=== PATIENT | female | born 1945 | race Caucasian/White ===

== ENCOUNTER 2022-03-09 10:01 | Emergency (ER) | payer OTHER, MEDICARE ==
--- OUTSIDE RECORDS SUMMARY | 2022-03-09 10:09 | XMS REPORT | Continuity of Care Document ---
:1945 Author Organization [facility] t Address [address] [place] [address] Care Team Providers Name Role Phone [phone] Primary Care Physician Unavailable SYSTEM, PROVIDER NOT IN Attending Clinician Unavailable RAMBO DE LA CRUZ Attending Clinician Unavailable KATELIN LUX Attending Clinician Unavailable _[facility]_Yadi Attending Clinician Unavailable Attending Clinician [phone] SHARON CABRAL Attending Clinician Unavailable Nadine Arceo Attending Clinician Unavailable Lesvia Son MD Attending Clinician Mark Ordonez DO Attending Clinician DUDLEY NG Attending Clinician Unavailable KENYATTA KURTZ Attending Clinician Unavailable MD KENYATTA KURTZ Attending Clinician Unavailable TERE OH Attending Clinician Unavailable Lab, Pcp Michael Attending Clinician Unavailable Chase Burton MD Attending Clinician CHASE BURTON Attending Clinician Unavailable SHANE STOCKTON Attending Clinician Unavailable ROSHAN OVIEDO Attending Clinician Unavailable JORJE MILES Attending Clinician Unavailable Doctor Unassigned, Bray Attending Clinician Unavailable UNKNOWN, ATTENDING Attending Clinician Unavailable Unknown, Attending Attending Clinician Unavailable Noemi Nova DO Attending Clinician CARL ROY Attending Clinician Unavailable LIZETH LOUIS Attending Clinician Unavailable KALA DAMICO Attending Clinician Unavailable MANOJ HANLEY Attending Clinician Unavailable Anuja Sweet Attending Clinician [phone] Maty Marroquin RN Attending Clinician Rich Sequeira MD Attending Clinician Raymond Mckeon S Attending Clinician Margarito Soto MD Attending Clinician Tarik Murphy S Attending Clinician CECILY SCHULTZ M.D. Attending Clinician Unavailable JOSHUA JOHNSTON Attending Clinician Unavailable AYAN LONDON Attending Clinician Unavailable NURA SULLIVAN M.D. Attending Clinician Unavailable RAMBO DE LA CRUZ Admitting Clinician Unavailable [email or web address] Admitting Clinician Unavailable KENYATTA KURTZ Admitting Clinician Unavailable MD KENYATTA KURTZ Admitting Clinician Unavailable CARL ROY Admitting Clinician Unavailable LIZETH LOUIS Admitting Clinician Unavailable KALA DAMICO Admitting Clinician Unavailable MANOJ HANLEY Admitting Clinician Unavailable Raymond Mckeon Admitting Clinician Payers Payer Name Policy Type Policy Number Effective Date Expiration Date Roland quinonez MEDICARE A B [id number] 2009 2018 00:00:00 00:00:00 [facility] [id number] 2009 HEALTHCARE 00:00:00 MEDICARE PART A [id number] 2009 AND B 00:00:00 [facility] [id number] 2009 ONLY 00:00:00 [place]ICARE B-[place]: [id number] 2009 [employer] 00:00:00 [facility] [id number] 2015 OPTIONS (MEDICARE 00:00:00 SUPPLEMENT) Problems Condition Condition Condition Status Onset Resolution Last Treating Co mments Source Name Details Category Date Date Treatment Clinician Date Decreased Decreased Disease Active Met hodi mobility mobility 01-16 and and 00:00: Hospita endurance endurance 00 l Impaired Impaired Disease Active Metho di functional functional 9-16 st mobility, mobility, 00:00: Hosp aris balance, balance, 00 l gait, and gait, and endurance endurance Vertigo Vertigo Disease Active Methodi 9-14 st 00:00: Hospita 00 l Partial Partial Disease Active Methodi tear tear 10-22 st gluteal gluteal 00:00: Hospita tendons, tendons, 00 l left side left side Vertigo Vertigo Disease Active [facility] 909 ity of 00:00: [place] 00 Medical Branch PAD PAD Disease Active [facility] (periphera (periphera 4-11 [facility] l artery l artery 00:00: Medica l disease) disease) 00 Center Right hip Right hip Disease Active Uni vers pain pain 3 ity of 00:00: [place] 00 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 00:00: Me dical a a 00 Center Right Right Problem Active [facility] shoulder shoulder Physic i pain pain ans Primary Primary Problem Active [facility] osteoarthr osteoarthr Ph ysici itis of itis of ans right right shoulder shoulder Allergies, Adverse Reactions, Alerts Allergy Allergy Status Severity Reaction(s) Onset Inactive Treating Comm ents Source Name Type Date Date Clinician Sulfa Propensi Active Unknown - Unive rs (Sulfona ty to See comments 11-18 it y of mide adverse 00:00: [place] Antibiot reaction 00 Medica l ics) s Branch SULFA Drug Active Unknown-Cmnt Univ ers (SULFONA Class - ity of MIDE 00:00: [place] ANTIBIOT 00 Medical ICS) Branch Sulfa Propensi Active Other (See Meth giancarlo (Sulfona ty to Comments) 11-18 st mide adverse 00:00: Hospita Antibiot reaction 00 l ics) s to drug CODEINE DRUG Active Nausea 2016-0 MD INGREDI 6-22 Anderso 00:00: n 00 PENICILL Drug Active Nausea 2016-0 MD INS Class 6-22 Anderso 00:00: n 00 CODEINE DRUG Active Nausea 2016-0 MD INGREDI 6-22 Anderso 00:00: n 00 PENICILL Drug Active Nausea 2016-0 MD INS Class 6-22 Anderso 00:00: n 00 CODEINE DRUG Active Nausea 2016-0 MD INGREDI 6-22 Anderso 00:00: n 00 PENICILL Drug Active Nausea 2016-0 MD INS Class 6-22 Anderso 00:00: n 00 CODEINE DRUG Active Nausea 2016-0 MD INGREDI 6-22 Anderso 00:00: n 00 PENICILL Drug Active Nausea 2016-0 MD INS Class 6-22 Anderso 00:00: n 00 CODEINE DRUG Active Nausea 2016-0 MD INGREDI 6-22 Anderso 00:00: n 00 PENICILL Drug Active Nausea 2016-0 MD INS Class 6-22 Anderso 00:00: n 00 CODEINE DRUG Active Nausea 2016-0 MD INGREDI 6-22 Anderso 00:00: n 00 PENICILL Drug Active Nausea 2016-0 MD INS Class 6-22 Anderso 00:00: n 00 CODEINE DRUG Active Nausea 2016-0 MD INGREDI 6-22 Anderso 00:00: n 00 PENICILL Drug Active Nausea 2016-0 MD INS Class 6-22 Anderso 00:00: n 00 Penicill Propensi Active Nausea 2013-0 Other Univer s ins ty to and/or 07 reaction( ity of adverse Vomiting 00:00: s): GI [place] reaction 00 Intoleran Medic al s ce Branch PENICILL Drug Active Low N/V 2013-0 Univers INS Class 4-07 ity of 00:00: [place] 00 Medical Branch CODEINE Allergy Active Low N\\T\\V 2013-[address] [facility] 4[facility]07 [facility] 00:[facility]: Medical 00 Center PENICILL Allergy Active Low N\\T\\V 2013-[address] [facility] [facility] INS 4-07 [facility] 00:00: Medical 00 [place] Codeine Drug Active Nausea And 2013-0 [facility] Allergy Vomiting 4-07 [facility] 00:00: Medical 00 [place] Penicill Drug Active Nausea And 2014-[address] [facility] [facility] ins Allergy Vomiting 4-07 [facility] 00:[facility]: Medical 00 Center Penicill Propensi Active Other (See Other Me thodi ins ty to Comments) 08-07 reaction( st adverse 00:00: s): GI Hospita reaction 00 Intoleran l s to ce drug Codeine Propensi Active Nausea Other Univers ty to and/or 12-30 reaction( ity of adverse Vomiting 00:00: s): GI [place] reaction 00 Intoleran Medic al s ce Branch CODEINE DRUG Active Low N/V Univers INGREDI 8 ity of 00:00: [place] 00 Medical Branch Codeine Propensi Active Other (See Other Met hodi ty to Comments) 12-30 reaction( st adverse 00:00: s): GI Hospita reaction 00 Intoleran l s to ce drug Family History Family Member Diagnosis Comments Start Date Stop Date Source Natural brother Heart attack [facility] Natural father No Known Problems Met [facility] Natural mother Heart disease [facility] Social History Social Habit Start Date Stop Date Quantity Comments Source History of tobacco Cigarette Smoker Sikhism use Hospital History SDRI Sikhism Alcohol Std Drinks Hospit al History SD[facility]ism Alcohol Binge Hospital Alcohol intake 2020-10-04 2020-10-04 Lifetime Sikhism 00:00:00 00:00:00 non-drinker Hospital (finding) History SDRI 2020-02-01 2020-02-01 1 Sikhism Alcohol Frequency 00:00:00 00:00:00 Hospita l Tobacco use and 2019-06-14 2019-06-[address] [facility] kes exposure 00:00:00 00:00:00 [facility] Tobacco Comment 2019-06-14 2019-06-14 quit > [address] [facility] 00:00:00 00:00:00 [facility] Cigarettes smoked 2019-06-05 2019-06-05 Univers ity of current (pack per 00:00:00 00:00:00 [facility] ) - Reported Branch Cigarette 2019-06-05 2019-06-05 University of pack-years 00:00:00 00:00:00 [facility] Sex Ass[birth year] At [birth year] Sikhism 00:00:00 00:00:00 Hospital Smoking Status Start Date Stop Date Source Former smoker 2019-06-05 00:00:00 2019-06-05 00:00:00 [facility] Medications Ordered Filled Start Stop Current Ordering Indication Dosage Frequency Signature Comments Components Source Medication Medication Date Date Medication? Clinician (SIG) Name Name metoprolol Yes 25mg QD Take [address] (TOPROL-XL) 6-03 by mouth Luke s 25 MG 24 hr 13:55: daily . Med ical tablet 21 Center BIFIDOBACTE Yes QD Take by [facility] RIUM 6-03 mouth [facility] INFANTIS 13:55: daily . Medica l (ALIGN 21 Center ORAL) multivitami Yes 1{capsu QD Take [address] n capsule 6- le} capsule by Luke s 13:55: mouth Medical 21 daily Center ALIVE MVI ONCE DAILY PO. atorvastati Yes 40mg QD Take [address] n (LIPITOR) 6-03 by mouth Luke s 40 MG 13:55: daily. Medical tablet 21 Center SERTRALINE Yes 50mg QD Take [address] HCL 6-03 by mouth [facility] (SERTRALINE 13:55: daily . Med ical ORAL) 21 Center zolpidem Yes 10mg Take [address] (AMBIEN) 10 603 by mouth Luke s mg tablet 13:55: every Medical 21 night as Center needed. estradiol Yes Place [facility] (ESTRACE) 6- vaginally [facility] 0.01 % (0.1 13:55: as needed M edical mg/gram) 21 . Center vaginal cream SENNOSIDES Yes Take by [facility] (SENOKOT 6-03 mouth as [facility] ORAL) 13:55: needed. Medical 21 Center cholecalcif Yes QD Take by [facility] janet, 6-03 mouth [facility] vitamin D3, 13:55: daily. Medi paramjit 2,000 unit 21 Center Cap ascorbic Yes 500mg QD Take [address] acid, 6-03 mg by [facility] vitamin C, 13:55: mouth Medica l (ASCORBIC 21 daily. Center ACID WITH PRERNA HIPS) 500 MG tablet rosuvastati Yes 10mg QD Take [address] n (CRESTOR) 6-03 by mouth Luke s 10 MG 13:55: daily. Medical tablet 21 Center estrogens, Yes Place [facility] conjugated 6-03 vaginally. Matt es (PREMARIN 13:55: Medical VAGL) 21 Center Missing or Yes Stool [facility] Non-Formula 6-03 softener Luke s ry 13:55: as needed Medical Medication 21 . [place] metoprolol Yes [id number] 25mg Take 1 U nivers succinate 1-14 tablet by ity o f XL 25 mg 24 00:00: mouth [place] hr tablet 00 daily. Medical Branch senna 2019-05 Yes 1{tbl} Take 1 Methodi (SENOKOT) 0-[address] 8.6 mg 14:02: mouth. Hospita tablet 19 l aspirin 2019-05 Yes 81mg Take 81 mg Meth giancarlo (ECOTRIN) 0-[address] 81 MG 14:02: Hospita enteric 19 l coated tablet ascorbic 2019-05 Yes 500mg Take 500 Meth giancarlo acid, 0-[address] vitamin C, 14:02: mouth. Hospi ta (VITAMIN C) 19 l 500 MG tablet traMADoL 2019-05 Yes [id number] 50mg Q6H Take 50 mg Me thodi (ULTRAM) 50 0-[address] mg tablet 14:02: every 6 Hospi ta 19 (six) l hours as needed for moderate pain .acute pain. dexlansopra Yes Method i zole 6-20 st (DEXILANT) 00:00: Hospita 60 mg 00 l capsule LOVAZA, 2020- No [id number] 2g Take 2 Un imtiaz omega-3-aci -28 - capsules ity of d ethyl 00:00: 04:59 by mouth 2 [place] as esters, 1 00 :00 (two) Medical gram times Branch capsule daily for 90 days. LOVAZA, 2019- No [id number] 2g Take 2 Un imtiaz omega-3-aci -28 -28 capsules ity of d ethyl 00:00: 04:59 by mouth 2 [place] as esters, 1 00 :00 (two) Medical gram times Branch capsule daily for 90 days. LOVAZA, 2019- No [id number] 2g Take 2 Un imtiaz omega-3-aci 4-28 07-28 capsules ity of d ethyl 00:00: 04:59 by mouth 2 [place] as esters, 1 00 :00 (two) Medical gram times Branch capsule daily for 90 days. LOVAZA, 2019- No [id number] 2g Take 2 Un imtiaz omega-3-aci 08-28 capsules ity of d ethyl 00:00: 04:59 by mouth 2 [place] as esters, 1 00 :00 (two) Medical gram times Branch capsule daily for 90 days. LOVAZA, 2019- No 2g Take 2 g Unive rs omega-3-aci 2 02-03 by mouth. it y of d ethyl 21:04: 00:00 [place] esters, 1 57 :00 Medical gram Branch capsule LOVAZA, 2019- No 2g Take 2 g Unive rs omega-3-aci 203 by mouth. it y of d ethyl 21:04: 00:00 [place] esters, 1 57 :00 Medical gram Branch capsule LOVAZA, 2019- No 2g Take 2 g Unive rs omega-3-aci 06-05 by mouth. it y of d ethyl 21:04: 00:00 [place] esters, 1 57 :00 Medical gram Branch capsule LOVAZA, 2019- No 2g Take 2 g Unive rs omega-3-aci 203 -03 by mouth. it y of d ethyl 21:04: 00:00 [place] esters, 1 57 :00 Medical gram Branch capsule zolpidem 10 2019- No 10mg Take 10 mg Univers mg tablet 06-05 by mouth. ity of 20:39: 00:00 34 :00 Medical Branch zolpidem 10 2019- No 10mg Take 10 mg Univers mg tablet 06-05 by mouth. ity of 20:39: 00:00 34 :00 Medical Branch zolpidem 10 2019- No 10mg Take 10 mg Univers mg tablet 06-05 by mouth. ity of 20:39: 00:00 34 :00 Medical Branch zolpidem 10 2020- No 10mg Take 10 mg Univers mg tablet 06-05 by mouth. ity of 20:39: 00:00 [place] 34 :00 Medical Branch metoprolol 2020-0 Yes [id number] 25mg Take 1 U nivers succinate 2-03 tablet by ity o f XL 25 mg 24 00:00: mouth [place] hr tablet 00 daily. Medical Branch zolpidem 2020-0 Yes [id number] 5mg Take 1 Uni vers (AMBIEN) 5 2-03 tablet by ity of mg tablet 00:00: [place] bedtime as Medical needed for Branch Insomnia. metoprolol 2020-0 Yes [id number] 25mg Take 1 U nivers succinate 2-03 tablet by ity o f XL 25 mg 24 00:00: mouth [place] hr tablet 00 daily. Medical Branch zolpidem 2020-0 Yes [id number] 5mg Take 1 Uni vers (AMBIEN) 5 2-03 tablet by ity of mg tablet 00:00: [place] 00 bedtime as Medical needed for Branch Insomnia. metoprolol 2020-0 Yes [id number] 25mg Take 1 U nivers succinate 2-03 tablet by ity o f XL 25 mg 24 00:00: mouth [place] hr tablet 00 daily. Medical Branch zolpidem 2020-0 Yes [id number] 5mg Take 1 Uni vers (AMBIEN) 5 2-03 tablet by ity of mg tablet 00:00: mouth [place] 00 bedtime as Medical needed for Branch Insomnia. metoprolol 2020-0 Yes [id number] 25mg Take 1 U nivers succinate 2-03 tablet by ity o f XL 25 mg 24 00:00: mouth [place] hr tablet 00 daily. Medical Branch zolpidem 2020-0 Yes [id number] 5mg Take 1 Uni vers (AMBIEN) 5 2-03 tablet by ity of mg tablet 00:00: mouth [place] 00 bedtime as Medical needed for Branch Insomnia. metoprolol 2020-0 Yes [id number] 25mg Take 1 U nivers succinate 2-03 tablet by ity o f XL 25 mg 24 00:00: mouth [place] hr tablet 00 daily. Medical Branch zolpidem 2020-0 Yes [id number] 5mg Take 1 Uni vers (AMBIEN) 5 2-03 tablet by ity of mg tablet 00:00: mouth [place] 00 bedtime as Medical needed for Branch Insomnia. metoprolol 2020-0 Yes [id number] 25mg Take 1 U nivers succinate 2-03 tablet by ity o f XL 25 mg 24 00:00: mouth [place] hr tablet 00 daily. Medical Branch zolpidem Yes [id number] 5mg Take 1 Uni vers (AMBIEN) 5 2-03 tablet by ity of mg tablet 00:00: mouth [place] 00 bedtime as Medical needed for Branch Insomnia. metoprolol Yes [id number] 25mg Take 1 U nivers succinate 2-03 tablet by ity o f XL 25 mg 24 00:00: mouth [place] hr tablet 00 daily. Medical Branch zolpidem Yes [id number] 5mg Take 1 Uni vers (AMBIEN) 5 2-03 tablet by ity of mg tablet 00:00: mouth [place] 00 bedtime as Medical needed for Branch Insomnia. zolpidem Yes [id number] 5mg Take 1 Uni vers (AMBIEN) 5 2-03 tablet by ity of mg tablet 00:00: [place] 00 bedtime as Medical needed for Branch Insomnia. zolpidem Yes 5mg Take 5 mg Meth giancarlo (AMBIEN) 5 2-[address] MG tablet 00:00: Hospita 00 l metoprolol 2020- No [id number] 25mg Take 1 Univers succinate 2-03 01-14 tablet by ity of XL 25 mg 24 00:00: 00:00 [place] hr tablet 00 :00 daily. Medical Branch LOVAZA, 2020- No [id number] 2g Take 2 Un imtiaz omega-3-aci 2-03 03-05 capsules ity of d ethyl 00:00: 05:59 by mouth 2 [place] as esters, 1 00 :00 (two) Medical gram times Branch capsule daily for 30 days. LOVAZA, 2020- No [id number] 2g Take 2 Un imtiaz omega-3-aci 2-03 03-05 capsules ity of d ethyl 00:00: 05:59 by mouth 2 [place] as esters, 1 00 :00 (two) Medical gram times Branch capsule daily for 30 days. calcium 2018-05 Yes [id number] 1{tbl} Take 1 Un imtiaz carbonate-v 2-27 tablet by ity of itamin D3 00:00: mouth [place] 600 mg 00 daily. Medical (1,500 Branch mg)-800 unit per tablet calcium 2018-05 Yes [id number] 1{tbl} Take 1 Un imtiaz carbonate-v 2-27 tablet by ity of itamin D3 00:00: mouth [place] 600 mg 00 daily. Medical (1,500 Branch mg)-800 unit per tablet calcium 2018-05 Yes [id number] 1{tbl} Take 1 Un imtiaz carbonate-v 2-27 tablet by ity of itamin D3 00:00: mouth [place] 600 mg 00 daily. Medical (1,500 Branch mg)-800 unit per tablet calcium 2018-05 Yes [id number] 1{tbl} Take 1 Un imtiaz carbonate-v 2-27 tablet by ity of itamin D3 00:00: mouth [place] 600 mg 00 daily. Medical (1,500 Branch mg)-800 unit per tablet calcium 2018-05 Yes [id number] 1{tbl} Take 1 Un imtiaz carbonate-v 2-27 tablet by ity of itamin D3 00:00: mouth [place] 600 mg 00 daily. Medical (1,500 Branch mg)-800 unit per tablet calcium 2018-05 Yes [id number] 1{tbl} Take 1 Un imtiaz carbonate-v 2-27 tablet by ity of itamin D3 00:00: mouth [place] 600 mg 00 daily. Medical (1,500 Branch mg)-800 unit per tablet calcium 2018-05 Yes [id number] 1{tbl} Take 1 Un imtiaz carbonate-v 2-27 tablet by ity of itamin D3 00:00: mouth [place] 600 mg 00 daily. Medical (1,500 Branch mg)-800 unit per tablet calcium 2018-05 Yes [id number] 1{tbl} Take 1 Un imtiaz carbonate-v 2-27 tablet by ity of itamin D3 00:00: mouth [place] 600 mg 00 daily. Medical (1,500 Branch mg)-800 unit per tablet calcium 2018-05 Yes [id number] 1{tbl} Take 1 Un imtiaz carbonate-v 2-27 tablet by ity of itamin D3 00:00: mouth [place] 600 mg 00 daily. Medical (1,500 Branch mg)-800 unit per tablet calcium 2018-05 Yes [id number] 1{tbl} Take 1 Un imtiaz carbonate-v 2-27 tablet by ity of itamin D3 00:00: mouth [place] 600 mg 00 daily. Medical (1,500 Branch mg)-800 unit per tablet calcium 2018-05 Yes [id number] 1{tbl} Take 1 Un imtiaz carbonate-v 2-27 tablet by ity of itamin D3 00:00: mouth [place] 600 mg 00 daily. Medical (1,500 Branch mg)-800 unit per tablet calcium 2018-05 Yes [id number] 1{tbl} Take 1 Un imtiaz carbonate-v 2-27 tablet by ity of itamin D3 00:00: mouth [place] 600 mg 00 daily. Medical (1,500 Branch mg)-800 unit per tablet acyclovir 2018-05 Yes [id number] Apply to Univers % ointment 2-19 area(s) 5 ity of 00:00: (five) [place] 00 times Medical daily. [place] estradiol 2018-05 Yes [id number] 2g Insert 2 g Univers 0.01 % (0.1 2-19 into ity of mg/gram) 00:00: vagina [place] vaginal 00 weekly. Medical cream [place] acyclovir 2018-05 Yes [id number] Apply to Univers % ointment 2-19 area(s) 5 ity of 00:00: (five) [place] 00 times Medical daily. [place] estradiol 2018-05 Yes [id number] 2g Insert 2 g Univers 0.01 % (0.1 2-19 into ity of mg/gram) 00:00: vagina [place] vaginal 00 weekly. Medical cream [place] acyclovir 2018-05 Yes [id number] Apply to Univers % ointment 2-19 area(s) 5 ity of 00:00: (five) [place] 00 times Medical daily. [place] estradiol 2018-05 Yes [id number] 2g Insert 2 g Univers 0.01 % (0.1 2-19 into ity of mg/gram) 00:00: vagina [place] vaginal 00 weekly. Medical cream [place] acyclovir 2018-05 Yes [id number] Apply to Univers % ointment 2-19 area(s) 5 ity of 00:00: (five) [place] 00 times Medical daily. [place] estradiol 2018-05 Yes [id number] 2g Insert 2 g Univers 0.01 % (0.1 2-19 into ity of mg/gram) 00:00: vagina [place] vaginal 00 weekly. Medical cream [place] acyclovir 2018-05 Yes [id number] Apply to Univers % ointment 2-19 area(s) 5 ity of 00:00: (five) [place] 00 times Medical daily. Branch estradiol 2018-05 Yes [id number] 2g Insert 2 g Univers 0.01 % (0.1 2-19 into ity of mg/gram) 00:00: vagina [place] vaginal 00 weekly. Medical cream [place] acyclovir 2018-05 Yes [id number] Apply to Univers % ointment 2-19 area(s) 5 ity of 00:00: (five) [place] 00 times Medical daily. Branch estradiol 2018-05 Yes [id number] 2g Insert 2 g Univers 0.01 % (0.1 2-19 into ity of mg/gram) 00:00: vagina [place] vaginal 00 weekly. Medical cream [place] acyclovir 2018-05 Yes [id number] Apply to Univers % ointment 2-19 area(s) 5 ity of 00:00: (five) [place] 00 times Medical daily. Branch estradiol 2018-05 Yes [id number] 2g Insert 2 g Univers 0.01 % (0.1 2-19 into ity of mg/gram) 00:00: vagina [place] vaginal 00 weekly. Medical cream [place] acyclovir 2018-05 Yes [id number] Apply to Univers % ointment 2-19 area(s) 5 ity of 00:00: (five) [place] 00 times Medical daily. Branch estradiol 2018-05 Yes [id number] 2g Insert 2 g Univers 0.01 % (0.1 2-19 into ity of mg/gram) 00:00: vagina [place] vaginal 00 weekly. Medical cream [place] acyclovir 2018-05 Yes [id number] Apply to Univers % ointment 2-19 area(s) 5 ity of 00:00: (five) [place] 00 times Medical daily. Branch estradiol 2018-05 Yes [id number] 2g Insert 2 g Univers 0.01 % (0.1 2-19 into ity of mg/gram) 00:00: vagina [place] vaginal 00 weekly. Medical cream [place] acyclovir 2018-05 Yes [id number] Apply to Univers % ointment 2-19 area(s) 5 ity of 00:00: (five) [place] 00 times Medical daily. Branch estradiol 2018-05 Yes [id number] 2g Insert 2 g Univers 0.01 % (0.1 2-19 into ity of mg/gram) 00:00: vagina [place] vaginal 00 weekly. Medical cream Branch acyclovir 5 2018-05 Yes [id number] Apply to Univers % ointment 2-19 area(s) 5 ity of 00:00: (five) [place] 00 times Medical daily. Branch estradiol 2018-05 Yes [id number] 2g Insert 2 g Univers 0.01 % (0.1 2-19 into ity of mg/gram) 00:00: vagina [place] vaginal 00 weekly. Medical cream Branch acyclovir 5 2018-05 Yes [id number] Apply to Univers % ointment 2-19 area(s) 5 ity of 00:00: (five) [place] 00 times Medical daily. Branch estradiol 2018-05 Yes [id number] 2g Insert 2 g Univers 0.01 % (0.1 2-19 into ity of mg/gram) 00:00: vagina [place] vaginal 00 weekly. Medical cream Branch estradioL 2018-05 Yes 2g Insert 2 g Me thodi (ESTRACE) 2-[address] 0.01 % (0.1 00:00: vagina. Hos marshall mg/gram) 00 l vaginal cream atorvastati 2018-05 Yes [id number] 40mg Take 1 Univers n 40 mg 2-17 tablet by ity of tablet 00:00: mouth at [place] 00 bedtime. Medical Branch metoprolol 2018-05 Yes [id number] 25mg Take 1 U nivers succinate 2-17 tablet by ity o f XL 25 mg 24 00:00: mouth [place] hr tablet 00 daily. Medical Branch SERTraline 2018-05 Yes [id number] 100mg Take 1 Univers 100 mg 2-17 tablet by ity of tablet 00:00: mouth [place] 00 daily. Medical Take 1/2 Branch tablet daily predniSONE 2018-05 Yes [id number] Take 30 mg Univers 10 mg 2-17 (3 tabs) Q ity of tablet pack 00:00: AM x 3 [place] 00 days, Medical followed Branch by 20 mg (2 tabs) Q AM x 3 days followed by 10 mg (1 tab) x 3 days then stop atorvastati 2018-05 Yes [id number] 40mg Take 1 Univers n 40 mg 2-17 tablet by ity of tablet 00:00: mouth at [place] [address] bedtime. Medical Branch SERTraline 2018-05 Yes [id number] 100mg Take 1 Univers 100 mg 2-17 tablet by ity of tablet 00:00: mouth [place] 00 daily. Medical Take 1/2 Branch tablet daily atorvastati 2018-05 Yes [id number] 40mg Take 1 Univers n 40 mg 2-17 tablet by ity of tablet 00:00: mouth at [place] 00 bedtime. Medical Branch SERTraline 2018-05 Yes [id number] 100mg Take 1 Univers 100 mg 2-17 tablet by ity of tablet 00:00: mouth [place] 00 daily. Medical Take 1/2 Branch tablet daily atorvastati 2018-05 Yes [id number] 40mg Take 1 Univers n 40 mg 2-17 tablet by ity of tablet 00:00: mouth at [place] 00 bedtime. Medical Branch SERTraline 2018-05 Yes [id number] 100mg Take 1 Univers 100 mg 2-17 tablet by ity of tablet 00:00: mouth [place] 00 daily. Medical Take 1/2 Branch tablet daily atorvastati 2018-05 Yes [id number] 40mg Take 1 Univers n 40 mg 2-17 tablet by ity of tablet 00:00: mouth at [place] 00 bedtime. Medical Branch SERTraline 2018-05 Yes [id number] 100mg Take 1 Univers 100 mg 2-17 tablet by ity of tablet 00:00: mouth [place] 00 daily. Medical Take 1/2 Branch tablet daily atorvastati 2018-05 Yes [id number] 40mg Take 1 Univers n 40 mg 2-17 tablet by ity of tablet 00:00: mouth at [place] 00 bedtime. Medical Branch SERTraline 2018-05 Yes [id number] 100mg Take 1 Univers 100 mg 2-17 tablet by ity of tablet 00:00: mouth [place] 00 daily. Medical Take 1/2 Branch tablet daily atorvastati 2018-05 Yes [id number] 40mg Take 1 [facility] n 40 mg 2-17 tablet by ity of tablet 00:00: mouth at [place] 00 bedtime. Medical Branch SERTraline 2018-05 Yes [id number] 100mg Take 1 [facility] 100 mg 2-17 tablet by ity of tablet 00:00: mouth [place] 00 daily. Medical Take 1/2 Branch tablet daily atorvastati 2018-05 Yes [id number] 40mg Take 1 [facility] n 40 mg 2-17 tablet by ity of tablet 00:00: mouth at [place] 00 bedtime. Medical Branch SERTraline 2018-05 Yes [id number] 100mg Take 1 [facility] 100 mg 2-17 tablet by ity of tablet 00:00: mouth [place] 00 daily. Medical Take 1/2 Branch tablet daily atorvastati 2018-05 Yes [id number] 40mg Take 1 [facility] n 40 mg 2-17 tablet by ity of tablet 00:00: mouth at [place] 00 bedtime. Medical Branch SERTraline 2018-05 Yes [id number] 100mg Take 1 [facility] 100 mg 2-17 tablet by ity of tablet 00:00: mouth [place] 00 daily. Medical Take 1/2 Branch tablet daily atorvastati 2018-05 Yes [id number] 40mg Take 1 [facility] n 40 mg 2-17 tablet by ity of tablet 00:00: mouth at [place] 00 bedtime. Medical Branch SERTraline 2018-05 Yes [id number] 100mg Take 1 [facility] 100 mg 2-17 tablet by ity of tablet 00:00: mouth [place] 00 daily. Medical Take 1/2 Branch tablet daily atorvastati 2018-05 Yes [id number] 40mg Take 1 [facility] n 40 mg 2-17 tablet by ity of tablet 00:00: mouth at [place] 00 bedtime. Medical Branch SERTraline 2018-05 Yes [id number] 100mg Take 1 [facility] 100 mg 2-17 tablet by ity of tablet 00:00: mouth [place] 00 daily. Medical Take 1/2 Branch tablet daily atorvastati 2018-05 Yes [id number] 40mg Take 1 [facility] n 40 mg 2-17 tablet by ity of tablet 00:00: mouth at [place] 00 bedtime. Medical Branch SERTraline 2018-05 Yes [id number] 100mg Take 1 [facility] 100 mg 2-17 tablet by ity of tablet 00:00: mouth [place] 00 daily. Medical Take 1/2 Branch tablet daily metoprolol 2018-05 2020- No [id number] 25mg Take 1 [facility] succinate 2-17 -03 tablet by ity of XL 25 mg 24 00:00: 00:00 [place] hr tablet 00 :00 daily. [facility] predniSONE 2018-05 2020- No [id number] Take 30 mg [facility] 10 mg 2-17 - (3 tabs) Q ity of tablet pack 00:00: 00:00 AM x 3 [place] 00 :00 days, Medical followed Branch by 20 mg (2 tabs) Q AM x 3 days followed by 10 mg (1 tab) x 3 days then stop metoprolol 2018-05- No [id number] 25mg Take 1 [facility] succinate 06-19- tablet by ity of XL 25 mg 24 00:00: 00:00 mouth [place] hr tablet 00 :00 daily. [facility] predniSONE 2018-05- No [id number] Take 30 mg [facility] 10 mg 06-19- (3 tabs) Q ity of tablet pack 00:00: 00:00 AM x 3 [place] 00 :00 days, Medical followed Branch by 20 mg (2 tabs) Q AM x 3 days followed by 10 mg (1 tab) x 3 days then stop metoprolol 2018-05- No [id number] 25mg Take 1 [facility] succinate 06-19 tablet by ity of XL 25 mg 24 00:00: 00:00 mouth [place] hr tablet 00 :00 daily. [facility] predniSONE 2018-05- No [id number] Take 30 mg [facility] 10 mg 06-19 (3 tabs) Q ity of tablet pack 00:00: 00:00 AM x 3 [place] 00 :00 days, Medical followed Branch by 20 mg (2 tabs) Q AM x 3 days followed by 10 mg (1 tab) x 3 days then stop metoprolol 2018-05- No [id number] 25mg Take 1 [facility] succinate 06-19 tablet by ity of XL 25 mg 24 00:00: 00:00 mouth [place] hr tablet 00 :00 daily. [facility] Branch predniSONE 2018-05- No [id number] Take 30 mg [facility] 10 mg 06-19 (3 tabs) Q ity of tablet pack 00:00: 00:00 AM x 3 [place] 00 :00 days, Medical followed Branch by 20 mg (2 tabs) Q AM x 3 days followed by 10 mg (1 tab) x 3 days then stop montelukast 2018-05 Yes [id number] 10mg Take 1 [facility] (SINGULAIR) 2-15 tablet by ity of 10 mg 00:00: mouth [place] tablet 00 daily. Medical Branch albuterol 2018-05 Yes [id number] 2.5mg Inhale 3 [facility] 2.5 mg /3 2-15 mL every 6 ity of mL (0.083 00:00: (six) [place] %) 00 hours as Medical nebulizer needed for Bran ch solution Wheezing or Shortness of Breath. May also nebulize one extra every 6 hours. loratadine 2018-05 Yes [id number] 10mg Take 1 U nivers 10 mg 2-15 tablet by ity of tablet 00:00: mouth [place] 00 daily. Medical Branch montelukast 2018-05 Yes [id number] 10mg Take 1 [facility] (SINGULAIR) 2-15 tablet by ity of 10 mg 00:00: mouth [place] tablet 00 daily. Medical Branch albuterol 2018-05 Yes [id number] 2.5mg Inhale 3 [facility] 2.5 mg /3 2-15 mL every 6 ity of mL (0.083 00:00: (six) [place] %) 00 hours as Medical nebulizer needed for Bran ch solution Wheezing or Shortness of Breath. May also nebulize one extra every 6 hours. loratadine 2018-05 Yes [id number] 10mg Take 1 U nivers 10 mg 2-15 tablet by ity of tablet 00:00: mouth [place] 00 daily. Medical Branch montelukast 2018-05 Yes [id number] 10mg Take 1 [facility] (SINGULAIR) 2-15 tablet by ity of 10 mg 00:00: mouth [place] tablet 00 daily. Medical Branch albuterol 2018-05 Yes [id number] 2.5mg Inhale 3 [facility] 2.5 mg /3 2-15 mL every 6 ity of mL (0.083 00:00: (six) [place] %) 00 hours as Medical nebulizer needed for Bran ch solution Wheezing or Shortness of Breath. May also nebulize one extra every 6 hours. loratadine 2018-05 Yes [id number] 10mg Take 1 U nivers 10 mg 2-15 tablet by ity of tablet 00:00: mouth [place] 00 daily. Medical Branch montelukast 2018-05 Yes [id number] 10mg Take 1 [facility] (SINGULAIR) 2-15 tablet by ity of 10 mg 00:00: mouth [place] tablet 00 daily. Medical Branch albuterol 2018-05 Yes [id number] 2.5mg Inhale 3 [facility] 2.5 mg /3 2-15 mL every 6 ity of mL (0.083 00:00: (six) [place] %) 00 hours as Medical nebulizer needed for Bran ch solution Wheezing or Shortness of Breath. May also nebulize one extra every 6 hours. loratadine 2018-05 Yes [id number] 10mg Take 1 U nivers 10 mg 2-15 tablet by ity of tablet 00:00: mouth [place] 00 daily. Medical Branch montelukast 2018-05 Yes [id number] 10mg Take 1 [facility] (SINGULAIR) 2-15 tablet by ity of 10 mg 00:00: mouth [place] tablet 00 daily. Medical Branch albuterol 2018-05 Yes [id number] 2.5mg Inhale 3 [facility] 2.5 mg /3 2-15 mL every 6 ity of mL (0.083 00:00: (six) [place] %) 00 hours as Medical nebulizer needed for Bran ch solution Wheezing or Shortness of Breath. May also nebulize one extra every 6 hours. loratadine 2018-05 Yes [id number] 10mg Take 1 U nivers 10 mg 2-15 tablet by ity of tablet 00:00: mouth [place] 00 daily. Medical Branch montelukast 2018-05 Yes [id number] 10mg Take 1 [facility] (SINGULAIR) 2-15 tablet by ity of 10 mg 00:00: mouth [place] tablet 00 daily. Medical Branch albuterol 2018-05 Yes [id number] 2.5mg Inhale 3 [facility] 2.5 mg /3 2-15 mL every 6 ity of mL (0.083 00:00: (six) [place] %) 00 hours as Medical nebulizer needed for Bran ch solution Wheezing or Shortness of Breath. May also nebulize one extra every 6 hours. loratadine 2018-05 Yes [id number] 10mg Take 1 U nivers 10 mg 2-15 tablet by ity of tablet 00:00: mouth [place] 00 daily. Medical Branch montelukast 2018-05 Yes [id number] 10mg Take 1 [facility] (SINGULAIR) 2-15 tablet by ity of 10 mg 00:00: mouth [place] tablet 00 daily. Medical Branch albuterol 2018-05 Yes [id number] 2.5mg Inhale 3 [facility] 2.5 mg /3 2-15 mL every 6 ity of mL (0.083 00:00: (six) [place] %) 00 hours as Medical nebulizer needed for Bran ch solution Wheezing or Shortness of Breath. May also nebulize one extra every 6 hours. loratadine 2018-05 Yes [id number] 10mg Take 1 U nivers 10 mg 2-15 tablet by ity of tablet 00:00: mouth [place] 00 daily. Medical Branch montekast 2018-05 Yes [id number] 10mg Take 1 [facility] (SINGULAIR) 2-15 tablet by ity of 10 mg 00:00: mouth [place] tablet 00 daily. Medical Branch albuterol 2018-05 Yes [id number] 2.5mg Inhale 3 [facility] 2.5 mg /3 2-15 mL every 6 ity of mL (0.083 00:00: (six) [place] %) 00 hours as Medical nebulizer needed for Bran ch solution Wheezing or Shortness of Breath. May also nebulize one extra every 6 hours. loratadine 2018-05 Yes [id number] 10mg Take 1 U nivers 10 mg 2-15 tablet by ity of tablet 00:00: mouth [place] [facility] Yes [id number] 10mg Take 1 [facility] (SINGULAIR) 2-15 tablet by ity of 10 mg 00:00: mouth [place] tablet 00 daily. Medical Branch albuterol 2018-05 Yes [id number] 2.5mg Inhale 3 [facility] 2.5 mg /3 2-15 mL every 6 ity of mL (0.083 00:00: (six) [place] %) 00 hours as Medical nebulizer needed for Bran ch solution Wheezing or Shortness of Breath. May also nebulize one extra every 6 hours. loratadine 2018-05 Yes [id number] 10mg Take 1 U nivers 10 mg 2-15 tablet by ity of tablet 00:00: mouth [place] 00 [facility]. [facility] [id number] 10mg Take 1 [facility] (SINGULAIR) 2-15 tablet by ity of 10 mg 00:00: mouth [place] tablet 00 daily. Medical Branch albuterol 2018-05 Yes [id number] 2.5mg Inhale 3 [facility] 2.5 mg /3 2-15 mL every 6 ity of mL (0.083 00:00: (six) [place] %) 00 hours as Medical nebulizer needed for Bran ch solution Wheezing or Shortness of Breath. May also nebulize one extra every 6 hours. loratadine 2018-05 Yes [id number] 10mg Take 1 U nivers 10 mg 2-15 tablet by ity of tablet 00:00: mouth [place] 00 daily. Medical Branch montelukast 2018-05 Yes [id number] 10mg Take 1 [facility] (SINGULAIR) 2-15 tablet by ity of 10 mg 00:00: mouth [place] tablet 00 daily. Medical Branch albuterol 2018-05 Yes [id number] 2.5mg Inhale 3 [facility] 2.5 mg /3 2-15 mL every 6 ity of mL (0.083 00:00: (six) [place] %) 00 hours as Medical nebulizer needed for Bran ch solution Wheezing or Shortness of Breath. May also nebulize one extra every 6 hours. loratadine 2018-05 Yes [id number] 10mg Take 1 U nivers 10 mg 2-15 tablet by ity of tablet 00:00: mouth [place] 00 daily. Medical Branch montelukast 2018-05 Yes [id number] 10mg Take 1 [facility] (SINGULAIR) 2-15 tablet by ity of 10 mg 00:00: mouth [place] tablet 00 daily. Medical Branch albuterol 2018-05 Yes [id number] 2.5mg Inhale 3 [facility] 2.5 mg /3 2-15 mL every 6 ity of mL (0.083 00:00: (six) [place] %) 00 hours as Medical nebulizer needed for Bran ch solution Wheezing or Shortness of Breath. May also nebulize one extra every 6 hours. loratadine 2018-05 Yes [id number] 10mg Take 1 U nivers 10 mg 2-15 tablet by ity of tablet 00:00: mouth [place] 00 daily. Medical Branch rosuvastati 2018-05- No Un[facility] rs n 10 mg 06-14 ity of tablet 00:00: 00:00 [place] 00 :00 Medical Branch rosuvastati 2018-05- No Unive rs n 10 mg 06-14 ity of tablet 00:00: 00:00 [place] 00 :00 Medical Branch Nebulizer & 2018- Yes [id number] Use as [facility] Compressor 2-06 directed ity o f For Neb 00:00: [place] 00 Medical Branch Nebulizer & 2018- Yes [id number] Use as [facility] Compressor 2-06 directed ity o f For Neb 00:00: [place] 00 Medical Branch Nebulizer & 2018- Yes [id number] Use as [facility] Compressor 2-06 directed ity o f For Neb 00:00: Medical Branch Nebulizer & 2018- Yes [id number] Use as [facility] Compressor 2-06 directed ity o f For Neb 00:00: Medical Branch Nebulizer & 2018- Yes [id number] Use as [facility] Compressor 2-06 directed ity o f For Neb 00:00: Medical Branch Nebulizer & 2018- Yes [id number] Use as [facility] Compressor 2-06 directed ity o f For Neb 00:00: Medical Branch Nebulizer & 2018-05 Yes [id number] Use as [facility] Compressor 2-06 directed ity o f For Neb 00:00: Medical Branch Nebulizer & 2018- Yes [id number] Use as [facility] Compressor 2-06 directed ity o f For Neb 00:00: Medical Branch Nebulizer & 2018-05 Yes [id number] Use as [facility] Compressor 2-06 directed ity o f For Neb 00:00: Medical Branch Nebulizer & 2018-05 Yes [id number] Use as [facility] Compressor 2-06 directed ity o f For Neb 00:00: Medical Branch Nebulizer & 2018-05 Yes [id number] Use as [facility] Compressor 2-06 directed ity o f For Neb 00:00: Medical Branch Nebulizer & 2018-05 Yes [id number] Use as [facility] Compressor 2-06 directed ity o f For Neb 00:00: [place] [facility] zolpidem 10 2018-05 Yes 10mg Take 10 mg Univers mg tablet 2-03 by mouth. ity o f 17:07: [address] Branch LOVAZA, 2019- Yes 2g Take 2 g Univer s omega-3-aci 2-03 by mouth. ity of d ethyl 17:07: [address] Branch capsule aspirin 81 2018- Yes 81mg Take 81 mg U nivers mg EC 2-03 by mouth. ity of tablet 17:07: [address] Branch aspirin 81 2018- Yes 81mg Take 81 mg U nivers mg EC 2-03 by mouth. ity of tablet 17:07: [address] Branch aspirin 81 2019- Yes 81mg Take 81 mg U nivers mg EC 2-03 by mouth. ity of tablet 17:07: [address] Branch aspirin 81 2019- Yes 81mg Take 81 mg U nivers mg EC 2-03 by mouth. ity of tablet 17:07: [address] aspirin 81 2019- Yes 81mg Take 81 mg U nivers mg EC 2-03 by mouth. ity of tablet 17:07: [address] aspirin 81 2019- Yes 81mg Take 81 mg U nivers mg EC 2-03 by mouth. ity of tablet 17:07: [address] Branch aspirin 81 2019- Yes 81mg Take 81 mg U nivers mg EC 2-03 by mouth. ity of tablet 17:07: [address] aspirin 81 2019- Yes 81mg Take 81 mg U nivers mg EC 2-03 by mouth. ity of tablet 17:07: [address] aspirin 81 2019- Yes 81mg Take 81 mg U nivers mg EC 2-03 by mouth. ity of tablet 17:07: [address] aspirin 81 2018- Yes 81mg Take 81 mg U nivers mg EC 2-03 by mouth. ity of tablet 17:07: [address] aspirin 81 2018- Yes 81mg Take 81 mg U nivers mg EC 2-03 by mouth. ity of tablet 17:07: [address] aspirin 81 2018- Yes 81mg Take 81 mg U nivers mg EC 2-03 by mouth. ity of tablet 17:07: [address] Branch prednisoLON 2019- Yes Univer s E acetate 1 1-20 ity of % 00:00: [place] ophthalmic 00 Medical suspension Branch drops prednisoLON 2019- Yes Univer s E acetate 1 1-20 ity of % 00:00: [place] ophthalmic 00 Medical suspension Branch drops prednisoLON 2019- Yes Univer s E acetate 1 1-20 ity of % 00:00: [place] ophthalmic 00 Medical suspension Branch drops prednisoLON 2019- Yes Univer s E acetate 1 1-20 ity of % 00:00: [place] ophthalmic 00 Medical suspension Branch drops prednisoLON 2019- Yes Univer s E acetate 1 1-20 ity of % 00:00: [place] ophthalmic 00 Medical suspension Branch drops prednisoLON 2019- Yes Univer s E acetate 1 1-20 ity of % 00:00: [place] ophthalmic 00 Medical suspension Branch drops prednisoLON 2018- Yes Univer s E acetate 1 -20 ity of % 00:00: [place] ophthalmic 00 Medical suspension Branch drops prednisoLON 2018- Yes Univer s E acetate 1 -20 ity of % 00:00: [place] ophthalmic 00 Medical suspension Branch drops aspirin 81 2018- Yes 81mg Take 81 mg U nivers mg EC 9-13 by mouth. ity of tablet 00:09: [address] Branch zolpidem 10 Yes 10mg Take 10 mg Univers mg tablet 9-13 by mouth. ity o f 00:09: [address] LOVAZA, Yes 2g Take 2 g Univer s omega-3-aci 9-13 by mouth. ity of d ethyl 00:09: [place] esters, 1 37 Medical gram Branch capsule metoprolol Yes 25mg Take 25 mg U nivers succinate 9-13 by mouth. ity o f XL 25 mg 24 00:09: [place] hr tablet Medical Branch aspirin 81 Yes 81mg Take 81 mg U nivers mg EC 9-13 by mouth. ity of tablet 00:09: [address] Branch zolpidem 10 Yes 10mg Take 10 mg Univers mg tablet 9-13 by mouth. ity o f 00:09: [address] LOVAZA, Yes 2g Take 2 g Univer s omega-3-aci 9-13 by mouth. ity of d ethyl 00:09: [place] esters, 1 37 Medical gram Branch capsule metoprolol Yes 25mg Take 25 mg U nivers succinate 9-13 by mouth. ity o f XL 25 mg 24 00:09: [place] hr tablet Medical Branch aspirin 81 2018- Yes 81mg Take 81 mg U nivers mg EC 9-13 by mouth. ity of tablet 00:09: [address] Branch zolpidem 10 Yes 10mg Take 10 mg Univers mg tablet 9-13 by mouth. ity o f 00:09: [address] LOVAZA, Yes 2g Take 2 g Univer s omega-3-aci 9-13 by mouth. ity of d ethyl 00:09: [place] esters, 1 37 Medical gram Branch capsule metoprolol Yes 25mg Take 25 mg U nivers succinate 9-13 by mouth. ity o f XL 25 mg 24 00:09: [facility] tablet 37 Medical Branch aspirin 81 Yes 81mg Take 81 mg U nivers mg EC 9-13 by mouth. ity of tablet 00:09: [place] [address] Medical Branch zolpidem 10 Yes 10mg Take 10 mg Univers mg tablet 9-13 by mouth. ity o f 00:09: [address] Branch LOVAZA, Yes 2g Take 2 g Univer s omega-3-aci 9-13 by mouth. ity of d ethyl 00:09: [place] esters, 1 37 Medical gram Branch capsule metoprolol Yes 25mg Take 25 mg U nivers succinate 9-13 by mouth. ity o f XL 25 mg 24 00:09: [facility] tablet Medical Branch aspirin 81 Yes 81mg Take 81 mg U nivers mg EC 9-13 by mouth. ity of tablet 00:09: [address] Branch zolpidem 10 Yes 10mg Take 10 mg Univers mg tablet 9-13 by mouth. ity o f 00:09: [address] LOVAZA, Yes 2g Take 2 g Univer s omega-3-aci 9-13 by mouth. ity of d ethyl 00:09: [place] esters, 1 37 Medical gram Branch capsule metoprolol Yes 25mg Take 25 mg U nivers succinate 9-13 by mouth. ity o f XL 25 mg 24 00:09: [facility] tablet Medical Branch aspirin 81 Yes 81mg Take 81 mg U nivers mg EC 9-13 by mouth. ity of tablet 00:09: [address] Branch zolpidem 10 Yes 10mg Take 10 mg Univers mg tablet 9-13 by mouth. ity o f 00:09: [address] Branch LOVAZA, Yes 2g Take 2 g Univer s omega-3-aci 9-13 by mouth. ity of d ethyl 00:09: [place] esters, 1 37 Medical gram Branch capsule metoprolol Yes 25mg Take 25 mg U nivers succinate 9-13 by mouth. ity o f XL 25 mg 24 00:09: [place] hr tablet 37 Medical Branch acyclovir 5 Yes [id number] Apply to Univers % ointment 9-12 area(s) 5 ity of 00:00: (five) [place] 00 times Medical daily. Branch atorvastati Yes [id number] 40mg Take 1 [facility] n 40 mg 9-12 tablet by ity of tablet 00:00: mouth at [place] 00 bedtime. Medical Branch meclizine Yes [id number] 12.5mg Take 1 [facility] 12.5 mg 9-12 tablet by ity of tablet 00:00: mouth 2 [place] 00 (two) Medical times Branch daily. proMETHazin 2018- Yes [id number] 12.5mg Take 0.5 Univers e 25 mg 9-12 tablets by ity of tablet 00:00: mouth [place] 00 every 6 Medical (six) Branch hours as needed for Nausea and Vomiting (N/V). acyclovir 5 Yes [id number] Apply to Univers % ointment 9-12 area(s) 5 ity of 00:00: (five) [place] 00 times Medical daily. Branch atorvastati Yes [id number] 40mg Take 1 [facility] n 40 mg 9-12 tablet by ity of tablet 00:00: mouth at [place] 00 bedtime. Medical Branch meclizine Yes [id number] 12.5mg Take 1 [facility] 12.5 mg 9-12 tablet by ity of tablet 00:00: mouth 2 [place] 00 (two) Medical times Branch daily. proMETHazin 2018- Yes [id number] 12.5mg Take 0.5 Univers e 25 mg 9-12 tablets by ity of tablet 00:00: mouth [place] 00 every 6 Medical (six) Branch hours as needed for Nausea and Vomiting (N/V). acyclovir 5 Yes [id number] Apply to Univers % ointment 9-12 area(s) 5 ity of 00:00: (five) [place] 00 times Medical daily. Branch atorvastati Yes [id number] 40mg Take 1 Univers n 40 mg 9-12 tablet by ity of tablet 00:00: mouth at [place] 00 bedtime. Medical Branch meclizine Yes [id number] 12.5mg Take 1 Univers 12.5 mg 9-12 tablet by ity of tablet 00:00: mouth 2 [place] 00 (two) Medical times Branch daily. proMETHazin 2019- Yes [id number] 12.5mg Take 0.5 Univers e 25 mg 9-12 tablets by ity of tablet 00:00: mouth [place] 00 every 6 Medical (six) Branch hours as needed for Nausea and Vomiting (N/V). acyclovir 5 Yes [id number] Apply to Univers % ointment 9-12 area(s) 5 ity of 00:00: (five) [place] 00 times Medical daily. Branch atorvastati Yes [id number] 40mg Take 1 Univers n 40 mg 9-12 tablet by ity of tablet 00:00: mouth at [place] 00 bedtime. Medical Branch meclizine Yes [id number] 12.5mg Take 1 Univers 12.5 mg 9-12 tablet by ity of tablet 00:00: mouth 2 00 (two) Medical times Branch daily. proMETHazin 2018- Yes [id number] 12.5mg Take 0.5 Univers e 25 mg 9-12 tablets by ity of tablet 00:00: mouth [place] 00 every 6 Medical (six) Branch hours as needed for Nausea and Vomiting (N/V). acyclovir Yes [id number] Apply to Univers % ointment 9-12 area(s) 5 ity of 00:00: (five) [place] 00 times Medical daily. Branch atorvastati Yes [id number] 40mg Take 1 Univers n 40 mg 9-12 tablet by ity of tablet 00:00: mouth at [place] 00 bedtime. Medical Branch meclizine Yes [id number] 12.5mg Take 1 Univers 12.5 mg 9-12 tablet by ity of tablet 00:00: mouth 2 00 (two) Medical times Branch daily. proMETHazin 2018- Yes [id number] 12.5mg Take 0.5 Univers e 25 mg 9-12 tablets by ity of tablet 00:00: mouth [place] 00 every 6 Medical (six) Branch hours as needed for Nausea and Vomiting (N/V). acyclovir 5 Yes [id number] Apply to Univers % ointment 9-12 area(s) 5 ity of 00:00: (five) [place] 00 times Medical daily. Branch atorvastati Yes [id number] 40mg Take 1 Univers n 40 mg 9-12 tablet by ity of tablet 00:00: mouth at [place] 00 bedtime. Medical Branch meclizine Yes [id number] 12.5mg Take 1 Univers 12.5 mg 9-12 tablet by ity of tablet 00:00: mouth 2 [place] 00 (two) Medical times Branch daily. proMETHazin Yes [id number] 12.5mg Take 0.5 Univers e 25 mg 9-12 tablets by ity of tablet 00:00: mouth [place] 00 every 6 Medical (six) Branch hours as needed for Nausea and Vomiting (N/V). atorvastati 2019- No [id number] 40mg Take 1 Univers n 40 mg 9-12 09-12 tablet by ity of tablet 00:00: 00:00 mouth at [place] 00 :00 bedtime. Medical Branch meclizine 2019- No [id number] 12.5mg Take 1 Univers 12.5 mg 9-12 09-12 tablet by ity of tablet 00:00: 00:00 mouth 2 [place] 00 :00 (two) Medical times Branch daily. proMETHazin 2019- No [id number] 12.5mg Take 0.5 Univers e 25 mg 9-12 09-12 tablets by ity o f tablet 00:00: 00:00 mouth [place] 00 :00 every 4 Medical (four) Branch hours as needed for Nausea and Vomiting (N/V). atorvastati 2019- No [id number] 40mg Take 1 Univers n 40 mg 9-12 09-12 tablet by ity of tablet 00:00: 00:00 mouth at [place] 00 :00 bedtime. Medical Branch meclizine 2019- No [id number] 12.5mg Take 1 Univers 12.5 mg 9-12 09-12 tablet by ity of tablet 00:00: 00:00 mouth 2 [place] 00 :00 (two) Medical times Branch daily. meclizine Yes 12.5mg 12.5 mg, Un imtiaz (ANTIVERT) 9-11 Oral, BID, ity of tablet 12.5 19:45: First dose [place] mg 00 on Wed01/11/19 at Branch 1445, Until Discontinu ed, Routine lisinopril 2018- Yes 5mg 5 mg, Univer s (PRINIVIL,Z 11 Oral, ity of ESTRIL) 14:00: DAILY, [place] tablet 5 mg 00 First dose Me dical on Wed [place] 01/11/19 at 0900, Until Discontinu ed, Routine atorvastati 2018- Yes 40mg 40 mg, Univ ers n (LIPITOR) -11 Oral, QHS, it y of tablet 40 02:00: First dose [place] mg 00 on Wed [facility] 01/10/19 at Branch 2100, Until Discontinu ed, Routine proMETHazin 2018- Yes 12.5mg 12.5 mg, Univers e 01-10 IV ity of (PHENERGAN) 19:09: [place], [place] 12.5 mg in 17 Q6HPRN, Medica l NaCl 0.9% Starting Branch (NS) 50 mL Wed IV 01/10/19 at piggyback 1409, Until Discontinu ed, Routine, Nausea and Vomiting (N/V) diazePAM 2019- No 2mg 2 mg, Univers (VALIUM) 01-10 Oral, TID, ity of tablet 2 mg 19:00: 19:36 First dose [place] 00 :48 on [facility] 01/10/19 at Branch 1400, Until Discontinu ed, Routine ondansetron 2019- No 4mg 4 mg, Slow Univers (ZOFRAN 01-10 IV Push, ity of (PF)) 15:45: 16:03 ONCE, 1 [place] injection 4 00 :00 dose, Wed Med ical mg 01/10/19 at Branch 1045, Routine aspirin 2019-0 Yes 81mg 81 mg, Univers chewable -10 Oral, ity of tablet 81 14:00: DAILY, [place] mg 00 First dose Medical on Wed [place] 01/10/19 at 0900, Until Discontinu ed, Routine heparin 2018-0 Yes 5000U 5,000 Univers injection -10 Units, ity of 5,000 Units 13:00: Subcutaneo [place] 00 us, Q12H, Medical First dose Branch on Wed01/10/19 at 0800, Until Discontinu ed, Routine ondansetron 2018- No 4mg 4 mg, Slow Univers (ZOFRAN 01-10 IV Push, ity of (PF)) 12:30: 13:09 ONCE, 1 [place] injection 4 00 :00 dose, [facility] Med ical mg 01/10/19 at [place] 0730, Routine acetaminoph Yes 650mg 650 mg, Un imtiaz en 01-10 Oral, ity of (TYLENOL) 11:19: Q6HPRN, [place] tablet 650 52 Starting Medic al mg [facility] 01/10/19 at 0619, Until Discontinu ed, Routine, Pain (scale 1-3), Pain (scale 4-6), Temp > 38.5 C zolpidem 2018- No 5mg 5 mg, Univers (AMBIEN) 01-10 Oral, ity of tablet 5 mg 06:33: 06:50 ONCE, 1 [place] 00 :00 dose, [facility] 01/10/19 at [place] 0145, Routine iohexol 2018- No 100mL 100 mL, Unive rs (OMNIPAQUE 01-09 Intravenou it y of 350 23:55: 23:55 s, ONCE, 1 [place] BULK-100 00 :00 dose, Mon Medica l mL) 01/09/19 at [place] injection 1915, 100 mL Routine ondansetron 2018- No 4mg 4 mg, Slow Univers (ZOFRAN 01-09 IV Push, ity of (PF)) 22:15: 21:14 ONCE, 1 [place] injection 4 00 :00 dose, Mon Med ical mg 01/09/19 at Branch 1715, DAVID aspirin 81 2017- Yes 81mg Take 81 mg U nivers mg EC -07 by mouth. ity of tablet 16:21: [address] zolpidem 10 Yes 10mg Take 10 mg Univers mg tablet - by mouth. ity o f 16:21: [address] LOVAZA, 0 Yes 2g Take 2 g Univer s omega-3-aci -07 by mouth. ity of d ethyl 16:21: [facility] [place] [facility], 25 Medical gram [place] capsule metoprolol Yes 25mg Take 25 mg U nivers succinate 1-07 by mouth. ity o f XL 25 mg 24 16:21: [place] hr tablet 25 [facility] aspirin 81 2017-0 Yes 81mg Take 81 mg U nivers mg EC 1-07 by mouth. ity of tablet 16:21: [address] zolpidem 10 2017-0 Yes 10mg Take 10 mg Univers mg tablet 1-07 by mouth. ity o f 16:21: [address] [facility], 0 Yes 2g Take 2 g Univer s omega-3-aci 1-07 by mouth. ity of d ethyl 16:21: [place] esters, 1 25 Medical gram Branch capsule metoprolol 0 Yes 25mg Take 25 mg U nivers succinate 1-07 by mouth. ity o f XL 25 mg 24 16:21: [place] hr tablet 25 [facility] aspirin 81 2017-0 Yes 81mg Take 81 mg U nivers mg EC 1-07 by mouth. ity of tablet 16:21: [address] zolpidem 10 0 Yes 10mg Take 10 mg Univers mg tablet 1-07 by mouth. ity o f 16:21: [address], 0 Yes 2g Take 2 g Univer s omega-3-aci 1-07 by mouth. ity of d ethyl 16:21: [place] esters, 1 25 Medical gram [place] capsule metoprolol 0 Yes 25mg Take 25 mg U nivers succinate 1-07 by mouth. ity o f XL 25 mg 24 16:21: [place] hr tablet 25 [facility] aspirin 81 2017-0 Yes 81mg Take 81 mg U nivers mg EC 1-07 by mouth. ity of tablet 16:21: [address] zolpidem 10 2017-0 Yes 10mg Take 10 mg Univers mg tablet 1-07 by mouth. ity o f 16:21: [address] [place], 0 Yes 2g Take 2 g Univer s omega-3-aci 1-07 by mouth. ity of d ethyl 16:21: [place] esters, 1 25 Medical gram Branch capsule metoprolol 2017-0 Yes 25mg Take 25 mg U nivers succinate 1-07 by mouth. ity o f XL 25 mg 24 16:21: [place] hr tablet 25 [facility] aspirin 81 2017-0 Yes 81mg Take 81 mg U nivers mg EC 1-07 by mouth. ity of tablet 16:21: [address] zolpidem 10 2017-0 Yes 10mg Take 10 mg Univers mg tablet 1-07 by mouth. ity o f 16:21: [address], 2017-0 Yes 2g Take 2 g Univer s omega-3-aci 1-07 by mouth. ity of d ethyl 16:21: [place] esters, 1 25 Medical gram Branch capsule metoprolol 2017-0 Yes 25mg Take 25 mg U nivers succinate 1-07 by mouth. ity o f XL 25 mg 24 16:21: [place] tablet 25 [facility] aspirin 81 2018-0 Yes 81mg Take 81 mg U nivers mg EC 1-07 by mouth. ity of tablet 16:21: [address] zolpidem 10 0 Yes 10mg Take 10 mg Univers mg tablet 1-07 by mouth. ity o f 16:21: [address], 0 Yes 2g Take 2 g Univer s omega-3-aci 1-07 by mouth. ity of d ethyl 16:21: [place] esters, 1 25 Medical gram Branch capsule metoprolol 0 Yes 25mg Take 25 mg U nivers succinate 1-07 by mouth. ity o f XL 25 mg 24 16:21: [place] hr tablet 25 [facility] aspirin 81 2017-0 Yes 81mg Take 81 mg U nivers mg EC 1-07 by mouth. ity of tablet 16:21: [address] zolpidem 10 2017-0 Yes 10mg Take 10 mg Univers mg tablet 1-07 by mouth. ity o f 16:21: [address], 0 Yes 2g Take 2 g Univer s omega-3-aci 1-07 by mouth. ity of d ethyl 16:21: [place] esters, 1 25 Medical gram Branch capsule metoprolol 2018-0 Yes 25mg Take 25 mg U nivers succinate 1-07 by mouth. ity o f XL 25 mg 24 16:21: [place] hr tablet 25 [facility] aspirin 81 2018-0 Yes 81mg Take 81 mg U nivers mg EC 1-07 by mouth. ity of tablet 16:21: [address] zolpidem 10 2017-0 Yes 10mg Take 10 mg Univers mg tablet 1-07 by mouth. ity o f 16:21: [place] 25 Medical Branch LOVAZA, Yes 2g Take 2 g Univer s omega-3-aci 07 by mouth. ity of d ethyl 16:21: [place] esters, 1 25 Medical gram Branch capsule metoprolol Yes 25mg Take 25 mg U nivers succinate 07 by mouth. ity o f XL 25 mg 24 16:21: [place] hr tablet 25 Medical Branch sertraline Yes 50mg Take 50 mg M ethodi (ZOLOFT) 50 2-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 06-22 st g-boron 00:00: Hospita (Caltrate 00 l 600-D Plus Minerals) 600 mg calcium- 800 unit-40 mg tablet,chew able Immunizations Ordered Filled Immunization Date Status Comments [facility] e Immunization Name Name MUNDO PATEL 2021-12-08 Completed 00:00:00 MUNDO FLOWER 2021-08-09 Completed 00:00:00 [facility] COVID-19 2021-02-03 Completed [facility] MRNA VACCINATION 00:00:00 [facility] COVID-19 2020-06-14 Completed [facility] MRNA VACCINATION 00:00:00 [facility] PFIZER COVID-19 2020-05-27 Completed [facility] MRNA VACCINATION 00:00:00 [facility] Pneumococcal 2019-04-18 Completed University o f Polysaccharide, 00:00:00 [place] Med ical PPSV23 (PNEUMOVAX) Branch Pneumococcal 2019-04-18 Completed University o f Polysaccharide, 00:00:00 [place] Med ical PPSV23 (PNEUMOVAX) Branch Pneumococcal 2019-04-18 Completed University o f Polysaccharide, 00:00:00 [place] Med ical PPSV23 (PNEUMOVAX) Branch Pneumococcal 2019-04-18 Completed University o f Polysaccharide, 00:00:00 [place] Med ical PPSV23 (PNEUMOVAX) Branch Pneumococcal 2019-04-18 Completed University o f Polysaccharide, 00:00:00 [place] Med ical PPSV23 (PNEUMOVAX) Branch Pneumococcal 2019-04-18 Completed University o f Polysaccharide, 00:00:00 [place] Med ical PPSV23 (PNEUMOVAX) Branch Pneumococcal 2019-04-18 Completed University o f Polysaccharide, 00:00:00 [place] Med ical PPSV23 (PNEUMOVAX) Branch Pneumococcal 2019-04-18 Completed University o f Polysaccharide, 00:00:00 [place] Med ical PPSV23 (PNEUMOVAX) Branch Pneumococcal 2019-04-18 Completed University o f Polysaccharide, 00:00:00 [place] Med ical PPSV23 (PNEUMOVAX) Branch Pneumococcal 2019-04-18 Completed University o f Polysaccharide, 00:00:00 [place] Med ical PPSV23 (PNEUMOVAX) Branch Pneumococcal 2019-04-18 Completed University o f Polysaccharide, 00:00:00 [place] Med ical PPSV23 (PNEUMOVAX) Branch Pneumococcal 2019-04-18 Completed University o f Polysaccharide, 00:00:00 [place] Med ical PPSV23 (PNEUMOVAX) Branch Influenza High Dose 2019-02-15 Completed Unive rsity of 00:00:00 [facility] Zoster Vaccine 2019-02-15 Completed University of Recombinant 00:00:00 [facility] Influenza High Dose 2019-02-15 Completed Unive rsity of 00:00:00 [facility] Zoster Vaccine 2019-02-15 Completed University of Recombinant 00:00:00 [facility] Influenza High Dose 2019-02-15 Completed Unive rsity of 00:00:00 [facility] Zoster Vaccine 2019-02-15 Completed University of Recombinant 00:00:00 [facility] Influenza High Dose 2019-02-15 Completed Unive rsity of 00:00:00 [facility] Zoster Vaccine 2019-02-15 Completed University of Recombinant 00:00:00 [facility] Influenza High Dose 2019-02-15 Completed Unive rsity of 00:00:00 [facility] Zoster Vaccine 2019-02-15 Completed University of Recombinant 00:00:00 [facility] Influenza High Dose 2019-02-15 Completed Unive rsity of 00:00:00 [facility] Zoster Vaccine 2019-02-15 Completed University of Recombinant 00:00:00 [facility] Influenza High Dose 2019-02-15 Completed Unive rsity of 00:00:00 [facility] Zoster Vaccine 2019-02-15 Completed University of Recombinant 00:00:00 [facility] Influenza High Dose 2019-02-15 Completed Unive rsity of 00:00:00 [facility] Zoster Vaccine 2019-02-15 Completed University of Recombinant 00:00:00 [facility] Influenza High Dose 2019-02-15 Completed Unive rsity of 00:00:00 [facility] Zoster Vaccine 2019-02-15 Completed University of Recombinant 00:00:00 [facility] Influenza High Dose 2019-02-15 Completed Unive rsity of 00:00:00 [facility] Zoster Vaccine 2019-02-15 Completed University of Recombinant 00:00:00 [facility] Influenza High Dose 2019-02-15 Completed Unive rsity of 00:00:00 [facility] Zoster Vaccine 2019-02-15 Completed University of Recombinant 00:00:00 [facility] Influenza High Dose 2019-02-15 Completed Unive rsity of 00:00:00 [facility] Zoster Vaccine 2019-02-15 Completed University of Recombinant 00:00:00 [facility] Influenza Virus 2008-02-29 Completed Universit y of Vaccine (3+ yrs) 00:00:00 [facility] Influenza Virus 2008-02-29 Completed Universit y of Vaccine (3+ yrs) 00:00:00 [facility] Influenza Virus 2008-02-29 Completed Universit y of Vaccine (3+ yrs) 00:00:00 [facility] Influenza Virus 2008-02-29 Completed Universit y of Vaccine (3+ yrs) 00:00:00 [facility] Influenza Virus 2008-02-29 Completed Universit y of Vaccine (3+ yrs) 00:00:00 [facility] Influenza Virus 2008-02-29 Completed Universit y of Vaccine (3+ yrs) 00:00:00 [facility] Influenza Virus 2008-02-29 Completed Universit y of Vaccine (3+ yrs) 00:00:00 [facility] Influenza Virus 2008-02-29 Completed Universit y of Vaccine (3+ yrs) 00:00:00 [facility] Influenza Virus 2008-02-29 Completed Universit y of Vaccine (3+ yrs) 00:00:00 [facility] Influenza Virus 2008-02-29 Completed Universit y of Vaccine (3+ yrs) 00:00:00 [place] Me dical Branch Influenza Virus 2008-02-29 Completed Universit y of Vaccine (3+ yrs) 00:00:00 [facility] Influenza Virus 2008-02-29 Completed Universit y of Vaccine (3+ yrs) 00:00:00 [facility] Vital Signs Vital Name Observation Time Observation Value Comments Source HEIGHT 2020-10-03 10:20:00 158.8 cm WEIGHT 2020-10-03 10:20:00 62.324 kg HEIGHT 2020-09-26 13:26:00 158.8 cm WEIGHT 2020-09-26 13:26:00 67.132 kg HEIGHT 2020-10-03 10:20:00 158.8 cm WEIGHT 2020-10-03 10:20:00 62.324 kg HEIGHT 2020-09-26 13:26:00 158.8 cm WEIGHT 2020-09-26 13:26:00 67.132 kg Systolic blood 2019-06-05 20:14:00 137 mm[Hg] Univer sity of pressure [facility] Diastolic blood 2019-06-05 20:14:00 73 mm[Hg] Unive rsity of [facility] Heart rate 2019-06-05 20:14:00 65 /min Universi ty [facility] Body temperature 2019-06-05 20:14:00 36.67 Ami [facility] Respiratory rate 2019-06-05 20:14:00 18 /min [facility] Body height 2019-06-05 20:14:00 158.8 cm Universi ty [facility] Body weight 2019-06-05 20:14:00 71.033 kg Universi [facility] BMI 2019-06-05 20:14:00 28.19 kg/m2 [place] [facility] Oxygen saturation in 2019-06-05 20:14:00 95 /min [facility] Arterial blood by [facility] Pulse oximetry Branch Systolic blood 2019-01-12 17:00:00 144 mm[Hg] Univer sity of pressure [facility] Diastolic blood 2019-01-12 17:00:00 66 mm[Hg] Unive rsity of pressure [facility] Heart rate 2019-01-12 17:00:00 66 /min Universi ty [facility] Body temperature 2019-01-12 17:00:00 36.56 Ami Univ ersity of [facility] Respiratory rate 2019-01-12 17:00:00 18 /min [facility] Oxygen saturation in 2019-01-12 17:00:00 100 /min [facility] Arterial blood by [facility] Pulse oximetry Branch Body weight 2019-01-09 20:48:00 68.04 kg Universi ty of [place] [facility] [place] BMI 2019-01-09 20:48:00 27.00 kg/m2 Universi ty of [facility] Systolic blood 2018-12-28 19:01:00 137 mm[Hg] Univer sity of pressure [facility] Diastolic blood 2018-12-28 19:01:00 78 mm[Hg] Unive rsity of pressure [facility] Heart rate 2018-12-28 19:01:00 65 /min Universi ty of [facility] Respiratory rate 2018-12-28 18:57:00 18 /min Univ ersity of [facility] Body height 2018-12-28 18:57:00 158.8 cm Universi ty of [facility] Body weight 2018-12-28 18:57:00 68.947 kg Universi ty of [place] [facility] BMI 2018-12-28 18:57:00 27.36 kg/m2 Universi ty of [facility] Systolic blood 2018-11-02 19:15:00 149 mm[Hg] Univer sity of pressure [facility] Branch Diastolic blood 2018-11-02 19:15:00 78 mm[Hg] Unive rsity of pressure [facility] Heart rate 2018-11-02 19:15:00 59 /min Universi ty of [facility] Systolic blood 2018-11-25 15:19:00 125 mm[Hg] Univer sity of pressure [place] [facility] Diastolic blood 2018-11-25 15:19:00 78 mm[Hg] Unive rsity of pressure [facility] Body height 2018-11-25 15:19:00 158.8 cm Universi ty [facility] [place] [facility] [place] Body weight 2018-11-25 15:19:00 68.947 kg Universi ty of [place] [facility] BMI 2018-11-25 15:19:00 27.36 kg/m2 Universi ty of [facility] Branch Procedures Procedure Date / Time Performing Clinician Source Performed AUTHORIZATION TO RELEASE 2019-01-18 05:01:00 Doctor Unassigned, No [facility] PHI TO [facility] Name Medical Branch ECHO ROUTINE W/DOPPLER 2019-01-10 15:21:39 Andreea Warner [facility] COLOR [facility] MR BRAIN WO CONTRAST 2019-01-10 05:38:58 Andreea Warner [facility] CT ANGIOGRAM HEAD 2019-01-10 00:05:41 Rich Sequeira [facility] CT ANGIOGRAM NECK 2019-01-10 00:05:41 Rich Sequeira [facility] URINALYSIS 2019-01-09 23:15:00 Rich Sequeira [facility] CT HEAD WO CONTRAST 2019-01-09 21:51:44 Rich Sequeira [facility] TROPONIN I 2019-01-09 21:14:00 Fabby [facility] COMP. METABOLIC PANEL 2019-01-09 21:14:00 Rich Sequeira [facility] ([id number]) [facility] LIPID PANEL 2019-01-09 21:14:00 Andreea Warner [facility] ([id number])(TOTAL [facility] CHOLESTEROL, TRIGLYCERIDES, HDL) CBC WITH DIFFERENTIAL 2019-01-09 21:14:00 Rich Sequeira [facility] GLYCOSYLATED HEMOGLOBIN 2019-01-09 21:14:00 Andreea Warner [facility] (A1C) [facility] EKG-12 LEAD 2019-01-09 21:12:01 Rich Sequeira [facility] XR WRIST <3 VW LEFT 2018-12-28 19:00:56 Margarito Soto [facility] XR WRIST <3 VW LEFT 2018-11-25 15:25:54 Margarito Soto [facility] Plan of Care Planned Activity Planned Date Details Comments Source Future Scheduled 2022-03-06 HEPATITIS B VACCINES [facility] Test 06:25:03 (1 of 3 - 3-dose series) [code = HEPATITIS B VACCINES (1 of 3 - 3-dose series)] Future Scheduled 2022-03-06 Hepatitis C screening [facility] Test 06:25:03 (procedure) [code = 206726092] Future Scheduled 2022-03-06 SHINGLES VACCINES (2 [facility] Test 06:25:03 of 2) [code = SHINGLES VACCINES (2 of 2)] Future Scheduled 2022-03-06 65+ [facility] Test 06:25:03 VACCINE (2 - PCV) [code = 65+ PNEUMOCOCCAL VACCINE (2 - PCV)] Future Scheduled 2022-03-06 COVID-19 VACCINE (4 - Me [facility] Test 06:25:03 Booster for Pfizer series) [code = COVID-19 VACCINE (4 - Booster for Pfizer series)] Future Scheduled 2022-03-06 INFLUENZA VACCINE [facility] Test 06:25:03 [code = INFLUENZA VACCINE] Future Scheduled 2022-01-01 INFLUENZA VACCINE (#1) [facility] Test 00:00:00 [code = INFLUENZA Medical Ce nter VACCINE (#1)] Future Scheduled 2021-05-[address] [facility] Test 00:00:00 (12+) [code = Medical Center DEPRESSION SCREENING (12+)] Future Scheduled 2021-05-03 FALLS RISK SCREENING [facility] Test 00:00:00 [code = FALLS RISK Medical C enter SCREENING] Future Scheduled 2020-11-11 COVID-19 VACCINE (3 - [facility] Test 00:00:00 Booster for Pfizer Medical C enter series) [code = COVID-19 VACCINE (3 - Booster for Pfizer series)] Future Scheduled 2020-04-18 PNEUMOCOCCAL 65+ YRS [facility] Test 00:00:00 (2 - PCV) [code = Medical Ce nter PNEUMOCOCCAL 65+ YRS (2 - PCV)] Future Scheduled 2010-11-[address] [facility] Test 00:00:00 WELLNESS (YEAR 2 or Medical Center FIRST YEAR if no IPPE) [code = MEDICARE ANNUAL WELLNESS (YEAR 2 or FIRST YEAR if no IPPE)] Future Scheduled 1994 SHINGLES VACCINES ([address] [facility] Test 00:00:00 of 2) [code = SHINGLES Medic al Center VACCINES (1 of 2)] Future Scheduled 1963-11-24 DTAP/TDAP/TD [facility]ACCINES [facility] Test 00:00:00 (1 - Tdap) [code = Medical C enter DTAP/TDAP/TD VACCINES (1 - Tdap)] Future Scheduled 1962 HEPATITIS C SCREENING [facility] Test 00:00:00 [code = HEPATITIS C Medical Center SCREENING] Future Scheduled 1944 DXA SCAN [code = DXA [facility] Test 00:00:00 SCAN] Medical Center Encounters Start End Encounter Admission Attending Care Care Encounter Source Date/Time Date/Time Type Type Clinicians Facility Department ID 2021-05-16 Outpatient CATHERINE ZENG MDA [id number] 09:59:06 PROVIDER Usman duarte 2021-02-08 Outpatient JONO, [facility] [id number] [facility] 21:47:48 RAMBO 2022-02-25 2022-02-25 Outpatient SARAH LUX MDA MDA [id number] 12:50:04 12:50:04 KATELIN duarte 2022-02-25 2022-02-25 Outpatient SARAH LUX MDA MDA [id number] 11:59:14 11:59:14 KATELIN xiong n 2021-12-08 2021-12-08 Outpatient GCCOVIDV GCCOVIDV [id number] GCCOVID 00:00:00 00:00:00 V 2021-11-26 2021-11-26 Outpatient GC_SWHAWPRC PRIV PRIV [id number] [facility] 00:00:00 00:00:00 _Miller-M [id number] [facility] paramjit 2021-11-04 2021-11-04 Outpatient GC_SWHAWPRC PRIV PRIV [id number] [facility] 00:00:00 00:00:00 _Miller-M [id number] [facility] paramjit 2021-10-27 2021-10-27 Outpatient GC_SWHAWPRC PRIV PRIV [id number] [facility] 04:11:00 04:11:00 _Miller-M [id number] [facility] paramjit 2021-10-27 2021-10-27 Outpatient Hung, PRIV PRIV [id number] 00:00:00 00:00:00 [id number] 2021-10-14 2021-10-14 Outpatient GC_SWHAWPRC PRIV PRIV [id number] [facility] 12:59:00 12:59:00 _Miller-M [id number] [facility] paramjit 2021-10-14 2021-10-14 Outpatient Hung, PRIV PRIV [id number] 00:00:00 00:00:00 [id number] 2021-10-13 2021-10-13 Outpatient GC_SWHAWPRC PRIV PRIV [id number] [facility] 02:54:00 02:54:00 _Yadi [id number] [facility] 2021-08-09 2021-08-09 Outpatient GCCOVIDV GCCOVIDV [id number] GCCOVID 00:00:00 00:00:00 V 2021-04-22 2021-04-22 Outpatient GC_SWHAWPRC PRIV PRIV [id number] [facility] 11:11:00 11:11:00 _Yadi [id number] [facility] 2021-04-21 2021-04-21 Outpatient GC_SWHAWPRC PRIV PRIV [id number] [facility] 10:56:00 10:56:00 _Yadi [id number] [facility] 2021-02-03 2021-02-03 Outpatient [facility] [id number] [place] 00:00:00 00:00:[address] 2020-10-04 2020-10-04 Emergency [facility], [facility] [id number] [place] 00:00:00 00:00:00 SHARON [address] 2020-09-26 2020-09-26 Outpatient [facility] [id number] [facility] 00:00:00 00:00:00 2020-06-14 2020-06-14 Outpatient [facility] [id number] [place] 00:00:00 00:00:[address] 2020-05-27 2020-05-27 Outpatient [facility] [id number] [place] 00:00:00 00:00:[address] 2020-05-16 2020-05-16 OUMAR Reed [id number] Univers 00:00:00 00:00:00 Lesvia BARRIGA [id number] it of [facility] [id number] Nancy MOREL [id number] Al dical 390 Branch 2020-05-10 2020-05-10 Patient José Luis, [facility] [id number] Univers 00:00:00 00:00:00 Outreach Mark PR[id number] [facility] [id number] [id number] Al dical 388 Branch 2020-02-01 2020-02-01 Outpatient BERENICE, [facility] [id number] [place] 00:00:00 00:00:00 DUDLEY 920 Method i 2020-01-22 2020-01-22 Outpatient BERENICE, [facility] [id number] [place] 00:00:00 00:00:00 DUDLEY 204 Method i 2020-01-15 2020-01-18 [id number] [place] 00:00:00 00:00:00 KENYATTA 951 Method i 2019-12-19 2019-12-19 Outpatient EL LUX, MDA MDA [id number] MD 13:56:23 13:56:23 LONZETTA Crow so n 2019-12-19 2019-12-19 Outpatient EL LUX, MDA MDA [id number] MD 00:00:00 00:00:00 LONZETTA Crow so n 2019-12-19 2019-12-19 Outpatient EL LUX, MDA MDA [id number] MD 00:00:00 00:00:00 LONZETTA Crow so n 2019-12-06 2019-12-06 Outpatient TERE OH [facility] [id number] [place] 00:00:00 00:00:00 210 Method i 2019-10-27 2019-10-27 Research Mechanic Lab, Pcp Michael [facility] 1.2.840. [id number] [place] [facility] 17:46:45 17:56:45 Visit Chase Burton [id number] molly [place] [id number] [place] [id number] Al dical 366 Branch 2019-10-27 2019-10-27 Outpatient Annita BURTON [facility] [id number] Univers 17:50:00 17:50:00 CHASE barnes [facility] 2019-10-25 2019-10-25 Outpatient TERE OH [facility] [id number] [place] 00:00:00 00:00:00 871 Method i 2019-10-25 2019-10-25 Outpatient TERE OH [facility] [id number] [place] 00:00:00 00:00:00 019 Method i 2019-10-25 2019-10-25 Outpatient TERE OH [facility] [id number] [place] 00:00:00 00:00:00 028 Method i 2019-10-25 2019-10-25 Outpatient MAHIN, [facility] [id number] [place] 00:00:00 00:00:00 SHANE 494 Method i 2019-10-23 2019-10-23 Outpatient Annita OVIEDO [facility] [id number] [facility] 14:30:00 14:30:00 ROSHAN barnes [facility] 2019-10-23 2019-10-23 Outpatient JD, [facility] [id number] [place] 00:00:00 00:00:00 JORJE 343 Method i 2019-10-23 2019-10-23 Outpatient JD [facility] [id number] [place] 00:00:00 00:00:00 JORJE 057 Method i 2019-10-16 2019-10-16 Patient Huy [facility] [id number] 00:00:00 00:00:00 Secure Msg Lesvia PRIMARY [id number] ity [place] [id number] [id number] Al dical [address] [place] 2019-10-16 2019-10-16 Patient Doctor [facility] [id number] 00:00:00 00:00:00 Secure Msg Unassigned, PRIMARY [id number] ity of [place] [id number] [place] [id number] Al dical [address] [place] 2019-08-29 2019-08-29 Telephone Huy [facility] [id number] [facility] 00:00:00 00:00:00 Lesvia PRIMARY [id number] ity [place] [id number] [id number] [address] 2019-07-31 2019-07-31 Outpatient R PREET, [facility] [id number] Univers 14:20:00 14:20:00 ATTENDING ity of [facility] 2019-07-21 2019-07-21 Outpatient R [facility] [id number] Univers 09:30:00 09:30:00 ity of [facility] 2019-06-05 2019-06-05 Office Lesvia Son [facility] [id number] Univers 14:03:21 15:16:00 Visit Unknown, Attending PRIMARY [id number] ity of [facility] [id number] [place] [facility] [id number] [address] 2019-05-17 2019-05-17 Patient Huy [facility] [id number] Univers 00:00:00 00:00:00 Secure Msg Lesvia PRIMARY [id number] ity [place] [id number] [id number] [address] 2019-05-17 2019-05-17 Patient Doctor [facility] [facility]ICE UNIT 1.2.840.114 [id number] Univers 00:00:00 00:00:00 Secure Msg Unassigned, PRIMARY 350.1.13.10 it[place] [phone] [address] 2019-05-09 2019-05-09 Patient Doctor [facility] 1.2.840.114 [id number] Univers 00:00:00 00:00:00 Secure Msg Unassigned, PRIMARY 350.1.13.10 [place] [id number] [address] 2019-05-08 2019-05-08 Outpatient R MANUELA, [facility] [id number] Univers 09:34:55 23:59:00 CARL ity o f [facility] 2019-05-08 2019-05-08 Patient Doctor [facility] 1.2.840.114 [id number] Univers 00:00:00 00:00:00 Secure Msg Unassigned, PRIMARY 350.1.13.10 [place]2.[place] [phone] Al dical [address] 2019-04-28 2019-04-28 [facility] [id number] Univers 09:59:10 23:59:00 LIZETH ity [facility] 2019-04-16 2019-04-16 Emergency X MOOKIE, [facility] ERT [id number] Univers 19:14:06 23:36:00 [facility] 2019-04-04 [facility] [id number] Univers 11:14:53 23:59:00 MANOJ [facility] 2019-01-20 2019-01-20 [facility] 1.2.840.114 [id number] Univers 00:00:00 00:00:00 Anuja DAY 350.1.13.10 ity of [facility] [place] [phone] [facility] [address] 2019-01-18 2019-01-18 Office HOMER Mauro 1.2.840.114 [id number] [facility] 15:44:38 16:14:38 Visit Anuja Olmstead 350.1.13.10 i ty of [facility] 4.2.7.2.686 [place] as BANK [phone] [facility] BLDG. [address] 2019-01-18 2019-01-18 Orders Doctor DAYANARA 1.2.840.114 [id number] Univers 00:00:00 00:00:00 Only Unassigned, EMERSON 350.1.13.10 ity of [place] [facility] 4.2.7.2.686 [place] as [phone] [facility] [address] 2019-01-13 2019-01-13 Transition Esteban Reardon 1.2.840.114 [id number] Univers 00:00:00 00:00:00 of Care Maty Evans 350.1.13.10 [place] of [place] [id number] [facility] [address] 2019-01-09 2019-01-12 [facility] Rich Sequeira 1.2.840.1 [id number] [facility] 15:49:22 19:09:00 Encounter Raymond Mckeon 350.1.13.10 ity of Hospital 4.2.7.2.686 [place] [phone] [facility] [address] 2018-12-28 2018-12-28 [facility] 1.2.840.114 [id number] [facility] 14:00:55 23:59:00 Encounter Margarito [facility] [employer] 350.1.13.10 ity of Surgical 4.2.7.2.686 [place] Specialti [phone] Al dical es 809 [facility] 2018-12-28 2018-12-28 Office [facility] [id number] [facility] 13:48:28 14:25:18 Visit Margarito [facility] [employer] 350.1.13.10 it y of Surgical 4.2.7.2.686 [place] Specialti [phone] Al dical es 198 [facility] 2018-11-02 2018-11-29 Office [facility] [id number] [facility] 14:05:54 11:43:23 Visit Margarito Bradley [employer] 350.1.13.10 it y of Surgical 4.2.7.2.686 [place] Specialti [phone] Al dical es 198 [facility] 2018-11-25 2018-11-25 [facility] 1.2.840.114 [id number] [facility] 10:25:53 23:59:00 Encounter Margarito Bradley [employer] 350.1.13.10 ity of Surgical 4.2.7.2.686 [place] Specialti [phone] Al dical es 809 [facility] 2018-11-25 2018-11-25 Office [facility] 1.2.840.114 [id number] [facility] 10:16:03 10:31:03 Visit Tarik Benitez [employer] 350.1.13.10 it y of Surgical 4.2.7.2.686 [place] Specialti [phone] Al dical es [address] [place] 2018-09-29 2018-09-29 Appointmen [facility] Orthopedics [id number] [place] 13:15:00 13:15:00 t; CECILY SCHULTZ M.D. - [place] Art[place] TONY M.D. ans 2018-09-08 2018-09-08 Appointmen [facility] Orthopedics [id number] [place] 14:45:00 14:45:00 t; CECILY SCHULTZ M.D. at [place] [facility] TONY M.D. ans 2018-07-26 2018-07-26 [facility] [id number] [place] 14:30:00 14:30:00 t; CECILY SCHULTZ M.D. - [place] [facility] TONY M.D. [facility] 2017-07-12 2017-07-12 Outpatient EL SLE SLE [id number] SLE 00:00:00 00:00:00 2016-08-03 2016-08-03 [facility] [id number] [place] 13:30:00 13:30:00 t; Josefina LYMAN i, M.D. [facility] Gabo LYMAN Results Test Description Test Time Test Comments Results Result [facility] e Comments TISSUE EXAM 2020-10-04 Surgical Pathology Report 12:52:00 Case: [id number] Authorizing Provider: Rambo De La Cruz MD Collected: 10/03/2020 11:45 AM Ordering Location: [facility] Endoscopy Received: 10/03/2020 02:23 PM Services Pathologist: Sofiya Hatch MD Specimen: Biopsy, Gastric A. STOMACH, BIOPSY: - GASTRIC OXYNTIC AND ANTRAL MUCOSA WITH NO SIGNIFICANT DIAGNOSTIC ALTERATION. - NEGATIVE FOR HELICOBACTER PYLORI ORGANISMS BY WARTHIN STARRY STAIN. - NEGATIVE FOR INTESTINAL METAPLASIA, DYSPLASIA OR MALIGNANCY. Signing Pathologist Direct Phone Line: [phone] y signed by Sofiya Hatch MD on 10/04/2020 at 12:52 [id number], [id number] in bowel habits, Epigastric abdominal painStomach.A. Received in formalin labeled with the patient's name, accession number and "gastric biopsy closed is a london-white soft tissue fragments measuring 0.8 x 0.2 x 0.2 cm. The specimen is entirely submitted as Leilani Childs.The interpretation of this case included the use of immunohistochemistry or special stains.Control Slides Examined: In-house known positive controls were evaluated along with the test tissue. These control slides run alongside of the patients sample show appropriate staining. Internal positive and negative controls when available are evaluated Immunohistochemistry technical testing was performed at [facility], Pathology Laboratory where it was developed and its performance characteristics were determined. It has not been cleared or approved by the U.S. Food and Drug Administration. The FDA has determined that such clearance or approval is not necessary. The test is used for clinical purposes. It should not be regarded as investigational or for research. This laboratory is certified under the Clinical Laboratory Improvement Amendments of 1988 (CLIA-88) as qualified to perform high complexity clinical laboratory testing.[facility], Department of Pathology, [address] [place] [address], [facility], [address] [place] [address], [facility] of [facility], [address] [place] [address], MRI PELVIS WO 2020-09-03 15:26:03 [facility] : 1945 Sex: F CLINICAL INDICATION: R19.4 Change in bowel habit. R10.32 Left lower quadrant pain.MODALITY: ReactX 3T MRITECHNIQUE: Multiplanar multisequence imaging of the female pelvis is performed.IMPRESSION:1. No acute abnormality in the pelvis.2. Hysterectomy.3. Trace free pelvic fluid.FINDINGS:COMPARISON : CT abdomen and pelvis, 07/18/2020.UTERUS: Surgically absent.OVARIES: Not visualized bilaterally. There is no evidence of suspicious adnexal mass.RECTUM AND MESORECTUM: No evidence of discrete mass or wall thickening.URINARY BLADDER: No intrinsic abnormality or significant wall thickening.FLUID: Trace free pelvic fluid is noted.OSSEOUS STRUCTURES: No destructive osseous lesion is present.MISCELLANEOUS: No pathological pelvic lymphadenopathy is seen. MRI ABDOMEN WO 2020-09-03 15:26:03 [facility] : 1945 Sex: F CLINICAL INDICATION: R19.4 Change in bowel habit. R10.32 Left lower quadrant pain.MODALITY: ReactX 3T MRITECHNIQUE: Parallel imaging is accomplished using T2, in-phase, dnt-rj-kgccq, and breath-holding sequences. 3-D reconstruction is performed.IMPRESSION:1. No acute abnormality in the abdomen.2. Hepatic cysts, largest measuring 4.2 cm in the right hepatic lobe.FINDINGS:Comparison: CT abdomen and pelvis, 07/18/2020.Lung bases are clear. No pleural fluid is seen. Probable small cyst in the left breast measures 0.8 cm.The liver demonstrates a 4.2 X 3.3 cm right hepatic lobe cyst. Additional sub-centimeter hyperintense T2 focus in the posterior right hepatic lobe more superiorly also suggests a small cyst. No evidence of suspicious hepatic mass or biliary dilatation. Gallbladder appears unremarkable. Spleen is normal in size and contour. The stomach appears unremarkable.Pancreas is morphologically normal. No mass, pancreatic duct dilatation or peripancreatic edema is visible.Adrenal glands and kidneys are morphologically normal. Tiny, probable bilateral renal cysts are noted. Largest of these measures 5 mm in the right renal mid pole. No hydronephrosis. No pathological retrocrural nor retroperitoneal lymph nodes are seen. No retroperitoneal mass is present.Abdominal wall is intact. No evidence of ascites.No evidence of bowel mass, mural thickening or pericolic edema.There is no evidence of destructive osseous lesion. CT ABDOMEN AND 2020-07-18 PELVIS W/WO 09:32:46 [facility] : 1945 Sex: F CLINICAL INDICATION: R19.4 Change in bowel feizmX97.84 Generalized abdominal painMODALITY: [facility] [address] TECHNIQUE: Helical imaging of the abdomen and pelvis is performed. Oral contrast is administered. 85 mls optiray 350 are administered IV. Imaging performed prior to and after administration of contrast.Computed Tomography Dose Index: 42.94 mGy. IMPRESSION:1. No acute or suspicious abnormality.2. Fatty infiltration of the liver and single, 4.2 cm right hepatic lobe simple cyst.3. Status post hysterectomy.FINDINGS:COM PARISON: No prior study.The lung bases are clear. No pleural disease is present.The liver is normal in size and contour. It is diffusely decreased in density consistent with fatty infiltration. There is a single simple cyst in the right hepatic lobe measuring 3.2 x 4.2 x 3.4 cm. Hepatic veins, portal venous system and biliary tree are normal. The gallbladder is normal in appearance.Stomach and duodenum are unremarkable. The spleen is normal in size and contour. No pancreatic mass, pancreatic duct dilatation or peripancreatic edema is visible.Adrenal glands and right kidney are normal. Two sub-centimeter left renal cysts are noted. There are no renal calculi, hydronephrosis or masses noted.Neither retrocrural nor retroperitoneal adenopathy is present. Vascular structures are within normal limits.No significant bowel pathology is noted. Omentum and mesentery are unremarkable.The uterus has been removed. Negative bladder.Abdominal wall is intact. No ascites visualized.No lytic or blastic osseous lesions are observed.PQRS 436: G9637 (For official use only.) SARS-CoV-2 (COVID-19) RNA [Presence] in Respiratory sp ecimen by 2020-01-16 01:55:44 ERAN with probe detection Test Item Value Reference Range Interpretation Comme nts SARS-CoV-2 (COVID-19) RNA [Presence] in Respiratory Not detected No t-Detected specimen by ERAN with probe detection (test code = 71500-8) [facility] [id number] 13:08:00Surgical Pathology Report Case: [id number] Authorizing Provider: Rambo De La Cruz MD Collected: 06/16/2019 1034 Ordering Location: [facility] Endoscopy Received: 06/16/2019 1119 Services Pathologist: Radha Maldonado MD Specimen: Antrum, Antrum bx STOMACH, ANTRUM, ENDOSCOPIC MUCOSAL BIOPSIES- ANTRAL MUCOSA WITH MILD CHRONIC INACTIVE GASTRITIS - NEGATIVE FOR HELICOBACTER PYLORI- NEGATIVE FOR INTESTINAL METAPLASIA, DYSPLASIA OR CARCINOMA Signing Pathologist Direct Phone Line: [phone] signed by Radha Maldonado MD on 06/19/2019 at 1:08 [id number], [id number] and postop diagnosis: Reflux esophagitis A. Antrum A. Received in formalin labeled with the patient's name, accession number and "antrum" are three pieces of london mucosal-covered soft tissue measuring 0.7 x 0.3 x 0.2 cm in aggregate. The specimen is submitted in toto following filtration in cassette A1. PEYTON/plMicroscopic examination is performed and the findings are incorporated in the diagnostic line. Warthin starry stain is negative for Helicobacter pylori. The interpretation of this case included the use of immunohistochemistry or special stains.Control Slides Examined: In-house known positive controls were evaluated along with the test tissue. These control slides run alongside of the patients sample show appropriate staining. Internal positive and negative controls when available are evaluated Immunohistochemistry technical testing was performed at [facility], Pathology Laboratory where it was developed and its performance characteristics were determined. It has not been cleared or approved by theU.S. Food and Drug Administration. The FDA has determined that such clearance or approval is not necessary. The test is used for clinical purposes. It should not be regarded as investigational or for research. This laboratory is certified under the Clinical Laboratory Improvement Amendments of 1988 (CLIA-88) as qualified to perform high complexity clinical laboratory testing.MR BRAIN WO [id number] 13:05:15 No acute intracranial abnormality. Nonspecific left mastoid effusion. Danielle Membreno have reviewed this study and agree with the abovereport. Jamila Membreno MD., have reviewed this study and agree with theabove report.MR BRAIN WO CONTRAST COMPARISON: 01/09/2019 CT head HISTORY: Stroke s uspected, focal neuro deficit, > 6 hrs TECHNIQUE: Multiplanar multisequence MR imaging of the brain was obtainedon a 3 Chastity magnet without intravenous contrast. FINDINGS: The ventricles and cerebral sulci are normal in caliber and configuration.No midline shift, hydrocephalus or pathological extra-axial fluidcollection is present. The basal cisterns are unremarkable. No restricted diffusion is present to suggest acute infarct. No parenchymalsignal abnormality is present. No abnormal gradient blooming. The T2 flow voids for the major intracranial vessels are unremarkable. Aleft mastoid effusion is again demonstrated. Otherwise, no abnormal fluidsignal is present in the mastoid air cells or paranasal air sinuses. [facility], Radiant Results Inft User - 01/10/2019 8:05 AM CDTMR BRAIN WO CONTRASTCOMPARISON: 01/09/2019 CT headHISTORY: Stroke suspected, focal neuro deficit, > 6 hrs TECHNIQUE: Multiplanar multisequence MR imaging of the brain was obtainedon a 3 Chastity magnet without intravenous contrast.FINDINGS:The ventricles and cerebral sulci are normal in caliber and configuration.No midline shift,hydrocephalus or pathological extra-axial fluidcollection is present. The basal cisterns are unremarkable.No restricted diffusion is present to suggest acute infarct. No parenchymalsignal abnormality is present. No abnormal gradient blooming.The T2 flow voids for the major intracranial vessels are unremarkable. Aleft mastoid effusion is again demonstrated. Otherwise, no abnormal fluidsignal is present in the mastoid air cells or paranasal air sinuses.IMPRESSIONNo acute intracranial abnormality.Nonspecific left mastoid effusion.Danielle Membreno have reviewed this study and agree with the abovereport.Danielle Membreno MD., have reviewed this study and agree with theabove report.[facility] (A1C)2019-01-10 07:24:00 Test Item Value Reference Range Interpretation Comments HGB A1C (test code = 4548-4) 5.3 % 4-6 Lab Interpretation (test code = Normal 34024-4) [facility] HospitalFASTING LIPID PANEL (40168)(TOTAL CHOLESTEROL, TRIGLYCERIDES, HDL)2019-01-10 05:01:00 Test Item Value Reference Range Interpretation Comments CHOL (test code = 242 mg/dL 120-200 H 5867931555) HDL (test code = 38 mg/dL >50 L 2835325164) HDLC RATIO (test code = See_Comment H [Au tomated message] [id number]) The system [facility] generated this result transmit oswald reference range : <=4.5. The refe rence range was not u sed to interpret th is result as normal/abnormal . TRIG (test code = 193 mg/dL 30-170 H 7905837741) LDL CHOL (test code = 165 mg/dL See_Comment H [Auto mated message] 32006-3) The system [facility] generated this result transmit oswald reference range : <=160. The refe rence range was not u sed to interpret th is result as normal/abnormal . VLDL (test code = 39 mg/dL 5-60 0998835375) Lab Interpretation (test Abnormal code = 68098-7) [facility] [id number] 01:12:46 No high- grade stenosis or aneurysm is present in the intracranial orcervical vessels IDayanara MD., have reviewed this study and agree with theabove report.CT ANGIOGRAM NECK,CT ANGIOGRAM HEAD HISTORY: Arterial stricture / occlusion, head neck TECHNIQUE: CTA imaging of the head and neck were obtained afteradministration 100 cc IV Omnipaque contrast. Coronal and sagittal MIPSreformats areprovided. COMPARISON:?CT head dated 01/09/2019 [place] FINDINGS: The PICA origin is visualized bilaterally. The distal right V4 segment isdiminutive in the right vertebral artery functionally terminates as thePICA. The superior cerebellar arteries are unremarkable. The posteriorcerebral arteries are unremarkable. The distal cervical, petrous, cavernous and supraclinoid internal carotidarteriesare unremarkable. The anterior and middle cerebral arteries areunremarkable. An anterior communicating artery is visualized. NECK FINDINGS: Aortic arch and arch vessel origins: The left common carotid artery andright brachiocephalic artery share a common origin. Mild aortic archatherosclerosis is present. Innominate and subclavian arteries: Unremarkable. Carotid arteries: Unremarkable throughout their course with no significantstenosis identified. Vertebral arteries: The vertebral arteries arise from the subclavianarteries. The left vertebral artery is dominant. Cervical soft tissues: 4 mm hypoattenuating nodule in the inferior aspectof the left thyroid lobe (4:121) Lung apices: Mild biapical pleural thickening. Cervical spine: No more than mild degenerative changes are seen throughoutthe visualized spine.Chronic bony remodeling is seen about the distal rightclavicle. [facility], Radiant Results Inft User - 01/09/2019 8:12 PM CDTCT ANGIOGRAM NECK,CT ANGIOGRAM HEADHISTORY: Arterial stricture / occlusion, head neck TECHNIQUE: CTA imaging of the head and neck were obtained afteradministration 100 cc IVOmnipaque contrast. Coronal and sagittal MIPSreformats are provided.COMPARISON: CT head dated 01/09/2019[place] FINDINGS:The PICA origin is visualized bilaterally. The distal right V4 segment isdiminutive in the right vertebral artery functionally terminates as thePICA. The superior cerebellar arteries are unremarkable. The posteriorcerebral arteries are unremarkable. The distal cervical, petrous, cavernous and supraclinoid internal carotidarteries are unremarkable. The anterior and middle cerebral arteries areunremarkable. An anterior communicating artery is visualized.NECK FINDINGS:Aortic arch and arch vessel origins: The left common carotid artery andright brachiocephalic artery share a common origin. Mild aortic archatherosclerosis is present.Innominate and subclavian arteries: Unremarkable.Carotid arteries: Unremarkable throughout their course with no significantstenosis identified.Vertebral arteries: The vertebral arteries arise from the subclavianarteries. The left vertebral artery is dominant.Cervical soft tissues: 4 mm hypoattenuating nodule in the inferior aspectof the left thyroid lobe (4:121)Lung apices: Mild biapical pleural thickening.Cervical spine: No more than mild degenerative changes are seen throughoutthe visualized spine.Chronic bony remodeling is seen about the distal rightclavicle.IMPRESSIONNo high-grade stenosis or aneurysm is present in the intracranial orcervical vesselsI, Dayanara Andrew MD., have reviewed this study and agree with theabove report.[facility]IOGRAM [id number] 01:12:46 No high-grade stenosis or aneurysm is present in the intracranial orcervical vessels I, Dayanara Andrew MD., have reviewed this study and agree with theabove report.CT ANGIOGRAM NECK,CT ANGIOGRAM HEAD HISTORY: Arterial stricture / occlusion, head neck TECHNIQUE: CTA imaging of the head and neck were obtained afteradministration 100 cc IV Omnipaque contrast. Coronal and sagittal MIPSreformats areprovided. COMPARISON:?CT head dated 01/09/2019 [place] [facility] [place] FINDINGS: The PICA origin is visualized bilaterally. The distal right V4 segment isdiminutive in the right vertebral artery functionally terminates as thePICA. The superior cerebellar arteries are unremarkable. The posteriorcerebral arteries are unremarkable. The distal cervical, petrous, cavernous and supraclinoid internal carotidarteriesare unremarkable. The anterior and middle cerebral arteries areunremarkable. An anterior communicating artery is visualized. NECK FINDINGS: Aortic arch and arch vessel origins: The left common carotid artery andright brachiocephalic artery share a common origin. Mild aortic archatherosclerosis is present. Innominate and subclavian arteries: Unremarkable. Carotid arteries: Unremarkable throughout their course with no significantstenosis identified. Vertebral arteries: The vertebral arteries arise from the subclavianarteries. The left vertebral artery is dominant. Cervical soft tissues: 4 mm hypoattenuating nodule in the inferior aspectof the left thyroid lobe (4:121) Lung apices: Mild biapical pleural thickening. Cervical spine: No more than mild degenerative changes are seen throughoutthe visualized spine.Chronic bony remodeling is seen about the distal rightclavicle. [facility], Radiant Results Inft User - 01/09/2019 8:12 PM CDTCT ANGIOGRAM NECK,CT ANGIOGRAM HEADHISTORY: Arterial stricture / occlusion, head neck TECHNIQUE: CTA imaging of the head and neck were obtained afteradministration 100 cc IVOmnipaque contrast. Coronal and sagittal MIPSreformats are provided.COMPARISON: CT head dated 01/09/2019[place] FINDINGS:The PICA origin is visualized bilaterally. The distal right V4 segment isdiminutive in the right vertebral artery functionally terminates as thePICA. The superior cerebellar arteries are unremarkable. The posteriorcerebral arteries are unremarkable. The distal cervical, petrous, cavernous and supraclinoid internal carotidarteries are unremarkable. The anterior and middle cerebral arteries areunremarkable. An anterior communicating artery is visualized.NECK FINDINGS:Aortic arch and arch vessel origins: The left common carotid artery andright brachiocephalic artery share a common origin. Mild aortic archatherosclerosis is present.Innominate and subclavian arteries: Unremarkable.Carotid arteries: Unremarkable throughout their course with no significantstenosis identified.Vertebral arteries: The vertebral arteries arise from the subclavianarteries. The left vertebral artery is dominant.Cervical soft tissues: 4 mm hypoattenuating nodule in the inferior aspectof the left thyroid lobe (4:121)Lung apices: Mild biapical pleural thickening.Cervical spine: No more than mild degenerative changes are seen throughoutthe visualized spine.Chronic bony remodeling is seen about the distal rightclavicle.IMPRESSIONNo high-grade stenosis or aneurysm is present in the intracranial orcervical vesselsIDayanara MD., have reviewed this study and agree with theabove report.[facility] [id number] 23:50:00 Test Item Value Reference Range Interpretation Comments APPEARANCE (test code = Clear Clear [id number]) COLOR (test code = Yellow Yellow [id number]) PH (test code = 4.8-8.0 4167392790) SP GRAVITY (test code = 1.003-1.030 6431414479) GLU U QUAL (test code = Normal Normal 2071885991) BLOOD (test code = Negative Negative 6348582722) KETONES (test code = Negative Negative [id number]) PROTEIN (test code = Negative Negative 2887-8) UROBILIN (test code = Normal Normal 2585341121) BILIRUBIN (test code = Negative Negative 2763631314) NITRITE (test code = Negative Negative 2584313443) LEUK CARLTON (test code = Negative Negative 7032885147) RBC/HPF (test code = See_Comment [Autom ated message] 2824237906) The system [employer] generated this result transmitted ref erence range: 0 - 3 HP F. The reference range was not used to int erpret this result as normal/abnormal . WBC/HPF (test code = See_Comment [Autom ated message] 4652277308) The system [employer] generated this result transmitted ref erence range: 0 - 5 HP F. The reference range was not used to int erpret this result as normal/abnormal . BACTERIA (test code = Negative Negative 6268066402) AMORPHOUS (test code = Rare Rare HPF 5909995558) SQ EPITH (test code = See_Comment [Auto mated message] 8400359860) The system [employer] generated this result transmitted ref erence range: <=2 HPF. The reference range was not used to int erpret this result as normal/abnormal . Lab Interpretation (test Normal code = 61686-2) [id number] 22:24:54 No acute intracranial abnormality. Nonspecific small left mastoid effusion I, Dayanara Andrew MD., have reviewed this study and agree with theabove report.CT HEAD WO CONTRAST HISTORY: Dizziness, persistent/recurrent, cardiac or vascular causesuspected COMPARISON: None TECHNIQUE: Noncontrast CT ofthe brain was obtained with coronal andsagittal reconstructions. FINDINGS: The ventricles and cerebral sulci are normal in caliber and configuration.No hydrocephalus, midline shift or pathological extra-axial fluidcollection is present. The basal cisterns are unremarkable. There is no acute intracranial hemorrhage or significant mass effect. Noparenchymal attenuation abnormality. The fajardo-white matter differentiationis preserved. A left mastoid effusion is noted. The paranasal sinuses and mastoid aircells are otherwise unremarkable. The calvarium and central skull base areunremarkable. [facility], Radiant Results Inft User - 01/09/2019 5:25 PM CDTCT HEAD WO CONTRASTHISTORY: Dizziness, persistent/recurrent, cardiac or vascular causesuspected COMPARISON: NoneTECHNIQUE: Noncontrast CT of the brain was obtained with coronal andsagittal reconstructions.FINDINGS:The ventricles and cerebral sulci are normal in caliber and configuration.No hydrocephalus, midline shift or pathological extra-axial fluidcollection is present. The basal cisterns are unremarkable.There is no acute intracranial hemorrhage or significant mass effect. Noparenchymal attenuation abnormality. The fajardo-white matter differentiationis preserved.A left mastoid effusion is noted. The paranasal sinuses and mastoid aircells are otherwise unremarkable. The calvarium and central skull base areunremarkable.IMPRESSIONNo acute intracranial abnormality.Nonspecific small left mastoid effusionI, Dayanara Andrew MD., have reviewed this study and agree with theabove report.[facility] [id number] 21:51:00 Test Item Value Reference Range Interpretation Comments TROPONIN I (test 0.000 ng/mL See_Comment [Automated code = 2790979600) message] The system which generated this result transmitted reference range : <=0.034. The reference range was not used to interpret this result as normal/abnormal . RICARDO (test code = Equal or Less than RICARDO) 0.034 ng/ml---Normal?Not e: Cardiac troponin begins to rise 3-4 hours after the onset of ischemia. Repeat in 4-6 hours if the sample was drawn within 3-4 hours of the onset of the symptom and found normal. Between 0.035 and 0.120 ng/mL--- Borderline. Questionable myocardial injury or necrosis?Note: Serial measurement may be necessary to confirm or exclude the diagnosis of myocardial injury or necrosis; Clinical correlation (symptoms, EKGs, imaging studies, and others) required; Repeat in 4-6 hours if clinically indicated.? Equal or Higher than 0.121 ng/mL---Abnormal. Myocardial Injury or Necrosis Likely? Biotin has been reported to cause a negative bias, interpret results relative to patient's use of biotin.? ? Lab Interpretation Normal (test code = 87744-5) [facility]. METABOLIC PANEL (29784)2019-01-09 21:45:00 Test Item Value Reference Range Interpretation Comments NA (test code = 139 mmol/L 135-145 9185859016) K (test code = 4.1 mmol/L 3.5-5 2728977345) CL (test code = 104 mmol/L 98-108 4237770625) CO2 TOTAL (test code = 29 mmol/L 23-31 8105618518) AGAP (test code = 2-16 5205201000) BUN (test code = 18 mg/dL 7-23 3573761580) GLUCOSE (test code = 131 mg/dL 70-110 H 3187609090) CREATININE (test code = 0.64 mg/dL 0.5-1.04 6519075254) TOTAL BILI (test code = 0.7 mg/dL 0.1-1.9 5709021989) CALCIUM (test code = 9.9 mg/dL 8.6-10.6 0241878450) T PROTEIN (test code = 7.2 g/dL 6.3-8.2 6895879714) ALBUMIN (test code = 4.3 g/dL 3.5-5 1635715346) ALK PHOS (test code = 65 U/L 34-122 6551993305) ALT(SGPT) (test code = 28 U/L 9-51 9814559170) AST(SGOT) (test code = 37 U/L 13-40 4893767948) eGFR Calculation mL/min/1.73m2 (Non-) (test code = 7503875750) eGFR Calculation mL/min/1.73m2 () (test code = 2493969572) RICARDO (test code = RICARDO) Association of Glomerular Filtration Rate (GFR) and Staging of Kidney Disease*+ + + +| GFR (mL/min/1.73 m2)?| With Kidney Damage?|?Without Kidney Damage+ --------+ --------+ +|?>90?|?S tage one?|? Normal?+ ---------+ ---------+ +|?60-89? |?Stage two?|? Decreased GFR? + --+ --+ ------+|?30-59?|?Stage three?|? Stage three? + --+ --+ ------+|?15-29?|?Stage four? |? Stage four?+ -------+ -------+ +|?<15 (or dialysis)?|?Stage five? |? Stage five?+ -------+ -------+ +*Each stage assumes the associated GFR level has been in effect for at least three months.?Stages 1 to 5, with or without kidney disease, indicate chronic kidney disease.Notes: Determination of stages one and two (with eGFR >59mL/min/1.73 m2) requires estimation of kidney damage for at least three months as defined by structural or functional abnormalities of the kidney, manifested by either:Pathological abnormalities or Markers of kidney damage (including abnormalities in the composition of the blood or urine or abnormalities in imaging tests). Lab Interpretation Abnormal (test code = 11509-7) [facility] WITH [id number] 21:35:00 Test Item Value Reference Range Interpretation Comments WBC (test code = See_Comment [Automated 5790-2) message] The sy stem which generated this result transmitted reference range : 4.30 - 11.10 10*3/?L. The reference range was not used to interpret this result as normal/abnormal . RBC (test code = See_Comment [Automated 789-8) message] The sy stem which generated this result transmitted reference range : 3.93 - 5.25 10*6/?L. The reference range was not used to interpret this result as normal/abnormal . HGB (test code = 13.9 g/dL 11.6-15 718-7) HCT (test code = 41.0 % 35.7-45.2 4544-3) MCV (test code = 93.2 fL 80.6-95.5 787-2) MCH (test code = 31.6 pg 25.9-32.8 785-6) MCHC (test code = 33.9 g/dL 31.6-35.1 786-4) RDW-SD (test code = 42.5 fL 39-49.9 41592-6) RDW-CV (test code = 12.3 % 12-15.5 788-0) PLT (test code = See_Comment L [Automated 777-3) message] The sy stem which generated this result transmitted reference range : 166 - 358 10*3/ ?L. The reference r manjinder was not used to interpret this result as normal/abnormal . MPV (test code = 11.0 fL 9.5-12.9 68006-1) NRBC/100 WBC (test See_Comment [Automat ed code = 8718424011) message] The system which generated this result transmitted reference range : 0.0 - 10.0 /100 WBCs. The refer ence range was not u sed to interpret th is result as normal/abnormal . NRBC x10^3 (test code <0.01 See_Comment [Auto mated = 3408448305) message] The s ystem which generated this result transmitted reference range : 10*3/?L. The reference range was not used to interpret this result as normal/abnormal . GRAN MAT (NEUT) % 65.6 % (test code = 770-8) IMM GRAN % (test code 0.30 % = 0821308053) LYMPH % (test code = 24.3 % 736-9) MONO % (test code = 7.7 % 5905-5) EOS % (test code = 1.8 % 713-8) BASO % (test code = 0.3 % 706-2) GRAN MAT x10^3(ANC) 3.91 10*3/uL 1.88-7.09 (test code = 3483596380) IMM GRAN x10^3 (test <0.03 0-0.06 code = 7459732986) LYMPH x10^3 (test code 1.45 10*3/uL 1.32-3.29 = 731-0) MONO x10^3 (test code 0.46 10*3/uL 0.33-0.92 = 742-7) EOS x10^3 (test code = 0.11 10*3/uL 0.03-0.39 711-2) BASO x10^3 (test code <0.03 0.01-0.07 = 704-7) Lab Interpretation Abnormal (test code = 44383-2) [facility] [id number] 19:27:04Left wrist avulsion fracture healing well.[facility] VW [id number] 15:39:20Good alignment, cmc arthritisUnMemorial Herm[facility] HospitalDX Inj Arthrogram Shoulder Unilat [id number] 14:06:00EXAM: FLUOROSCOPY-GUIDED THERAPEUTIC RIGHT SHOULDER INJECTIONDATE: 09/15/2018 14:06 CDTINDICATION: - M19.011 Primary osteoarthritis, right shoulderCOMPARISON: CT shoulder arthrogram dated 05/27/2018TECHNIQUE:Consent: An informed consent was obtained from the patient prior to theprocedure.Appropriate time out procedures were performed.The skin was prepped and draped in the usual fashion under aseptic precautions.1% lidocaine was utilized for local anesthesia.Under fluoroscopic guidance a 22 gauge longspinal needle was used to accessthe shoulder joint.2 mL of Omnipaque 240 was injected under fluoroscopic guidance to confirmintra-articular needle placement.5 mL of Trivisc along with 40 mg of Kenalog and 3 mL of 0.2% ropivacaine weresubsequently injected.No immediate complications.Preprocedure pain score: 10/10Postprocedure pain score: 5/10FLUORO TIME: 4 secondsDAP: 0.67 mGy-cm2Dr. Nela, attending, was present for the procedure rowley components.FINDINGS: A normal shoulder joint was outlined.IMPRES REYNALDO: Technically successful fluoroscopy-guided right shoulder injectionfor therapeutic purposes.--This report was dictated by a [employer] C[employer]/Fellow/Physician Remote Encoding Center Manager. Ihave personallyreviewed the images as well as the interpretation and agree with the findings.Read by: David Redman MD Resident/Fellow/PhysicianAssistant: David Redman MDDictated Date/time: 09/15/18 16:09Electronically Signed by: Pedrito Rondon MD 09/16/1915:37FINAL REPORTUT PhysiciansTISE [id number] 13:19:00Surgical Pathology Report Case: [id number] Authorizing Provider: Rambo De La Cruz MD Collected: 09/01/2018 1025 Ordering Location: [facility] Endoscopy Received: 09/01/2018 1540 Services Pathologist: Jose Borrego MD Specimen: Polyp, Colon - Right/Ascending, Ascending and Transverse polyps COLON, ASCENDING AND TRANSVERSE, POLYPS, BIOPSY: - MULTIPLE FRAGMENTS OF TUBULAR ADENOMA Signing Pathologist Direct Phone Line: [phone] signed by Jose Borrego MD on 09/02/2018 at1:19 [id number] of colon polypsAscending and transverse polyps This case is received in one part, which is labeled correctly with the patient's name and date of .Received labeled "ascending colon polyp" consists of multiple irregular fragments of london-brown tissue aggregating to 2.0 x 0.3 x 0.3 cm. The specimen is filtered and is submitted in toto in cassette A. AH/ew Performed.[U] XRAY SHOULDER MIN 2 VWS RIGHT [id number] 15:16:00Images acquired, not reported on this accession number.[facility] LIPID [id number] 13:19:00 Test Item Value Reference Range Interpretation Comments TRIGLYCERIDES (BEAKER) (test code = 141 mg/dL 540) CHOLESTEROL (BEAKER) (test code = 181 mg/dL 631) HDL CHOLESTEROL (BEAKER) (test code 49 mg/dL = 976) LDL CHOLESTEROL CALCULATED (BEAKER) 104 mg/dL (test code = 633) Triglyceride Reference Range: Low Risk <150 Borderline 150-199 High Risk 200- 499 Very High Risk >=500Cholesterol Reference Range: Low Risk <200 Borderline 200-239 High Risk >240HDL Cholesterol Reference Range: Low Risk >=60 High Risk <40LDL Cholesterol Reference Range: Optimal <100 Near Optimal 100-129 Borderline 130-159 High 160-189 Very High >=190BASIC METABOLIC [id number] 13:19:00 Test Item Value Reference Range Interpretation Comments SODIUM (BEAKER) 139 meq/L 136-145 (test code = 381) POTASSIUM (BEAKER) 4.0 meq/L 3.5-5.1 (test code = 379) CHLORIDE (BEAKER) 107 meq/L 98-107 (test code = 382) CO2 (BEAKER) (test 25 meq/L 22-29 code = 355) BLOOD UREA NITROGEN 16 mg/dL 7-21 (BEAKER) (test code = 354) CREATININE (BEAKER) 0.71 mg/dL 0.57-1.25 (test code = 358) GLUCOSE RANDOM 87 mg/dL 70-105 (BEAKER) (test code = 652) CALCIUM (BEAKER) 9.5 mg/dL 8.4-10.2 (test code = 697) EGFR (BEAKER) (test 81 mL/min/1.73 ESTIMA OSWALD GFR IS code = 1092) sq m NOT ACCURATE CREATININE CLEARANCE IN PREDICTING GLOMERULAR FILTRATION RATE . ESTIMATED GFR I S NOT APPLICABLE FOR DIALYSIS PATIEN TS. HEPATIC FUNCTION [id number] 13:19:00 Test Item Value Reference Range Interpretation Comments TOTAL PROTEIN (BEAKER) (test code = 6.7 gm/dL 6.0-8.3 770) ALBUMIN (BEAKER) (test code = 1145) 4.1 g/dL 3.5-5.0 BILIRUBIN TOTAL (BEAKER) (test code 0.9 mg/dL 0.2-1.2 = 377) BILIRUBIN DIRECT (BEAKER) (test 0.3 mg/dL 0.1-0.5 code = 706) ALKALINE PHOSPHATASE (BEAKER) (test 71 U/L 40-150 code = 346) AST (SGOT) (BEAKER) (test code = 24 U/L 5-34 353) ALT (SGPT) (BEAKER) (test code = 21 U/L 6-55 347) CBC W/PLT COUNT & AUTO [id number] 11:49:00 Test Item Value Reference Range Interpretation Comments WHITE BLOOD CELL COUNT (BEAKER) 4.8 K/ L 3.5-10.5 (test code = 775) RED BLOOD CELL COUNT (BEAKER) 4.00 M/ L 3.93-5.22 (test code = 761) HEMOGLOBIN (BEAKER) (test code = 12.8 GM/DL 11.2-15.7 410) HEMATOCRIT (BEAKER) (test code = 39.7 % 34.1-44.9 411) MEAN CORPUSCULAR VOLUME (BEAKER) 99.3 fL 79.4-94.8 H (test code = 753) MEAN CORPUSCULAR HEMOGLOBIN 32.0 pg 25.6-32.2 (BEAKER) (test code = 751) MEAN CORPUSCULAR HEMOGLOBIN CONC 32.2 GM/DL 32.2-35.5 (BEAKER) (test code = 752) RED CELL DISTRIBUTION WIDTH 13.0 % 11.7-14.4 (BEAKER) (test code = 412) PLATELET COUNT (BEAKER) (test 175 K/CU MM 150-450 code = 756) MEAN PLATELET VOLUME (BEAKER) 11.0 fL 9.4-12.3 (test code = 754) NUCLEATED RED BLOOD CELLS 0 /100 WBC 0-0 (BEAKER) (test code = 413) NEUTROPHILS RELATIVE PERCENT 50 % (BEAKER) (test code = 429) LYMPHOCYTES RELATIVE PERCENT 34 % (BEAKER) (test code = 430) MONOCYTES RELATIVE PERCENT 10 % (BEAKER) (test code = 431) EOSINOPHILS RELATIVE PERCENT 5 % (BEAKER) (test code = 432) BASOPHILS RELATIVE PERCENT 1 % (BEAKER) (test code = 437) NEUTROPHILS ABSOLUTE COUNT 2.42 K/ L 1.56-6.13 (BEAKER) (test code = 670) LYMPHOCYTES ABSOLUTE COUNT 1.65 K/ L 1.18-3.74 (BEAKER) (test code = 414) MONOCYTES ABSOLUTE COUNT (BEAKER) 0.50 K/ L 0.24-0.36 H (test code = 415) EOSINOPHILS ABSOLUTE COUNT 0.22 K/ L 0.04-0.36 (BEAKER) (test code = 416) BASOPHILS ABSOLUTE COUNT (BEAKER) 0.03 K/ L 0.01-0.08 (test code = 417) IMMATURE GRANULOCYTES-RELATIVE 0 % 0-1 PERCENT (BEAKER) (test code = 2801) RAD, CHEST, 2 [id number] 11:47:00Reason for Exam:->chest painFINAL REPORT Chest, PA and lateral. History: Chest pain. Comparison: 07/19/2017.Discussion: The cardiomediastinal silhouette and pulmonary vasculature are within normal limits. Thelungs are clear without evidence of consolidation or effusion. There are no acute osseous abnormalities. The soft tissues are unremarkable. IMPRESSION: No acute cardiopulmonary abnormality. Signed: Kenyatta Peck MDReport Verified Date/Time: 02/28/2018 11:47:51 Reading Location: [address] Radiology Reading Room (MANUAL DIFFERENTIAL) 2017-07-19 15:08:00 Test Item Value Reference Range Interpretation Comments TOTAL COUNTED (BEAKER) (test code = 1351) WBC MORPHOLOGY (BEAKER) (test code = Normal 487) PLT MORPHOLOGY (BEAKER) (test code = Normal 486) RBC MORPHOLOGY (BEAKER) (test code = Normal 762) CBC W/PLT COUNT & AUTO [id number] 13:07:00 Test Item Value Reference Range Interpretation Comments WHITE BLOOD CELL COUNT (BEAKER) 5.3 K/ L 3.5-10.5 (test code = 775) RED BLOOD CELL COUNT (BEAKER) 4.17 M/ L 3.93-5.22 (test code = 761) HEMOGLOBIN (BEAKER) (test code = 13.5 GM/DL 11.2-15.7 410) HEMATOCRIT (BEAKER) (test code = 41.1 % 34.1-44.9 411) MEAN CORPUSCULAR VOLUME (BEAKER) 98.6 fL 79.4-94.8 H (test code = 753) MEAN CORPUSCULAR HEMOGLOBIN 32.4 pg 25.6-32.2 H (BEAKER) (test code = 751) MEAN CORPUSCULAR HEMOGLOBIN CONC 32.8 GM/DL 32.2-35.5 (BEAKER) (test code = 752) RED CELL DISTRIBUTION WIDTH 13.0 % 11.7-14.4 (BEAKER) (test code = 412) PLATELET COUNT (BEAKER) (test 173 K/CU MM 150-450 code = 756) MEAN PLATELET VOLUME (BEAKER) 10.7 fL 9.4-12.3 (test code = 754) NUCLEATED RED BLOOD CELLS 0 /100 WBC 0-0 (BEAKER) (test code = 413) NEUTROPHILS RELATIVE PERCENT 43 % (BEAKER) (test code = 429) LYMPHOCYTES RELATIVE PERCENT 43 % (BEAKER) (test code = 430) MONOCYTES RELATIVE PERCENT 9 % (BEAKER) (test code = 431) EOSINOPHILS RELATIVE PERCENT 4 % (BEAKER) (test code = 432) BASOPHILS RELATIVE PERCENT 1 % (BEAKER) (test code = 437) NEUTROPHILS ABSOLUTE COUNT 2.26 K/ L 1.56-6.13 (BEAKER) (test code = 670) LYMPHOCYTES ABSOLUTE COUNT 2.25 K/ L 1.18-3.74 (BEAKER) (test code = 414) MONOCYTES ABSOLUTE COUNT (BEAKER) 0.49 K/ L 0.24-0.36 H (test code = 415) EOSINOPHILS ABSOLUTE COUNT 0.21 K/ L 0.04-0.36 (BEAKER) (test code = 416) BASOPHILS ABSOLUTE COUNT (BEAKER) 0.03 K/ L 0.01-0.08 (test code = 417) IMMATURE GRANULOCYTES-RELATIVE 0 % 0-1 PERCENT (BEAKER) (test code = 2801) LIPID [id number] 12:22:00 Test Item Value Reference Range Interpretation Comments TRIGLYCERIDES (BEAKER) (test code = 145 mg/dL 540) CHOLESTEROL (BEAKER) (test code = 215 mg/dL 631) HDL CHOLESTEROL (BEAKER) (test code 51 mg/dL = 976) LDL CHOLESTEROL CALCULATED (BEAKER) 135 mg/dL (test code = 633) Triglyceride Reference Range: Low Risk <150 Borderline 150-199 High Risk 200- 499 Very High Risk >=500Cholesterol Reference Range: Low Risk <200 Borderline 200-239 High Risk >240HDL Cholesterol Reference Range: Low Risk >=60 High Risk <40LDL Cholesterol Reference Range: Optimal <100 Near Optimal 100-129 Borderline 130-159 High 160-189 Very High >=190COMPREHENSIVE METABOLIC [id number] 12:22:00 Test Item Value Reference Range Interpretation Comments TOTAL PROTEIN 6.9 gm/dL 6.0-8.3 (BEAKER) (test code = 770) ALBUMIN (BEAKER) 4.4 g/dL 3.5-5.0 (test code = 1145) ALKALINE PHOSPHATASE 57 U/L 40-150 (BEAKER) (test code = 346) BILIRUBIN TOTAL 0.7 mg/dL 0.2-1.2 (BEAKER) (test code = 377) SODIUM (BEAKER) (test 140 meq/L 136-145 code = 381) POTASSIUM (BEAKER) 4.3 meq/L 3.5-5.1 (test code = 379) CHLORIDE (BEAKER) 106 meq/L 98-107 (test code = 382) CO2 (BEAKER) (test 27 meq/L 22-29 code = 355) BLOOD UREA NITROGEN 17 mg/dL 7-21 (BEAKER) (test code = 354) CREATININE (BEAKER) 0.74 mg/dL 0.57-1.25 (test code = 358) GLUCOSE RANDOM 92 mg/dL 70-105 (BEAKER) (test code = 652) CALCIUM (BEAKER) 9.8 mg/dL 8.4-10.2 (test code = 697) AST (SGOT) (BEAKER) 25 U/L 5-34 (test code = 353) ALT (SGPT) (BEAKER) 28 U/L 6-55 (test code = 347) EGFR (BEAKER) (test 77 mL/min/1.73 ESTIMA OSWALD GFR IS code = 1092) sq m NOT ACCURATE CREATININE CLEARANCE IN PREDICTING GLOMERULAR FILTRATION RATE . ESTIMATED GFR I S NOT APPLICABLE FOR DIALYSIS PATIEN RAD, CHEST, 2 [id number] 11:18:00Reason for Exam:->CADReason for Exam:- >HLDReason for Exam:->TRReason for Exam:->ABN EKGFINAL REPORT Chest, 2 views. Clinical History: CADHLDTRABN EKG Comparison Study: October 19, 2016 Findings: The heart and lungs are within normal limits. The pleural spaces are clear.Some mild elevation of the right hemidiaphragm is noted. Degenerative changes are seen. Impression: No active cardiopulmonary disease. Signed: John Sauer MDReport Verified Date/Time: 07/19/2017 11: 18:36 Reading Location: [address] Radiology Reading Room PROTHROMBIN TIME/INR 2017-04-03 15:01:00 Test Item Value Reference Range Interpretation Comments PROTIME (BEAKER) (test code = 10.1 seconds 9.8-12.0 759) INR (BEAKER) (test code = 370) 0.9 <=5.9 RECOMMENDED COUMADIN/WARFARIN INR THERAPY RANGESSTANDARD DOSE: 2.0 - 3.0 Includes: PROPHYLAXIS for venous thrombosis, systemic embolization; TREATMENT for venous thrombosis and/or pulmonary embolus.HIGH RISK: Target INR is 2.5-3.5 for patients with mechanical heart valves.[id number] 15:01:00 Test Item Value Reference Range Interpretation Comments PARTIAL THROMBOPLASTIN TIME 22.5 seconds 25.8-34.5 L (BEAKER) (test code = 760) BASIC METABOLIC [id number] 14:58:00 Test Item Value Reference Range Interpretation Comments SODIUM (BEAKER) 136 meq/L 135-148 (test code = 381) POTASSIUM (BEAKER) 4.2 meq/L 3.6-5.5 (test code = 379) CHLORIDE (BEAKER) 104 meq/L 98-106 (test code = 382) CO2 (BEAKER) (test 26 meq/L 24-32 code = 355) BLOOD UREA NITROGEN 21 mg/dL 10-26 (BEAKER) (test code = 354) CREATININE (BEAKER) 0.62 mg/dL 0.50-1.20 (test code = 358) GLUCOSE RANDOM 99 mg/dL 70-110 (BEAKER) (test code = 652) CALCIUM (BEAKER) 9.4 mg/dL 8.5-10.5 (test code = 697) EGFR (BEAKER) (test 95 mL/min/1.73 ESTIMA OSWALD GFR IS code = 1092) sq m NOT ACCURATE CREATININE CLEARANCE IN PREDICTING GLOMERULAR FILTRATION RATE . ESTIMATED GFR I S NOT APPLICABLE FOR DIALYSIS PATIEN TS. CBC W/PLT COUNT & AUTO [id number] 14:51:00 Test Item Value Reference Range Interpretation Comments WHITE BLOOD CELL COUNT (BEAKER) 10.3 10e3/ L 4.0-10.0 H (test code = 775) RED BLOOD CELL COUNT (BEAKER) 4.23 10e6/ L 4.00-5.00 (test code = 761) HEMOGLOBIN (BEAKER) (test code = 13.6 g/dL 12.0-15.0 410) HEMATOCRIT (BEAKER) (test code = 40.2 % 36.0-45.0 411) MEAN CORPUSCULAR VOLUME (BEAKER) 94.9 fL 82.0-99.0 (test code = 753) MEAN CORPUSCULAR HEMOGLOBIN 32.0 pg 27.0-33.0 (BEAKER) (test code = 751) MEAN CORPUSCULAR HEMOGLOBIN CONC 33.7 g/dL 32.0-36.0 (BEAKER) (test code = 752) RED CELL DISTRIBUTION WIDTH 12.3 % 10.3-14.2 (BEAKER) (test code = 412) PLATELET COUNT (BEAKER) (test 178 10e3/ L 150-430 code = 756) MEAN PLATELET VOLUME (BEAKER) 7.9 fL 6.5-10.5 (test code = 754) NEUTROPHILS RELATIVE PERCENT 65 % (BEAKER) (test code = 429) LYMPHOCYTES RELATIVE PERCENT 25 % (BEAKER) (test code = 430) MONOCYTES RELATIVE PERCENT 7 % (BEAKER) (test code = 431) EOSINOPHILS RELATIVE PERCENT 3 % (BEAKER) (test code = 432) BASOPHILS RELATIVE PERCENT 1 % (BEAKER) (test code = 437) NEUTROPHILS ABSOLUTE COUNT 6.66 10e3/ L 1.80-8.00 (BEAKER) (test code = 670) LYMPHOCYTES ABSOLUTE COUNT 2.59 10e3/ L 1.48-4.50 (BEAKER) (test code = 414) MONOCYTES ABSOLUTE COUNT 0.73 10e3/ L 0.00-1.30 (BEAKER) (test code = 415) EOSINOPHILS ABSOLUTE COUNT 0.26 10e3/ L 0.00-0.50 (BEAKER) (test code = 416) BASOPHILS ABSOLUTE COUNT 0.07 10e3/ L 0.00-0.20 (BEAKER) (test code = 417) CBC W/PLT COUNT & AUTO [id number] 11:24:00 Test Item Value Reference Range Interpretation Comments WHITE BLOOD CELL COUNT (BEAKER) 7.3 K/ L 4.0-10.0 (test code = 775) RED BLOOD CELL COUNT (BEAKER) 4.52 M/ L 4.00-5.00 (test code = 761) HEMOGLOBIN (BEAKER) (test code = 14.5 GM/DL 12.0-15.0 410) HEMATOCRIT (BEAKER) (test code = 44.8 % 36.0-45.0 411) MEAN CORPUSCULAR VOLUME (BEAKER) 99.1 fL 82.0-99.0 H (test code = 753) MEAN CORPUSCULAR HEMOGLOBIN 32.2 pg 27.0-33.0 (BEAKER) (test code = 751) MEAN CORPUSCULAR HEMOGLOBIN CONC 32.5 GM/DL 32.0-36.0 (BEAKER) (test code = 752) RED CELL DISTRIBUTION WIDTH 12.9 % 10.3-14.2 (BEAKER) (test code = 412) PLATELET COUNT (BEAKER) (test 170 K/CU MM 150-430 code = 756) MEAN PLATELET VOLUME (BEAKER) 7.8 fL 6.5-10.5 (test code = 754) NUCLEATED RED BLOOD CELLS 0 /100 WBC 0-0 (BEAKER) (test code = 413) NEUTROPHILS RELATIVE PERCENT 53 % (BEAKER) (test code = 429) LYMPHOCYTES RELATIVE PERCENT 34 % (BEAKER) (test code = 430) MONOCYTES RELATIVE PERCENT 9 % (BEAKER) (test code = 431) EOSINOPHILS RELATIVE PERCENT 4 % (BEAKER) (test code = 432) BASOPHILS RELATIVE PERCENT 1 % (BEAKER) (test code = 437) NEUTROPHILS ABSOLUTE COUNT 3.89 K/ L 1.80-8.00 (BEAKER) (test code = 670) LYMPHOCYTES ABSOLUTE COUNT 2.48 K/ L 1.48-4.50 (BEAKER) (test code = 414) MONOCYTES ABSOLUTE COUNT (BEAKER) 0.63 K/ L 0.00-1.30 (test code = 415) EOSINOPHILS ABSOLUTE COUNT 0.26 K/ L 0.00-0.50 (BEAKER) (test code = 416) BASOPHILS ABSOLUTE COUNT (BEAKER) 0.06 K/ L 0.00-0.20 (test code = 417) 0.00LIPID [id number] 11:19:00 Test Item Value Reference Range Interpretation Comments TRIGLYCERIDES (BEAKER) (test code = 176 mg/dL 540) CHOLESTEROL (BEAKER) (test code = 186 mg/dL 631) HDL CHOLESTEROL (BEAKER) (test code 48 mg/dL = 976) LDL CHOLESTEROL CALCULATED (BEAKER) 103 mg/dL (test code = 633) Triglyceride Reference Range: Low Risk <150 Borderline 150-199 High Risk 200- 499 Very High Risk >=500Cholesterol Reference Range: Low Risk <200 Borderline 200-239 High Risk >240HDL Cholesterol Reference Range: Low Risk >=60 High Risk <40LDL Cholesterol Reference Range: Optimal <100 Near Optimal 100-129 Borderline 130-159 High 160-189 Very High >=190COMPREHENSIVE METABOLIC [id number] 11:19:00 Test Item Value Reference Range Interpretation Comments TOTAL PROTEIN 6.9 gm/dL 6.0-8.3 (BEAKER) (test code = 770) ALBUMIN (BEAKER) 4.2 g/dL 3.5-5.0 (test code = 1145) ALKALINE PHOSPHATASE 68 U/L 40-150 (BEAKER) (test code = 346) BILIRUBIN TOTAL 0.9 mg/dL 0.2-1.2 (BEAKER) (test code = 377) SODIUM (BEAKER) (test 140 meq/L 136-145 code = 381) POTASSIUM (BEAKER) 4.1 meq/L 3.5-5.1 (test code = 379) CHLORIDE (BEAKER) 105 meq/L 98-107 (test code = 382) CO2 (BEAKER) (test 30 meq/L 22-29 H code = 355) BLOOD UREA NITROGEN 14 mg/dL 7-21 (BEAKER) (test code = 354) CREATININE (BEAKER) 0.84 mg/dL 0.57-1.25 (test code = 358) GLUCOSE RANDOM 92 mg/dL 70-105 (BEAKER) (test code = 652) CALCIUM (BEAKER) 9.5 mg/dL 8.4-10.2 (test code = 697) AST (SGOT) (BEAKER) 31 U/L 5-34 (test code = 353) ALT (SGPT) (BEAKER) 29 U/L 6-55 (test code = 347) EGFR (BEAKER) (test 67 mL/min/1.73 ESTIMA OSWALD GFR IS code = 1092) sq m NOT ACCURATE CREATININE CLEARANCE IN PREDICTING GLOMERULAR FILTRATION RATE . ESTIMATED GFR I S NOT APPLICABLE FOR DIALYSIS PATIEN TS.
--- NOTE | 2022-03-09 11:10 | RAD REPORT ---
EXAM DESCRIPTION: CT - Facial Bones W/ Mpr - 03/09/2022 10:52 am CLINICAL HISTORY: Facial injury with status post trauma COMPARISON: None TECHNIQUE: Computed axial tomography of the face was obtained. Coronal and sagittal reconstruction w as performed. All CT scans are performed using dose optimization technique as appropriate and may include automated exposure control or mA/KV adjustment according to patient size. FINDINGS: 17 millimeter hematoma below the right orbit. A fracture is not seen. A TMJ dislocation is not noted. The globes are intact. Fluid within the sinuses is not seen. IMPRESSION: Negative for a facial fracture.
--- NOTE | 2022-03-09 11:43 | ER ---
Nurse's Notes [facility] Name: Eli Soliz Age: 76 yrs Sex: Female : 1945 Arrival Date: 03/09/2022 Time: 10:04 Bed 9 Private MD: Diagnosis: Periorbital Hematoma Presentation: 03/09 10:23 Chief complaint: Patient states: 10 days ago - I rolled out of bed and hit my head. ld1 Went to urgent care - CT scan was clear. Pt C/O bump under right eye - painful and the swelling has not gone down. Coronavirus screen: At this time, the client does not indicate any symptoms associated with coronavirus-19. Ebola Screen: No symptoms or risks identified at this time. Initial Sepsis Screen: Does the patient meet any 2 criteria? No. Patient's initial sepsis screen is negative. Does the patient have a suspected source of infection? No. Patient's initial sepsis screen is negative. Risk Assessment: Do you want to hurt yourself or someone else? Patient reports no desire to harm self or others. Onset of symptoms was March 09, 2022 at 10:25. 10:23 Method Of Arrival: Ambulatory ld1 10:23 Acuity: MYAH 3 ld1 Triage Assessment: 10:25 General: Appears in no apparent distress. comfortable, Behavior is calm, cooperative, ld1 appropriate for age. Pain: Complains of pain in right cheek Pain does not radiate. Pain currently is 7 out of 10 on a pain scale. EENT: No signs and/or symptoms were reported regarding the EENT system. Neuro: Level of Consciousness is awake, alert, obeys commands, Oriented to person, place, time, situation. Cardiovascular: Capillary refill < 3 seconds Patient's skin is warm and dry. Respiratory: Airway is patent Respiratory effort is even, unlabored. GI: Abdomen is flat, non-distended. : No signs and/or symptoms were reported regarding the genitourinary system. Historical: - Allergies: 10:25 Codeine; ld1 10:25 PENICILLINS; ld1 - Home Meds: 10:25 metoprolol tartrate 25 mg Oral tab 1 tab once daily [Active]; ld1 - PMHx: 10:25 Hypercholesterolemia; Heart disease; Hypertensive disorder; ld1 - PSHx: 10:25 Total abdominal hysterectomy; ld1 - Immunization history:: Adult Immunizations up to date, Client reports receiving the 2nd dose of the Covid vaccine. - Social history:: Smoking status: Patient denies any tobacco usage or history of. Patient/guardian denies using alcohol. Screenin:00 Abuse screen: Denies threats or abuse. Denies injuries from another. Nutritional mb8 screening: No deficits noted. Tuberculosis screening: No symptoms or risk factors identified. Fall Risk Fall in past 12 months (25 points). Secondary diagnosis (15 points) No IV (0 pts). Ambulatory Aid- None/Bed Rest/Nurse Assist (0 pts). Gait- Normal/Bed Rest/Wheelchair (0 pts) Mental Status- Oriented to own ability (0 pts). Total Oneill Fall Scale indicates Low Risk Score (25-44 pts). Fall prevention measures have been instituted. Side Rails Up X 2 As available Patient and Family Educated on Fall Prevention Program and strategies. Assessment: 11:00 Pain: Complains of pain in face and right cheek. Musculoskeletal: Reports pain in face mb8 and right cheek bruising noted down right side of face, no active external bleeding. Vital Signs: 10:23 BP 137 / 72; Pulse 59; Resp 18; Temp 97.3(TE); Pulse Ox 99% ; Weight 64.41 kg; Height 5 ld1 ft. 2 in. (157.48 cm); Pain 6/10; 10:23 Body Mass Index 25.97 (64.41 kg, 157.48 cm) ld1 ED Course: 10:04 Patient arrived in ED. mr 10:25 Triage completed. ld1 10:25 Arm band placed on right wrist. ld1 10:29 Aracelis Wallis FNP is PHCP. jh7 10:29 Logan Raza MD is Attending Physician. jh7 10:46 Lewis Paulino, BENJAMIN is Primary Nurse. mb8 10:53 Facial Bones W/ Mpr In Process Unspecified. EDMS 11:00 Patient has correct armband on for positive identification. Bed in low position. Call mb8 light in reach. Side rails up X2. 11:00 No provider procedures requiring assistance completed. Patient did not have IV access mb8 during this emergency room visit. Administered Medications: No medications were administered Medication: 11:00 VIS not applicable for this client. mb8 Outcome: 11:42 Discharge ordered by MD. vickers 12:05 Discharged to home ambulatory. mb8 12:05 Condition: stable 12:05 Discharge instructions given to patient, Instructed on discharge instructions, follow up and referral plans. Demonstrated understanding of instructions, follow-up care. 12:05 Patient left the ED. mb8 Signatures: Dispatcher [employer] Ekta Mendes Lauren, RN RN ld1 Aracelis Wallis FNP FREIGHT TRUCKER [id number] Lewis Paulino RN RN mb8
--- NOTE | 2022-03-09 11:43 | EDPHYS ---
Physician Documentation [facility] Name: Eli Soliz Age: 76 yrs Sex: Female : 1945 Arrival Date: 03/09/2022 Time: 10:04 Bed 9 Private MD: ED Physician Logan Raza HPI: 03/09 10:30 This 76 yrs old Female presents to ER via Ambulatory with complaints of Facial Injury. jh7 10:30 The patient or guardian reports swelling, tenderness. The complaints affect the right jh7 eye and right cheek. Context of injury: The problem was sustained at home, resulted from a direct blow, furniture, a fall, slipped, from a standing position. Onset: The symptoms/episode began/occurred 10 day(s) ago. Associated signs and symptoms: The patient has no apparent associated signs or symptoms, Loss of consciousness: This patient did not experience any loss of consciousness. Patient slipped and fell when getting out of bed and struck the right side of her face on furniture. States that she was seen [facility] 10 days ago and that they did a CT of the brain and face. They told her if she was still experiencing pain that she may need another CT. Denies vision changes, weakness, or dizziness. Reports that the right side of her face still hurts and that she has a large "knot" under her eye.. Historical: - Allergies: 10:25 Codeine; ld1 10:25 PENICILLINS; ld1 - Home Meds: 10:25 metoprolol tartrate 25 mg Oral tab 1 tab once daily [Active]; ld1 - PMHx: 10:25 Hypercholesterolemia; Heart disease; Hypertensive disorder; ld1 - PSHx: 10:25 Total abdominal hysterectomy; ld1 - Immunization history:: Adult Immunizations up to date, Client reports receiving the 2nd dose of the Covid vaccine. - Social history:: Smoking status: Patient denies any tobacco usage or history of. Patient/guardian denies using alcohol. ROS: 10:30 Constitutional: Negative for fever, chills, and weight loss, Eyes: Negative for injury, jh7 pain, redness, and discharge, ENT: Negative for injury, pain, and discharge, Neck: Negative for injury, pain, and swelling, Cardiovascular: Negative for chest pain, palpitations, and edema, Respiratory: Negative for shortness of breath, cough, wheezing, and pleuritic chest pain, Abdomen/GI: Negative for abdominal pain, nausea, vomiting, diarrhea, and constipation, Back: Negative for injury and pain, MS/Extremity: Negative for injury and deformity, Neuro: Negative for headache, weakness, numbness, tingling, and seizure. 10:30 Skin: Positive for ecchymosis, Negative for cellulitis. 10:30 All other systems are negative. Exam: 10:30 Constitutional: This is a well developed, well nourished patient who is awake, alert, jh7 and in no acute distress. Eyes: Pupils equal round and reactive to light, extra-ocular motions intact. Lids and lashes normal. Conjunctiva and sclera are non-icteric and not injected. Cornea within normal limits. Periorbital areas with no swelling, redness, or edema. ENT: Nares patent. No nasal discharge, no septal abnormalities noted. Oropharynx with no redness, swelling, or masses, exudates, or evidence of obstruction, uvula midline. Mucous membranes moist. Neck: Trachea midline, no thyromegaly or masses palpated, and no cervical lymphadenopathy. Supple, full range of motion without nuchal rigidity, or vertebral point tenderness. No Meningismus. Cardiovascular: Regular rate and rhythm with a normal S1 and S2. No gallops, murmurs, or rubs. Normal PMI, no JVD. No pulse deficits. Respiratory: Lungs have equal breath sounds bilaterally, clear to auscultation and percussion. No rales, rhonchi or wheezes noted. No increased work of breathing, no retractions or nasal flaring. Back: No spinal tenderness. No costovertebral tenderness. Full range of motion. Skin: Warm, dry with normal turgor. Normal color with no rashes, no lesions, and no evidence of cellulitis. MS/ Extremity: Pulses equal, no cyanosis. Neurovascular intact. Full, normal range of motion. Neuro: Awake and alert, GCS 15, oriented to person, place, time, and situation. Cranial nerves II-XII grossly intact. Motor strength 5/5 in all extremities. Sensory grossly intact. Cerebellar exam normal. Normal gait. 10:30 Head/face: Noted is contusion, of the right cheek, hematoma, that is moderate, of the right eye. 10:30 Head/face: Noted is Raised and hardened mass under right eye that is tender to 7 palpation and has well-defined borders. No difficulty with extraocular movement or vision changes.. Vital Signs: 10:23 BP 137 / 72; Pulse 59; Resp 18; Temp 97.3(TE); Pulse Ox 99% ; Weight 64.41 kg; Height 5 ld1 ft. 2 in. (157.48 cm); Pain 6/10; 10:23 Body Mass Index 25.97 (64.41 kg, 157.48 cm) ld1 MDM: 10:29 Patient medically screened. [facility] 11:45 Differential diagnosis: Contusion of face, Hematoma on face. [facility] 11:45 Data reviewed: vital signs, nurses notes, radiologic studies, CT scan. Data [facility] interpreted: Pulse oximetry: is 99 %. Interpretation: normal. Counseling: I had a detailed discussion with the patient and/or guardian regarding: the historical points, exam findings, and any diagnostic results supporting the discharge/admit diagnosis, to return to the emergency department if symptoms worsen or persist or if there are any questions or concerns that arise at home. Special discussion: Advised to take Tylenol as needed for pain and to apply warm compresses over the affected area.. 03/09 10:36 Order name: CT Facial Bones W/O Con 7 03/09 10:40 Order name: Facial Bones W/ Mpr; Complete Time: 11:37 EDMS Administered Medications: No medications were administered Disposition: 17:40 Co-signature as Attending Physician, Logan Raza MD. rn Disposition Summary: 03/09/22 11:42 Discharge Ordered Location: Home [facility] Problem: new [facility] Symptoms: are unchanged [facility] Condition: Stable [facility] Diagnosis - Periorbital Hematoma [facility] Followup: [facility] - With: Private Physician - When: 2 - 3 days - Reason: Recheck today's complaints Discharge Instructions: - Discharge Summary Sheet 7 - Facial or Scalp Contusion [facility] - Hematoma [facility] Forms: - Medication Reconciliation Form [facility] - Thank You Letter [facility] Signatures: Dispatcher [employer] EDMS Logan Raza MD MD rn Dibbern, Lauren, RN RN ld1 Aracelis Wallis FNP FNP [facility]
[2022-03-09 12:10] VITALS: BP 137/72; TEMP 97.3; O2SAT 99
== END 2022-03-09 12:05 | disposition home or self-care (01) ==
LOC: ER 10:01
DX: S00.83XA Contusion of other part of head, initial encounter (principal); I10 Essential (primary) hypertension; Z88.0 Allergy status to penicillin; Z88.5 Allergy status to narcotic agent
CPT/HCPCS: 70486; 76377; 99283

== ENCOUNTER 2022-09-26 10:23 | Emergency (ER) | payer OTHER, MEDICARE ==
--- OUTSIDE RECORDS SUMMARY | 2022-09-26 10:42 | XMS REPORT | Continuity of Care Document ---
:1945 Author Organization [facility] t Address [address] [place] [address] [address] [place] [address] Care Team Providers Name Role Phone [phone] Primary Care Physician Unavailable SYSTEM, PROVIDER NOT IN Attending Clinician Unavailable RAMBO DE LA CRUZ Attending Clinician Unavailable Merlin Mccann Attending Clinician Unavailable KATELIN LUX Attending Clinician Unavailable _SAUL_Yadi Attending Clinician Unavailable Attending Clinician [phone] SHARON CABRAL Attending Clinician Unavailable Lesvia Son MD Attending Clinician Mark Ordonez DO Attending Clinician DUDLEY NG Attending Clinician Unavailable KENYATTA KURTZ Attending Clinician Unavailable MD KENYATTA KURTZ Attending Clinician Unavailable TERE OH Attending Clinician Unavailable Lab, Pcp Covid Attending Clinician Unavailable Chase Burton MD Attending Clinician CHASE BURTON Attending Clinician Unavailable SHANE STOCKTON Attending Clinician Unavailable ROSHAN OVIEDO Attending Clinician Unavailable JD JORJE Attending Clinician Unavailable Doctor Unassigned, [place]a Attending Clinician Unavailable UNKNOWN, ATTENDING Attending Clinician Unavailable Unknown, Attending Attending Clinician Unavailable Noemi Nova DO Attending Clinician CARL ROY Attending Clinician Unavailable LIZETH LOUIS Attending Clinician Unavailable KALA DAMICO Attending Clinician Unavailable MANOJ HANLEY Attending Clinician Unavailable Anuja Sweet Attending Clinician [phone] Caron ALEXANDER, Maty Woods Attending Clinician Rich Sequeira MD Attending Clinician Raymond Mckeon Attending Clinician Brittany RODRÍGUEZ, Margarito Bradley Attending Clinician Tarik Murphy Attending Clinician CECILY SCHULTZ M.D. Attending Clinician Unavailable JOSHUA JOHNSTON Attending Clinician Unavailable AYAN LONDON Attending Clinician Unavailable NURA SULLIVAN M.D. Attending Clinician Unavailable RAMBO DE LA CRUZ Admitting Clinician Unavailable Lena Graham Admitting Clinician Unavailable [facility] Admitting Clinician Unavailable KENYATTA KURTZ Admitting Clinician Unavailable MD KENYATTA KURTZ Admitting Clinician Unavailable CARL ROY Admitting Clinician Unavailable LIZETH LOUIS Admitting Clinician Unavailable KALA DAMICO Admitting Clinician Unavailable MANOJ HANLEY Admitting Clinician Unavailable Raymond Mckeon Admitting Clinician Payers Payer Name Policy Type Policy Number Effective Date Expiration Date S devi MEDICARE A B [id number] 2009 2018 00:00:00 00:00:00 [facility] [id number] 2009 HEALTHCARE 00:00:00 MEDICARE PART A [id number] 2009 AND B 00:00:00 [facility] [id number] 2009 ONLY 00:00:00 [place]ICARE B-[place]: [id number] 2009 [employer] SOLUTIONS 00:00:00 [facility] [id number] 2015 OPTIONS (MEDICARE 00:00:00 SUPPLEMENT) Problems Condition Condition Condition Status Onset Resolution Last Treating Co mments Source Name Details Category Date Date Treatment Clinician Date Decreased Decreased Disease Active Met hodi mobility mobility 01-16 st and and 00:00: Hospita endurance endurance 00 l Impaired Impaired Disease Active Metho di functional functional 01-16 st mobility, mobility, 00:00: Hosp aris balance, balance, 00 l gait, and gait, and endurance endurance Vertigo Vertigo Disease Active Method[facility] 9-14 st 00:00: Hospita 00 l Partial Partial Disease Active Methodi tear tear 10-22 st gluteal gluteal 00:00: Hospita tendons, tendons, 00 l left side left side Vertigo Vertigo Disease Active Univers 01-09 ity of 00:00: [address] Branch PAD PAD Disease Active [facility] (periphera (periphera 4- [facility] kes l artery l artery 00:00: Medica l disease) disease) 00 Center Right hip Right hip Disease Active Uni vers pain pain 307 ity of 00:00: [address] Branch Chronic Chronic Disease Active Univers right-side right-side 3-07 it y of d [place] pain with 00 Medi paramjit right-side right-side Br anch d sciatica d sciatica 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 00:00: Me dical a a 00 Center Balance Balance Disease Active [facility] problem problem 2-11 [facility] 00:00: [facility] 00 [place] Headache Headache Disease Active [facility] in back of in back of 2-11 [facility] kes head head 00:00: Medical 00 Center Atrophic Atrophic Problem Active [facility] vaginitis Vaginitis Medi paramjit Increased Increased Problem Active [facility] via frequency Frequency Medi paramjit of of urination Urination Slowing of Slowing of Problem Active P rivia urinary Urinary Medical stream Stream Urgent Urgent Problem Active [facility] desire to Desire to Medi paramjit urinate Urinate Must Must Problem Active [facility] strain to Strain to Medi paramjit pass urine Pass Urine Right Right Problem Active [facility] shoulder shoulder Physic i pain pain ans Primary Primary Problem Active [facility] osteoarthr osteoarthr Ph ysici itis of itis of ans right right shoulder shoulder Allergies, Adverse Reactions, Alerts Allergy Allergy Status Severity Reaction(s) Onset Inactive Treating Comm ents Source Name Type Date Date Clinician Sulfa Propensi Active Other (See Meth giancarlo (Sulfona ty to Comments) 11-18 st mide adverse 00:00: Hospita Antibiot reaction 00 l ics) s to drug Sulfa Propensi Active Unknown - Unive rs (Sulfona ty to See comments 11-18 it y of mide adverse 00:00: [place] Antibiot reaction 00 Medica l ics) s Branch SULFA Drug Active Unknown-Cmnt Univ ers (SULFONA Class - ity of MIDE 00:00: [place] ANTIBIOT 00 Medical ICS) Branch CODEINE DRUG Active Nausea 2015-0 MD INGREDI 6-22 Anderso 00:00: n 00 PENICILL Drug Active Nausea 2015-0 MD INS Class 6-22 Anderso 00:00: n 00 CODEINE DRUG Active Nausea 2015-0 MD INGREDI 6-22 Anderso 00:00: n 00 PENICILL Drug Active Nausea 2015-0 MD INS Class 6-22 Anderso 00:00: n [...] MD INGREDI 6-22 Anderso 00:00: n 00 CODEINE DRUG Active Nausea 2016-0 MD INGREDI 6-22 Anderso 00:00: n 00 PENICILL Drug Active Nausea 2016-0 MD INS Class 6-22 Anderso 00:00: n 00 CODEINE DRUG Active Nausea 2016-0 MD INGREDI 6-22 Anderso 00:00: n 00 PENICILL Drug Active Nausea 2016-0 MD INS Class 6-22 Anderso 00:00: n 00 PENICILL Drug Active Nausea 2016-0 MD INS Class 6-22 Anderso 00:00: n 00 CODEINE DRUG Active Nausea 2015-0 MD INGREDI 6-22 Anderso 00:00: n 00 PENICILL Drug Active Nausea 2015-0 MD INS Class 6-22 Anderso 00:00: n 00 CODEINE DRUG Active Nausea MD INGREDI - Anderso 00:00: n 00 PENICILL Drug Active Nausea MD INS Class 6-22 Anderso 00:00: n 00 Penicill Propensi Active Other (See Other Me thodi ins ty to Comments) 407 reaction( st adverse 00:00: s): GI Hospita reaction 00 Intoleran l s to ce drug Codeine Drug Active Nausea And [facility]07 [facility]: Medical 00 Center Penicill Drug Active Nausea And [facility] ins Allergy Vomiting 08-07 [facility] 00:[facility]: Medical 00 Center CODEINE Allergy Active Low N\\T\\V [facility] 08-07 [facility] 00:[facility]: Medical 00 Center PENICILL Allergy Active Low N\\T\\V [facility] INS 08-07 [facility] 00:[facility]: Medical 00 Center Penicill Drug Active Nausea And [facility] ins Allergy Vomiting 08-07 [facility] 00:[facility]: Medical 00 Center Penicill Propensi Active Nausea Other Univer s ins ty to and/or 08-07 reaction( ity of adverse Vomiting 00:00: s): GI [place] reaction 00 Intoleran Medic al s ce Branch PENICILL Drug Active Low N/V Univers INS Class 4 ity of 00:00: [place] 00 Medical Branch Codeine Propensi Active Other (See Other Met hodi ty to Comments) 8 reaction( st adverse 00:00: s): GI Hospita reaction 00 Intoleran l s to ce drug Codeine Propensi Active Nausea Other Univers ty to and/or 8 reaction( ity of adverse Vomiting 00:00: s): GI [place] reaction 00 Intoleran Medic al s ce Branch CODEINE DRUG Active Low N/V Univers INGREDI 8-30 ity of 00:00: [place] 00 Medical Branch No Known DA Active U [facility]- [facility] Other 07-09 Clear Allergie 00:00: Ahuja s 00 [facility] PENICILL DA Active U 2007- [facility] IN 07-09 Clear 00:00: Ahuja 00 [facility] CODEINE DA Active U 2007- [facility] 07-09 Clear 00:00: Ahuja 00 [facility] No Known DA Active U [facility] Contrast 3- Clear Allergie 00:00: Ahuja s 00 [facility] No Known DA Active U [facility] Food - Clear Allergie 00:00: Ahuja s 00 [facility] PENICILL Allergy Active [facility] INS to Medical substanc e SULFA Allergy Active [facility] (SULFONA to Medical MIDE substanc ANTIBIOT e ICS) Family History Family Member Diagnosis Comments Start Date Stop Date Source Natural brother Heart attack [facility] Natural mother Heart disease [facility] Natural father No Known Problems Met [facility] Social History Social Habit Start Date Stop Date Quantity Comments Source Gender identity [facility] History of tobacco Cigarette Smoker [facility] History SDSD [facility] Std Drinks Hospit al History SDSD [facility] B[facility] History of Social 2020-10-04 2020-10-[address] function 00:00:00 00:00:00 Hospital Alcohol intake 2020-10-03 2020-10-[address] [facility] Matt es 00:00:00 00:00:00 non-drinker of Medical Ce nter alcohol (finding) History SDOH 2020-02-01 2020-02-01 1 [facility] Alcohol Frequency 00:00:00 00:00:00 Hospita l Tobacco Comment 2019-06-14 2019-06-14 quit > [address] [facility] 00:00:00 00:[facility]:[address] [facility] Tobacco use and 2019-06-14 2019-06-[address] [facility] [address] Leatha kes exposure 00:00:00 00:00:[address] [facility] Cigarettes smoked 2019-06-05 2019-06-05 Univers ity of current (pack per 00:00:00 00:00:00 [facility] ) - Reported Branch Cigarette 2019-06-05 2019-06-05 University of pack-years 00:00:00 00:00:00 [facility] Sex Assigned At [address] Leatha kes 00:00:00 00:00:[address] [facility] Smoking Status Start Date Stop Date Source Former smoker 2019-06-05 00:00:00 2019-06-05 00:00:00 [facility] Medications Ordered Filled Start Stop Current [...] Take [address] n capsule 6 le} capsule by Luke s 13:55: mouth [...] Take [address] (AMBIEN) 10 6-03 by mouth Luke s mg tablet 13:55: every Medical 21 night as Center needed. estradiol Yes Place [facility] (ESTRACE) 6-03 vaginally [facility] 0.01 % (0.1 13:55: as needed M edical mg/gram) 21 . [place] vaginal cream SENNOSIDES Yes Take by [facility] (SENOKOT 6-03 mouth as [facility] ORAL) 13:55: needed. Medical 21 Center cholecalcif Yes QD Take by [facility] janet, 6-03 mouth [facility] vitamin D3, 13:55: daily. Medi paramjit 2,000 unit 21 Center Cap ascorbic Yes 500mg QD Take [address] acid, 6-03 mg by [facility] vitamin C, 13:55: mouth Medica l (ASCORBIC 21 daily. [place] ACID WITH PRERNA HIPS) 500 MG tablet rosuvastati Yes 10mg QD Take [address] n (CRESTOR) 6-03 by mouth Luke s 10 MG 13:55: daily. Medical tablet 21 Center estrogens, Yes Place [facility] conjugated 6-03 vaginally. Matt es (PREMARIN 13:55: Medical VAGL) 21 Center Missing or Yes Stool [facility] Non-Formula 6- softener Luke s ry 13:55: as needed Medical Medication 21 . Center metoprolol Yes 25mg QD Take [address] (TOPROL-XL) 6-03 by mouth Luke s 25 MG 24 hr 13:55: daily . Med ical tablet 21 Center BIFIDOBACTE Yes QD Take by [facility] RIUM 6 mouth [facility] INFANTIS 13:55: daily . Medica l (ALIGN 21 Center ORAL) multivitami Yes 1{capsu QD Take [address] n capsule 6 le} capsule by Luke s 13:55: mouth [...] Take [address] (AMBIEN) 10 6-03 by mouth Luke s mg tablet 13:55: every Medical 21 night as Center needed. estradiol Yes Place [facility] (ESTRACE) 6 vaginally [facility] 0.01 % (0.1 13:55: as [...] Missing or Yes Stool [facility] Non-Formula 603 softener Luke s ry 13:55: as needed Medical Medication 21 . [place] metoprolol Yes [id number] 25mg Take 1 U nivers succinate 1-14 tablet by itanisa o f XL 25 mg 24 00:00: [...] l 500 MG tablet traMADoL 2019-05 Yes [id number] 50mg Q6H Take 50 mg Me thodi (ULTRAM) 50 0-[address] mg tablet 14:02: every 6 Hospi ta 19 (six) l hours as needed for moderate pain .acute pain. senna 2019-05 Yes 1{tbl} Take 1 Methodi [...] l 500 MG tablet traMADoL 2019-05 Yes [id number] 50mg Q6H Take 50 mg Me thodi (ULTRAM) 50 0-[address] mg tablet 14:02: every 6 Hospi ta 19 (six) l hours as needed for moderate pain .acute pain. dexlansopra Yes Method i zole 6-20 st (DEXILANT) 00:00: Hospita 60 mg 00 l capsule dexlansopra Yes Method i zole 6-20 st (DEXILANT) 00:00: Hospita 60 mg 00 l capsule LOVAZA, 2019- No [id number] 2g Take 2 Un imtiaz omega-3-aci 4-28 -28 capsules ity of d ethyl 00:00: 04:59 by mouth 2 [place] as esters, 1 00 :00 (two) Medical gram times Branch capsule daily for 90 days. LOVAZA, 2019- No [id number] 2g Take 2 Un imtiaz omega-3-aci -27 11-28 capsules ity of d ethyl 00:00: 04:59 by mouth 2 [place] as esters, 1 00 :00 (two) Medical gram times Branch capsule daily for 90 days. LOVAZA, 2019- No [id number] 2g Take 2 Un imtiaz omega-3-aci -27 11-28 capsules ity of d ethyl 00:00: 04:59 by mouth 2 [place] as esters, 1 00 :00 (two) Medical gram times Branch capsule daily for 90 days. LOVAZA, 2019- No [id number] 2g Take 2 Un imtiaz omega-3-aci -27 11-28 capsules ity of d ethyl 00:00: 04:59 by mouth 2 [place] as esters, 1 00 :00 (two) Medical gram times Branch capsule daily for 90 days. LOVAZA, 2g Take 2 g Unive rs omega-3-aci 2-03 02-03 by mouth. it y of d ethyl 21:04: 00:00 [place] esters, 1 57 :00 Medical gram Branch capsule LOVAZA, No 2g Take 2 g Unive rs omega-3-aci 2-03 02-03 by mouth. it y of d ethyl 21:04: 00:00 [place] esters, 1 57 :00 Medical gram Branch capsule LOVAZA, No 2g Take 2 g Unive rs omega-3-aci 2-03 02-03 by mouth. it y of d ethyl 21:04: 00:00 [place] esters, 1 57 :00 Medical gram Branch capsule LOVAZA, 2019- No 2g Take 2 g Unive rs omega-3-aci 2-03 02-03 by mouth. it y of d ethyl 21:04: 00:00 [place] esters, 1 57 :00 Medical gram Branch capsule zolpidem 10 2019-0 2020- No 10mg Take 10 mg Univers mg tablet 06-05 by mouth. ity of 20:39: 00:00 [place] 34 :00 Medical Branch zolpidem 10 2019-0 2020- No 10mg Take 10 mg Univers mg tablet 06-05 by mouth. ity of 20:39: 00:00 [place] 34 :00 Medical Branch zolpidem 10 2019-0 2020- No 10mg Take 10 mg Univers mg tablet 06-05 by mouth. ity of 20:39: 00:00 [place] 34 :00 Medical Branch zolpidem 10 2019-0 2020- No 10mg Take 10 mg Univers mg tablet 06-05 by mouth. ity of 20:39: 00:00 [place] 34 :00 Medical Branch zolpidem 2020-0 Yes 5mg Take 5 mg Meth giancarlo (AMBIEN) 5 2-[address] MG tablet 00:00: Hospita 00 l zolpidem 2020-0 Yes 5mg Take 5 mg Meth giancarlo (AMBIEN) 5 2-[address] MG tablet 00:00: Hospita 00 l metoprolol 2020-0 Yes [id number] 25mg Take 1 U nivers succinate 2-03 tablet by ity o f XL 25 mg 24 00:00: mouth [place] hr tablet 00 daily. Medical Branch zolpidem 2020-0 Yes [id number] 5mg Take 1 Uni vers (AMBIEN) 5 2-03 tablet by ity of mg tablet 00:00: [place] 00 bedtime as Medical needed for Branch Insomnia. metoprolol 2020-0 Yes [id number] 25mg Take 1 U nivers succinate 2-03 tablet by ity o f XL 25 mg 24 00:00: mouth [place] hr tablet 00 daily. Medical Branch zolpidem 2020-0 Yes [id number] 5mg Take 1 Uni vers (AMBIEN) 5 2-03 tablet by ity of mg tablet 00:00: [place] 00 bedtime as Medical needed for Branch Insomnia. metoprolol 2020-0 Yes [id number] 25mg Take 1 U nivers succinate 2-03 tablet by ity o f XL 25 mg 24 00:00: mouth [place] hr tablet 00 daily. Medical Branch zolpidem 2020-0 Yes [id number] 5mg Take 1 Uni vers (AMBIEN) 5 2-03 tablet by ity of mg tablet 00:00: [place] 00 bedtime as Medical needed for Branch Insomnia. metoprolol 2020-0 Yes [id number] 25mg Take 1 U nivers succinate 2-03 tablet by ity o f XL 25 mg 24 00:00: mouth [place] hr tablet 00 daily. Medical Branch zolpidem 2020-0 Yes [id number] 5mg Take 1 Uni vers (AMBIEN) 5 2-03 tablet by ity of mg tablet 00:00: mouth [place] 00 bedtime as Medical needed for Branch Insomnia. metoprolol 2020-0 Yes [id number] 25mg Take 1 U nivers succinate 2-03 tablet by ity o f XL 25 mg 24 00:00: mouth [place] hr tablet 00 daily. Medical Branch zolpidem 2020-0 Yes [id number] 5mg Take 1 Uni vers (AMBIEN) 5 2-03 tablet by ity of mg tablet 00:00: mouth [place] 00 bedtime as Medical needed for Branch Insomnia. metoprolol 2020-0 Yes [id number] 25mg Take 1 U nivers succinate 2-03 tablet by ity o f XL 25 mg 24 00:00: mouth [place] hr tablet 00 daily. Medical Branch zolpidem 2020-0 Yes [id number] 5mg Take 1 Uni vers (AMBIEN) 5 2-03 tablet by ity of mg tablet 00:00: mouth [place] 00 bedtime as Medical needed for Branch Insomnia. metoprolol 2020-0 Yes [id number] 25mg Take 1 U nivers succinate 2-03 tablet by ity o f XL 25 mg 24 00:00: mouth [place] hr tablet 00 daily. Medical Branch zolpidem 2020-0 Yes [id number] 5mg Take 1 Uni vers (AMBIEN) 5 2-03 tablet by ity of mg tablet 00:00: mouth [place] 00 bedtime as Medical needed for Branch Insomnia. zolpidem 2020-0 Yes [id number] 5mg Take 1 Uni vers (AMBIEN) 5 2-03 tablet by ity of mg tablet 00:00: [place] 00 bedtime as Medical needed for Branch Insomnia. metoprolol 2020- No [id number] 25mg Take 1 Univers succinate 2-03 01-14 tablet by ity of XL 25 mg 24 00:00: 00:00 [place] hr tablet 00 :00 daily. Medical Branch LOVFLA, 2019- No [id number] 2g Take 2 Un imtiaz omega-3-aci 2-03 03-05 capsules ity of d ethyl 00:00: 05:59 by mouth 2 [place] as esters, 1 00 :00 (two) Medical gram times Branch capsule daily for 30 days. LOVAZA, 2019- No [id number] 2g Take 2 Un imtiaz omega-3-aci 2-03 03-05 capsules ity of d ethyl 00:00: 05:59 by mouth 2 [place] as esters, 1 00 :00 (two) Medical gram times Branch capsule daily for 30 days. calcium 2018-05 Yes [id number] 1{tbl} Take 1 Un imtiaz carbonate-v 2-27 tablet by ity of itamin D3 00:00: mouth [place] 600 mg 00 daily. Medical (1,500 Branch mg)-800 unit per tablet calcium 2018-05 Yes [id number] 1{tbl} Take 1 Un imtiaz carbonate-v 2-27 tablet by ity of itamin D3 00:00: mouth [place] 600 mg 00 daily. Medical (1,500 Branch mg)-800 unit per tablet calcium 2018-05 Yes [id number] 1{tbl} Take 1 Un imtiaz carbonate-v 2-27 tablet by ity of itamin D3 00:00: mouth [place] 600 mg 00 daily. Medical (1,500 Branch mg)-800 unit per tablet calcium 2018-05 Yes [id number] 1{tbl} Take 1 Un imtiaz carbonate-v 2-27 tablet by ity of itamin D3 00:00: mouth [place] 600 mg 00 daily. Medical (1,500 Branch mg)-800 unit per tablet calcium 2018-05 Yes [id number] 1{tbl} Take 1 Un imtiaz carbonate-v 2-27 tablet by ity of itamin D3 00:00: mouth [place] 600 mg 00 daily. Medical (1,500 Branch mg)-800 unit per tablet calcium 2018-05 Yes [id number] 1{tbl} Take 1 Un imtiaz carbonate-v 2-27 tablet by ity of itamin D3 00:00: mouth [place] 600 mg 00 daily. Medical (1,500 Branch mg)-800 unit per tablet calcium 2018-05 Yes [id number] 1{tbl} Take 1 Un imtiaz carbonate-v 2-27 tablet by ity of itamin D3 00:00: mouth [place] 600 mg 00 daily. Medical (1,500 Branch mg)-800 unit per tablet calcium 2018-05 Yes [id number] 1{tbl} Take 1 Un imtiaz carbonate-v 2-27 tablet by ity of itamin D3 00:00: mouth [place] 600 mg 00 daily. Medical (1,500 Branch mg)-800 unit per tablet calcium 2018-05 Yes [id number] 1{tbl} Take 1 Un imtiaz carbonate-v 2-27 tablet by ity of itamin D3 00:00: mouth [place] 600 mg 00 daily. Medical (1,500 Branch mg)-800 unit per tablet calcium 2018-05 Yes [id number] 1{tbl} Take 1 Un imtiaz carbonate-v 2-27 tablet by ity of itamin D3 00:00: mouth [place] 600 mg 00 daily. Medical (1,500 Branch mg)-800 unit per tablet calcium 2018-05 Yes [id number] 1{tbl} Take 1 Un imtiaz carbonate-v 2-27 tablet by ity of itamin D3 00:00: mouth [place] 600 mg 00 daily. Medical (1,500 Branch mg)-800 unit per tablet calcium 2018-05 Yes [id number] 1{tbl} Take 1 Un imtiaz carbonate-v 2-27 tablet by ity of itamin D3 00:00: mouth [place] 600 mg 00 daily. Medical (1,500 Branch mg)-800 unit per tablet estradioL 2018-05 Yes 2g Insert 2 g Me [facility]odi (ESTRACE) 2-[address] 0.01 % (0.1 00:00: vagina. Hos marshall mg/gram) 00 l vaginal cream estradioL 2018-05 Yes 2g Insert 2 g Me thodi (ESTRACE) 2-[address] 0.01 % (0.1 00:00: vagina. Hos marshall mg/gram) 00 l vaginal cream acyclovir 5 2018-05 Yes [id number] Apply to Univers % ointment 2-19 area(s) 5 ity of 00:00: (five) [place] 00 times Medical daily. Branch estradiol 2018-05 Yes [id number] 2g Insert 2 g Univers 0.01 % (0.1 2-19 into ity of mg/gram) 00:00: vagina [place] vaginal 00 weekly. Medical cream Branch acyclovir 2018-05 Yes [id number] Apply to Univers % ointment 2-19 area(s) 5 ity of 00:00: (five) [place] 00 times Medical daily. Branch estradiol 2018-05 Yes [id number] 2g Insert 2 g Univers 0.01 % (0.1 2-19 into ity of mg/gram) 00:00: vagina [place] vaginal 00 weekly. Medical cream Broussard acyclovir 2018-05 Yes [id number] Apply to Univers % ointment 2-19 area(s) 5 ity of 00:00: (five) [place] 00 times Medical daily. Branch estradiol 2018-05 Yes [id number] 2g Insert 2 g Univers 0.01 % (0.1 2-19 into ity of mg/gram) 00:00: vagina [place] vaginal 00 weekly. Medical cream Broussard acyclovir 2018-05 Yes [id number] Apply to Univers % ointment 2-19 area(s) 5 ity of 00:00: (five) [place] 00 times Medical daily. Branch estradiol 2018-05 Yes [id number] 2g Insert 2 g Univers 0.01 % (0.1 2-19 into ity of mg/gram) 00:00: vagina [place] vaginal 00 weekly. Medical cream Broussard acyclovir 2018-05 Yes [id number] Apply to Univers % ointment 2-19 area(s) 5 ity of 00:00: (five) [place] 00 times Medical daily. Branch estradiol 2018-05 Yes [id number] 2g Insert 2 g Univers 0.01 % (0.1 2-19 into ity of mg/gram) 00:00: vagina [place] vaginal 00 weekly. Medical cream Broussard acyclovir 2018-05 Yes [id number] Apply to Univers % ointment 2-19 area(s) 5 ity of 00:00: (five) [place] 00 times Medical daily. Branch estradiol 2018-05 Yes [id number] 2g Insert 2 g Univers 0.01 % (0.1 2-19 into ity of mg/gram) 00:00: vagina [place] vaginal 00 weekly. Medical cream Broussard acyclovir 2018-05 Yes [id number] Apply to Univers % ointment 2-19 area(s) 5 ity of 00:00: (five) [place] 00 times Medical daily. Branch estradiol 2018-05 Yes [id number] 2g Insert 2 g Univers 0.01 % (0.1 2-19 into ity of mg/gram) 00:00: vagina [place] vaginal 00 weekly. Medical cream Broussard acyclovir 2018-05 Yes [id number] Apply to Univers % ointment 2-19 area(s) 5 ity of 00:00: (five) [place] 00 times Medical daily. Branch estradiol 2018-05 Yes [id number] 2g Insert 2 g Univers 0.01 % (0.1 2-19 into ity of mg/gram) 00:00: vagina [place] vaginal 00 weekly. Medical cream Broussard acyclovir 2018-05 Yes [id number] Apply to Univers % ointment 2-19 area(s) 5 ity of 00:00: (five) [place] 00 times Medical daily. Branch estradiol 2018-05 Yes [id number] 2g Insert 2 g Univers 0.01 % (0.1 2-19 into ity of mg/gram) 00:00: vagina [place] vaginal 00 weekly. Medical cream Broussard acyclovir 2018-05 Yes [id number] Apply to Univers % ointment 2-19 area(s) 5 ity of 00:00: (five) [place] 00 times Medical daily. Broussard estradiol 2018-05 Yes [id number] 2g Insert 2 g Univers 0.01 % (0.1 2-19 into ity of mg/gram) 00:00: vagina [place] vaginal 00 weekly. Medical cream Broussard acyclovir 2018-05 Yes [id number] Apply to Univers % ointment 2-19 area(s) 5 ity of 00:00: (five) [place] 00 times Medical daily. Branch estradiol 2018-05 Yes [id number] 2g Insert 2 g Univers 0.01 % (0.1 2-19 into ity of mg/gram) 00:00: vagina [place] vaginal 00 weekly. Medical cream Broussard acyclovir 2018-05 Yes [id number] Apply to Univers % ointment 2-19 area(s) 5 ity of 00:00: (five) [place] 00 times Medical daily. Branch estradiol 2018-05 Yes [id number] 2g Insert 2 g Univers 0.01 % (0.1 2-19 into ity of mg/gram) 00:00: vagina [place] vaginal 00 weekly. Medical cream Branch atorvastati 2018-05 Yes [id number] 40mg Take 1 Univers n 40 mg 2-17 tablet by ity of tablet 00:00: mouth at [place] 00 bedtime. Medical Branch metoprolol 2018-05 Yes [id number] 25mg Take 1 U nivers succinate 2-17 tablet by ity o f XL 25 mg 24 00:00: mouth [place] hr tablet 00 daily. Medical Branch SERTraline 2018-05 Yes [id number] 100mg Take 1 Univers 100 mg 2-17 tablet by ity of tablet 00:00: mouth [place] 00 daily. Medical Take 1/2 Branch tablet daily predniSONE 2018-05 Yes [id number] Take 30 mg Univers 10 mg 2-17 (3 tabs) Q ity of tablet pack 00:00: AM [place] 3 [place], [facility] followed Branch by 20 mg (2 tabs) Q AM x 3 days followed by 10 mg (1 tab) x 3 days then stop atorvastati 2018-05 Yes [id number] 40mg Take 1 [facility] n 40 mg 2-17 tablet by ity of tablet 00:00: mouth at [place] 00 bedtime. Medical Branch SERTraline 2018-05 Yes [id number] 100mg Take 1 [facility] 100 mg 2-17 tablet by ity of tablet 00:00: mouth [place] 00 daily. Medical Take 1/2 Branch tablet daily atorvastati 2018-05 Yes [id number] 40mg Take 1 [facility] n 40 mg 2-17 tablet by ity of tablet 00:00: mouth at [place] 00 bedtime. Medical Branch SERTraline 2018-05 Yes [id number] 100mg Take 1 [facility] 100 mg 2-17 tablet by ity of tablet 00:00: mouth [place] 00 daily. Medical Take 1/2 Branch tablet daily atorvastati 2018-05 Yes [id number] 40mg Take 1 [facility] n 40 mg 2-17 tablet by ity of tablet 00:00: mouth at [place] 00 bedtime. Medical Branch SERTraline 2018-05 Yes [id number] 100mg Take 1 [facility] 100 mg 2-17 tablet by ity of tablet 00:00: mouth [place] 00 daily. Medical Take 1/2 Branch tablet daily atorvastati 2018-05 Yes [id number] 40mg Take 1 [facility] n 40 mg 2-17 tablet by ity of tablet 00:00: mouth at [place] 00 bedtime. Medical Branch SERTraline 2018-05 Yes [id number] 100mg Take 1 [facility] 100 mg 2-17 tablet by ity of tablet 00:00: mouth [place] 00 daily. Medical Take 1/2 Branch tablet daily atorvastati 2018-05 Yes [id number] 40mg Take 1 [facility] n 40 mg 2-17 tablet by ity of tablet 00:00: mouth at [place] 00 bedtime. Medical Branch SERTraline 2018-05 Yes [id number] 100mg Take 1 [facility] 100 mg 2-17 tablet by ity of tablet 00:00: mouth [place] 00 daily. Medical Take 1/2 Branch tablet daily atorvastati 2018-05 Yes [id number] 40mg Take 1 [facility] n 40 mg 2-17 tablet by ity of tablet 00:00: mouth at [place] 00 bedtime. Medical Branch SERTraline 2018-05 Yes [id number] 100mg Take 1 [facility] 100 mg 2-17 tablet by ity of tablet 00:00: mouth [place] 00 daily. Medical Take 1/2 Branch tablet daily atorvastati 2018-05 Yes [id number] 40mg Take 1 [facility] n 40 mg 2-17 tablet by ity of tablet 00:00: mouth at [place] 00 bedtime. Medical Branch SERTraline 2018-05 Yes [id number] 100mg Take 1 [facility] 100 mg 2-17 tablet by ity of tablet 00:00: mouth [place] 00 daily. Medical Take 1/2 Branch tablet daily atorvastati 2018-05 Yes [id number] 40mg Take 1 [facility] n 40 mg 2-17 tablet by ity of tablet 00:00: mouth at [place] 00 bedtime. Medical Branch SERTraline 2018-05 Yes [id number] 100mg Take 1 [facility] 100 mg 2-17 tablet by ity of tablet 00:00: mouth [place] 00 daily. Medical Take 1/2 Branch tablet daily atorvastati 2018-05 Yes [id number] 40mg Take 1 [facility] n 40 mg 2-17 tablet by ity of tablet 00:00: mouth at [place] 00 bedtime. Medical Branch SERTraline 2018-05 Yes [id number] 100mg Take 1 [facility] 100 mg 2-17 tablet by ity of tablet 00:00: mouth [place] 00 daily. Medical Take 1/2 Branch tablet daily atorvastati 2018-05 Yes [id number] 40mg Take 1 [facility] n 40 mg 2-17 tablet by ity of tablet 00:00: mouth at [place] 00 bedtime. Medical Branch SERTraline 2018-05 Yes [id number] 100mg Take 1 [facility] 100 mg 2-17 tablet by ity of tablet 00:00: mouth [place] 00 daily. Medical Take 1/2 Branch tablet daily atorvastati 2018-05 Yes [id number] 40mg Take 1 [facility] n 40 mg 2-17 tablet by ity of tablet 00:00: mouth at [place] 00 bedtime. Medical Branch SERTraline 2018-05 Yes [id number] 100mg Take 1 [facility] 100 mg 2-17 tablet by ity of tablet 00:00: mouth [place] 00 daily. Medical Take 1/2 Branch tablet daily metoprolol 2018-05- No [id number] 25mg Take 1 [facility] succinate 2-17 -03 tablet by ity of XL 25 mg 24 00:00: 00:00 mouth [place] hr tablet 00 :00 daily. Medical Branch predniSONE 2018-05- No [id number] Take 30 mg [facility] 10 mg 2-17 -03 (3 tabs) Q ity of tablet pack 00:00: 00:00 AM x 3 [place] 00 :00 days, Medical followed Branch by 20 mg (2 tabs) Q AM x 3 days followed by 10 mg (1 tab) x 3 days then stop metoprolol 2018-05- No [id number] 25mg Take 1 [facility] succinate 2-17 -03 tablet by ity of XL 25 mg 24 00:00: 00:00 mouth [place] hr tablet 00 :00 daily. Medical Branch predniSONE 2018-05 2020- No [id number] Take 30 mg [facility] 10 mg 2-17 -03 (3 tabs) Q ity of tablet pack 00:00: 00:00 AM x 3 [place] 00 :00 days, Medical followed Branch by 20 mg (2 tabs) Q AM x 3 days followed by 10 mg (1 tab) x 3 days then stop metoprolol 2018-05- No [id number] 25mg Take 1 [facility] succinate 2-17 -03 tablet by ity of XL 25 mg 24 00:00: 00:00 mouth [place] hr tablet 00 :00 daily. Medical Branch predniSONE 2018-05- No [id number] Take 30 mg [facility] 10 mg 06-19- (3 tabs) Q ity of tablet pack 00:00: 00:00 AM x 3 [place] 00 :00 days, Medical followed Branch by 20 mg (2 tabs) Q AM x 3 days followed by 10 mg (1 tab) x 3 days then stop metoprolol 2018-05- No [id number] 25mg Take 1 [facility] succinate 06-19- tablet by ity of XL 25 mg 24 00:00: 00:00 mouth [place] hr tablet 00 :00 daily. Medical Branch predniSONE 2018-05- No [id number] Take 30 mg [facility] 10 mg 06-19- (3 tabs) Q ity of tablet pack 00:00: 00:00 AM x 3 [place] 00 :00 days, Medical followed Branch by 20 mg (2 tabs) Q AM x 3 days followed by 10 mg (1 tab) x 3 days then stop montelukast 2018-05 Yes [id number] 10mg Take 1 Univers (SINGULAIR) 2-15 tablet by ity of 10 mg 00:00: mouth [place] tablet 00 daily. Medical Branch albuterol 2018-05 Yes [id number] 2.5mg Inhale 3 Univers 2.5 mg /3 2-15 mL every 6 ity of mL (0.083 00:00: (six) [place] %) 00 hours as Medical nebulizer needed for Bran ch solution Wheezing or Shortness of Breath. May also nebulize one extra every 6 hours. loratadine 2018-05 Yes [id number] 10mg Take 1 U nivers 10 mg 2-15 tablet by ity of tablet 00:00: mouth [place] 00 daily. Medical Branch montelukast 2018-05 Yes [id number] 10mg Take 1 Univers (SINGULAIR) 2-15 tablet by ity of 10 mg 00:00: mouth [place] tablet 00 daily. Medical Branch albuterol 2018-05 Yes [id number] 2.5mg Inhale 3 Univers 2.5 mg /3 2-15 mL every 6 ity of mL (0.083 00:00: (six) [place] %) 00 hours as Medical nebulizer needed for Bran ch solution Wheezing or Shortness of Breath. May also nebulize one extra every 6 hours. loratadine 2018-05 Yes [id number] 10mg Take 1 U nivers 10 mg 2-15 tablet by ity of tablet 00:00: mouth [place] 00 daily. [facility] 2018-05 Yes [id number] 10mg Take 1 Univers (SINGULAIR) 2-15 tablet by ity of 10 mg 00:00: mouth [place] tablet 00 daily. Medical Branch albuterol 2018-05 Yes [id number] 2.5mg Inhale 3 Univers 2.5 mg /3 2-15 mL every 6 ity of mL (0.083 00:00: (six) [place] %) 00 hours as Medical nebulizer needed for Bran ch solution Wheezing or Shortness of Breath. May also nebulize one extra every 6 hours. loratadine 2018-05 Yes [id number] 10mg Take 1 U nivers 10 mg 2-15 tablet by ity of tablet 00:00: mouth [place] 00 daily. [facility] 2018-05 Yes [id number] 10mg Take 1 Univers (SINGULAIR) 2-15 tablet by ity of 10 mg 00:00: mouth [place] tablet 00 daily. Medical Branch albuterol 2018-05 Yes [id number] 2.5mg Inhale 3 Univers 2.5 mg /3 2-15 mL every 6 ity of mL (0.083 00:00: (six) [place] %) 00 hours as Medical nebulizer needed for Bran ch solution Wheezing or Shortness of Breath. May also nebulize one extra every 6 hours. loratadine 2018-05 Yes [id number] 10mg Take 1 U nivers 10 mg 2-15 tablet by ity of tablet 00:00: mouth [place] 00 daily. [facility] 2018-05 Yes [id number] 10mg Take 1 Univers (SINGULAIR) 2-15 tablet by ity of 10 mg 00:00: mouth [place] tablet 00 daily. Medical Branch albuterol 2018-05 Yes [id number] 2.5mg Inhale 3 Univers 2.5 mg /3 2-15 mL every 6 ity of mL (0.083 00:00: (six) [place] %) 00 hours as Medical nebulizer needed for Bran ch solution Wheezing or Shortness of Breath. May also nebulize one extra every 6 hours. loratadine 2018-05 Yes [id number] 10mg Take 1 U nivers 10 mg 2-15 tablet by ity of tablet 00:00: mouth [place] 00 [facility]. [facility] [id number] 10mg Take 1 Univers (SINGULAIR) 2-15 tablet by ity of 10 mg 00:00: mouth [place] tablet 00 daily. Medical Branch albuterol 2018-05 Yes [id number] 2.5mg Inhale 3 Univers 2.5 mg /3 2-15 mL every 6 ity of mL (0.083 00:00: (six) [place] %) 00 hours as Medical nebulizer needed for Bran ch solution Wheezing or Shortness of Breath. May also nebulize one extra every 6 hours. loratadine 2018-05 Yes [id number] 10mg Take 1 U nivers 10 mg 2-15 tablet by ity of tablet 00:00: mouth [place] 00 daily. [facility] 2018-05 Yes [id number] 10mg Take 1 Univers (SINGULAIR) 2-15 tablet by ity of 10 mg 00:00: mouth [place] tablet 00 daily. [facility] Branch albuterol 2018-05 Yes [id number] 2.5mg Inhale 3 Univers 2.5 mg /3 2-15 mL every 6 ity of mL (0.083 00:00: (six) [place] %) 00 hours as Medical nebulizer needed for Bran ch solution Wheezing or Shortness of Breath. May also nebulize one extra every 6 hours. loratadine 2018-05 Yes [id number] 10mg Take 1 U nivers 10 mg 2-15 tablet by ity of tablet 00:00: mouth [place] 00 daily. [facility] [id number] 10mg Take 1 Univers (SINGULAIR) 2-15 tablet by ity of 10 mg 00:00: mouth [place] tablet 00 daily. [facility] Branch albuterol 2018-05 Yes [id number] 2.5mg Inhale 3 Univers 2.5 mg /3 2-15 mL every 6 ity of mL (0.083 00:00: (six) [place] %) 00 hours as Medical nebulizer needed for Bran ch solution Wheezing or Shortness of Breath. May also nebulize one extra every 6 hours. loratadine 2018-05 Yes [id number] 10mg Take 1 U nivers 10 mg 2-15 tablet by ity of tablet 00:00: mouth [place] 00 daily. [facility] 2018-05 Yes [id number] 10mg Take 1 Univers (SINGULAIR) 2-15 tablet by ity of 10 mg 00:00: mouth [place] tablet 00 daily. [facility] Branch albuterol 2018-05 Yes [id number] 2.5mg Inhale 3 Univers 2.5 mg /3 2-15 mL every 6 ity of mL (0.083 00:00: (six) [place] %) 00 hours as Medical nebulizer needed for Bran ch solution Wheezing or Shortness of Breath. May also nebulize one extra every 6 hours. loratadine 2018-05 Yes [id number] 10mg Take 1 U nivers 10 mg 2-15 tablet by ity of tablet 00:00: mouth [place] 00 daily. [facility] 2018-05 Yes [id number] 10mg Take 1 Univers (SINGULAIR) 2-15 tablet by ity of 10 mg 00:00: mouth [place] tablet 00 daily. [facility] albuterol 2018-05 Yes [id number] 2.5mg Inhale 3 Univers 2.5 mg /3 2-15 mL every 6 ity of mL (0.083 00:00: (six) [place] %) 00 hours as Medical nebulizer needed for Bran ch solution Wheezing or Shortness of Breath. May also nebulize one extra every 6 hours. loratadine 2018-05 Yes [id number] 10mg Take 1 U nivers 10 mg 2-15 tablet by ity of tablet 00:00: mouth [place] 00 daily. [facility] 2018-05 Yes [id number] 10mg Take 1 Univers (SINGULAIR) 2-15 tablet by ity of 10 mg 00:00: mouth [place] tablet 00 daily. [facility] albuterol 2018-05 Yes [id number] 2.5mg Inhale 3 Univers 2.5 mg /3 2-15 mL every 6 ity of mL (0.083 00:00: (six) [place] %) 00 hours as Medical nebulizer needed for Bran ch solution Wheezing or Shortness of Breath. May also nebulize one extra every 6 hours. loratadine 2018-05 Yes [id number] 10mg Take 1 U nivers 10 mg 2-15 tablet by ity of tablet 00:00: mouth [place] 00 daily. [facility] 2018-05 Yes [id number] 10mg Take 1 Univers (SINGULAIR) 2-15 tablet by ity of 10 mg 00:00: mouth [place] tablet 00 daily. Medical Branch albuterol 2018-05 Yes [id number] 2.5mg Inhale 3 Univers 2.5 mg /3 2-15 mL every 6 ity of mL (0.083 00:00: (six) [place] %) 00 hours as Medical nebulizer needed for Bran ch solution Wheezing or Shortness of Breath. May also nebulize one extra every 6 hours. loratadine 2018-05 Yes [id number] 10mg Take 1 U nivers 10 mg 2-15 tablet by ity of tablet 00:00: mouth [place] 00 daily. Medical Branch rosuvastati 2018-05 2020- No Unive rs n 10 mg 06-14 ity of tablet 00:00: 00:00 [place] 00 :00 Medical Branch rosuvastati 2018-05 2020- No Unive rs n 10 mg 06-14 ity of tablet 00:00: 00:00 [place] 00 :00 Medical Branch Nebulizer & 2019-1 Yes [id number] Use as Univers Compressor 2-06 directed ity o f For Neb 00:00: [place] Medical Branch Nebulizer & 2019-1 Yes [id number] Use as Univers Compressor 2-06 directed ity o f For Neb 00:00: [place] Medical [facility] Nebulizer & 2019-1 Yes [id number] Use as Univers Compressor 2-06 directed ity o f For Neb 00:00: [place] [facility] Nebulizer & 2019-1 Yes [id number] Use as Univers Compressor 2-06 directed ity o f For Neb 00:00: [place] [facility] Nebulizer & 2019-1 Yes [id number] Use as Univers Compressor 2-06 directed ity o f For Neb 00:00: [place] [facility] Nebulizer & 2019-1 Yes [id number] Use as Univers Compressor 2-06 directed ity o f For Neb 00:00: [place] [facility] Nebulizer & 2019-1 Yes [id number] Use as Univers Compressor 2-06 directed ity o f For Neb 00:00: [place] Medical [facility] Nebulizer & 2019-1 Yes [id number] Use as Univers Compressor 2-06 directed ity o f For Neb 00:00: [place] Medical Branch Nebulizer & 2019-1 Yes [id number] Use as Univers Compressor 2-06 directed ity o f For Neb 00:00: Medical Branch Nebulizer & 2018-05 Yes [id number] Use as Univers Compressor 2-06 directed ity o f For Neb 00:00: Medical Branch Nebulizer & 2018-05 Yes [id number] Use as Univers Compressor 2-06 directed ity o f For Neb 00:00: Medical Branch Nebulizer & 2018-05 Yes [id number] Use as Univers Compressor 2-06 directed ity o f For Neb 00:00: [facility] Branch zolpidem 10 2018-05 Yes 10mg Take 10 mg Univers mg tablet 2-03 by mouth. ity o f 17:07: [address] LOVAZA, 2018-05 Yes 2g Take 2 g Univer s omega-3-aci 2-03 by mouth. ity of d ethyl 17:07: [address] capsule aspirin 81 2018-05 Yes 81mg Take 81 mg U nivers mg EC 2-03 by mouth. ity of tablet 17:07: [address] aspirin 81 2018-05 Yes 81mg Take 81 mg U nivers mg EC 2-03 by mouth. ity of tablet 17:07: [address] aspirin 81 2018- Yes 81mg Take 81 mg U nivers mg EC 2-03 by mouth. ity of tablet 17:07: [address] aspirin 81 2018- Yes 81mg Take 81 mg U nivers mg EC 2-03 by mouth. ity of tablet 17:07: [address] aspirin 81 2018- Yes 81mg Take 81 mg U nivers mg EC 2-03 by mouth. ity of tablet 17:07: [address] aspirin 81 2018- Yes 81mg Take 81 mg U nivers mg EC 2-03 by mouth. ity of tablet 17:07: [address] aspirin 81 2018- Yes 81mg Take 81 mg U nivers mg EC 2-03 by mouth. ity of tablet 17:07: [address] aspirin 81 2018- Yes 81mg Take 81 mg U nivers mg EC 2-03 by mouth. ity of tablet 17:07: [address] aspirin 81 2018- Yes 81mg Take 81 mg U nivers mg EC 2-03 by mouth. ity of tablet 17:07: [place] [address] Medical Branch aspirin 81 2018-05 Yes 81mg Take 81 mg U nivers mg EC 2-03 by mouth. ity of tablet 17:07: [address] Branch aspirin 81 2018-05 Yes 81mg Take 81 mg U nivers mg EC 2-03 by mouth. ity of tablet 17:07: [address] aspirin 81 2018-05 Yes 81mg Take 81 mg U nivers mg EC 2-03 by mouth. ity of tablet 17:07: [place] [address] Medical Branch prednisoLON 2018-05 Yes Univer s E acetate 1 1-20 ity of % 00:00: [place] ophthalmic 00 Medical suspension Branch drops prednisoLON 2018-05 Yes Univer s E acetate 1 1-20 ity of % 00:00: [place] ophthalmic 00 Medical suspension Branch drops prednisoLON 2018-05 Yes Univer s E acetate 1 1-20 ity of % 00:00: [place] ophthalmic 00 Medical suspension Branch drops prednisoLON 2018-05 Yes Univer s E acetate 1 1-20 ity of % 00:00: [place] ophthalmic 00 Medical suspension Branch drops prednisoLON 2018-05 Yes Univer s E acetate 1 1-20 ity of % 00:00: [place] ophthalmic 00 Medical suspension Branch drops prednisoLON 2018-05 Yes Univer s E acetate 1 1-20 ity of % 00:00: [place] ophthalmic 00 Medical suspension Branch drops prednisoLON 2018-05 Yes Univer s E acetate 1 1-20 ity of % 00:00: [place] ophthalmic 00 Medical suspension Branch drops prednisoLON 2018-05 Yes Univer s E acetate 1 1-20 ity of % 00:00: [place] ophthalmic 00 Medical suspension Branch drops LOVAZA, 2019- Yes 2g Take 2 g Univer s omega-3-aci 9-13 by mouth. ity of d ethyl 00:09: [place] esters, 1 37 Medical gram Branch capsule metoprolol 2018- Yes 25mg Take 25 mg U nivers succinate 9-13 by mouth. ity o f XL 25 mg 24 00:09: [place] [facility] 37 Medical Branch aspirin 81 Yes 81mg Take 81 mg U nivers mg EC 9-13 by mouth. ity of tablet 00:09: [place] [address] Medical Branch zolpidem 10 Yes 10mg Take 10 mg Univers mg tablet 9-13 by mouth. ity o f 00:09: [address] [facility], Yes 2g Take 2 g Univer s omega-3-aci 9-13 by mouth. ity of d ethyl 00:09: [place] esters, 1 37 Medical gram Branch capsule metoprolol Yes 25mg Take 25 mg U nivers succinate 9-13 by mouth. ity o f XL 25 mg 24 00:09: [place] hr tablet 37 Medical Branch aspirin 81 Yes 81mg Take 81 mg U nivers mg EC 9-13 by mouth. ity of tablet 00:09: [address] Branch zolpidem 10 Yes 10mg Take 10 mg Univers mg tablet 9-13 by mouth. ity o f 00:09: [address], Yes 2g Take 2 g Univer s omega-3-aci 9-13 by mouth. ity of d ethyl 00:09: [place] esters, 1 37 Medical gram Branch capsule metoprolol Yes 25mg Take 25 mg U nivers succinate 9-13 by mouth. ity o f XL 25 mg 24 00:09: [place] hr tablet Medical Branch aspirin 81 Yes 81mg Take 81 mg U nivers mg EC 9-13 by mouth. ity of tablet 00:09: [address] zolpidem 10 Yes 10mg Take 10 mg Univers mg tablet 9-13 by mouth. ity o f 00:09: [address] [place], Yes 2g Take 2 g Univer s omega-3-aci 9-13 by mouth. ity of d ethyl 00:09: [place] esters, 1 37 Medical gram Branch capsule metoprolol Yes 25mg Take 25 mg U nivers succinate 9-13 by mouth. ity o f XL 25 mg 24 00:09: [place] hr tablet 37 Medical Branch aspirin 81 Yes 81mg Take 81 mg U nivers mg EC 9-13 by mouth. ity of tablet 00:09: [address] zolpidem 10 Yes 10mg Take 10 mg Univers mg tablet 9-13 by mouth. ity o f 00:09: [address] [facility], Yes 2g Take 2 g Univer s omega-3-aci 9-13 by mouth. ity of d ethyl 00:09: [place] esters, 1 37 Medical gram Branch capsule metoprolol Yes 25mg Take 25 mg U nivers succinate 9-13 by mouth. ity o f XL 25 mg 24 00:09: [place] hr tablet 37 Medical Branch aspirin 81 0 Yes 81mg Take 81 mg U nivers mg EC 9-13 by mouth. ity of tablet 00:09: [address] Branch zolpidem 10 Yes 10mg Take 10 mg Univers mg tablet 9-13 by mouth. ity o f 00:09: [address] Branch LOVAZA, Yes 2g Take 2 g Univer s omega-3-aci 9-13 by mouth. ity of d ethyl 00:09: [place] esters, 1 37 Medical gram Branch capsule metoprolol Yes 25mg Take 25 mg U nivers succinate 9-13 by mouth. ity o f XL 25 mg 24 00:09: [facility] tablet [address] [place] [address] Branch aspirin 81 Yes 81mg Take 81 mg U nivers mg EC 9-13 by mouth. ity of tablet 00:09: [address] Branch zolpidem 10 Yes 10mg Take 10 mg Univers mg tablet 9-13 by mouth. ity o f 00:09: [address] Branch acyclovir 5 Yes [id number] Apply to Univers % ointment 9-12 area(s) 5 ity of 00:00: (five) [place] [address] times Medical daily. Branch atorvastati Yes [id number] 40mg Take 1 Univers n 40 mg 9-12 tablet by ity of tablet 00:00: mouth at [place] [address] bedtime. Medical Branch meclizine Yes [id number] 12.5mg Take 1 Univers 12.5 mg 9-12 tablet by ity of tablet 00:00: mouth 2 [place] 00 (two) Medical times Branch daily. proMETHazin Yes [id number] 12.5mg Take 0.5 Univers e 25 mg 9-12 tablets by ity of tablet 00:00: mouth [place] 00 every 6 Medical (six) Branch hours as needed for Nausea and Vomiting (N/V). acyclovir 5 Yes [id number] Apply to Univers % ointment 9-12 area(s) 5 ity of 00:00: (five) [place] 00 times Medical daily. Branch atorvastati Yes [id number] 40mg Take 1 Univers n 40 mg 9-12 tablet by ity of tablet 00:00: mouth at [place] 00 bedtime. Medical Branch meclizine Yes [id number] 12.5mg Take 1 Univers 12.5 mg 9-12 tablet by ity of tablet 00:00: mouth 2 [place] 00 (two) Medical times Branch daily. proMETHazin Yes [id number] 12.5mg Take 0.5 Univers e 25 mg 9-12 tablets by ity of tablet 00:00: mouth [place] 00 every 6 Medical (six) Branch hours as needed for Nausea and Vomiting (N/V). acyclovir Yes [id number] Apply to Univers % ointment 9-12 area(s) 5 ity of 00:00: (five) [place] 00 times Medical daily. Branch atorvastati Yes [id number] 40mg Take 1 Univers n 40 mg 9-12 tablet by ity of tablet 00:00: mouth at [place] 00 bedtime. Medical Branch meclizine Yes [id number] 12.5mg Take 1 Univers 12.5 mg 9-12 tablet by ity of tablet 00:00: mouth 2 [place] 00 (two) Medical times Branch daily. proMETHazin Yes [id number] 12.5mg Take 0.5 Univers e 25 mg 9-12 tablets by ity of tablet 00:00: mouth [place] 00 every 6 Medical (six) Branch hours as needed for Nausea and Vomiting (N/V). acyclovir Yes [id number] Apply to Univers % ointment 9-12 area(s) 5 ity of 00:00: (five) [place] 00 times Medical daily. Branch atorvastati Yes [id number] 40mg Take 1 Univers n 40 mg 9-12 tablet by ity of tablet 00:00: mouth at [place] 00 bedtime. Medical Branch meclizine Yes [id number] 12.5mg Take 1 Univers 12.5 mg 9-12 tablet by ity of tablet 00:00: mouth 2 [place] 00 (two) Medical times Branch daily. proMETHazin 2018- Yes [id number] 12.5mg Take 0.5 Univers e 25 mg 9-12 tablets by ity of tablet 00:00: mouth [place] 00 every 6 Medical (six) Branch hours as needed for Nausea and Vomiting (N/V). acyclovir 5 Yes [id number] Apply to Univers % ointment 9-12 area(s) 5 ity of 00:00: (five) [place] 00 times Medical daily. Branch atorvastati 2018- Yes [id number] 40mg Take 1 Univers n 40 mg 9-12 tablet by ity of tablet 00:00: mouth at [place] 00 bedtime. Medical Branch meclizine Yes [id number] 12.5mg Take 1 Univers 12.5 mg 9-12 tablet by ity of tablet 00:00: mouth 2 [place] 00 (two) Medical times Branch daily. proMETHazin 2018- Yes [id number] 12.5mg Take 0.5 Univers e 25 mg 9-12 tablets by ity of tablet 00:00: mouth [place] 00 every 6 Medical (six) Branch hours as needed for Nausea and Vomiting (N/V). acyclovir Yes [id number] Apply to Univers % ointment 9-12 area(s) 5 ity of 00:00: (five) [place] 00 times Medical daily. Branch atorvastati Yes [id number] 40mg Take 1 Univers n 40 mg 9-12 tablet by ity of tablet 00:00: mouth at [place] 00 bedtime. Medical Branch meclizine 2018- Yes [id number] 12.5mg Take 1 Univers 12.5 mg 9-12 tablet by ity of tablet 00:00: mouth 2 [place] 00 (two) Medical times Branch daily. proMETHazin 2018- Yes [id number] 12.5mg Take 0.5 Univers e 25 mg 9-12 tablets by ity of tablet 00:00: mouth [place] 00 every 6 Medical (six) Branch hours as needed for Nausea and Vomiting (N/V). atorvastati 2019- No [id number] 40mg Take 1 Univers n 40 mg 9-12 09-12 tablet by ity of tablet 00:00: 00:00 mouth at [place] 00 :00 bedtime. Medical Branch meclizine 2019- No [id number] 12.5mg Take 1 Univers 12.5 mg 01-12 tablet by ity of tablet 00:00: 00:00 mouth 2 [place] 00 :00 (two) Medical times Branch daily. proMETHazin 2019- No [id number] 12.5mg Take 0.5 Univers e 25 mg 01-12 tablets by ity o f tablet 00:00: 00:00 mouth [place] 00 :00 every 4 Medical (four) Branch hours as needed for Nausea and Vomiting (N/V). atorvastati 2019- No [id number] 40mg Take 1 Univers n 40 mg 01-12 tablet by ity of tablet 00:00: 00:00 mouth at [place] 00 :00 bedtime. [facility] [id number] 12.5mg Take 1 Univers 12.5 mg 01-12 tablet by ity of tablet 00:00: 00:00 mouth 2 [place] 00 :00 (two) Medical times Branch daily. meclizine Yes 12.5mg 12.5 mg, Un imtiaz (ANTIVERT) 9-11 Oral, BID, ity of tablet 12.5 19:45: First dose [place] mg 00 on Wed [facility] 01/11/19 at Branch 1445, Until Discontinu ed, Routine lisinopril Yes 5mg 5 mg, Univer s (PRINIVIL,Z 9-11 Oral, ity of ESTRIL) 14:00: DAILY, [place] tablet 5 mg 00 First dose Me dical on Wed Branch 01/11/19 at 0900, Until Discontinu ed, Routine atorvastati Yes 40mg 40 mg, Univ ers n (LIPITOR) 9-11 Oral, QHS, it y of tablet 40 02:00: First dose [place] mg 00 on Wed [facility] 01/10/19 at Branch 2100, Until Discontinu ed, Routine proMETHazin Yes 12.5mg 12.5 mg, Univers e 9-10 IV ity of (PHENERGAN) 19:09: Piggyback, [place] 12.5 mg in 17 Q6HPRN, Medica l NaCl 0.9% Starting Branch (NS) 50 mL Tu IV 01/10/19 at [place]gyback 1409, Until Discontinu ed, Routine, Nausea and Vomiting (N/V) diazePAM 2018- No 2mg 2 mg, Univers (VALIUM) 01-10 Oral, TID, ity of tablet 2 mg 19:00: 19:36 First dose [place] 00 :48 on [facility] 01/10/19 at [facility] 1400, Until Discontinu ed, Routine ondansetron 2019- No 4mg 4 mg, Slow Univers (ZOFRAN 01-10 IV Push, ity of (PF)) 15:45: 16:03 ONCE, 1 [place] injection 4 00 :00 dose, Tu Med ical mg 01/10/19 at [facility] 1045, Routine aspirin Yes 81mg 81 mg, Univers chewable 01-10 Oral, ity of tablet 81 14:00: DAILY, [place] mg 00 First dose Medical on [facility] 01/10/19 at 0900, Until Discontinu ed, Routine heparin Yes 5000U 5,000 Univers injection 01-10 Units, ity of 5,000 Units 13:00: Subcutaneo [place] 00 us, Q12H, Medical First dose Branch on [facility] 01/10/19 at 0800, Until Discontinu ed, Routine ondansetron 2019- No 4mg 4 mg, Slow Univers (ZOFRAN 01-10 IV Push, ity of (PF)) 12:30: 13:09 ONCE, 1 [place] injection 4 00 :00 dose, [facility] Med ical mg 01/10/19 at [facility] 0730, Routine acetaminoph Yes 650mg 650 mg, Un imtiaz en 01-10 Oral, ity of (TYLENOL) 11:19: Q6HPRN, [place] tablet 650 [address] [facility] 01/10/19 at 0619, Until Discontinu ed, Routine, Pain (scale 1-3), Pain (scale 4-6), Temp > 38.5 C zolpidem 2019- No 5mg 5 mg, Univers (AMBIEN) 01-10 Oral, ity of tablet 5 mg 06:33: 06:50 [place] 1 [place] :[place] dose, [facility] 01/10/19 at [facility] 0145, Routine iohexol 2019-0 2019- No 100mL 100 mL, Unive rs (OMNIPAQUE 01-09 Intravenou it y of 350 23:55: 23:55 s, ONCE, 1 [place] BULK-100 00 :00 dose, Mon Medica l mL) 01/09/19 at [place] injection 1915, 100 mL Routine ondansetron 2018-0 2019- No 4mg 4 mg, Slow Univers (ZOFRAN 01-09 IV Push, ity of (PF)) 22:15: 21:14 ONCE, 1 [place] injection 4 00 :00 dose, Mon Med ical mg 01/09/19 at [place] 1715, DAVID aspirin 81 0 Yes 81mg Take 81 mg U nivers mg EC 1-07 by mouth. ity of tablet 16:21: [address] zolpidem 10 0 Yes 10mg Take 10 mg Univers mg tablet 1-07 by mouth. ity o f 16:21: [address], 0 Yes 2g Take 2 g Univer s omega-3-aci 1-07 by mouth. ity of d ethyl 16:21: [place] esters, 1 25 [facility] capsule metoprolol 0 Yes 25mg Take 25 mg U nivers succinate 1-07 by mouth. ity o f XL 25 mg 24 16:21: [place] hr tablet [address] [place] [address] aspirin 81 2017-0 Yes 81mg Take 81 mg U nivers mg EC 1-07 by mouth. ity of tablet 16:21: [address] zolpidem 10 0 Yes 10mg Take 10 mg Univers mg tablet 1-07 by mouth. ity o f 16:21: [address] [facility], 0 Yes 2g Take 2 g Univer s omega-3-aci 1-07 by mouth. ity of d ethyl 16:21: [place] esters, 1 25 [facility] gram [place] capsule metoprolol 2017-0 Yes 25mg Take 25 mg U nivers succinate 1-07 by mouth. ity o f XL 25 mg 24 16:21: [place] hr tablet 25 [facility] aspirin 81 2018-0 Yes 81mg Take 81 mg U nivers mg EC 1-07 by mouth. ity of tablet 16:21: [address] zolpidem 10 2017-0 Yes 10mg Take 10 mg Univers mg tablet 1-07 by mouth. ity o f 16:21: [address], 0 Yes 2g Take 2 g Univer s omega-3-aci 1-07 by mouth. ity of d ethyl 16:21: [place] esters, 1 25 Medical gram [facility] capsule metoprolol 0 Yes 25mg Take 25 mg U nivers succinate 1-07 by mouth. ity o f XL 25 mg 24 16:21: [place] hr tablet 25 [facility] aspirin 81 2017-0 Yes 81mg Take 81 mg U nivers mg EC 1-07 by mouth. ity of tablet 16:21: [address] zolpidem 10 0 Yes 10mg Take 10 mg Univers mg tablet 1-07 by mouth. ity o f 16:21: [address], 0 Yes 2g Take 2 g Univer s omega-3-aci 1-07 by mouth. ity of d ethyl 16:21: [place] esters, 1 25 Medical gram [place] capsule metoprolol 0 Yes 25mg Take 25 mg U nivers succinate 1-07 by mouth. ity o f XL 25 mg 24 16:21: [place] hr tablet 25 [facility] aspirin 81 0 Yes 81mg Take 81 mg U nivers mg EC 1-07 by mouth. ity of tablet 16:21: [address] zolpidem 10 0 Yes 10mg Take 10 mg Univers mg tablet 1-07 by mouth. ity o f 16:21: [address], 0 Yes 2g Take 2 g Univer s omega-3-aci 1-07 by mouth. ity of d ethyl 16:21: [place] esters, 1 25 Medical gram [place] capsule metoprolol 0 Yes 25mg Take 25 mg U nivers succinate 1-07 by mouth. ity o f XL 25 mg 24 16:21: [place] hr tablet 25 [facility] aspirin 81 2018-0 Yes 81mg Take 81 mg U nivers mg EC 1-07 by mouth. ity of tablet 16:21: [address] zolpidem 10 0 Yes 10mg Take 10 mg Univers mg tablet 1-07 by mouth. ity o f 16:21: [address], 2018-0 Yes 2g Take 2 g Univer s omega-3-aci 1-07 by mouth. ity of d ethyl 16:21: [place] esters, 1 25 Medical gram [facility] capsule metoprolol Yes 25mg Take 25 mg U nivers succinate 1-07 by mouth. ity o f XL 25 mg 24 16:21: [place] hr tablet 25 [facility] aspirin 81 Yes 81mg Take 81 mg U nivers mg EC 1-07 by mouth. ity of tablet 16:21: [address] zolpidem 10 Yes 10mg Take 10 mg Univers mg tablet 1-07 by mouth. ity o f 16:21: [address] LOVAZA, Yes 2g Take 2 g Univer s omega-3-aci 1-07 by mouth. ity of d ethyl 16:21: [place] esters, 1 25 Medical [facility] Branch capsule metoprolol Yes 25mg Take 25 mg U nivers succinate 1-07 by mouth. ity o f XL 25 mg 24 16:21: [place] hr tablet 25 [facility] aspirin 81 Yes 81mg Take 81 mg U nivers mg EC 1-07 by mouth. ity of tablet 16:21: [address] zolpidem 10 Yes 10mg Take 10 mg Univers mg tablet 1-07 by mouth. ity o f 16:21: [address] LOVFLA, Yes 2g Take 2 g Univer s omega-3-aci 1-07 by mouth. ity of d ethyl 16:21: [place] esters, 1 25 Medical gram [place] capsule metoprolol Yes 25mg Take 25 mg U nivers succinate 1-07 by mouth. ity o f XL 25 mg 24 16:21: [place] hr tablet 25 [facility] sertraline Yes 50mg Take 50 mg M ethodi (ZOLOFT) 50 2-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 2-20 st g-boron 00:00: Hospita (Caltrate 00 l 600-D Plus Minerals) 600 mg calcium- 800 unit-40 mg tablet,chew able triamcinolo triamcinolo No triamcinol [facility] ne ne one Medical acetonide acetonide acetonide 0.1 % 0.1 % 0.1 % topical topical topical ointment ointment ointment valacyclovi valacyclovi No valacyclov [facility] r 1 gram r 1 gram ir 1 gram Me dical tablet TK 1 tablet TK 1 tablet TK T PO BID T PO BID 1 T PO BID zolpidem 10 zolpidem 10 No zolpidem [facility] mg tablet mg tablet 10 mg Medi paramjit TK 1 T PO TK 1 T PO tablet TK QHS PRF QHS PRF 1 T PO QHS SLEEP SLEEP PRF SLEEP zolpidem 5 zolpidem 5 No zolpidem 5 [facility] mg tablet mg tablet mg tablet Medical acyclovir acyclovir No acyclovir [facility] 400 mg 400 mg 400 mg Medical tablet tablet tablet acyclovir 5 acyclovir 5 No acyclovir [facility] % topical % topical 5 % Medic al ointment ointment topical APPLY TO APPLY TO ointment AFFECTED AFFECTED APPLY TO AREA Q AREA Q AFFECTED THREE H X THREE H X AREA Q SEVEN DAYS SEVEN DAYS THREE H X SEVEN DAYS alprazolam alprazolam No alprazolam [facility] 0.5 mg 0.5 mg 0.5 mg Medical tablet TK 1 tablet TK 1 tablet TK T PO QD PRN T PO QD PRN 1 T PO QD FOR ANXIETY FOR ANXIETY PRN FOR ANXIETY atorvastati atorvastati No atorvastat [facility] n 40 mg n 40 mg in 40 mg Medic al tablet TK 1 tablet TK 1 tablet TK T PO HS T PO HS 1 T PO HS Atrovent Atrovent No Atrovent Sonia via HFA 17 HFA 17 HFA 17 Medical mcg/actuati mcg/actuati mcg/actuat on aerosol on aerosol ion inhaler inhaler aerosol inhaler azithromyci azithromyci No azithromyc [facility] n 250 mg n 250 mg in 250 mg Me dical tablet tablet tablet Breo Breo No Breo [facility] Ellipta 100 Ellipta 100 Ellipta Medical mcg-25 mcg-25 100 mcg-25 mcg/dose mcg/dose mcg/dose powder for powder for powder for inhalation inhalation inhalation cephalexin cephalexin No cephalexin [facility] 250 mg 250 mg 250 mg Medical capsule capsule capsule Take 1 Take 1 Take 1 capsule by capsule by capsule by oral route oral route oral route as as as directed. directed. directed. cephalexin cephalexin No cephalexin [facility] 500 mg 500 mg 500 mg Medical capsule capsule capsule Ciprodex Ciprodex No Ciprodex [facility] via 0.3 %-0.1 % 0.3 %-0.1 % 0.3 %-0.1 Medical ear ear % ear drops,suspe drops,suspe drops,susp nsion nsion ension ciprofloxac ciprofloxac No 1 Q12H ciprofloxa [facility] in 500 mg in 500 mg ibeth 500 mg Medical tablet Take tablet Take tablet 1 tablet 1 tablet Take 1 every 12 every 12 tablet hours by hours by every 12 oral route oral route hours by as directed as directed oral route for 10 for 10 as days. days. directed for 10 days. clindamycin clindamycin No clindamyci [facility] phosphate 1 phosphate 1 n M edical % topical % topical phosphate solution solution 1 % APPLY TO APPLY TO topical FACE D FACE D solution APPLY TO FACE D clonazepam clonazepam No clonazepam [facility] 0.5 mg 0.5 mg 0.5 mg Medical tablet TK 1 tablet TK 1 tablet TK T PO TID T PO TID 1 T PO TID PRN FOR PRN FOR PRN FOR ANXIETY ANXIETY ANXIETY Dexilant 60 Dexilant 60 No Dexilant [facility] mg capsule, mg capsule, 60 mg Medical delayed delayed capsule, release release delayed release doxycycline doxycycline No doxycyclin [facility] hyclate 50 hyclate 50 e hyclate Medical mg capsule mg capsule 50 mg TK 1 C PO TK 1 C PO capsule TK BID WITH BID WITH 1 C PO BID FOOD FOOD WITH FOOD E.E.S. 400 E.E.S. 400 No E.E.S. 400 [facility] mg tablet mg tablet mg tablet Medical TK 2 TS PO TK 2 TS PO TK 2 TS PO TWO HOURS TWO HOURS TWO HOURS BEFORE BEFORE BEFORE APPOINTMENT APPOINTMENT APPOINTMEN T erythromyci erythromyci No erythromyc [facility] n 250 mg n 250 mg in 250 mg Me dical tablet tablet tablet erythromyci erythromyci No erythromyc [facility] n 5 mg/gram n 5 mg/gram in 5 M edical (0.5 %) eye (0.5 %) eye mg/gram ointment ointment (0.5 %) APPLY TID APPLY TID eye UTD UTD ointment APPLY TID UTD erythromyci erythromyci No erythromyc [facility] n n in Medical ethylsuccin ethylsuccin ethylsucci ate 200 ate 200 jennie 200 mg/5 mL mg/5 mL mg/5 mL oral powder oral powder oral for for powder for suspension suspension suspension TAKE 20 TAKE 20 TAKE 20 ML(S) BY ML(S) BY ML(S) BY MOUTH PRIOR MOUTH PRIOR MOUTH TO DENTAL TO DENTAL PRIOR TO APPOINTMENT APPOINTMENT DENTAL AND 20 ML AND 20 ML APPOINTMEN AFTER AFTER T AND 20 DENTAL DENTAL ML AFTER APPOINTMENT APPOINTMENT DENTAL . . APPOINTMEN T. estradiol estradiol No estradiol [facility] 0.01% (0.1 0.01% (0.1 0.01% (0.1 Medical mg/gram) mg/gram) mg/gram) vaginal vaginal vaginal cream cream cream Insert 0.5 Insert 0.5 Insert 0.5 g every 72 g every 72 g every 72 hours by hours by hours by vaginal vaginal vaginal route as route as route as directed directed directed for 30 for 30 for 30 days. days. days. fenofibrate fenofibrate No fenofibrat [facility] 54 mg 54 mg e 54 mg Medical tablet tablet tablet fluconazole fluconazole No 1 fluconazol [facility] 150 mg 150 mg e 150 mg Medical tablet Take tablet Take tablet 1 tablet by 1 tablet by Take 1 oral route oral route tablet by as directed as directed oral route for 1 day. for 1 day. as directed for 1 day. Fluzone Fluzone No Fluzone [facility] High-Dose High-Dose High-Dose Medical (PF) 180 (PF) 180 (PF) 180 mcg/0.5 mL mcg/0.5 mL mcg/0.5 mL intramuscul intramuscul intramuscu ar syringe ar syringe lar syringe Fluzone Fluzone No Fluzone [facility] High-Dose High-Dose High-Dose Medical (PF) 180 (PF) 180 (PF) 180 mcg/0.5 mL mcg/0.5 mL mcg/0.5 mL intramuscul intramuscul intramuscu ar syringe ar syringe lar ADM 0.5ML ADM 0.5ML syringe IM UTD IM UTD ADM 0.5ML IM UTD gatifloxaci gatifloxaci No gatifloxac [facility] n 0.5 % eye n 0.5 % eye in 0.5 % Medical drops drops eye drops gi-(pruriti gi-(pruriti No gi-(prurit [facility] s s is Medical 1)[]hydroco 1)[]hydroco 1)[]hydroc rtisone rtisone ortisone APPLY 1 TO APPLY 1 TO APPLY 1 TO 2 GRAMS TO 2 GRAMS TO 2 GRAMS TO AFFECTED AFFECTED AFFECTED AREA 3 TO 4 AREA 3 TO 4 AREA 3 TO TIMES DAILY TIMES DAILY 4 TIMES DAILY hydrocodone hydrocodone No hydrocodon [facility] 5 5 e 5 Medical mg-acetamin mg-acetamin mg-acetami ophen 325 ophen 325 nophen 325 mg tablet mg tablet mg tablet hydrocortis hydrocortis No hydrocorti [facility] one one sone Medical butyrate butyrate butyrate 0.1 % 0.1 % 0.1 % topical topical topical ointment ointment ointment Apply 2-3g Apply 2-3g Apply 2-3g to the to the to the affected affected affected area area area 2-4x/daily 2-4x/daily 2-4x/daily or as or as or as directed. directed. directed. Max 10 Max 10 Max 10 g/day g/day g/day ketoconazol ketoconazol No ketoconazo [facility] e 2 % e 2 % le 2 % Medical topical topical topical cream cream cream lactulose lactulose No lactulose [facility] 10 gram/15 10 gram/15 10 gram/15 Medical mL oral mL oral mL oral solution solution solution levocetiriz levocetiriz No levocetiri [facility] ine 5 mg ine 5 mg zine 5 mg Me dical tablet tablet tablet lidocaine 5 lidocaine 5 No lidocaine [facility] % topical % topical 5 % Medic al patch patch topical patch lorazepam lorazepam No lorazepam [facility] 0.5 mg 0.5 mg 0.5 mg Medical tablet tablet tablet lorazepam 1 lorazepam 1 No lorazepam [facility] mg tablet mg tablet 1 mg Medic al tablet meclizine meclizine No meclizine [facility] 12.5 mg 12.5 mg 12.5 mg Medica l tablet tablet tablet meclizine meclizine No meclizine [facility] 25 mg 25 mg 25 mg Medical tablet tablet tablet meloxicam meloxicam No meloxicam [facility] 15 mg 15 mg 15 mg Medical tablet tablet tablet meloxicam meloxicam No meloxicam [facility] 7.5 mg 7.5 mg 7.5 mg Medical tablet tablet tablet methylpredn methylpredn No methylpred [facility] isolone 4 isolone 4 nisolone 4 Medical mg tablets mg tablets mg tablets in a dose in a dose in a dose pack TK UTD pack TK UTD pack TK UTD metoprolol metoprolol No metoprolol [facility] succinate succinate succinate Medical ER 25 mg ER 25 mg ER 25 mg tablet,exte tablet,exte tablet,ext nded nded ended release 24 release 24 release 24 hr TK 1 T hr TK 1 T hr TK 1 T PO BID PO BID PO BID metoprolol metoprolol No metoprolol [facility] tartrate 25 tartrate 25 tartrate Medical mg tablet mg tablet 25 mg TK 1 T PO TK 1 T PO tablet TK BID BID 1 T PO BID metronidazo metronidazo No metronidaz [facility] le 500 mg le 500 mg ole 500 mg Medical tablet TK 1 tablet TK 1 tablet TK T PO BID T PO BID 1 T PO BID neomycin-po neomycin-po No neomycin-p [facility] lymyxin-dex lymyxin-dex olymyxin-d Medical ameth 3.5 ameth 3.5 exameth mg/mL-10,00 mg/mL-10,00 3.5 0 0 mg/mL-10,0 unit/mL-0.1 unit/mL-0.1 00 % eye drops % eye drops unit/mL-0. 1% eye drops neomycin-po neomycin-po No neomycin-p [facility] lymyxin-hyd lymyxin-hyd olymyxin-h Medical rocort 3.5 rocort 3.5 ydrocort mg/mL-10,00 mg/mL-10,00 3.5 0 unit/mL-1 0 unit/mL-1 mg/mL-10,0 % ear % ear 00 solution solution unit/mL-1 % ear solution nitrofurant nitrofurant No nitrofuran [facility] oin oin toin Medical monohydrate monohydrate monohydrat /macrocryst /macrocryst e/macrocry als 100 mg als 100 mg stals 100 capsule capsule mg capsule Take 1 Take 1 Take 1 capsule capsule capsule every 12 every 12 every 12 hours by hours by hours by oral route oral route oral route with meals with meals with meals for 10 for 10 for 10 days. days. days. omega-3 omega-3 No omega-3 [facility] acid ethyl acid ethyl acid ethyl Medical esters 1 esters 1 esters 1 gram gram gram capsule TK capsule TK capsule TK 1 C PO BID 1 C PO BID 1 C PO BID ondansetron ondansetron No ondansetro [facility] 4 mg 4 mg n 4 mg Medical disintegrat disintegrat disintegra ing tablet ing tablet ting tablet ondansetron ondansetron No ondansetro [facility] HCl 4 mg HCl 4 mg n HCl 4 mg M edical tablet Take tablet Take tablet 1 tablet 1 tablet Take 1 every 8 every 8 tablet hours by hours by every 8 oral route oral route hours by as needed. as needed. oral route as needed. pantoprazol pantoprazol No pantoprazo [facility] e 40 mg e 40 mg le 40 mg Medic al tablet,vivian tablet,vivian tablet,del yed release yed release ayed TK 1 T PO TK 1 T PO release TK BID BID 1 T PO BID phenazopyri phenazopyri No phenazopyr [facility] dine 100 mg dine 100 mg idine 100 Medical tablet TAKE tablet TAKE mg tablet 2 TABLETS 2 TABLETS TAKE 2 BY MOUTH 3 BY MOUTH 3 TABLETS BY TIMES A DAY TIMES A DAY MOUTH 3 NEEDED NEEDED TIMES A BLADDER BLADDER DAY SPASMS FOR SPASMS FOR NEEDED UP TO 3 UP TO 3 BLADDER DAYS DAYS SPASMS FOR UP TO 3 DAYS prednisone prednisone No prednisone [facility] 5 mg tablet 5 mg tablet 5 mg M edical tablet Premarin Premarin No Premarin [facility] via 0.625 0.625 0.625 Medical mg/gram mg/gram mg/gram vaginal vaginal vaginal cream cream cream Insert 0.5 Insert 0.5 Insert 0.5 g twice a g twice a g twice a week by week by week by vaginal vaginal vaginal route at route at route at bedtime for bedtime for bedtime 90 days. 90 days. for 90 days. Prevnar 13 Prevnar 13 No Prevnar 13 [facility] (PF) 0.5 mL (PF) 0.5 mL (PF) 0.5 Medical intramuscul intramuscul mL ar syringe ar syringe intramuscu lar syringe ProAir HFA ProAir HFA No ProAir HFA [facility] 90 90 90 Medical mcg/actuati mcg/actuati mcg/actuat on aerosol on aerosol ion inhaler INL inhaler INL aerosol 1 PUFF PO Q 1 PUFF PO Q inhaler 4 H PRF WHZ 4 H PRF WHZ INL 1 PUFF PO Q 4 H PRF WHZ Repatha Repatha No Repatha [facility] SureClick SureClick SureClick Medical 140 mg/mL 140 mg/mL 140 mg/mL subcutaneou subcutaneou subcutaneo s pen s pen us pen injector injector injector Restasis Restasis No Restasis [facility] via 0.05 % eye 0.05 % eye 0.05 % eye Medical drops in a drops in a drops in a dropperette dropperette dropperett e Retin-A Retin-A No Retin-A [facility] Micro Pump Micro Pump Micro Pump Medical 0.06 % 0.06 % 0.06 % topical gel topical gel topical APPLY TO APPLY TO gel APPLY WHOLE FACE WHOLE FACE TO WHOLE 3 TIMES A 3 TIMES A FACE 3 WEEK TO WEEK TO TIMES A EVERY NIGHT EVERY NIGHT WEEK TO AT BEDTIME AT BEDTIME EVERY GRADUAL GRADUAL NIGHT AT INCREASE INCREASE BEDTIME GRADUAL TOLERATED TOLERATED INCREASE TOLERATED rosuvastati rosuvastati No rosuvastat [facility] n 10 mg n 10 mg in 10 mg Medic al tablet tablet tablet sertraline sertraline No sertraline [facility] 100 mg 100 mg 100 mg Medical tablet TK 1 tablet TK 1 tablet TK T PO D T PO D 1 T PO D sertraline sertraline No sertraline [facility] 50 mg 50 mg 50 mg Medical tablet tablet tablet Symbicort Symbicort No Symbicort [facility] 160 mcg-4.5 160 mcg-4.5 160 M edical mcg/actuati mcg/actuati mcg-4.5 on HFA on HFA mcg/actuat aerosol aerosol ion HFA inhaler inhaler aerosol inhaler tramadol 50 tramadol 50 No tramadol [facility] mg tablet mg tablet 50 mg Medi paramjit TK 1 T PO TK 1 T PO tablet TK QID QID 1 T PO QID tretinoin tretinoin No tretinoin [facility] 0.05 % 0.05 % 0.05 % Medical topical topical topical cream APPLY cream APPLY cream 1 PUMP TO 1 PUMP TO APPLY 1 SKIN SKIN PUMP TO DIRECTED DIRECTED SKIN APPLY TO APPLY TO DIRECTED WHOLE FACE WHOLE FACE APPLY TO 3 TIMES A 3 TIMES A WHOLE FACE WEEK TO WEEK TO 3 TIMES A EVERY NIGHT EVERY NIGHT WEEK TO AT BEDTIME AT BEDTIME EVERY - GRADUAL - GRADUAL NIGHT AT INCREASE INCREASE BEDTIME - GRADUAL TOLERATED TOLERATED INCREASE TOLERATED triamcinolo triamcinolo No triamcinol [facility] ne ne one Medical acetonide acetonide acetonide 0.1 % 0.1 % 0.1 % topical topical topical ointment ointment ointment UltraFlora UltraFlora No UltraFlora [facility] s - 90 s - 90 s - 90 Capsules 1 Capsules 1 Capsules 1 capsule per capsule per capsule day Take 1 day Take 1 per day PO daily as PO daily as Take 1 PO directed directed daily as directed valacyclovi valacyclovi No valacyclov [facility] r 1 gram r 1 gram ir 1 gram Me dical tablet TK 1 tablet TK 1 tablet TK T PO BID T PO BID 1 T PO BID zolpidem 10 zolpidem 10 No zolpidem [facility] mg tablet mg tablet 10 mg Medi paramjit TK 1 T PO TK 1 T PO tablet TK QHS PRF QHS PRF 1 T PO QHS SLEEP SLEEP PRF SLEEP zolpidem 5 zolpidem 5 No zolpidem 5 [facility] mg tablet mg tablet mg tablet Medical acyclovir acyclovir No acyclovir [facility] 400 mg 400 mg 400 mg Medical tablet tablet tablet acyclovir 5 acyclovir 5 No acyclovir [facility] % topical % topical 5 % Medic al ointment ointment topical APPLY TO APPLY TO ointment AFFECTED AFFECTED APPLY TO AREA Q AREA Q AFFECTED THREE H X THREE H X AREA Q SEVEN DAYS SEVEN DAYS THREE H X SEVEN DAYS alprazolam alprazolam No alprazolam [facility] 0.5 mg 0.5 mg 0.5 mg Medical tablet TK 1 tablet TK 1 tablet TK T PO QD PRN T PO QD PRN 1 T PO QD FOR ANXIETY FOR ANXIETY PRN FOR ANXIETY atorvastati atorvastati No atorvastat [facility] n 40 mg n 40 mg in 40 mg Medic al tablet TK 1 tablet TK 1 tablet TK T PO HS T PO HS 1 T PO HS Atrovent Atrovent No Atrovent Sonia via HFA 17 HFA 17 HFA 17 Medical mcg/actuati mcg/actuati mcg/actuat on aerosol on aerosol ion inhaler inhaler aerosol inhaler azithromyci azithromyci No azithromyc [facility] n 250 mg n 250 mg in 250 mg Me dical tablet tablet tablet Breo Breo No Breo [facility] Ellipta 100 Ellipta 100 Ellipta Medical mcg-25 mcg-25 100 mcg-25 mcg/dose mcg/dose mcg/dose powder for powder for powder for inhalation inhalation inhalation cephalexin cephalexin No cephalexin [facility] 250 mg 250 mg 250 mg Medical capsule capsule capsule Take 1 Take 1 Take 1 capsule by capsule by capsule by oral route oral route oral route as as as directed. directed. directed. cephalexin cephalexin No cephalexin [facility] 500 mg 500 mg 500 mg Medical capsule capsule capsule Ciprodex Ciprodex No Ciprodex [facility] via 0.3 %-0.1 % 0.3 %-0.1 % 0.3 %-0.1 Medical ear ear % ear drops,suspe drops,suspe drops,susp nsion nsion ension ciprofloxac ciprofloxac No 1 Q12H ciprofloxa [facility] in 500 mg in 500 mg ibeth 500 mg Medical tablet Take tablet Take tablet 1 tablet 1 tablet Take 1 every 12 every 12 tablet hours by hours by every 12 oral route oral route hours by as directed as directed oral route for 10 for 10 as days. days. directed for 10 days. clindamycin clindamycin No clindamyci [facility] phosphate 1 phosphate 1 n M edical % topical % topical phosphate solution solution 1 % APPLY TO APPLY TO topical FACE D FACE D solution APPLY TO FACE D clonazepam clonazepam No clonazepam [facility] 0.5 mg 0.5 mg 0.5 mg Medical tablet TK 1 tablet TK 1 tablet TK T PO TID T PO TID 1 T PO TID PRN FOR PRN FOR PRN FOR ANXIETY ANXIETY ANXIETY Dexilant 60 Dexilant 60 No Dexilant [facility] mg capsule, mg capsule, 60 mg Medical delayed delayed capsule, release release delayed release doxycycline doxycycline No doxycyclin [facility] hyclate 50 hyclate 50 e hyclate Medical mg capsule mg capsule 50 mg TK 1 C PO TK 1 C PO capsule TK BID WITH BID WITH 1 C PO BID FOOD FOOD WITH FOOD E.E.S. 400 E.E.S. 400 No E.E.S. 400 [facility] mg tablet mg tablet mg tablet Medical TK 2 TS PO TK 2 TS PO TK 2 TS PO TWO HOURS TWO HOURS TWO HOURS BEFORE BEFORE BEFORE APPOINTMENT APPOINTMENT APPOINTMEN T erythromyci erythromyci No erythromyc [facility] n 250 mg n 250 mg in 250 mg Me dical tablet tablet tablet erythromyci erythromyci No erythromyc [facility] n 5 mg/gram n 5 mg/gram in 5 M edical (0.5 %) eye (0.5 %) eye mg/gram ointment ointment (0.5 %) APPLY TID APPLY TID eye UTD UTD ointment APPLY TID UTD erythromyci erythromyci No erythromyc [facility] n n in Medical ethylsuccin ethylsuccin ethylsucci ate 200 ate 200 jennie 200 mg/5 mL mg/5 mL mg/5 mL oral powder oral powder oral for for powder for suspension suspension suspension TAKE 20 TAKE 20 TAKE 20 ML(S) BY ML(S) BY ML(S) BY MOUTH PRIOR MOUTH PRIOR MOUTH TO DENTAL TO DENTAL PRIOR TO APPOINTMENT APPOINTMENT DENTAL AND 20 ML AND 20 ML APPOINTMEN AFTER AFTER T AND 20 DENTAL DENTAL ML AFTER APPOINTMENT APPOINTMENT DENTAL . . APPOINTMEN T. estradiol estradiol No estradiol [facility] 0.01% (0.1 0.01% (0.1 0.01% (0.1 Medical mg/gram) mg/gram) mg/gram) vaginal vaginal vaginal cream cream cream Insert 0.5 Insert 0.5 Insert 0.5 g every 72 g every 72 g every 72 hours by hours by hours by vaginal vaginal vaginal route as route as route as directed directed directed for 30 for 30 for 30 days. days. days. fenofibrate fenofibrate No fenofibrat [facility] 54 mg 54 mg e 54 mg Medical tablet tablet tablet Fluzone Fluzone No Fluzone [facility] High-Dose High-Dose High-Dose Medical (PF) 180 (PF) 180 (PF) 180 mcg/0.5 mL mcg/0.5 mL mcg/0.5 mL intramuscul intramuscul intramuscu ar syringe ar syringe lar syringe Fluzone Fluzone No Fluzone [facility] High-Dose High-Dose High-Dose Medical (PF) 180 (PF) 180 (PF) 180 mcg/0.5 mL mcg/0.5 mL mcg/0.5 mL intramuscul intramuscul intramuscu ar syringe ar syringe lar ADM 0.5ML ADM 0.5ML syringe IM UTD IM UTD ADM 0.5ML IM UTD gatifloxaci gatifloxaci No gatifloxac [facility] n 0.5 % eye n 0.5 % eye in 0.5 % Medical drops drops eye drops gi-(pruriti gi-(pruriti No gi-(prurit [facility] s s is Medical 1)[]hydroco 1)[]hydroco 1)[]hydroc rtisone rtisone ortisone APPLY 1 TO APPLY 1 TO APPLY 1 TO 2 GRAMS TO 2 GRAMS TO 2 GRAMS TO AFFECTED AFFECTED AFFECTED AREA 3 TO 4 AREA 3 TO 4 AREA 3 TO TIMES DAILY TIMES DAILY 4 TIMES DAILY hydrocodone hydrocodone No hydrocodon [facility] 5 5 e 5 Medical mg-acetamin mg-acetamin mg-acetami ophen 325 ophen 325 nophen 325 mg tablet mg tablet mg tablet hydrocortis hydrocortis No hydrocorti [facility] one one sone Medical butyrate butyrate butyrate 0.1 % 0.1 % 0.1 % topical topical topical ointment ointment ointment Apply 2-3g Apply 2-3g Apply 2-3g to the to the to the affected affected affected area area area 2-4x/daily 2-4x/daily 2-4x/daily or as or as or as directed. directed. directed. Max 10 Max 10 Max 10 g/day g/day g/day ketoconazol ketoconazol No ketoconazo [facility] e 2 % e 2 % le 2 % Medical topical topical topical cream cream cream lactulose lactulose No lactulose [facility] 10 gram/15 10 gram/15 10 gram/15 Medical mL oral mL oral mL oral solution solution solution levocetiriz levocetiriz No levocetiri [facility] ine 5 mg ine 5 mg zine 5 mg Me dical tablet tablet tablet lidocaine 5 lidocaine 5 No lidocaine [facility] % topical % topical 5 % Medic al patch patch topical patch lorazepam lorazepam No lorazepam [facility] 0.5 mg 0.5 mg 0.5 mg Medical tablet tablet tablet lorazepam 1 lorazepam 1 No lorazepam [facility] mg tablet mg tablet 1 mg Medic al tablet meclizine meclizine No meclizine [facility] 12.5 mg 12.5 mg 12.5 mg Medica l tablet tablet tablet meclizine meclizine No meclizine [facility] 25 mg 25 mg 25 mg Medical tablet tablet tablet meloxicam meloxicam No meloxicam [facility] 15 mg 15 mg 15 mg Medical tablet tablet tablet meloxicam meloxicam No meloxicam [facility] 7.5 mg 7.5 mg 7.5 mg Medical tablet tablet tablet methylpredn methylpredn No methylpred [facility] isolone 4 isolone 4 nisolone 4 Medical mg tablets mg tablets mg tablets in a dose in a dose in a dose pack TK UTD pack TK UTD pack TK UTD metoprolol metoprolol No metoprolol [facility] succinate succinate succinate Medical ER 25 mg ER 25 mg ER 25 mg tablet,exte tablet,exte tablet,ext nded nded ended release 24 release 24 release 24 hr TK 1 T hr TK 1 T hr TK 1 T PO BID PO BID PO BID metoprolol metoprolol No metoprolol [facility] tartrate 25 tartrate 25 tartrate Medical mg tablet mg tablet 25 mg TK 1 T PO TK 1 T PO tablet TK BID BID 1 T PO BID metronidazo metronidazo No metronidaz [facility] le 500 mg le 500 mg ole 500 mg Medical tablet TK 1 tablet TK 1 tablet TK T PO BID T PO BID 1 T PO BID neomycin-po neomycin-po No neomycin-p [facility] lymyxin-dex lymyxin-dex olymyxin-d Medical ameth 3.5 ameth 3.5 exameth mg/mL-10,00 mg/mL-10,00 3.5 0 0 mg/mL-10,0 unit/mL-0.1 unit/mL-0.1 00 % eye drops % eye drops unit/mL-0. 1% eye drops neomycin-po neomycin-po No neomycin-p [facility] lymyxin-hyd lymyxin-hyd olymyxin-h Medical rocort 3.5 rocort 3.5 ydrocort mg/mL-10,00 mg/mL-10,00 3.5 0 unit/mL-1 0 unit/mL-1 mg/mL-10,0 % ear % ear 00 solution solution unit/mL-1 % ear solution nitrofurant nitrofurant No 1capsul Q12H nitrofuran [facility] oin oin e(s) toin Medical monohydrate monohydrate monohydrat /macrocryst /macrocryst e/macrocry als 100 mg als 100 mg stals 100 capsule capsule mg capsule Take 1 Take 1 Take 1 capsule capsule capsule every 12 every 12 every 12 hours by hours by hours by oral route oral route oral route with meals with meals with meals for 10 for 10 for 10 days. days. days. omega-3 omega-3 No omega-3 [facility] acid ethyl acid ethyl acid ethyl Medical esters 1 esters 1 esters 1 gram gram gram capsule TK capsule TK capsule TK 1 C PO BID 1 C PO BID 1 C PO BID ondansetron ondansetron No ondansetro [facility] 4 mg 4 mg n 4 mg Medical disintegrat disintegrat disintegra ing tablet ing tablet ting tablet ondansetron ondansetron No ondansetro [facility] HCl 4 mg HCl 4 mg n HCl 4 mg M edical tablet Take tablet Take tablet 1 tablet 1 tablet Take 1 every 8 every 8 tablet hours by hours by every 8 oral route oral route hours by as needed. as needed. oral route as needed. pantoprazol pantoprazol No pantoprazo [facility] e 40 mg e 40 mg le 40 mg Medic al tablet,vivian tablet,vivian tablet,del yed release yed release ayed TK 1 T PO TK 1 T PO release TK BID BID 1 T PO BID phenazopyri phenazopyri No phenazopyr [facility] dine 100 mg dine 100 mg idine 100 Medical tablet TAKE tablet TAKE mg tablet 2 TABLETS 2 TABLETS TAKE 2 BY MOUTH 3 BY MOUTH 3 TABLETS BY TIMES A DAY TIMES A DAY MOUTH 3 NEEDED NEEDED TIMES A BLADDER BLADDER DAY SPASMS FOR SPASMS FOR NEEDED UP TO 3 UP TO 3 BLADDER DAYS DAYS SPASMS FOR UP TO 3 DAYS prednisone prednisone No prednisone [facility] 5 mg tablet 5 mg tablet 5 mg M edical tablet Premarin Premarin No Premarin Sonia via 0.625 0.625 0.625 Medical mg/gram mg/gram mg/gram vaginal vaginal vaginal cream cream cream Insert 0.5 Insert 0.5 Insert 0.5 g twice a g twice a g twice a week by week by week by vaginal vaginal vaginal route at route at route at bedtime for bedtime for bedtime 90 days. 90 days. for 90 days. Prevnar 13 Prevnar 13 No Prevnar 13 [facility] (PF) 0.5 mL (PF) 0.5 mL (PF) 0.5 Medical intramuscul intramuscul mL ar syringe ar syringe intramuscu lar syringe ProAir HFA ProAir HFA No ProAir HFA [facility] 90 90 90 Medical mcg/actuati mcg/actuati mcg/actuat on aerosol on aerosol ion inhaler INL inhaler INL aerosol 1 PUFF PO Q 1 PUFF PO Q inhaler 4 H PRF WHZ 4 H PRF WHZ INL 1 PUFF PO Q 4 H PRF WHZ Repatha Repatha No Repatha [facility] SureClick SureClick SureClick Medical 140 mg/mL 140 mg/mL 140 mg/mL subcutaneou subcutaneou subcutaneo s pen s pen us pen injector injector injector Restasis Restasis No Restasis Sonia via 0.05 % eye 0.05 % eye 0.05 % eye Medical drops in a drops in a drops in a dropperette dropperette dropperett e Retin-A Retin-A No Retin-A [facility] Micro Pump Micro Pump Micro Pump Medical 0.06 % 0.06 % 0.06 % topical gel topical gel topical APPLY TO APPLY TO gel APPLY WHOLE FACE WHOLE FACE TO WHOLE 3 TIMES A 3 TIMES A FACE 3 WEEK TO WEEK TO TIMES A EVERY NIGHT EVERY NIGHT WEEK TO AT BEDTIME AT BEDTIME EVERY GRADUAL GRADUAL NIGHT AT INCREASE INCREASE BEDTIME GRADUAL TOLERATED TOLERATED INCREASE TOLERATED rosuvastati rosuvastati No rosuvastat [facility] n 10 mg n 10 mg in 10 mg Medic al tablet tablet tablet sertraline sertraline No sertraline [facility] 100 mg 100 mg 100 mg Medical tablet TK 1 tablet TK 1 tablet TK T PO D T PO D 1 T PO D sertraline sertraline No sertraline [facility] 50 mg 50 mg 50 mg Medical tablet tablet tablet Symbicort Symbicort No Symbicort [facility] 160 mcg-4.5 160 mcg-4.5 160 M edical mcg/actuati mcg/actuati mcg-4.5 on HFA on HFA mcg/actuat aerosol aerosol ion HFA inhaler inhaler aerosol inhaler tramadol 50 tramadol 50 No tramadol [facility] mg tablet mg tablet 50 mg Medi paramjit TK 1 T PO TK 1 T PO tablet TK QID QID 1 T PO QID tretinoin tretinoin No tretinoin [facility] 0.05 % 0.05 % 0.05 % Medical topical topical topical cream APPLY cream APPLY cream 1 PUMP TO 1 PUMP TO APPLY 1 SKIN SKIN PUMP TO DIRECTED DIRECTED SKIN APPLY TO APPLY TO DIRECTED WHOLE FACE WHOLE FACE APPLY TO 3 TIMES A 3 TIMES A WHOLE FACE WEEK TO WEEK TO 3 TIMES A EVERY NIGHT EVERY NIGHT WEEK TO AT BEDTIME AT BEDTIME EVERY - GRADUAL - GRADUAL NIGHT AT INCREASE INCREASE BEDTIME - GRADUAL TOLERATED TOLERATED INCREASE TOLERATED Immunizations Ordered Filled Immunization Date Status Comments [facility] e Immunization Name Name MUNDO PATEL 2021-12-08 Completed 00:00:00 MUNDO FLOWER 2021-08-09 Completed 00:00:00 [facility] COVID-19 2021-02-03 Completed [facility] MRNA VACCINATION 00:00:00 [facility] COVID-19 2021-02-03 Completed [facility] MRNA VACCINATION 00:00:00 [facility] COVID-19 2020-06-14 Completed [facility] MRNA VACCINATION 00:00:00 [facility] COVID-19 2020-06-14 Completed [facility] MRNA VACCINATION 00:00:00 [facility] COVID-19 2020-05-27 Completed [facility] MRNA VACCINATION 00:00:00 [facility] COVID-19 2020-05-27 Completed [facility] MRNA VACCINATION 00:00:00 [facility] Pneumococcal 2019-04-18 Completed University o f Polysaccharide, 00:00:00 [facility] ical PPSV23 (PNEUMOVAX) Branch Pneumococcal 2019-04-18 Completed University o f Polysaccharide, 00:00:00 [facility] ical PPSV23 (PNEUMOVAX) Branch Pneumococcal 2019-04-18 Completed [...] Dose 2019-02-15 Completed Unive rsity of 00:00:00 [facility] Zoster Vaccine 2019-02-15 Completed University of Recombinant 00:00:00 [facility] Influenza High Dose 2019-02-15 Completed Unive rsity of 00:00:00 [facility] Zoster Vaccine 2019-02-15 Completed University of Recombinant 00:00:00 [facility] Influenza High Dose 2019-02-15 Completed Unive rsity of 00:00:00 [facility] Zoster Vaccine 2019-02-15 Completed University of Recombinant 00:00:00 [facility] Influenza High Dose 2019-02-15 Completed Unive rsity of 00:00:00 [facility] Zoster Vaccine 2019-02-15 Completed University of Recombinant 00:00:00 [facility] Influenza High Dose 2019-02-15 Completed Unive rsity of 00:00:00 [facility] Zoster Vaccine 2019-02-15 Completed University of Recombinant 00:00:00 [facility] Influenza High Dose 2019-02-15 Completed Unive rsity of 00:00:00 [facility] Zoster Vaccine 2019-02-15 Completed University of Recombinant 00:00:00 [facility] Influenza High Dose 2019-02-15 Completed Unive rsity of 00:00:00 [facility] Zoster Vaccine 2019-02-15 Completed University of Recombinant 00:00:00 [facility] Influenza High Dose 2019-02-15 Completed Unive rsity of 00:00:00 [facility] Zoster Vaccine 2019-02-15 Completed University of Recombinant 00:00:00 [facility] Influenza High Dose 2019-02-15 Completed Unive rsity of 00:00:00 [facility] Zoster Vaccine 2019-02-15 Completed University of Recombinant 00:00:00 [facility] Influenza High Dose 2019-02-15 Completed Unive rsity of 00:00:00 [facility] Zoster Vaccine 2019-02-15 Completed University of Recombinant 00:00:00 [facility] Influenza High Dose 2019-02-15 Completed Unive rsity of 00:00:00 [facility] Zoster Vaccine 2019-02-15 Completed University of Recombinant 00:00:00 [facility] Influenza High Dose 2019-02-15 Completed Unive rsity of 00:00:00 [facility] Zoster Vaccine 2019-02-15 Completed University of Recombinant 00:00:00 [facility] Influenza Virus 2008-02-29 Completed Universit y of Vaccine (3+ yrs) 00:00:00 [facility] Influenza Virus 2008-02-29 Completed Universit y of Vaccine (3+ yrs) 00:00:00 [facility] Influenza Virus 2008-02-29 Completed Universit y of Vaccine (3+ yrs) 00:00:00 [facility] Influenza Virus 2008-02-29 Completed Universit y of Vaccine (3+ yrs) 00:00:00 [facility] Influenza Virus 2008-02-29 Completed Universit y of Vaccine (3+ yrs) 00:00:00 [facility] Influenza Virus 2008-02-29 Completed Universit y of Vaccine (3+ yrs) 00:00:00 [facility] Influenza Virus 2008-02-29 Completed Universit y of Vaccine (3+ yrs) 00:00:00 [facility] Influenza Virus 2008-02-29 Completed Universit y of Vaccine (3+ yrs) 00:00:00 [facility] dical Branch Influenza Virus 2008-02-29 Completed Universit y of Vaccine (3+ yrs) 00:00:00 [place] [facility] Influenza Virus 2008-02-29 Completed Universit y of Vaccine (3+ yrs) 00:00:00 [facility] dicdanni Branch Influenza Virus 2008-02-29 Completed Universit y of Vaccine (3+ yrs) 00:00:00 [facility] dicdanni Branch Influenza Virus 2008-02-29 Completed Universit y of Vaccine (3+ yrs) 00:00:00 [facility] leticia Branch Vital Signs Vital Name Observation Time Observation Value Comments Source HEIGHT 2020-10-03 10:20:00 158.8 cm WEIGHT 2020-10-03 10:20:00 62.324 kg HEIGHT 2020-09-26 13:26:00 158.8 cm WEIGHT 2020-09-26 13:26:00 67.132 kg BP Diastolic 2021-10-27 00:00:00 83 mm[Hg] [facility] Height 2021-10-27 00:00:00 62 [in_i] [facility] BMI (Body Mass 2021-10-27 00:00:00 24.7 [facility] BP Systolic 2021-10-27 00:00:00 151 mm[Hg] [facility] Body Weight 2021-10-27 00:00:00 135 [lb_av] [facility] BP Diastolic 2021-10-14 00:00:00 69 mm[Hg] [facility] Height 2021-10-14 00:00:00 62 [in_i] [facility] BMI (Body Mass 2021-10-14 00:00:00 24.7 kg/m2 [facility]) BP Systolic 2021-10-14 00:00:00 142 mm[Hg] [facility] Body Weight 2021-10-14 00:00:00 135 [lb_av] [facility] HEIGHT 2020-10-03 10:20:00 158.8 cm WEIGHT 2020-10-03 10:20:00 62.324 kg HEIGHT 2020-09-26 13:26:00 158.8 cm WEIGHT 2020-09-26 13:26:00 67.132 kg Systolic blood 2019-06-05 20:14:00 137 mm[Hg] Univer [facility]ity of [facility] Diastolic blood 2019-06-05 20:14:00 73 mm[Hg] Unive rsity of [facility] Heart rate 2019-06-05 20:14:00 65 /min [facility] Body temperature 2019-06-05 20:14:00 36.67 Ami Univ ersity [facility] Respiratory rate 2019-06-05 20:14:00 18 /min Univ ers[facility] Body height 2019-06-05 20:14:00 158.8 cm [facility] Body weight 2019-06-05 20:14:00 71.033 kg [facility] BMI 2019-06-05 20:14:00 28.19 kg/m2 [facility] Oxygen saturation in 2019-06-05 20:14:00 95 /min University of Arterial blood by [facility] Pulse oximetry Branch Systolic blood 2019-01-12 17:00:00 144 mm[Hg] Univer sity of [facility] Diastolic blood 2019-01-12 17:00:00 66 mm[Hg] Unive rsity of [facility] Heart rate 2019-01-12 17:00:00 66 /min [facility] Body temperature 2019-01-12 17:00:00 36.56 Ami Univ ers[facility] Respiratory rate 2019-01-12 17:00:00 18 /min Univ ersity [facility] Oxygen saturation in 2019-01-12 17:00:00 100 /min University of Arterial blood by [facility] Pulse oximetry Branch Body weight 2019-01-09 20:48:00 68.04 kg [facility] BMI 2019-01-09 20:48:00 27.00 kg/m2 [facility] Systolic blood 2018-12-28 19:01:00 137 mm[Hg] Univer sity of [facility] Diastolic blood 2018-12-28 19:01:00 78 mm[Hg] Unive rsity of [facility] Heart rate 2018-12-28 19:01:00 65 /min [facility] Respiratory rate 2018-12-28 18:57:00 18 /min [facility] 2018-12-28 18:57:00 158.8 cm Universi ty [facility] Body weight 2018-12-28 18:57:00 68.947 kg Universi [facility] BMI 2018-12-28 18:57:00 27.36 kg/m2 Universi [facility] Systolic blood 2018-11-02 19:15:00 149 mm[Hg] Univer sity of pressure [facility] Diastolic blood 2018-11-02 19:15:00 78 mm[Hg] Unive rsity of [facility] Heart rate 2018-11-02 19:15:00 59 /min Universi ty [facility] Systolic blood 2018-11-25 15:19:00 125 mm[Hg] Univer sity of [facility] Diastolic blood 2018-11-25 15:19:00 78 mm[Hg] Unive rsity of [facility] Body height 2018-11-25 15:19:00 158.8 cm Universi [facility] Body weight 2018-11-25 15:19:00 [facility] BMI 2018-11-25 15:19:00 27.36 kg/m2 [facility] Procedures Procedure Date / Time Performing Clinician Source Performed AUTHORIZATION TO RELEASE 2019-01-18 05:01:00 Doctor Unassigned, No [facility] PHI TO [facility] Name [facility] ECHO ROUTINE W/DOPPLER 2019-01-10 15:21:39 Andreea Warner [facility] MR BRAIN WO CONTRAST 2019-01-10 05:38:58 Andreea Warner [facility] CT ANGIOGRAM HEAD 2019-01-10 00:05:41 Rich Sequeira [facility] CT ANGIOGRAM NECK 2019-01-10 00:05:41 Rich Sequeira [facility] URINALYSIS 2019-01-09 23:15:00 Rich Sequeira [facility] CT HEAD WO CONTRAST 2019-01-09 21:51:44 Rich Sequeira [facility] TROPONIN I 2019-01-09 21:14:00 Rich Sequeira [facility] COMP. METABOLIC PANEL 2019-01-09 21:14:00 Rich Sequeira [facility] ([id number]) Medical Branch LIPID PANEL 2019-01-09 21:14:00 Andreea Warner [facility] ([id number])(TOTAL Medical Branch CHOLESTEROL, TRIGLYCERIDES, HDL) CBC WITH DIFFERENTIAL 2019-01-09 21:14:00 Rich Sequeira [facility] GLYCOSYLATED HEMOGLOBIN 2019-01-09 21:14:00 Andreea Warner [facility] (A1C) Medical Branch EKG-12 LEAD 2019-01-09 21:12:01 Rich Sequeira [facility] XR WRIST <3 VW LEFT 2018-12-28 19:00:56 Margarito Soto [facility] XR WRIST <3 VW LEFT 2018-11-25 15:25:54 Margarito Soto [facility] Cardiac - Coronary [facility] Artery Stent Cathy Arthrs Srg [facility] Capsulorraphy Knee Arthroscopy/surgery [facility] Hysterectomy with [facility] Oopherectomy (Ovaries Removed) Plan of Care Planned Activity Planned Date Details Comments Source Future Scheduled 2023-01-[address] [facility] Test 00:00:00 (Season Ended) [code Medical Center = INFLUENZA VACCINE (Season Ended)] Future Scheduled 2022-08-07 Hepatitis C screening [facility] Test 06:25:45 (procedure) [code = [id number]] Future Scheduled 2022-08-07 SHINGLES VACCINES (2 [facility] Test 06:25:45 of 2) [code = SHINGLES VACCINES (2 of 2)] Future Scheduled 2022-08-07 65+ [facility]UMOCOCCAL [facility] Test 06:25:45 VACCINE (2 - PCV) [code = 65+ PNEUMOCOCCAL VACCINE (2 - PCV)] Future Scheduled 2022-08-07 COVID-19 VACCINE (4 - [facility] Test 06:25:45 Booster for Pfizer series) [code = COVID-19 VACCINE (4 - Booster for Pfizer series)] Future Scheduled 2022-08-07 INFLUENZA VACCINE [facility] Test 06:25:45 [code = INFLUENZA VACCINE] Future Scheduled 2022-05-[address] [facility] Test 00:00:00 (12+) [code = Medical Center DEPRESSION SCREENING (12+)] Future Scheduled 2022-05-03 FALLS RISK SCREENING [facility] Test 00:00:00 [code = FALLS RISK Medical C enter SCREENING] Future Scheduled 2022-03-06 HEPATITIS B VACCINES [facility] Test 06:25:03 (1 of 3 - 3-dose series) [code = HEPATITIS B VACCINES (1 of 3 - 3-dose series)] Future Scheduled 2022-03-06 [facility] 06:25:03 (procedure) [code = [id number]] Future Scheduled 2022-03-06 SHINGLES VACCINES (2 Met [facility] Test 06:25:03 of 2) [code = SHINGLES VACCINES (2 of 2)] Future Scheduled 2022-03-06 65+ PNEUMOCOCCAL [facility] Test 06:25:03 VACCINE (2 - PCV) [code = 65+ PNEUMOCOCCAL VACCINE (2 - PCV)] Future Scheduled 2022-03-06 COVID-19 VACCINE (4 - [facility] Test 06:25:03 Booster for Pfizer series) [code = COVID-19 VACCINE (4 - Booster for Pfizer series)] Future Scheduled 2022-03-06 INFLUENZA VACCINE Method is Hospital Test 06:25:03 [code = INFLUENZA VACCINE] Future Scheduled 2022-01-[address] [facility] Test 00:00:00 (#1) [code = Medical Center INFLUENZA VACCINE (#1)] Diagnostic Test 2021-10-27 urinalysis, dipstick [facility] Pending 00:00:00 [code = urinalysis, dipstick] Future Scheduled 2021-10-[address] [facility] Test 00:00:00 Counseling and Medical Cente r Screening (12+) [code = Tobacco Cessation Counseling and Screening (12+)] Future Scheduled 2021-05-[address] [...] - Booster for Pfizer series)] Future Scheduled 2020-08-09 COVID-19 VACCINE (3 - [facility] [...] FIRST YEAR if no IPPE)] Future Scheduled 2010-11-[address] [facility] [address] [facility] Test 00:00:00 WELLNESS (YEAR 2 or Medical Center FIRST YEAR if no IPPE) [code = MEDICARE ANNUAL WELLNESS (YEAR 2 or FIRST YEAR if no IPPE)] Future Scheduled 1994 SHINGLES VACCINES ([address] [facility] Test 00:00:00 of 2) [code = Medical Center SHINGLES VACCINES (1 of 2)] Future Scheduled 1994 SHINGLES VACCINES ([address] [facility] Test 00:00:00 of 2) [code = Medical Center SHINGLES VACCINES (1 of 2)] Future Scheduled 1963-11-24 DTAP/TDAP/TD [facility]ACCINES [facility] Test 00:00:00 (1 - Tdap) [code = Medical C enter DTAP/TDAP/TD VACCINES (1 - Tdap)] Future Scheduled 1963-11-24 DTAP/TDAP/TD [facility]ACCINES [facility] Test 00:00:00 (1 - Tdap) [code = Medical C enter DTAP/TDAP/TD VACCINES (1 - Tdap)] Future Scheduled 1962 HEPATITIS C [facility]CREENING [facility] Test 00:00:00 [code = HEPATITIS C Medical Center SCREENING] Future Scheduled 1962 HEPATITIS C [facility] Test 00:00:00 [code = HEPATITIS C Medical Center SCREENING] Future Scheduled 1944 DXA SCAN [code = DXA [facility] Test 00:00:00 SCAN] Medical Center Future Scheduled 1944 DXA SCAN [code = DXA [facility] Test 00:00:00 SCAN] Medical Center Encounters Start End Encounter Admission Attending Care Care Encounter Source Date/Time Date/Time Type Type Clinicians Facility Department ID 2021-05-16 Outpatient CATHERINE ZENG MDA [id number] 09:59:06 PROVIDER Usman duarte 2021-02-08 Outpatient JONO, [facility] Surgery [id number] [facility] 21:47:48 RAMBO 2022-08-10 2022-08-10 [id number] 13:34:00 13:34:00 Merlin 40 [facility] 2022-02-25 2022-02-25 Outpatient SARAH LUX MDA MDA [id number] 12:50:04 12:50:04 KATELIN duarte 2022-02-25 2022-02-25 Outpatient SARAH LUX MDA MDA [id number] 11:59:14 11:59:14 KATELIN Rolleer so n 2021-12-08 2021-12-08 Outpatient GCCOVIDV GCCOVIDV [id number] [facility] 00:00:00 00:00:00 V 2021-11-26 2021-11-26 Outpatient GC_HAWARC PRIV PRIV [id number] [facility] 00:00:00 00:00:00 _Yadi [id number] [facility] 2021-11-04 2021-11-04 Outpatient GC_SWHAWPRC PRIV PRIV [id number] [facility] 00:00:00 00:00:00 _Yadi [id number] [facility] paramjit 2021-10-27 2021-10-27 Outpatient GC_SWHAWPRC PRIV PRIV [id number] [facility] 04:11:00 04:11:00 _Ydai [id number] [facility] 2021-10-27 2021-10-27 [facility] 00:00:00 00:00:00 LUCAS Branch: [facility] - Med ical [address] [facility] [address], [place] [address] , Ph. 2021-10-27 2021-10-27 Outpatient ESTEFANIA Branch PRIV [id number] 00:00:00 00:00:00 [id number] 2021-10-14 2021-10-14 Outpatient GC_SWHAWPRC PRIV PRIV [id number] [facility] 12:59:00 12:59:00 _Yadi [id number] [facility] paramjit 2021-10-14 2021-10-14 Outpatient ESTEFANIA Branch PRIV [id number] 00:00:00 00:00:00 [id number] 2021-10-14 2021-10-14 PRIV MD - [facility] 00:00:00 00:00:00 Jose Carlos, ROOF TILER: Health - Med ical 450 [facility] _[facility] Office [facility], [address], [place] [address] , Ph. 2021-10-13 2021-10-13 Outpatient GC_SWHAWPRC PRIV PRIV 528 [id number] [facility] 02:54:00 02:54:00 _Yadi [id number] Medi paramjit 2021-08-09 2021-08-09 Outpatient GCCOVIDV GCCOVIDV [id number] GCCOVID 00:00:00 00:00:00 V 2021-04-22 2021-04-22 Outpatient GC_SWHAWPRC PRIV PRIV 528 3904-20 [facility] 11:11:00 11:11:00 _Yadi [id number] Medi paramjit 2021-04-21 2021-04-21 Outpatient GC_SWHAWPRC PRIV PRIV 528 3904-20 [facility] 10:56:00 10:56:00 _Yadi [id number] Medi paramjit 2021-02-03 2021-02-03 Outpatient [facility] [id number] [place] 00:00:00 00:00:[address] 2020-10-04 2020-10-04 Emergency [place], [facility] [id number] [place] 00:00:00 00:00:00 SHANITA-JERRY 658 Me thodi 2020-09-26 2020-09-26 Outpatient [facility] [id number] [facility] 00:00:00 00:00:00 2020-06-14 2020-06-14 Outpatient [facility] [id number] [place] 00:00:00 00:00:00 607 Method i 2020-05-27 2020-05-27 Outpatient [facility] [id number] [place] 00:00:00 00:00:00 025 Method i 2020-05-16 2020-05-16 Refkimber Huy [facility] 1.2.840.114 [id number] [facility] 00:00:00 00:00:00 Lesvia PRIMARY 350.1.13.10 it[place] [id number] Me dical [address] 2020-05-10 2020-05-10 Patient [facility] 1.2.840.[id number] [place] [address] 00:00:00 00:00:00 Outreach Mark PRIMARY 350.1.13.10 i ty of [place] [id number] Ne dical [address] 2020-02-01 2020-02-01 [facility] [id number] [place] 00:00:00 00:00:00 DUDLEY 920 Method i 2020-01-22 2020-01-22 [facility]patient [facility] [id number] [place] 00:00:00 00:00:00 DUDLEY 204 Method i 2020-01-15 2020-01-18 [facility] [id number] [place] 00:00:00 00:00:00 KENYATTA 951 Method i 2019-12-19 2019-12-19 Outpatient SARAH LUX MDA MDA [id number] 13:56:23 13:56:23 KATELIN duarte 2019-12-19 2019-12-19 Outpatient SARAH LUX MDA MDA [id number] 00:00:00 00:00:00 KATELIN xiong n 2019-12-19 2019-12-19 Outpatient SARAH LUX CATHERINE MDA [id number] MD 00:00:00 00:00:00 KATELIN xiong felicia 2019-12-06 2019-12-06 Outpatient TERE OH [facility] [id number] [place] 00:00:00 00:00:00 210 Method i 2019-10-27 2019-10-27 [facility], Pcp Michael [facility] 1.2.840. 114 [id number] [facility] 17:46:45 17:56:45 Visit Chase Burton [facility].1.13.10 [facility] 4.2.7.2.686 Nancy SAMANIEGOROSEANNA [id number] [address] 2019-10-27 2019-10-27 [facility] [id number] Univers 17:50:00 17:50:00 CHASE [facility] 2019-10-25 2019-10-25 Outpatient TERE OH [facility] [id number] [place] 00:00:00 00:00:00 871 Method i 2019-10-25 2019-10-25 Outpatient TERE OH [facility] [id number] [place] 00:00:00 00:00:00 019 Method i 2019-10-25 2019-10-25 Outpatient TERE OH [facility] [id number] [place] 00:00:00 00:00:00 028 Method i 2019-10-25 2019-10-25 Outpatient MAHIN [facility] [id number] [place] 00:00:00 00:00:00 SHANE 494 Method i 2019-10-23 2019-10-23 Outpatient Annita OVIEDO [facility] [id number] Univers 14:30:00 14:30:00 ROSHAN [facility] 2019-10-23 2019-10-23 Outpatient JD [facility] [id number] [place] 00:00:00 00:00:00 JORJE 343 Method i 2019-10-23 2019-10-23 Outpatient JD [facility] [id number] [place] 00:00:00 00:00:00 JORJE 057 Method i 2019-10-16 2019-10-16 Patient [facility] 1.2.840.114 [id number] Univers 00:00:00 00:00:00 Secure Msg Lesvia PRIMARY 350.1.13.10 it[place] [id number] [address] 2019-10-16 2019-10-16 Patient Doctor [facility] 1.2.840.114 [id number] Univers 00:00:00 00:00:00 Secure Msg Unassigned, PRIMARY 350.1.13.10 ity of [place] [id number] [address] 2019-08-29 2019-08-29 Telephone Huy [facility] 1.2.044.621 [id number] Univers 00:00:00 00:00:00 Lesvia PRIMARY 350.1.13.10 it[place] [id number] [address] 2019-07-31 2019-07-31 Outpatient R UNKNOWN, [facility] [id number] Univers 14:20:00 14:20:00 ATTENDING ity of [facility] 2019-07-21 2019-07-21 Outpatient R [facility] [id number] Univers 09:30:00 09:30:00 ity of [facility] 2019-06-05 2019-06-05 Office Lesvia Son [facility] 1.2.840.1 14 [id number] Univers 14:03:21 15:16:00 Visit Unknown, Attending PRIMARY 350.1.13.10 ity of Noemi Nova CARE 4.2.7.2.686 [place] PAVILLION [id number] [address] 2019-05-17 2019-05-17 Patient Huy [facility] 1.2.840.114 [id number] Univers 00:00:00 00:00:00 Secure Msg Lesvia PRIMARY 350.1.13.10 ity of [place] [id number] [address] 2019-05-17 2019-05-17 Patient Doctor [facility] 1.2.840.114 [id number] Univers 00:00:00 00:00:00 Secure Msg Unassigned, PRIMARY 350.1.13.10 ity of [place] [id number] [facility] [address] 2019-05-09 2019-05-09 Patient Doctor [facility] 1.2.840.114 [id number] Univers 00:00:00 00:00:00 Secure Msg Unassigned, PRIMARY 350.1.13.10 ity of [place] [id number] [address] 2019-05-08 2019-05-08 Outpatient R MANUELA [facility] [id number] Univers 09:34:55 23:59:00 MOHAMMED ity o f [facility] 2019-05-08 2019-05-08 Patient Doctor [facility] 1.2.840.114 [id number] Univers 00:00:00 00:00:00 Secure Msg Unassigned, PRIMARY 350.1.13.10 ity of [place] [id number] [address] 2019-04-28 2019-04-28 Outpatient [facility] [id number] Univers 09:59:10 23:59:00 LIZETH [facility] 2019-04-16 2019-04-16 Emergency X [facility] ERT [id number] Univers 19:14:06 23:36:00 [facility] 2019-04-04 2019-04-04 Outpatient [facility] [id number] Univers 11:14:53 23:59:00 [facility]J [facility] 2019-01-20 2019-01-20 Telephone [facility] 1.2.840.114 [id number] Univers 00:00:00 00:00:00 Anuja DAY 350.1.13.10 ity of [facility] [place] [id number] [address] 2019-01-18 2019-01-18 Office ZunildaHOMER 1.2.840.114 [id number] Univers 15:44:38 16:14:38 Visit Anuja [place] 350.1.13.10 i ty of Alcides DAVIS 4.2.7.2.686 [place] as BANK [phone] [facility] BLDG. [address] 2019-01-18 2019-01-18 Orders Doctor DAYANARA 1.2.840.114 [id number] Univers 00:00:00 00:00:00 Only Unassigned, AGGIE 350.1.13.10 ity of [place] [facility] 4.2.7.2.686 [place] as [id number] [facility] [address] 2019-01-13 2019-01-13 Transition Esteban Reardon 1.2.840.114 [id number] Univers 00:00:00 00:00:00 of Care [place] Nathan 350.1.13.10 i ty of [place] [id number] [facility] [address] 2019-01-09 2019-01-12 Hospital Rich Sequeira 1.2.840.1 14 [id number] Univers 15:49:22 19:09:00 Encounter Raymond Mckeony 350.1.13.10 ity of Hospital 4.2.7.2.686 [place] as [id number] [facility] [address] 2018-12-28 2018-12-28 Hospital Britt[facility] 1.2.840.114 [id number] [facility] 14:00:55 23:59:00 Encounter Margarito Bradley SideStep 350.1.13.10 ity of Surgical 4.2.7.2.686 [place] as Specialti [id number] Ne dical es 809 [facility] 2018-12-28 2018-12-28 Office [facility] 1.2.362.640 [id number] Univers 13:48:28 14:25:18 Visit Margaritojo Boyce 350.1.13.10 it y of Surgical 4.2.7.2.686 [place] Specialti [phone] Me dical es 198 [facility] 2018-11-02 2018-11-29 Office [facility]RE[facility] 1.2.619.817 [id number] [facility] 14:05:54 11:43:23 Visit Margarito Bradley [facility] 350.1.13.10 it y of Surgical 4.2.7.2.686 [place] as Specialti [id number] Me dical es 198 [facility] 2018-11-25 2018-11-25 Hospital [facility] 1.2.840.114 [id number] [facility] 10:25:53 23:59:00 Encounter Margarito Bradley [facility] 350.1.13.10 ity of Surgical 4.2.7.2.686 [place] Specialti [phone] Me dical es 809 [facility] 2018-11-25 2018-11-25 [facility] 1.2.840.114 [id number] [facility] 10:16:03 10:31:03 Visit aTrik Benitez [facility] 350.1.13.10 it y of Surgical 4.2.7.2.686 [place] as Specialti [id number] Ne dical es 198 [facility] 2018-09-29 2018-09-29 Appointmen [facility] Orthopedics [id number] [place] 13:15:00 13:15:00 t; CECILY SCHULTZ M.D. - [place] Art[facility] TONY M.D. ans 2018-09-08 2018-09-08 Appointmen [facility] Orthopedics [id number] [place] 14:45:00 14:45:00 t; CECILY SCHULTZ M.D. at [place] [facility] TONY M.D. ans 2018-07-26 2018-07-26 Appointmen [facility] Orthopedics [id number] [place] 14:30:00 14:30:00 t; CECILY SCHULTZ M.D. - [place] Art[facility] TONY M.D. ans 2017-07-12 2017-07-12 Outpatient EL SLE SLE [id number] SLE 00:00:00 00:00:00 2016-08-03 2016-08-03 AppointJESUS Hogan [facility] [id number] [place] 13:30:00 13:30:00 t; Josefina LYMAN i, M.D. ans Gabo LYMAN Results Test Description Test Time Test Comments Results Result Sour e Comments - MRI C-SPINE W/O 2022-08-11 CONT 22:57:00 [facility] : 1945 Sex: F FAX: Lena Ponce MD [phone] [place]: St: [facility] FAX: Merlin Leo [phone] Name: THOMAS GARCIA [facility] : 1945 Age/S: 76/F [address] [place] [address] Unit #: [id number] Loc: [place] [address] Phys: Merlin Mccann MD Acct: [id number] Dis Date: Status: DEP I PHONE #: [phone] Exam Date: 08/10/2022 1454 FAX #: [phone] Reason: MYELOPAHTY EXAMS: CPT CODE: [id number] MRI C-SPINE W/O CONT 84852 EXAM: - MRI C-SPINE W/O CONT CLINICAL HISTORY: MYELOPATHY. COMPARISON: None available.. LOCATION: [facility] TECHNIQUE: Multisequence, multiplane noncontrast MRI of the cervical spine was performed. FINDINGS: Alignment: Normal cervical lordosis. No significant scoliosis. There is mild degenerative grade 1 anterolisthesis of C4 over C5. Vertebral bodies: Normal height. Disc spaces: Diffuse disc desiccation and moderate disc height loss at the C5-C6 level and mild disc height loss at the remaining cervical levels. No endplate Modic changes. Spinal Cord: Normal size and signal intensity. Marrow: Normal signal intensity. C1-2: Minimal degenerative changes of the anterior atlantoaxial interval. There is minimal rotational offset of the lateral masses without signs of traumatic injury. C2-3: No disc bulge or canal stenosis. Mild to moderate left neural foraminal narrowing due to combination uncovertebral joint and facet hypertrophy. C3-4: Minimal broad-based disc osteophyte and facet hypertrophy without canal stenosis. Mild right and moderate to severe left neural foraminal narrowing due to combination uncovertebral joint and facet hypertrophy. C4-5: Mild broad-based disc osteophyte and ligament flavum thickening resulting in borderline canal stenosis. No cord abutment or compression. Moderate left-sided neural foraminal narrowing due to combination uncovertebral joint and facet hypertrophy. PAGE 1 Signed Report (CONTINUED) FAX: Lena Ponce MD [phone] [place]: St: [facility] FAX: Merlin Leo [phone] Name: THOMAS GARCIA [facility] : 1945 Age/S: 76/F [address] [place] [address] Unit #: [id number] Loc: [place] [address] Phys: Merlin Mccann MD Acct: [id number] Dis Date: Status: DEP CLI PHONE #: [phone] Exam Date: 08/10/2022 [facility]9 FAX #: [phone] Reason: MYELOPAHTY EXAMS: CPT CODE: [id number] MRI C-SPINE W/O CONT 61458 (Continued) C5-6: Mild broad-based disc osteophyte and ligamentum flavum thickening resulting in mild canal stenosis. No cord abutment or compression. Mild left and severe right neural foraminal narrowing due to combination uncovertebral joint and facet hypertrophy. C6-7: Mild broad-based disc osteophyte and ligamentum flavum thickening resulting in borderline canal stenosis. No cord abutment or compression. Mild to moderate bilateral neural foraminal narrowing predominantly due to uncovertebral joint hypertrophy. C7-T1: Mild broad-based disc osteophyte and ligamentum flavum thickening without canal stenosis. Mild bilateral neural foraminal narrowing due to combination uncovertebral joint and facet hypertrophy. Other: The left vertebral artery is dominant. The major vessel T2 flow-voids are well-maintained throughout the neck. The cervical soft tissues are unremarkable. Visualized intracranial contents appear normal. IMPRESSION: No cord compression or edema noted throughout the cervical levels. Diffuse disc desiccation with moderate disc height loss C5-C6 and mild disc height loss of the remaining cervical levels. No endplate Modic changes. Mild broadbase disc osteophyte noted C4-T1 with mild canal stenosis at the C5-C6 level. Multilevel bilateral neural foraminal narrowing throughout the cervical levels as detailed above. at 2257 Reported and signed by: Calvin Jeronimo D.O. CC: Lena Graham; Merlin Mccann MD Technologist: RT Anthony(R)(MR) Trnscrd Date/Time/By: 08/11/2022 (5631) : By: [email or web address] Orig Print D/T: S: 08/11/2022 (5574) PAGE 2 Signed Report - XR C-SPINE 6+V 2022-08-11 21:13:00 [facility]ARC[facility] : 1945 Sex: F FAX: Lena Ponce MD [phone] [place]: St: [facility] FAX: Merlin Leo [phone] Name: THOMAS GARCIA [facility] : 1945 Age/S: 76/F [address] [place] [address] Unit #: [id number] Loc: [place] [address] Phys: Merlin Mccann MD Acct: [id number] Dis Date: Status: [facility] CLI PHONE #: [phone] Exam Date: 08/10/2022 1500 FAX #: [phone] Reason: MYLEOGRAPHY. EXAMS: CPT CODE: [id number] XR C-SPINE 6+V 73340 EXAM: - XR C-SPINE 6+V CLINICAL HISTORY: MYELOGRAPHY. COMPARISON: None available. TECHNIQUE: AP, lateral, coned down, flexion/extension, and bilateral oblique views LOCATION: H65 FINDINGS: Bones: Normal cervical lordosis. There is grade 1 degenerative anterolisthesis of C4 over C5. No dynamic instability on flexion/extension views. The vertebral body heights are well-maintained. There is mild disc height loss C2-C5 and C6-C7 with moderate disc height loss at C5-C6 and C7-T1. Minimal marginal osteophyte formation noted. The facets are well aligned with mild degenerative changes. Suspect right-sided neural foraminal narrowing at the C5-C6 and C6-C7 levels. The base of the dens appears intact. Soft tissues: No prevertebral edema. The upper lungs are clear. IMPRESSION: Mild to moderate cervical spine degenerative changes as detailed above. Grade 1 degenerative anterolisthesis of C4 over C5. No dynamic instability. Suspect right-sided neural foraminal narrowing C5-C7. at 2113 Reported and signed by: Calvin Jeronimo D.O. CC: Lena Graham; Merlin Mccann MD Technologist: Brian Coulter Trnscrd Date/Time/By: 08/11/2022 (2112) : By: [email or web address] Orig Print D/T: S: 08/11/2022 (2115) PAGE 1 Signed Report Urinalysis macro (dipstick) panel - Urine 2021-10-27 15:07:1 4 Test Item Value Reference Range Interpretation Comme nts Leukocytes (test code = Leukocytes) Negative Nitrite (test code = Nitrite) negative Protein (test code = Protein) Negative pH (test code = pH) 6.0 Blood (test code = Blood) Negative Ketone (test code = Ketone) Negative Bilirubin (test code = Bilirubin) Glucose (test code = Glucose) Negative Appearance (test code = Appearance) Clear Color (test code = Color) Yellow [facility] MedicalBacteria identified in Urine by [id number] 00:00:00 Test Item Value Reference Range Interpretation Comments Bacteria identified in Urine by see below no growth A Culture (test code = 630-4) [facility] MedicalUrinalysis macro (dipstick) panel - [id number] 00:00:00 Test Item Value Reference Range Interpretation Comments Specific gravity of Urine 1.009 1.003-1.030 (test code = 2965-2) pH of Urine (test code = 6.5 5.0-8.0 2756-5) Protein [Presence] in Urine 1+,30 mg/dL negative A by Test strip (test code = 51836-9) Glucose [Presence] in Urine negative negative by Test strip (test code = 68474-8) Ketones [Presence] in Urine negative negative by Test strip (test code = 2514-8) Urobilinogen [Units/volume] 0.2 mg/dL 0.2-1.0 in Urine by Test strip (test code = 78062-6) Bilirubin.total [Presence] negative negative in Urine by Test strip (test code = 5770-3) Hemoglobin [Presence] in moderate negative A Urine by Test strip (test code = 5794-3) Nitrite [Presence] in Urine positive negative A by Test strip (test code = 5802-4) Crystals [type] in Urine none none sediment by Light microscopy (test code = 5782-8) Leukocytes [#/area] in Urine >100 0-4 H sediment by Microscopy high power field (test code = 5821-4) Erythrocytes [#/area] in 21-40 none seen H Urine sediment by Microscopy high power field (test code = 84653-0) RBC casts [Presence] in none seen 0-1 Urine sediment by Light microscopy (test code = 80185-8) Hyaline casts [Presence] in none seen 0-4 Urine sediment by Light microscopy (test code = 59208-1) Epithelial cells [Presence] few none-few in Urine sediment by Light microscopy (test code = 66739-2) Granular casts [Presence] in none seen 0-1 Urine sediment by Light microscopy (test code = 14497-3) Bacteria [Presence] in Urine many none-few A sediment by Light microscopy (test code = 32251-8) Leukocyte esterase large negative A [Presence] in Urine by Test strip (test code = 5799-2) Color of Urine (test code = yellow yellow, straw, abigail 5778-6) Character of Urine (test turbid clear A code = 82277-2) [facility] MedicalUrinalysis macro (dipstick) panel - [id number] 11:57:10 Test Item Value Reference Range Interpretation Comments Leukocytes (test code = Small Leukocytes) Nitrite (test code = Nitrite) positive Protein (test code = Protein) Negative pH (test code = pH) 6.0 Blood (test code = Blood) Small Ketone (test code = Ketone) Negative Glucose (test code = Glucose) Negative Appearance (test code = Cloudy Appearance) Color (test code = Color) Dark Yellow [facility] MedicalUrinalysis macro (dipstick) panel - [id number] 11:57:10 Test Item Value Reference Range Interpretation Comments Leukocytes (test code = Small Leukocytes) Nitrite (test code = Nitrite) positive Protein (test code = Protein) Negative pH (test code = pH) 6.0 Blood (test code = Blood) Small Ketone (test code = Ketone) Negative Glucose (test code = Glucose) Negative Appearance (test code = Cloudy Appearance) Color (test code = Color) Dark Yellow [facility] Medical[facility]UE [id number] 12:52:00Surgical Pathology Report Case: [id number] Authorizing Provider: Rambo De La Cruz MD Collected: 10/03/2020 11:45 AM Ordering Location: [facility] Endoscopy Received: 10/03/2020 02:23 PM Services Pathologist: Sofiya Hatch MD Specimen: Biopsy, Gastric A. STOMACH, BIOPSY: - GASTRIC OXYNTIC AND ANTRAL MUCOSA WITH NO SIGNIFICANT DIAGNOSTIC ALTERATION. - NEGATIVE FOR HELICOBACTER PYLORI ORGANISMS BY WARTHIN STARRY STAIN. - NEGATIVE FOR INTESTINAL METAPLASIA, DYSPLASIA OR MALIGNANCY. Signing PathologistDirect Phone Line: [phone] signed by Sofiya Hatch MD on 10/04/2020 at 12:52 [id number] in bowel habits, Epigastric abdominal painStomach.A. Received in formalin labeled with the patient's name, accession number and "gastric biopsy closed is a [place]-white soft tissue fragments measuring 0.8 x 0.2 x 0.2 cm. The specimen is entirely submitted as Billy Deras MDPerformed.The interpretation of this case included the use of immunohistochemistry or special stains.Control Slides Examined: In-house known positive controls were evaluated along with the test tissue. These control slides run alongside of the patients sample show appropriate staining. Internal positive and negative controls when available are evaluated Immunohistochemistry technical testing was performed at [facility], Pathology Laboratory where it was developed and its performance characteristics were determined. It has not been cleared or approved by the U.S. Food and Drug Administration. The FDA has determined that such clearance or approval is not necessary. The test is used for clinical purposes. It should not be regarded as investigational or for research. This laboratory is certifiedunder the Clinical Laboratory Improvement Amendments of 1988 (CLIA-88) as qualified to perform high complexity clinical laboratory testing.[facility], Department of Pathology, [address] [place] [address], [facility] of [facility], [address] [place] [address] 38631, [facility], Department of Pathology, [address] [place] [address] 6[address], EDXD-CoV-2 (COVID-19) RNA [Presence] in Respiratory specimen by ERAN with probe [id number] 01:55:44 Test Item Value Reference Range Interpretation Comments SARS-CoV-2 (COVID-19) RNA Not detected Not-Detected [Presence] in Respiratory specimen by ERAN with probe detection (test code = 70490-8) [facility] [id number] 13:08:00Surgical Pathology Report Case: [id number] Authorizing Provider: Rambo De La Cruz MD Collected: 06/16/2019 1034 Ordering Location: [facility] Endoscopy Received: 06/16/2019 1119 Services Pathologist: Radha Maldonado MD Specimen: Antrum, Antrum bx STOMACH, ANTRUM, ENDOSCOPIC MUCOSAL BIOPSIES- ANTRAL MUCOSA WITH MILD CHRONIC INACTIVE GASTRITIS - NEGATIVE FOR HELICOBACTER PYLORI- NEGATIVE FOR INTESTINAL METAPLASIA, DYSPLASIA OR CARCINOMA Signing Pathologist Direct Phone Line: [phone] signed by Radha Maldonado MD on 06/19/2019 at 1:08 [id number], [id number] and postop diagnosis: Reflux esophagitis A. Antrum [...] evaluated Immunohistochemistry technical testing was performed at [facility], Pathology Laboratory where it was developed and [...] high complexity clinical laboratory testing.MR BRAIN WO [id number] 13:05:15 No acute intracranial abnormality. Nonspecific left [...] mastoid air cells or paranasal air sinuses. Mdmb, Radiant Results Inft User - 01/10/2019 8:05 [...] reviewed this study and agree with theabove report.[facility] CenterGLYCOSYLATED HEMOGLOBIN (A1C)2019-01-10 07:24:00 Test Item Value Reference Range Interpretation Comments HGB A1C (test code = 4548-4) 5.3 % 4-6 Lab Interpretation (test code = Normal 92455-5) [facility]17109[facility]TOTAL CHOLESTEROL, TRIGLYCERIDES, HDL)2019-01-10 05:01:00 Test Item Value Reference Range Interpretation Comments CHOL (test code = 242 mg/dL 120-200 H 5238508726) HDL (test code = 38 mg/dL >50 L 0465407031) HDLC RATIO (test code = See_Comment H [Au tomated message] 1771656076) The system Motiga generated this result transmit oswald reference range : <=4.5. The refe rence range was not u sed to interpret th is result as normal/abnormal . TRIG (test code = 193 mg/dL 30-170 H 2720610232) LDL CHOL (test code = 165 mg/dL See_Comment H [Auto mated message] 90671-4) The system [employer] generated this result transmit oswald reference range : <=160. The refe rence range was not u sed to interpret th is result as normal/abnormal . VLDL (test code = 39 mg/dL 5-60 0383497141) Lab Interpretation (test Abnormal code = 08160-4) [facility] [id number] 01:12:46 No high- grade stenosis or aneurysm is present in the intracranial orcervical vessels I, Dayanara Andrew MD., have reviewed this study and agree with theabove report.CT ANGIOGRAM NECK,CT ANGIOGRAM HEAD HISTORY: Arterial stricture / occlusion, head neck TECHNIQUE: CTA imaging of the head and neck were obtained afteradministration 100 cc IV Omnipaque contrast. Coronal and sagittal MIPSreformats areprovided. COMPARISON:?CT head dated 01/09/2019 [place] [facility] FINDINGS: The PICA origin is [...] reviewed this study and agree with theabove report.[facility] [id number] 01:12:46 No high-grade stenosis or aneurysm is present in the intracranial orcervical vessels I, Dayanara Andrew MD., have reviewed this study and agree with theabove report.CT ANGIOGRAM NECK,CT ANGIOGRAM HEAD HISTORY: Arterial stricture / occlusion, head neck TECHNIQUE: CTA imaging of the head and neck were obtained afteradministration 100 cc IV Omnipaque contrast. Coronal and sagittal MIPSreformats areprovided. COMPARISON:?CT head dated 01/09/2019 [place] [facility] FINDINGS: The PICA origin is [...] reviewed this study and agree with theabove report.[facility] [id number] 23:50:00 Test Item Value Reference Range Interpretation Comments APPEARANCE (test code = Clear Clear 2549942428) COLOR (test code = Yellow Yellow 8961284253) PH (test code = 4.8-8.0 4240275978) SP GRAVITY (test code = 1.003-1.030 7676345981) GLU U QUAL (test code = Normal Normal 9922451821) BLOOD (test code = Negative Negative 9661670380) KETONES (test code = Negative Negative 8745820339) PROTEIN (test code = Negative Negative 2887-8) UROBILIN (test code = Normal Normal 3296404592) BILIRUBIN (test code = Negative Negative 2901827807) NITRITE (test code = Negative Negative 8109286470) LEUK CARLTON (test code = Negative Negative 5970418790) RBC/HPF (test code = See_Comment [Autom ated message] 3785790496) The system Mot[employer] generated this result transmitted ref erence range: 0 - 3 HP F. The reference range was not used to int erpret this result as normal/abnormal . WBC/HPF (test code = See_Comment [Autom ated message] 2382199162) The system [employer] generated this result transmitted ref erence range: 0 - 5 HP F. The reference range was not used to int erpret this result as normal/abnormal . BACTERIA (test code = Negative Negative 7877936251) AMORPHOUS (test code = Rare Rare HPF 8775258325) SQ EPITH (test code = See_Comment [Auto mated message] 7307464187) The system [employer] generated this result transmitted ref erence range: <=2 HPF. The reference range was not used to int erpret this result as normal/abnormal . Lab Interpretation (test Normal code = 13613-0) [facility] [id number] 22:24:54 No acute intracranial abnormality. Nonspecific small [...] reviewed this study and agree with theabove report.[facility] CenterTRJACE [id number] 21:51:00 Test Item Value Reference Range Interpretation Comments TROPONIN I (test 0.000 ng/mL See_Comment [Automated code = 0155496229) message] The system which generated this result [...] ? Lab Interpretation Normal (test code = 73703-6) [facility]. METABOLIC PANEL (82070)2019-01-09 21:45:00 Test Item Value Reference Range Interpretation Comments NA (test code = 139 mmol/L 135-145 1642884046) K (test code = 4.1 mmol/L 3.5-5 2670947916) CL (test code = 104 mmol/L 98-108 0139439348) CO2 TOTAL (test code = 29 mmol/L 23-31 2858123275) AGAP (test code = 2-16 4293172311) BUN (test code = 18 mg/dL 7-23 2917968862) GLUCOSE (test code = 131 mg/dL 70-110 H 3152311474) CREATININE (test code = 0.64 mg/dL 0.5-1.04 1767312443) TOTAL BILI (test code = 0.7 mg/dL 0.1-1.1 2717134890) CALCIUM (test code = 9.9 mg/dL 8.6-10.6 4544442709) T PROTEIN (test code = 7.2 g/dL 6.3-8.2 4711580849) ALBUMIN (test code = 4.3 g/dL 3.5-5 4336740498) ALK PHOS (test code = 65 U/L 34-122 2589892813) ALT(SGPT) (test code = 28 U/L 9-51 4881020100) AST(SGOT) (test code = 37 U/L 13-40 4053237997) eGFR Calculation mL/min/1.73m2 (Non-) (test code = 5051242081) eGFR Calculation mL/min/1.73m2 () (test code = 0439491675) RICARDO (test code = RICARDO) Association of [...] tests). Lab Interpretation Abnormal (test code = 28113-0) [facility] WITH [id number] 21:35:00 Test Item Value Reference Range Interpretation Comments WBC (test code = See_Comment [Automated 6690-2) message] The sy stem which generated this [...] RDW-SD (test code = 42.5 fL 39-49.9 36152-4) RDW-CV (test code = 12.3 % 12-15.5 788-0) PLT (test code = See_Comment L [Automated 777-3) message] The sy stem which generated this result transmitted reference range : 166 - 358 10*3/ ?L. The reference r manjinder was not used to interpret this result as normal/abnormal . MPV (test code = 11.0 fL 9.5-12.9 25655-2) NRBC/100 WBC (test See_Comment [Automat ed code = 0817895520) message] The system which generated this result transmitted reference range : 0.0 - 10.0 /100 WBCs. The refer ence range was not u sed to interpret th is result as normal/abnormal . NRBC x10^3 (test code <0.01 See_Comment [Auto mated = 2415376355) message] The s ystem which generated this result transmitted reference range : 10*3/?L. The reference range was not used to interpret this result as normal/abnormal . GRAN MAT (NEUT) % 65.6 % (test code = 770-8) IMM GRAN % (test code 0.30 % = 9850916606) LYMPH % (test code = 24.3 % 736-9) MONO % (test code = 7.7 % 5905-5) EOS % (test code = 1.8 % 713-8) BASO % (test code = 0.3 % 706-2) GRAN MAT x10^3(ANC) 3.91 10*3/uL 1.88-7.09 (test code = 8549873654) IMM GRAN x10^3 (test <0.03 0-0.06 code = 2953425412) LYMPH x10^3 (test code 1.45 10*3/uL 1.32-3.29 = 731-0) MONO x10^3 (test code 0.46 10*3/uL 0.33-0.92 = 742-7) EOS x10^3 (test code = 0.11 10*3/uL 0.03-0.39 711-2) BASO x10^3 (test code <0.03 0.01-0.07 = 704-7) Lab Interpretation Abnormal (test code = 23061-1) [facility]3 [id number] 19:27:04Left wrist avulsion fracture healing well.[facility] CenterXR WRIST <3 [id number] 15:39:20Good alignment, cmc arthritisUnTexas Health Arlington Memorial HospitalDX Inj Arthrogram Shoulder Unilat [id number] 14:06:00EXAM: FLUOROSCOPY-GUIDED THERAPEUTIC RIGHT SHOULDER INJECTIONDATE: 09/15/2018 [...] therapeutic purposes.--This report was dictated by a Swinging Cut Off Saw Operator/Fellow/Physician Statement Distribution Clerk. Ihave personallyreviewed the images as well as the interpretation and agree with the findings.Read by: David Redman MD Resident/Fellow/PhysicianAssistant: David Redman MDDictated Date/time: 09/15/18 16:09Electronically Signed by: Pedrito Rondon MD 09/16/1915:37FINAL REPORTUT PhysiciansTISSUE [id number] 13:19:00Surgical Pathology Report Case: [id number] Authorizing Provider: Rambo De La Cruz MD Collected: 09/01/2018 1025 Ordering Location: [facility] Endoscopy Received: 09/01/2018 1540 Services Pathologist:Jose Borrego MD Specimen: Polyp, Colon - Right/Ascending, Ascending and Transverse polyps COLON, ASCENDING AND TRANSVERSE, POLYPS, BIOPSY: - MULTIPLE FRAGMENTS OF TUBULAR ADENOMA Signing Pathologist Direct Phone Line: [phone] signed by Jose Borrego MD on 09/02/2018 at 1:19 [id number] of colon polypsAscending and transverse polyps This [...] Performed.[U] XRAY SHOULDER MIN 2 VWS RIGHT [id number] 15:16:00Images acquired, not reported on this accession number.[facility] LIPID [id number] 13:19:00 Test Item Value Reference Range Interpretation [...] 130-159 High 160-189 Very High >=190BASIC METABOLIC [id number] 13:19:00 Test Item Value Reference Range Interpretation [...] APPLICABLE FOR DIALYSIS PATIEN TS. HEPATIC FUNCTION [id number] 13:19:00 Test Item Value Reference Range Interpretation [...] 6-55 347) CBC W/PLT COUNT & AUTO [id number] 11:49:00 Test Item Value Reference Range Interpretation [...] (test code = 2801) RAD, CHEST, 2 [id number] 11:47:00Reason for Exam:->chest painFINAL REPORT Chest, PA and lateral. History: Chest pain. Comparison: 07/19/2017.Discussion: The cardiomediastinal silhouette and pulmonary vasculature are within normal limits. Thelungs are clear without evidence of consolidation or effusion. There are no acute osseous abnormalities. The soft tissues are unremarkable. IMPRESSION: No acute cardiopulmonary abnormality. Signed: Kenyatta Peck MDReport Verified Date/Time: 02/28/2018 11:47:51 Reading Location: [address] Radiology Reading Room (MANUAL DIFFERENTIAL) 2017-07-19 15:08:00 Test Item Value Reference Range Interpretation Comments TOTAL COUNTED (BEAKER) (test code = 1351) WBC MORPHOLOGY (BEAKER) (test code = Normal 487) PLT MORPHOLOGY (BEAKER) (test code = Normal 486) RBC MORPHOLOGY (BEAKER) (test code = Normal 762) CBC W/PLT COUNT & AUTO [id number] 13:07:00 Test Item Value Reference Range Interpretation [...] PERCENT (BEAKER) (test code = 2801) LIPID [id number] 12:22:00 Test Item Value Reference Range Interpretation [...] 130-159 High 160-189 Very High >=190COMPREHENSIVE METABOLIC [id number] 12:22:00 Test Item Value Reference Range Interpretation [...] S NOT APPLICABLE FOR DIALYSIS PATIEN TS. RAD, CHEST, 2 [id number] 11:18:00Reason for Exam:->CADReason for Exam:- >HLDReason for Exam:->TRReason for Exam:->ABN EKGFINAL REPORT Chest, 2 views. Clinical History: CADHLDTRABN EKG Comparison Study: October 19, 2016 Findings: The heart and lungs are within normal limits. The pleural spaces are clear.Some mild elevation of the right hemidiaphragm is noted. Degenerative changes are seen. Impression: No active cardiopulmonary disease. Signed: John Lewisepbean Verified Date/Time: 07/19/2017 11: 18:36 Reading Location: [address] Radiology Reading Room PROTHROMBIN TIME/INR 2017-04-03 [...] is 2.5-3.5 for patients with mechanical heart valves.[id number] 15:01:00 Test Item Value Reference Range Interpretation Comments PARTIAL THROMBOPLASTIN TIME 22.5 seconds 25.8-34.5 L (BEAKER) (test code = 760) BASIC METABOLIC [id number] 14:58:00 Test Item Value Reference Range Interpretation [...] PATIEN TS. CBC W/PLT COUNT & AUTO [id number] 14:51:00 Test Item Value Reference Range Interpretation [...] = 417) CBC W/PLT COUNT & AUTO [id number] 11:24:00 Test Item Value Reference Range Interpretation [...] L 0.00-0.20 (test code = 417) 0.00LIPID [id number] 11:19:00 Test Item Value Reference Range Interpretation [...] 130-159 High 160-189 Very High >=190COMPREHENSIVE METABOLIC [id number] 11:19:00 Test Item Value Reference Range Interpretation [...] = 358) GLUCOSE RANDOM 92 mg/dL 70-105 ([facility]) (test code = 652) CALCIUM (AKER) 9.5 mg/dL 8.4-10.2 (test code = 697) AST (SGOT) (AKER) 31 U/L 5-34 (test code = 353) ALT (SGPT) (AKER) 29 U/L 6-55 (test code = 347) EGFR ([facility]) (test 67 mL/min/1.73 ESTIMA OSWALD GFR IS code = 1092) sq m NOT ACCURATE CREATININE CLEARANCE IN PREDICTING GLOMERULAR FILTRATION RATE . ESTIMATED GFR I S NOT APPLICABLE FOR DIALYSIS PATIEN TS.
--- NOTE | 2022-09-26 11:51 | ER ---
Nurse's Notes [facility] Name: Eli Soliz Age: 76 yrs Sex: Female : 1945 Arrival Date: 09/26/2022 Time: 10:23 Bed 7 Private MD: Diagnosis: Fall on same level, unspecified;Contusion of right forearm Presentation: 09/26 10:42 Chief complaint: Patient states: Right arm pain, states she slipped and fell 3 days nj1 ago. Pt also wants to be checked for bad vertigo for about a month. Coronavirus screen: Vaccine status: Patient reports receiving the 2nd dose of the covid vaccine. Ebola Screen: Patient denies travel to an Ebola-affected area in the 21 days before illness onset. Initial Sepsis Screen: Does the patient meet any 2 criteria? No. Patient's initial sepsis screen is negative. Does the patient have a suspected source of infection? No. Patient's initial sepsis screen is negative. Risk Assessment: Do you want to hurt yourself or someone else? Patient reports no desire to harm self or others. Onset of symptoms was September 12, 2022. 10:42 Method Of Arrival: Ambulatory [facility] 10:42 Acuity: MYAH 3 [facility] Triage Assessment: 10:45 General: Appears uncomfortable, Behavior is cooperative, appropriate for age, anxious. bp Pain: Complains of pain in right arm. EENT: No deficits noted. Neuro: No deficits noted. Cardiovascular: No deficits noted. Respiratory: No deficits noted. GI: No signs and/or symptoms were reported involving the gastrointestinal system. : No signs and/or symptoms were reported regarding the genitourinary system. Derm: No deficits noted. Musculoskeletal: No deficits noted. Injury Description: Bruise sustained to right arm. Historical: - Allergies: 10:46 PENICILLINS; nj1 - Home Meds: 10:46 metoprolol tartrate 25 mg Oral tab 1 tab once daily [Active]; nj1 - PMHx: 10:46 heart disease; Hypercholesterolemia; Hypertensive disorder; nj1 - PSHx: 10:46 Total abdominal hysterectomy; Cardiac stent (1); Left torned meniscus repair; nj1 - Immunization history:: Client reports receiving the 2nd dose of the Covid vaccine. - Social history:: Smoking status: Patient/guardian denies using tobacco, the patient reports quitting approximately 50 years ago. - Family history:: not pertinent. Screenin:00 [facility] ED Fall Risk Assessment (Adult) History of falling in the last 3 months, bp including since admission No falls in past 3 months (0 pts). Abuse screen: Denies threats or abuse. Denies injuries from another. Nutritional screening: No deficits noted. Tuberculosis screening: No symptoms or risk factors identified. Assessment: 10:45 General: SEE TRIAGE NOTE. bp 12:00 Reassessment: DC ON HOLD FOR XRAY RESULT. bp Vital Signs: 10:42 BP 129 / 69; Pulse 64; Resp 18; Temp 98.3(O); Pulse Ox 97% ; Weight 62.6 kg; Height 5 nj1 ft. 2 in. ; Pain 6/10; 12:06 BP 126 / 74; Pulse 62; Resp 16; Pulse Ox 99% on R/A; ko1 10:42 Body Mass Index 25.24 (62.60 kg, 157.48 cm) nj1 10:42 Pain Scale: Adult [facility] ED Course: 10:25 Patient arrived in ED. ts1 10:26 Gabo Lucero MD is Attending Physician. jmm 10:46 Triage completed. nj1 10:47 Arm band placed on left wrist. nj1 11:32 Rambo Vega, RN is Primary Nurse. bp 11:49 XRAY Forearm RIGHT In Process Unspecified. EDMS 11:49 Wenceslao Domínguez MD is Referral Physician. rishi 12:00 Patient has correct armband on for positive identification. Bed in low position. Call bp light in reach. Side rails up X2. 12:00 No provider procedures requiring assistance completed. Patient did not have IV access bp during this emergency room visit. 13:05 Humerus Right XRAY In Process Unspecified. EDMS Administered Medications: No medications were administered Medication: 12:02 VIS not applicable for this client. bp Outcome: 11:50 Discharge ordered by . rishi 14:24 Discharged to home ambulatory. ko1 14:24 Condition: stable 14:24 Discharge instructions given to patient, Instructed on discharge instructions, follow up and referral plans. medication usage, Demonstrated understanding of instructions, follow-up care, medications, Prescriptions given X 1. 14:34 Patient left the ED. ko1 Signatures: Dispatcher [employer] EDMS Nic, Gabo, Junior Conway MD, cha, PA PA jmm Peltier, Brian, RN RN bp Kelsea Woodosn RN RN ko1 Adelaide Kang RN RN nj1 Ladonna Najera PAS PAS ts1 Corrections: (The following items were deleted from the chart) 13:46 12:00 Discharged to home ambulatory, bp ko1 13:46 12:00 Condition: stable bp ko1 13:46 12:00 Discharge instructions given to patient, Instructed on discharge instructions, ko1 follow up and referral plans. Demonstrated understanding of instructions, follow-up care, bp
--- NOTE | 2022-09-26 11:51 | EDPHYS ---
Physician Documentation [facility] Name: Eli Soliz Age: 76 yrs Sex: Female : 1945 Arrival Date: 09/26/2022 Time: 10:23 Bed 7 Private MD: ED Physician Gabo Lucero HPI: 09/26 11:44 This 76 yrs old Female presents to ER via Ambulatory with complaints of Arm rishi Pain. 11:44 The patient or guardian complains of decreased range of motion, pain. The complaints rishi affect the dorsal aspect of right forearm and palmar aspect of right forearm. Context: The problem was sustained at home. Onset: The symptoms/episode began/occurred 3 day(s) ago. Treatment prior to arrival includes: no previous treatment. Modifying factors: The symptoms are alleviated by nothing. the symptoms are aggravated by nothing. Associated signs and symptoms: The patient has no apparent associated signs or symptoms. Severity of symptoms: At their worst the symptoms were mild, in the emergency department the symptoms are unchanged. The patient has not experienced similar symptoms in the past. Historical: - Allergies: 10:46 PENICILLINS; nj1 - Home Meds: 10:46 metoprolol tartrate 25 mg Oral tab 1 tab once daily [Active]; nj1 - PMHx: 10:46 heart disease; Hypercholesterolemia; Hypertensive disorder; nj1 - PSHx: 10:46 Total abdominal hysterectomy; Cardiac stent (1); Left torned meniscus repair; nj1 - Immunization history:: Client reports receiving the 2nd dose of the Covid vaccine. - Social history:: Smoking status: Patient/guardian denies using tobacco, the patient reports quitting approximately 50 years ago. - Family history:: not pertinent. ROS: 11:44 Constitutional: Negative for fever, chills, and weight loss, Eyes: Negative for injury, rishi pain, redness, and discharge, ENT: Negative for injury, pain, and discharge, Neck: Negative for injury, pain, and swelling, Cardiovascular: Negative for chest pain, palpitations, and edema, Respiratory: Negative for shortness of breath, cough, wheezing, and pleuritic chest pain, Abdomen/GI: Negative for abdominal pain, nausea, vomiting, diarrhea, and constipation, Back: Negative for injury and pain, : Negative for injury, bleeding, discharge, and swelling, Skin: Negative for injury, rash, and discoloration, Neuro: Negative for headache, weakness, numbness, tingling, and seizure, Psych: Negative for depression, anxiety, suicide ideation, homicidal ideation, and hallucinations, Allergy/Immunology: Negative for hives, rash, and allergies, Endocrine: Negative for neck swelling, polydipsia, polyuria, polyphagia, and marked weight changes, Hematologic/Lymphatic: Negative for swollen nodes, abnormal bleeding, and unusual bruising. 11:44 MS/extremity: Positive for decreased range of motion, pain, tenderness, of the dorsal aspect of right forearm and palmar aspect of right forearm. Exam: 11:44 Constitutional: This is a well developed, well nourished patient who is awake, alert, rishi and in no acute distress. Head/Face: Normocephalic, atraumatic. Eyes: Pupils equal round and reactive to light, extra-ocular motions intact. Lids and lashes normal. Conjunctiva and sclera are non-icteric and not injected. Cornea within normal limits. Periorbital areas with no swelling, redness, or edema. ENT: Nares patent. No nasal discharge, no septal abnormalities noted. Tympanic membranes are normal and external auditory canals are clear. Oropharynx with no redness, swelling, or masses, exudates, or evidence of obstruction, uvula midline. Mucous membranes moist. Neck: Trachea midline, no thyromegaly or masses palpated, and no cervical lymphadenopathy. Supple, full range of motion without nuchal rigidity, or vertebral point tenderness. No Meningismus. Chest/axilla: Normal chest wall appearance and motion. Nontender with no deformity. No lesions are appreciated. Cardiovascular: Regular rate and rhythm with a normal S1 and S2. No gallops, murmurs, or rubs. Normal PMI, no JVD. No pulse deficits. Respiratory: Lungs have equal breath sounds bilaterally, clear to auscultation and percussion. No rales, rhonchi or wheezes noted. No increased work of breathing, no retractions or nasal flaring. Abdomen/GI: Soft, non-tender, with normal bowel sounds. No distension or tympany. No guarding or rebound. No evidence of tenderness throughout. Back: No spinal tenderness. No costovertebral tenderness. Full range of motion. Female : Normal external genitalia. Skin: Warm, dry with normal turgor. Normal color with no rashes, no lesions, and no evidence of cellulitis. Neuro: Awake and alert, GCS 15, oriented to person, place, time, and situation. Cranial nerves II-XII grossly intact. Motor strength 5/5 in all extremities. Sensory grossly intact. Cerebellar exam normal. Normal gait. Psych: Awake, alert, with orientation to person, place and time. Behavior, mood, and affect are within normal limits. 11:44 Musculoskeletal/extremity: Extremities: grossly normal except: noted in the dorsal aspect of right forearm and palmar aspect of right forearm: decreased ROM, ecchymosis, pain. Vital Signs: 10:42 BP 129 / 69; Pulse 64; Resp 18; Temp 98.3(O); Pulse Ox 97% ; Weight 62.6 kg; Height 5 nj1 ft. 2 in. ; Pain 6/10; 12:06 BP 126 / 74; Pulse 62; Resp 16; Pulse Ox 99% on R/A; ko1 10:42 Body Mass Index 25.24 (62.60 kg, 157.48 cm) nj1 10:42 Pain Scale: Adult nj1 MDM: 10:49 Patient medically screened. rishi 11:47 Differential diagnosis: dislocation, closed fracture, contusion, tendonitis. Data rishi reviewed: vital signs, nurses notes, radiologic studies, plain films. Consideration of Admission/Observation Escalation of care including admission/observation considered. Management of patient was discussed with the following: Vascular Specialists: ortho. Independent interpretation of the following test(s) in the Emergency Department X-Ray: My interpretation is no fx. Test considered but Not performed: Labs: no labs. Care significantly affected by the following chronic conditions: Hypertension, cad, high chlesterol. Counseling: I had a detailed discussion with the patient and/or guardian regarding: the historical points, exam findings, and any diagnostic results supporting the discharge/admit diagnosis, radiology results. 09/26 11:33 Order name: XRAY Forearm RIGHT bp 09/26 12:04 Order name: Humerus Right XRAY eb Administered Medications: No medications were administered Disposition Summary: 09/26/22 11:50 Discharge Ordered Location: Home rishi Problem: new rishi Symptoms: have improved rishi Condition: Stable rishi Diagnosis - Fall on same level, unspecified rishi - Contusion of right forearm rishi Followup: rishi - With: Private Physician - When: 2 - 3 days - Reason: Recheck today's complaints, Continuance of care, Re-evaluation by your physician Followup: rishi - With: Wenceslao Domínguez MD - When: 2 - 3 days - Reason: Recheck today's complaints, Re-evaluation by your physician Discharge Instructions: - Discharge Summary Sheet rishi - Contusion rishi - Fall Prevention in the Home, Adult rishi - Contusion, [id number] rishi - Fall Prevention in the Home, Adult, [id number] [facility] [place] Forms: - Medication Reconciliation Form rishi - Thank You Letter rishi - Antibiotic Education rishi - Prescription Opioid Use [facility] [place] Prescriptions: - Tylenol 325 mg Oral Tablet - take 2 tablets by ORAL route every 6 hours as needed; 60 tablet; Refills: 0, rishi Product Selection Permitted Signatures: Dispatcher [employer] Gabo Bailey MD MD cha Jaco, Norma RN RN nj1
--- NOTE | 2022-09-26 12:12 | RAD REPORT ---
EXAM DESCRIPTION: RAD - Forearm Right - 09/26/2022 11:47 am CLINICAL HISTORY: PAIN COMPARISON: No comparisons TECHNIQUE: Right forearm, 2 views. FINDINGS: No fracture is identified. There is no dislocation or periosteal reaction noted. Moderate degenerative changes at the thumb base. No foreign body or other soft tissue abnormality. IMPRESSION: Negative right forearm examination.
--- NOTE | 2022-09-26 13:39 | RAD REPORT ---
EXAM DESCRIPTION: RAD - Humerus Right - 09/26/2022 1:03 pm CLINICAL HISTORY: PAIN COMPARISON: No comparisons TECHNIQUE: Right humerus, 3 views. FINDINGS: No fracture is identified. Glenohumeral joint degenerative changes. Irregularity and heter ogeneous lucency at the greater tuberosity could reflect long-standing chronic rotator cuff changes. There is no dislocation or periosteal reaction noted. No foreign body or other soft tissue abnormalit y. IMPRESSION: No acute osseous abnormality. Chronic findings of the right shoulder as above.
[2022-09-26 14:51] VITALS: BP 129/69; TEMP 98.3; O2SAT 97
== END 2022-09-26 14:34 | disposition home or self-care (01) ==
LOC: ER 10:23
DX: S50.11XA Contusion of right forearm, initial encounter (principal); W18.30XA Fall on same level, unspecified, initial encounter; I10 Essential (primary) hypertension; Z88.0 Allergy status to penicillin; Z95.818 Presence of other cardiac implants and grafts
CPT/HCPCS: 99283

== ENCOUNTER 2024-01-31 11:18 | Emergency (ER) | payer OTHER, MEDICARE ==
--- NOTE | 2024-01-31 12:11 | RAD REPORT ---
EXAMINATION: US RIGHT LOWER EXTREMITY VENOUS DOPPLER CLINICAL INDICATION: [facility] MAIN right leg Pain;Swelling Bed:13 Y TECHNIQUE: Complete bilateral duplex sonography of the RIGHT lower extremity veins was performed. The examination included compression for vein patency, color Doppler imaging and flow augmentation in response to distal compression of the distal external iliac, common femoral, femoral, popliteal, tibi al, and great and small saphenous veins. COMPARISON: No prior exam. FINDINGS: Duplex sonography testing of the veins of the RIGHT lower extremity was performed. Color flow imaging shows all veins to be compressible with [id number] color filling. Pulsatile and phasic flow is present within all lower extremity deep and superficial veins examined. IMPRESSION: No evidence of deep venous thrombosis.
--- NOTE | 2024-01-31 12:41 | ER ---
Nurse's Notes [facility] Name: Eli Soliz Age: 78 yrs Sex: Female : 1945 Arrival Date: 01/31/2024 Time: 11:18 Bed 13 Private MD: Diagnosis: Pain in right leg Presentation: 01/30 11:28 Chief complaint: Patient states: right leg swelling X 4 days, hurts worse at night. iw Coronavirus screen: At this time, the client does not indicate any symptoms associated with coronavirus-19. Ebola Screen: No symptoms or risks identified at this time. Initial Sepsis Screen: Does the patient meet any 2 criteria? No. Patient's initial sepsis screen is negative. Does the patient have a suspected source of infection? No. Patient's initial sepsis screen is negative. Risk Assessment: Do you want to hurt yourself or someone else? Patient reports no desire to harm self or others. Onset of symptoms was January 27, 2024. 11:28 Acuity: MYAH 3 iw 11:28 Method Of Arrival: Ambulatory iw Historical: - Allergies: 11:29 PENICILLINS; iw - PMHx: 11:29 heart disease; Hypercholesterolemia; Hypertensive disorder; iw - PSHx: 11:29 Cardiac stent (1); Left torned meniscus repair; Total abdominal hysterectomy; iw - Immunization history:: Adult Immunizations up to date. - Infectious Disease History:: Denies. - Social history:: Smoking status: Smoking status: Patient denies any tobacco usage or history of. Screenin:12 [facility] ED Fall Risk Assessment (Adult) History of falling in the last 3 months, cm10 including since admission No falls in past 3 months (0 pts) Confusion or Disorientation No (0 pts) Intoxicated or Sedated No (0 pts) Impaired Gait No (0 pts) Mobility Assist Device Used No (0 pt) Altered Elimination No (0 pt) Score/Fall Risk Level 0 - 2 = Low Risk Oriented to surroundings, Maintained a safe environment, Hourly rounding (assess needs \T\ fall precautionary measures) done. Abuse screen: Denies threats or abuse. Denies injuries from another. Nutritional screening: No deficits noted. Tuberculosis screening: No symptoms or risk factors identified. Assessment: 12:12 General: Appears in no apparent distress. comfortable, Behavior is calm, cooperative. cm10 Pain: Complains of pain in right leg. Neuro: No deficits noted. Level of Consciousness is awake, alert, obeys commands, Oriented to person, place, time, situation, Appropriate for age. Respiratory: No deficits noted. Airway is patent Respiratory effort is even, unlabored, Respiratory pattern is regular, symmetrical. Musculoskeletal: Swelling present in right leg Reports pain in right leg. Vital Signs: 11:28 BP 139 / 87; Pulse 60; Resp 16; Temp 97.6; Pulse Ox 100% on R/A; Weight 65.77 kg; iw Height 5 ft. 2 in. ; Pain 5/10; 12:12 BP 139 / 67; Pulse 54; Resp 16; Pulse Ox 97% on R/A; cm10 13:22 BP 131 / 72; Pulse 61; Resp 16; Pulse Ox 97% ; bp 11:28 Body Mass Index 26.52 (65.77 kg, 157.48 cm) iw 11:28 Pain Scale: Adult iw ED Course: 11:23 Patient arrived in ED. ra3 11:24 Gabo Vasquez PA is PHCP. cp 11:24 Logan Raza MD is Attending Physician. cp 11:29 Triage completed. iw 11:30 Arm band placed on. iw 11:34 Thao Wilkinson RN is Primary Nurse. cm10 11:55 US Extremity Venous Unilateral Ltd In Process Unspecified. EDMS 12:12 Patient has correct armband on for positive identification. Placed in gown. Bed in low cm10 position. Call light in reach. Side rails up X2. Provided Education on: ER process and procedures. 13:22 No provider procedures requiring assistance completed. Patient did not have IV access bp during this emergency room visit. Administered Medications: No medications were administered Medication: 12:12 VIS not applicable for this client. cm10 Outcome: 12:41 Discharge ordered by MD. cp 13:22 Discharged to home ambulatory, bp 13:22 Condition: stable 13:22 Discharge instructions given to patient, Instructed on discharge instructions, follow up and referral plans. medication usage, Demonstrated understanding of instructions, follow-up care, medications, Prescriptions given X 1, 13:23 Patient left the ED. bp Signatures: Dispatcher [employer] EDMS Penelope Bustillos RN RN Gabo Vasquez PA PA Rambo Murray RN RN bp Thao Wilkinson RN RN cm10 Unique Hernandez ra3 Corrections: (The following items were deleted from the chart) 11:30 11:28 BP 139 / 87; Pulse 60bpm; Resp 16bpm; Pulse Ox 100% RA; Temp 97.6F; iw iw
--- NOTE | 2024-01-31 12:41 | EDPHYS ---
Physician Documentation [facility] Name: Eli Soliz Age: 78 yrs Sex: Female : 1945 Arrival Date: 01/31/2024 Time: 11:18 Bed 13 Private MD: ED Physician Logan Raza HPI: 01/30 11:35 This 78 yrs old Female presents to ER via Ambulatory with complaints of Leg Swelling - cp right. 11:35 The patient presents with pain, that is acute, swelling, tenderness. The complaints cp affect the right leg. Context: resulted from an unknown cause, the patient can fully bear weight, the patient is able to ambulate, with mild difficulty. Onset: The symptoms/episode began/occurred 4 day(s) ago. Associated signs and symptoms: The patient has no apparent associated signs or symptoms. Severity of symptoms: in the emergency department the symptoms are unchanged, despite home interventions. Historical: - Allergies: 11:29 PENICILLINS; iw - PMHx: 11:29 heart disease; Hypercholesterolemia; Hypertensive disorder; iw - PSHx: 11:29 Cardiac stent (1); Left torned meniscus repair; Total abdominal hysterectomy; iw - Immunization history:: Adult Immunizations up to date. - Infectious Disease History:: Denies. - Social history:: Smoking status: Smoking status: Patient denies any tobacco usage or history of. ROS: 11:40 Constitutional: Negative for body aches, chills, fever, poor PO intake, cp 11:40 Cardiovascular: Negative for chest pain, palpitations, cp 11:40 Respiratory: Negative for cough, shortness of breath, wheezing, 11:40 Abdomen/GI: Negative for abdominal pain, nausea, vomiting, and diarrhea, 11:40 Back: Negative for pain at rest, pain with movement, 11:40 MS/extremity: Positive for pain, swelling, tenderness, of the right leg, Negative for paresthesias, 11:40 Neuro: Negative for altered mental status, headache, weakness, 11:40 All other systems are negative, Exam: 11:45 Constitutional: The patient appears in no acute distress, alert, awake, cp non-diaphoretic, non-toxic, well developed, well nourished, 11:45 Head/Face: Normocephalic, atraumatic. cp 11:45 Chest/axilla: Inspection: normal, 11:45 Cardiovascular: Rate: normal, Rhythm: regular, Pulses: Pulses are 2+ in right dorsalis pedis artery. Edema: is not appreciated, JVD: is not appreciated, 11:45 Respiratory: the patient does not display signs of respiratory distress, Respirations: normal, no use of accessory muscles, no retractions, labored breathing, is not present, Breath sounds: are clear throughout, no decreased breath sounds, no stridor, no wheezing, 11:45 Abdomen/GI: Inspection: abdomen appears normal, 11:45 Back: pain, is absent, ROM is normal, 11:45 Musculoskeletal/extremity: Extremities: noted in the right leg: tenderness, very mild swelling, no rash, no cellulitis, ROM: limited passive range of motion due to pain, in the right leg, the right leg Sensation intact. Vital Signs: 11:28 BP 139 / 87; Pulse 60; Resp 16; Temp 97.6; Pulse Ox 100% on R/A; Weight 65.77 kg; iw Height 5 ft. 2 in. ; Pain 5/10; 12:12 BP 139 / 67; Pulse 54; Resp 16; Pulse Ox 97% on R/A; cm10 13:22 BP 131 / 72; Pulse 61; Resp 16; Pulse Ox 97% ; bp 11:28 Body Mass Index 26.52 (65.77 kg, 157.48 cm) iw 11:28 Pain Scale: Adult iw MDM: 11:31 Patient medically screened. cp 12:00 Differential diagnosis: cellulitis, dvt, muscle strain. cp 12:41 Data reviewed: vital signs, nurses notes, radiologic studies, ultrasound, and as a cp result, I will discharge patient. 12:41 Counseling: I had a detailed discussion with the patient and/or guardian regarding the cp historical points, exam findings, and any diagnostic results supporting the discharge/admit diagnosis, radiology results, to return to the emergency department if symptoms worsen or persist or if there are any questions or concerns that arise at home. 01/30 11:31 Order name: US Extremity Venous Unilateral Ltd; Complete Time: 12:38 cp 01/30 12:38 Interpretation: Report reviewed. cp Administered Medications: No medications were administered Disposition: 01/31 13:19 Chart complete. cp Disposition Summary: 01/31/24 12:41 Discharge Ordered Notes: Location: Home cp Problem: new cp Symptoms: have improved cp Condition: Stable cp Diagnosis - Pain in right leg cp Followup: cp - With: Private Physician - When: 1 week - Reason: Recheck today's complaints Discharge Instructions: - Discharge Summary Sheet cp - Musculoskeletal Pain cp Forms: - Medication Reconciliation Form cp - Antibiotic Education cp - Prescription Opioid Use cp - Patient Portal Instructions cp - Leadership Thank You Letter cp Prescriptions: - Mobic 7.5 mg Oral Tablet - take 1 tablet ORAL route once daily take with food; 20 tablet; Refills: 0, cp Product Selection Permitted Addendum: 02/02/2024 17:04 Co-signature as Attending Physician, Logan Raza MD I reviewed the patient's care r n provided by the Advanced Practice Provider and agree with the diagnosis and treatment plan. Signatures: Dispatcher [employer] Penelope Jones, RN Logan Lorenz MD MD rn Page, Corey, PA PA cp
[2024-01-31 13:48] VITALS: TEMP 97.6
[2024-01-31 13:50] VITALS: O2SAT 97
[2024-01-31 13:51] VITALS: BP 131/72
== END 2024-01-31 13:23 | disposition home or self-care (01) ==
LOC: ER 11:18
DX: M79.604 Pain in right leg (principal); R22.41 Localized swelling, mass and lump, right lower limb; Z95.818 Presence of other cardiac implants and grafts
CPT/HCPCS: 93971; 99283

== ENCOUNTER 2024-07-03 07:58 | Emergency (ER) | payer OTHER, MEDICARE ==
[2024-07-03] MEDS ORDERED: ONDANSETRON 4 MG/2 ML VIAL ONE (09:24)
[2024-07-03] MEDS ORDERED: KETOROLAC 30 MG/ML INJ ONE (09:24)
[2024-07-03] MEDS ORDERED: NA CHLORIDE 0.9% 1,000 ML ONE (09:25)
[2024-07-03 09:28] LABS: Absolute Monocytes 0.4 K/uL (0.1-1.3); Absolute Neutrophil 4.4 K/uL (1.8-8.0); Basophils % 0.4 % (0-1.3); Eosinophils % 0.8 % (0-4.4); Hematocrit 39.3 % (36.0-45.0); Hemoglobin 13.2 g/dL (12.0-15.0); Lymphocytes % 17.1 % (15.3-44.8); MCHC 33.6 g/dL (32.0-36.0); MCV 95.2 fL (80-100); MPV 8.4 fL (7.6-11.3); Neutrophils % 75.7 % (41.7-73.7); Nucleated Red Blood Cells % 0.1 % (0-0); Platelets 174 thou/uL (152-406); RBC Red Blood Cell Count 4.13 M/uL (3.86-4.86); Red Cell Distribution Width 13.5 % (12.1-15.2)
[2024-07-03 09:45] LABS: Albumin 3.7 g/dL (3.4-5.0); Albumin/Globulin Ratio 1.2 (1.1-1.8); Anion Gap 8.1 mEq/L (5.0-15.0); Bilirubin Total 0.4 mg/dL (0.2-1.0); Globulin 3.1 g/dL (2.3-3.5); Potassium 4.1 mEq/L (3.5-5.1); Protein, Total 6.8 g/dL (6.4-8.2)
--- NOTE | 2024-07-03 10:07 | RAD REPORT ---
EXAMINATION: CT ABDOMEN AND PELVIS WITH CONTRAST CLINICAL INDICATION: ABD PAIN TECHNIQUE: CT abdomen and pelvis was performed, after the administration of IV contrast, as per [facility] protocol. Axial, sagittal and coronal reconstructions were obtained. One or more of the following dose reduction techniques were used: Automated exposure control, adjustment of the mA and k V according to patient size, and iterative reconstruction. Unless otherwise specified, incidental findings do not require dedicated imaging follow-up. COMPARISON: No prior exam. FINDINGS: LOWER CHEST: The visualized lung bases are clear. LIVER: 4 cm cyst is seen medial right lobe of the liver. No aggressive liver lesion or biliary dilata tion. Grossly unremarkable gallbladder. SPLEEN: Normal size. No focal lesion. PANCREAS: No mass, ductal dilation, or denisa-pancreatic fluid. ADRENALS: Normal; no mass. KIDNEYS: Normal size and contour. No hydronephrosis. GASTROINTESTINAL TRACT: No evidence of free air, significant intra-abdominal free fluid, bowel obstru ction or abscess. Mild stool is retained throughout the colon. APPENDIX: Appendix not visualized, but no inflammatory changes in region of appendix. LYMPH NODES: No lymphadenopathy. MUSCULOSKELETAL: Mild multilevel spinal degenerative changes. ADDITIONAL FINDINGS: None. IMPRESSION: No acute or concerning abnormalities seen in the abdomen or pelvis.
[2024-07-03] MEDS ORDERED: MECLIZINE HCL 12.5 MG TAB ONE ×2 (11:07→12:44)
[2024-07-03 12:38] LABS: Specific Gravity 1.018 (1.005-1.030); Urine Bilirubin NEGATIVE (Negative); Urine Blood Negative (Negative); Urine Clarity Clear (Clear); Urine Color Light-Yellow (Yellow); Urine Glucose NEGATIVE (Negative); Urine Ketones NEGATIVE (Negative); Urine Microscopic Reflex YN NO UMIC; Urine Nitrite NEGATIVE (Negative); Urine Protein NEGATIVE (Negative); Urine Urobilinogen Normal (Normal); Urine pH 7.5 (5.0-7.0)
--- NOTE | 2024-07-03 13:41 | EDPHYS ---
Physician Documentation [facility] Name: Eli Soliz Age: 78 yrs Sex: Female : 1945 Arrival Date: 07/03/2024 Time: 07:58 Bed 13 Private MD: ED Physician Mendoza Mott HPI: 07/03 08:18 This 78 yrs old Female presents to ER via EMS with complaints of Nausea/Vomiting, sb4 Dizziness. 08:18 Patient states she woke up 2 hours ago with nausea, vomiting, abdominal pain, diarrhea, sb4 and dizziness. She states that she ate at a new restaurant last night and thinks she may have food poisoning but is not sure. Denies any fever. Denies any history of any abdominal problems. Historical: - Allergies: 08:01 PENICILLINS; aa5 - Home Meds: 08:01 metoprolol tartrate 25 mg Oral tab 1 tab once daily [Active]; meclizine 12.5 mg Oral aa5 tablet 2 times per day [Active]; Ambien 10 mg Oral tablet every day at bedtime [Active]; - PMHx: 08:01 heart disease; Hypercholesterolemia; Hypertensive disorder; aa5 - PSHx: 08:01 Cardiac stent (1); Left torned meniscus repair; Total abdominal hysterectomy; aa5 - Immunization history:: Adult Immunizations unknown. - Infectious Disease History:: Denies. - Social history:: Smoking status: Patient denies any tobacco usage or history of. ROS: 08:18 Constitutional: Negative for fever, chills, and weight loss, sb4 08:18 Abdomen/GI: Positive for abdominal pain, nausea, vomiting, and diarrhea, 08:18 Neuro: Positive for dizziness, 08:18 All other systems are negative, Exam: 08:19 Head/Face: Normocephalic, atraumatic. Eyes: Extra-ocular motions intact. Periorbital sb4 areas with no swelling, redness, or edema. ENT: Mucous membranes moist. Cardiovascular: Regular rate and rhythm with a normal S1 and S2. Respiratory: No increased work of breathing, no retractions or nasal flaring. Abdomen/GI: Soft, non-tender, no distension. Skin: Warm, dry with normal turgor. Normal color with no rashes, no lesions, and no evidence of cellulitis. 08:19 Constitutional: The patient appears alert, awake, uncomfortable, Vital Signs: 09:27 BP 161 / 73; Pulse 51; Resp 17; Temp 98.1; Pulse Ox 99% on R/A; ph 11:00 BP 130 / 52; Pulse 55; Resp 18; Pulse Ox 97% on R/A; ph 12:00 BP 123 / 62; Pulse 57; Resp 18; Pulse Ox 97% on R/A; ph 12:54 BP 129 / 73; Pulse 57; Resp 18; Temp 97.8; Pulse Ox 98% on R/A; ph MDM: 08:00 Medical Screening Exam initiated sb4 11:56 ED course: nausea and abd pain have resolved. patient is now just complaining of sb4 dizziness. reports history of vertigo, takes meclizine daily. 13:49 Data reviewed: vital signs, nurses notes, EMS record, lab test result(s), radiologic sb4 studies, and as a result, I will discharge patient. Consideration of Admission/Observation Escalation of care including admission/observation considered. Counseling: I had a detailed discussion with the patient and/or guardian regarding the historical points, exam findings, and any diagnostic results supporting the discharge/admit diagnosis, lab results, radiology results, the need for outpatient follow up, for definitive care, to return to the emergency department if symptoms worsen or persist or if there are any questions or concerns that arise at home. 15:43 ED course: patient states her n/v and dizziness have resolved. will discharge home at 4 this time. 07/03 08:14 Order name: CBC with Diff; Complete Time: 09:32 sb4 07/03 08:14 Order name: CMP; Complete Time: 09:47 sb4 07/03 08:14 Order name: Lipase; Complete Time: 09:47 sb4 07/03 08:14 Order name: Urinalysis w/ reflexes; Complete Time: 12:39 sb4 07/03 08:14 Order name: CT Abd/Pelvis - IV Contrast Only; Complete Time: 10:08 sb4 07/03 08:14 Order name: IV Saline Lock; Complete Time: 09:43 sb4 07/03 08:14 Order name: Labs collected and sent; Complete Time: 09:43 sb4 07/03 10:08 Order name: PO challenge; Complete Time: 11:10 sb4 Administered Medications: 09:28 Not Given (Physician Discretion): TORadol - [id number] mg IVP once sb4 10:02 Drug: Ondansetron IVP 4 mg IVP once; over 2 minutes Route: IVP; Site: right antecubital;ph 14:23 Follow up: Response: No adverse reaction; Nausea is decreased me1 10:03 Drug: NS 0.9% IV 1000 ml IV at 1 bolus Per protocol; to be given as a bolus over 60 ph minutes Route: IV; Rate: 1 bolus; Site: right antecubital; 14:23 Follow up: IV Status: Completed infusion me1 11:10 Drug: Meclizine PO 12.5 mg PO once Route: PO; ph 14:23 Follow up: Response: No adverse reaction me1 12:54 Drug: Meclizine PO 25 mg PO once Route: PO; ph 14:23 Follow up: Response: No adverse reaction; Marked relief of symptoms me1 Disposition: 17:15 I was immediately available on-site in the Emergency Department for consultation in the ms3 care of the patient. Disposition Summary: 07/03/24 13:41 Discharge Ordered Notes: Location: Home sb4 Problem: new sb4 Symptoms: have improved sb4 Condition: Stable sb4 Diagnosis - Viral gastroenteritis sb4 - Dizziness and giddiness sb4 Followup: sb4 - With: Emergency Department - When: As needed - Reason: Worsening of condition Followup: sb4 - With: Davion King MD - When: 1 week - Reason: Recheck today's complaints, Continuance of care, Re-evaluation by your physician Discharge Instructions: - Discharge Summary Sheet sb4 - Viral Gastroenteritis, Adult, [id number]-[id number] sb4 - Vertigo, [id number]-[id number] sb4 Forms: - Patient Portal Instructions sb4 - Leadership Thank You Letter sb4 Signatures: Dispatcher [employer] Terri Cabrera RN RN aa5 Latrice Rodriguez RN RN Mendoza Mott DO DO ms3 Brittanie Cook PA-C PAAllison sb4 Susie Ambriz RN me1
--- NOTE | 2024-07-03 13:41 | ER ---
Nurse's Notes [facility] Name: Eli Soliz Age: 78 yrs Sex: Female : 1945 Arrival Date: 07/03/2024 Time: 07:58 Bed 13 Private MD: Diagnosis: Viral gastroenteritis;Dizziness and giddiness Presentation: 07/03 08:00 Chief complaint: Patient states: Nausea/vomiting and dizziness that began today around aa5 0600. Reports she ate shrimp last night. Coronavirus screen: nausea, vomiting. Ebola Screen: Patient denies travel to an Ebola-affected area in the 21 days before illness onset. Initial Sepsis Screen: Does the patient meet any 2 criteria? No. Patient's initial sepsis screen is negative. Does the patient have a suspected source of infection? No. Patient's initial sepsis screen is negative. Risk Assessment: Do you want to hurt yourself or someone else? Patient reports no desire to harm self or others. Onset of symptoms was July 03, 2024. 08:00 Method Of Arrival: EMS: [facility] aa5 08:00 Acuity: MYAH 3 aa5 08:01 Care prior to arrival: Glucose check: 108. aa5 Historical: - Allergies: 08:01 PENICILLINS; aa5 - Home Meds: 08:01 metoprolol tartrate 25 mg Oral tab 1 tab once daily [Active]; meclizine 12.5 mg Oral aa5 tablet 2 times per day [Active]; Ambien 10 mg Oral tablet every day at bedtime [Active]; - PMHx: 08:01 heart disease; Hypercholesterolemia; Hypertensive disorder; aa5 - PSHx: 08:01 Cardiac stent (1); Left torned meniscus repair; Total abdominal hysterectomy; aa5 - Immunization history:: Adult Immunizations unknown. - Infectious Disease History:: Denies. - Social history:: Smoking status: Patient denies any tobacco usage or history of. Screenin:31 [facility] ED Fall Risk Assessment (Adult) Confusion or Disorientation No (0 pts). [facility] ED Fall Risk Assessment (Adult) History of falling in the last 3 months, including since admission No falls in past 3 months (0 pts) Intoxicated or Sedated No (0 pts) Impaired Gait No (0 pts) Mobility Assist Device Used No (0 pt) Altered Elimination No (0 pt) Score/Fall Risk Level 0 - 2 = Low Risk Oriented to surroundings, Maintained a safe environment, Hourly rounding (assess needs \T\ fall precautionary measures) done. Abuse screen: Denies threats or abuse. Denies injuries from another. Nutritional screening: No deficits noted. Tuberculosis screening: No symptoms or risk factors identified. Assessment: 09:30 General: Appears in no apparent distress. Behavior is calm, cooperative. Pain: Denies ph pain. Neuro: Level of Consciousness is awake, alert, obeys commands, Oriented to person, place, time, situation. Cardiovascular: Capillary refill < 3 seconds in bilateral fingers Patient's skin is warm and dry. Respiratory: Airway is patent Respiratory effort is even, unlabored, Respiratory pattern is regular, symmetrical. GI: Abdomen is non-distended, Reports diarrhea, nausea, vomiting. Derm: Skin is pink, warm \T\ dry. Musculoskeletal: Circulation, motion, and sensation intact. Range of motion: intact in all extremities. 11:30 Reassessment: Patient appears in no apparent distress at this time. Patient and/or ph family updated on plan of care and expected duration. Pain level reassessed. Patient is alert, oriented x 3, equal unlabored respirations, skin warm/dry/pink. Pt states that nausea has improved but is still c/o dizziness, ERP notified, see MAR. Vital Signs: 09:27 BP 161 / 73; Pulse 51; Resp 17; Temp 98.1; Pulse Ox 99% on R/A; ph 11:00 BP 130 / 52; Pulse 55; Resp 18; Pulse Ox 97% on R/A; ph 12:00 BP 123 / 62; Pulse 57; Resp 18; Pulse Ox 97% on R/A; ph 12:54 BP 129 / 73; Pulse 57; Resp 18; Temp 97.8; Pulse Ox 98% on R/A; ph ED Course: 07:59 Patient arrived in ED. aa5 08:00 Brittanie Cook PA-C is PHCP. sb4 08:00 Mendoza Mott DO is Attending Physician. sb4 08:00 Arm band placed on. aa5 08:01 Triage completed. aa5 09:23 Latrice Rodriguez, RN is Primary Nurse. ph 09:30 Initial lab(s) drawn, by me, sent to lab. Inserted saline lock: 22 gauge in right ph antecubital area, using aseptic technique. Blood collected. Flushed with 10 mL NS. 09:50 CT Abd/Pelvis - IV Contrast Only In Process Unspecified. EDMS 12:56 Patient has correct armband on for positive identification. Bed in low position. Call ph light in reach. Side rails up X2. topographical engineer on. Pulse ox on. NIBP on. Door closed. Noise minimized. Warm blanket given. 13:41 Davion King MD is Referral Physician. sb4 14:31 Provided Education on: POC. Verbalized understanding.. me1 14:31 No provider procedures requiring assistance completed. IV discontinued, intact, me1 bleeding controlled, No redness/swelling at site. Pressure dressing applied. Administered Medications: 09:28 Not Given (Physician Discretion): TORadol - [id number] mg IVP once sb4 10:02 Drug: Ondansetron IVP 4 mg IVP once; over 2 minutes Route: IVP; Site: right antecubital;ph 14:23 Follow up: Response: No adverse reaction; Nausea is decreased me1 10:03 Drug: NS 0.9% IV 1000 ml IV at 1 bolus Per protocol; to be given as a bolus over 60 ph minutes Route: IV; Rate: 1 bolus; Site: right antecubital; 14:23 Follow up: IV Status: Completed infusion me1 11:10 Drug: Meclizine PO 12.5 mg PO once Route: PO; ph 14:23 Follow up: Response: No adverse reaction me1 12:54 Drug: Meclizine PO 25 mg PO once Route: PO; ph 14:23 Follow up: Response: No adverse reaction; Marked relief of symptoms me1 Medication: 14:31 VIS not applicable for this client. me1 Outcome: 13:41 Discharge ordered by . sb4 14:31 Discharged to home via wheelchair, by [employer] me1 14:31 Condition: stable 14:31 Discharge instructions given to patient, Instructed on discharge instructions, follow up and referral plans. Demonstrated understanding of instructions, follow-up care, 14:34 Patient left the ED. me1 Signatures: Dispatcher [employer] Terri Cabrera RN RN aa5 Latrice Rodriguez RN RN ph Brittanie Cook, PAArinaC PA-C sb4 Eddleman, Susie, RN RN me1
[2024-07-03 14:53] VITALS: BP 129/73; TEMP 97.8; O2SAT 98
== END 2024-07-03 14:34 | disposition home or self-care (01) ==
LOC: ER 07:58
DX: A08.4 Viral intestinal infection, unspecified (principal); R42 Dizziness and giddiness
CPT/HCPCS: 96361; 85025; 36415; 81003; 83690; 80053; 74177; 96374; 99285; Q9967; J8597 ×2; J2405; J7030

== ENCOUNTER 2024-07-03 15:32 | Emergency (ER) | payer OTHER, MEDICARE ==
--- NOTE | 2024-07-03 16:40 | RAD REPORT ---
EXAMINATION: MRI BRAIN WITHOUT CONTRAST CLINICAL INDICATION: Female, 78 years old. worsening dizziness/vertigo TECHNIQUE: Multiplanar multisequence MR images of the brain were obtained without intravenous contras t. Unless otherwise specified, incidental findings do not require dedicated imaging follow-up. [id number]. COMPARISON: 12/02/2023 FINDINGS: INTRACRANIAL: No acute infarct identified. No significant mass effect or midline shift.No hydrocepha david. No significant white matter disease.Mild cerebral atrophy. VASCULATURE: Normal signal voids in the larger intracranial arteries and dural venous sinuses. SINUSES: The paranasal sinuses are clear.No mastoid effusions. BONE: The marrow signal pattern is within normal limits. IMPRESSION: No acute intracranial abnormality. Specifically, no evidence of acute infarct.
[2024-07-03] MEDS ORDERED: ONDANSETRON 4 MG/2 ML VIAL ONE (17:15)
[2024-07-03] MEDS ORDERED: DIAZEPAM 2 MG TABLET ONE (17:15)
[2024-07-03] MEDS ORDERED: NA CHLORIDE 0.9% 1,000 ML ONE (17:15)
--- NOTE | 2024-07-03 19:30 | ER ---
Nurse's Notes [facility] Name: Eli Soliz Age: 78 yrs Sex: Female : 1945 Arrival Date: 07/03/2024 Time: 15:32 Bed 16 Private MD: Diagnosis: Vertigo;Dehydration Presentation: 07/03 15:43 Chief complaint: Patient states: Recently discharged from the ER and states that her cm10 dizziness and headache are not improving. Coronavirus screen: Client denies travel out of the [place] in the last 14 days. Ebola Screen: Patient denies travel to an Ebola-affected area in the 21 days before illness onset. Initial Sepsis Screen: Does the patient meet any 2 criteria? No. Patient's initial sepsis screen is negative. Does the patient have a suspected source of infection? No. Patient's initial sepsis screen is negative. Risk Assessment: Do you want to hurt yourself or someone else? Patient reports no desire to harm self or others. Onset of symptoms was July 03, 2024. 15:43 Method Of Arrival: Wheelchair cm10 15:43 Acuity: MYHA 3 cm10 Triage Assessment: 15:45 General: Appears in no apparent distress. uncomfortable, Behavior is calm, cooperative. cm10 Neuro: No deficits noted. Level of Consciousness is awake, alert, obeys commands, Oriented to person, place, time, situation, Appropriate for age Reports dizziness, headache. Historical: - Allergies: 15:44 PENICILLINS; cm10 - PMHx: 15:44 heart disease; Hypercholesterolemia; Hypertensive disorder; cm10 - PSHx: 15:44 Cardiac stent (1); Left torned meniscus repair; Total abdominal hysterectomy; cm10 - Immunization history:: Adult Immunizations up to date. - Infectious Disease History:: Denies. - Social history:: Smoking status: Patient denies any tobacco usage or history of. - Family history:: not pertinent. - Hospitalizations: : No recent hospitalization is reported. Screenin:23 [facility] ED Fall Risk Assessment (Adult) History of falling in the last 3 months, ph including since admission No falls in past 3 months (0 pts) Confusion or Disorientation No (0 pts) Intoxicated or Sedated No (0 pts) Impaired Gait No (0 pts) Mobility Assist Device Used No (0 pt) Altered Elimination No (0 pt) Score/Fall Risk Level 0 - 2 = Low Risk Oriented to surroundings, Maintained a safe environment, Hourly rounding (assess needs \T\ fall precautionary measures) done. Abuse screen: Denies threats or abuse. Denies injuries from another. Nutritional screening: No deficits noted. Tuberculosis screening: No symptoms or risk factors identified. Assessment: 16:21 Reassessment: Pt in MRI. ph 19:05 General: Appears in no apparent distress. comfortable. Pain: Denies pain. Neuro: Level rg5 of Consciousness is awake, alert, obeys commands, Oriented to person, place, time. Vital Signs: 15:43 BP 156 / 65; Pulse 54; Resp 16; Temp 97.6; Pulse Ox 100% on R/A; Weight 59.42 kg; cm10 Height 5 ft. 2 in. ; Pain 10/10; 18:11 BP 142 / 78; Pulse 56; Resp 18; Pulse Ox 98% on R/A; ph 19:34 BP 136 / 70; Pulse 60; Resp 17; Pulse Ox 100% on R/A; Pain 0/10; rg5 15:43 Body Mass Index 23.96 (59.42 kg, 157.48 cm) cm10 15:43 Pain Scale: Adult cm10 19:34 Pain Scale: Adult rg5 ED Course: 15:33 Patient arrived in ED. im 15:38 Logan Raza MD is Attending Physician. rn 15:44 Triage completed. cm10 15:45 Arm band placed on right wrist. Patient placed in an exam room, on a stretcher. cm10 15:46 Latrice Rodriguez, RN is Primary Nurse. ph 16:12 Brain Wo Cont MRI In Process Unspecified. EDMS 16:26 Patient has correct armband on for positive identification. Bed in low position. Call ph light in reach. Side rails up X2. Pulse ox on. NIBP on. 16:26 No provider procedures requiring assistance completed. ph 17:45 Initial lab(s) drawn, by me, sent to lab. Inserted saline lock: 22 gauge in right ph forearm, using aseptic technique. Flushed with 10 mL NS. 19:36 Provided Education on: post er care. rg5 19:36 IV discontinued, bleeding controlled, No redness/swelling at site. Pressure dressing rg5 applied. Administered Medications: 17:45 Drug: NS 0.9% IV 1000 ml IV at 1000 ml once; to be given as a bolus over 60 minutes ph Route: IV; Rate: 1000 ml; Site: right forearm; 19:00 Follow up: IV Status: Completed infusion; IV Intake: 1000ml rg5 17:45 Drug: Diazepam PO 2 mg PO once Route: PO; ph 19:00 Follow up: Response: No adverse reaction rg5 17:45 Drug: Ondansetron IVP 4 mg IVP once; over 2 minutes Route: IVP; Site: right forearm; ph 19:00 Follow up: Response: No adverse reaction rg5 19:38 Follow up: Response: No adverse reaction ph Medication: 16:26 VIS not applicable for this client. ph Intake: 19:00 IV: 1000ml; Total: 1000ml. rg5 Outcome: 19:30 Discharge ordered by . rn 19:36 Discharged to home rg5 19:36 Discharge instructions given to patient, 19:37 Condition: stable rg5 19:52 Patient left the ED. rg5 Signatures: Dispatcher [employer] EDMS Logan Raza MD MD rn Hall, Patricia RN RN Meghan Silverman Clarissa, RN RN cm10 Trae Turner RN RN rg5 Corrections: (The following items were deleted from the chart) 18:10 18:10 NS 0.9% IV 1000 ml IV at 1000 ml in right forearm ph ph 18:10 18:10 Diazepam PO 2 mg PO ph ph 18:11 18:10 Ondansetron IVP 4 mg IVP in right forearm ph ph
--- NOTE | 2024-07-03 19:30 | EDPHYS ---
Physician Documentation [facility] Name: Eli Soliz Age: 78 yrs Sex: Female : 1945 Arrival Date: 07/03/2024 Time: 15:32 Bed 16 Private MD: ED Physician Logan Raza HPI: 07/03 16:02 This 78 yrs old Female presents to ER via Wheelchair with complaints of Dizziness. rn 16:02 The patient presents with vertigo. Onset: The symptoms/episode began/occurred rn yesterday. Modifying factors: The symptoms are alleviated by nothing, the symptoms are aggravated by movement of head, standing up, changing position. Severity of symptoms: At their worst the symptoms were moderate in the emergency department the symptoms are unchanged. The patient has experienced similar episodes in the past. Patient reports having vertigo, has been having nausea and vomiting with diarrhea for 2 days now. No fever or chills. No head injury. Reports started to feel dizzy like her vertigo before. Takes meclizine and helps a little bit but did not resolve so came in for evaluation. Seen here a few hours ago with negative blood work and CT abdomen pelvis. Patient feels like had food poisoning. Patient felt better after medication and was ready to go home. Upon leaving she started to feel dizzy and vertigo once again with nausea and was scared about going home so signed in for evaluation again.. Historical: - Allergies: 15:44 PENICILLINS; cm10 - PMHx: 15:44 heart disease; Hypercholesterolemia; Hypertensive disorder; cm10 - PSHx: 15:44 Cardiac stent (1); Left torned meniscus repair; Total abdominal hysterectomy; cm10 - Immunization history:: Adult Immunizations up to date. - Infectious Disease History:: Denies. - Social history:: Smoking status: Patient denies any tobacco usage or history of. - Family history:: not pertinent. - Hospitalizations: : No recent hospitalization is reported. ROS: 16:02 Constitutional: Negative for fever, chills, and weight loss, Cardiovascular: Negative rn for chest pain, palpitations, and edema, Respiratory: Negative for shortness of breath, cough, wheezing, and pleuritic chest pain, Abdomen/GI: Positive for nausea vomiting and diarrhea Back: Negative for injury and pain, MS/Extremity: Negative for injury and deformity, Skin: Negative for injury, rash, and discoloration, Neuro: Positive for dizziness and vertigo Exam: 16:02 Constitutional: This is a well developed, well nourished patient who is awake, alert, rn hard of hearing Head/Face: Normocephalic, atraumatic. Cardiovascular: Bradycardic, regular Respiratory: No increased work of breathing, no retractions or nasal flaring. Abdomen/GI: Soft, nontender MS/ Extremity: Pulses equal, no cyanosis. Neurovascular intact. Full, normal range of motion. Equal circumference. Neuro: Awake and alert, GCS 15, oriented to person, place, time, and situation. Vital Signs: 15:43 BP 156 / 65; Pulse 54; Resp 16; Temp 97.6; Pulse Ox 100% on R/A; Weight 59.42 kg; cm10 Height 5 ft. 2 in. ; Pain 10/10; 18:11 BP 142 / 78; Pulse 56; Resp 18; Pulse Ox 98% on R/A; ph 19:34 BP 136 / 70; Pulse 60; Resp 17; Pulse Ox 100% on R/A; Pain 0/10; rg5 15:43 Body Mass Index 23.96 (59.42 kg, 157.48 cm) cm10 15:43 Pain Scale: Adult cm10 19:34 Pain Scale: Adult rg5 MDM: 15:38 Medical Screening Exam initiated rn 16:56 ED course: MRI negative. rn 19:29 Differential diagnosis: hypovolemia, idiopathic dizziness, vertigo. Data reviewed: rn vital signs, nurses notes, old medical records, radiologic studies, MRI, and as a result, I will discharge patient. Counseling: I had a detailed discussion with the patient and/or guardian regarding the historical points, exam findings, and any diagnostic results supporting the discharge/admit diagnosis, radiology results, the need for outpatient follow up, to return to the emergency department if symptoms worsen or persist or if there are any questions or concerns that arise at home. Response to treatment: the patient's symptoms have markedly improved after treatment, and as a result, I will discharge patient. ED course: Patient ambulatory without assistance around the emergency room. Patient insist that she wants to go home. Patient does not want to be observed in the hospital overnight. MRI brain negative. I have personally reviewed all of the results, including but not limited to imaging deemed necessary to safely discharge this patient at this time. All results given to and printed out for patient. I personally went over all the results with the patient and answered all questions. Patient will follow-up with PCP and or specialist as discussed. Return precautions given and understood.. 07/03 15:43 Order name: Brain Wo Cont MRI; Complete Time: 16:45 rn 07/03 15:45 Order name: IV Start; Complete Time: 18:11 rn 07/03 15:45 Order name: EKG - Nurse/Tech; Complete Time: 19:06 rn Administered Medications: 17:45 Drug: NS 0.9% IV 1000 ml IV at 1000 ml once; to be given as a bolus over 60 minutes ph Route: IV; Rate: 1000 ml; Site: right forearm; 19:00 Follow up: IV Status: Completed infusion; IV Intake: 1000ml rg5 17:45 Drug: Diazepam PO 2 mg PO once Route: PO; ph 19:00 Follow up: Response: No adverse reaction rg5 17:45 Drug: Ondansetron IVP 4 mg IVP once; over 2 minutes Route: IVP; Site: right forearm; ph 19:00 Follow up: Response: No adverse reaction rg5 19:38 Follow up: Response: No adverse reaction ph Disposition Summary: 07/03/24 19:30 Discharge Ordered Notes: Location: Home rn Problem: an ongoing problem rn Symptoms: have improved rn Condition: Stable rn Diagnosis - Vertigo rn - Dehydration rn Followup: rn - With: Private Physician - When: As needed - Reason: Recheck today's complaints, Re-evaluation by your physician Discharge Instructions: - Discharge Summary Sheet rn - Dehydration, Adult rn - Vertigo rn Forms: - Medication Reconciliation Form rn - Antibiotic hose turner - Prescription Opioid Use rn - Patient Portal Instructions rn - Leadership Thank You Letter rn Signatures: Dispatcher [employer] EDMS Logan Raza MD MD rn Hall, Patricia RN RN ph Thao Wilkinson, RN RN cm10 Trae Turner RN rg5 Corrections: (The following items were deleted from the chart) 15:43 15:43 Brain Wo Cont+MRI.RAD.BRZ ordered. EDMS EDMS
[2024-07-03 19:57] VITALS: TEMP 97.6
[2024-07-03 19:59] VITALS: BP 136/70; O2SAT 100
== END 2024-07-03 19:52 | disposition home or self-care (01) ==
LOC: ER 15:32
DX: E86.0 Dehydration (principal)
CPT/HCPCS: 96361; 70551; 96374; 99284; J2405; J7030

== ENCOUNTER 2024-12-14 19:26 | Inpatient (IN) | payer OTHER, MEDICARE ==
[2024-12-14] MEDS ORDERED: MECLIZINE HCL 12.5 MG TAB ONE (20:04)
[2024-12-14] MEDS ORDERED: NA CHLORIDE 0.9% 1,000 ML ONE (20:05)
[2024-12-14 20:34] LABS: Absolute Lymphocytes (CBC) 0.6 K/uL (0.7-4.9); Hematocrit 36.1 % (36.0-45.0); Hemoglobin 12.4 g/dL (12.0-15.0); MCH 31.5 pg (27.0-35.0); MCHC 34.3 g/dL (32.0-36.0); MCV 91.8 fL (80-100); MPV 8.8 fL (7.6-11.3); Nucleated RBC Absolute Count 0.0 (0-0); Nucleated Red Blood Cells % 0.0 % (0-0); RBC Red Blood Cell Count 3.93 M/uL (3.86-4.86); White Blood Count 5.50 thou/uL (4.3-10.9)
[2024-12-14] MEDS ORDERED: ONDANSETRON 4 MG/2 ML VIAL ONE (20:39)
[2024-12-14 20:45] LABS: PT Prothrombin Time 12.6 SECONDS (10-13.0); PTT, Activated Partial Thromb 28.0 SECONDS (27.2-37.4); Protime INR 1.12
[2024-12-14 20:55] LABS: ALT/SGPT 22.0 U/L (13-56); AST/SGOT 20.0 U/L (15-37); Albumin 3.6 g/dL (3.4-5.0); Albumin/Globulin Ratio 1.2 (1.1-1.8); Alkaline Phosphatase 77.0 U/L (45-117); Anion Gap 11.5 mEq/L (5.0-15.0); BUN Blood Urea Nitrogen 11.0 mg/dL (7-18); Bilirubin Indirect, Calculated 0.6 mg/dL (0.2-0.8); Globulin 3.0 g/dL (2.3-3.5); Glucose Level 129.0 mg/dL (74-106); Magnesium 1.9 mg/dL (1.6-2.4); Potassium 3.5 mEq/L (3.5-5.1); Troponin High Sensitivity 9.2 pg/mL (<58.9)
--- NOTE | 2024-12-14 21:46 | RAD REPORT ---
EXAM: CT brain without contrast HISTORY: DIZZINESS COMPARISON: None TECHNIQUE: Multiple contiguous axial images were obtained and a CT of the brain without contrast. Sag ittal and coronal reformats were performed. One or more of the following dose reduction techniques were used: Automated exposure control, adjust ment of the mA and/or kV according to patient size, and/or iterative reconstruction. FINDINGS: No evidence of hydrocephalus, intracranial hemorrhage, or extra-axial fluid collection. The brain is normal in morphology. No evidence of midline shift or areas of brain edema. The calvarium is intact. Mild left mastoid effusion. IMPRESSION: No evidence of acute intracranial abnormality.
--- NOTE | 2024-12-14 21:51 | RAD REPORT ---
EXAMINATION: CT ABDOMEN AND PELVIS WITH CONTRAST CLINICAL INDICATION: diarrhea TECHNIQUE: CT abdomen and pelvis was performed, after the administration of IV contrast, as per [facility] protocol. Axial, sagittal and coronal reconstructions were obtained. One or more of the following dose reduction techniques were used: Automated exposure control, adjustment of the mA and k V according to patient size, and iterative reconstruction. Unless otherwise specified, incidental findings do not require dedicated imaging follow-up. COMPARISON: 07/03/2024 FINDINGS: LOWER CHEST: Mild linear atelectasis in both lung bases. Small hiatal hernia. LIVER: Mild fatty liver is present. 4 cm benign cyst medial right lobe of the liver. No biliary tree dilatation. Grossly unremarkable gallbladder. SPLEEN: Normal size. No focal lesion. PANCREAS: No mass, ductal dilation, or denisa-pancreatic fluid. ADRENALS: Normal; no mass. KIDNEYS: Normal size and contour. No hydronephrosis. GASTROINTESTINAL TRACT: No evidence of free air, significant intra-abdominal free fluid, bowel obstru ction or abscess. Moderate stool retention right colon and rectum. Mild wall thickening of the left colon. APPENDIX: Normal appendix. LYMPH NODES: No lymphadenopathy. MUSCULOSKELETAL: Mild degenerative levoscoliosis lumbar spine. ADDITIONAL FINDINGS: Distended urinary bladder. IMPRESSION: Mild left-sided colitis pattern possible. Colon is incompletely assessed due to under distention, how ever.
--- NOTE | 2024-12-14 22:02 | RAD REPORT ---
EXAMINATION: CTA HEAD CLINICAL INDICATION: DIZZINESS TECHNIQUE: Axial CT images were obtained through the head after intravenous contrast utilizing angiog raphic protocol with 3D post-processing (maximum intensity projection images, volume rendered images and/or shaded surface rendered images). One or more of the following dose reduction technique s were used: Automated exposure control, adjustment of the mA and/or kV according to patient size, and/or iterative reconstruction. Unless otherwise specified, incidental findings do not require dedic ated imaging follow-up. COMPARISON: No prior exam. FINDINGS: ICA: The petrous, cavernous, and supraclinoid segments of the bilateral internal carotid arteries are normal. The ophthalmic artery origins are visualized and normal. The posterior communicating arteries are patent. WESTON: Anterior cerebral arteries are normal bilaterally. The anterior communicating artery is patent. MCA: Middle cerebral arteries are normal bilaterally. BINDERY ASSISTANT: Posterior cerebral arteries are normal bilaterally. Vertebrobasilar: The right vertebral artery is diminutive likely terminates in PICA, normal variant. The basilar artery is normal in appearance. 3D images confirm these findings. IMPRESSION: No significant flow abnormality is identified.
--- NOTE | 2024-12-14 22:05 | RAD REPORT ---
EXAMINATION: CTA NECK CLINICAL INDICATION: dizziness TECHNIQUE: Axial CT images were obtained from the aortic arch to the skull base after intravenous con trast utilizing angiographic protocol with 3D post-processing (maximum intensity projection images, volume rendered images and/or shaded surface rendered images). One or more of the following dose redu ction techniques were used: Automated exposure control, adjustment of the mA and/or kV according to patient size, and/or iterative reconstruction. Unless otherwise specified, incidental findings do not require dedicated imaging follow-up. COMPARISON: No prior exam. FINDINGS: AORTA: The imaged aortic arch is normal. CCA: The common carotid arteries are patent and normal in caliber. ICA/ECA: Bilateral internal and external carotid arteries are patent. There is no significant interna l carotid artery stenosis. VERTEBRAL: The cervical vertebral arteries are patent. Left vertebral artery is dominant. SOFT TISSUE: No significant neck soft tissue abnormalities. The visualized lung apices are clear. 3D images confirm these findings. IMPRESSION: No significant flow abnormality of the neck vessels is identified. NASCET criteria used. Mild 0-49% stenosis Moderate 50-69% stenosis Severe 70-99% stenosis
--- NOTE | 2024-12-14 22:12 | ER ---
Nurse's Notes [facility] Name: Eli Soliz Age: 79 yrs Sex: Female : 1945 Arrival Date: 12/14/2024 Time: 19:26 Bed 13 Private MD: Diagnosis: Left sided colitis without complications;Vertigo Presentation: 12/14 19:30 Chief complaint: EMS states: pt been feeling dizzy since 1400 today. complaining of ss12 nausea/vomiting and diarrhea. Coronavirus screen: Client denies travel out of the [place] in the last 14 days. Ebola Screen: Patient negative for fever greater than or equal to 101.5 degrees Fahrenheit, and additional compatible Ebola Virus Disease symptoms Patient denies exposure to infectious person. Patient denies travel to an Ebola-affected area in the 21 days before illness onset. Initial Sepsis Screen: Does the patient meet any 2 criteria? No. Patient's initial sepsis screen is negative. Does the patient have a suspected source of infection? No. Patient's initial sepsis screen is negative. Risk Assessment: Do you want to hurt yourself or someone else? Patient reports no desire to harm self or others. Onset of symptoms was December 14, 2024 at 14:00. 19:30 Method Of Arrival: EMS: [facility] 20:36 Acuity: MYAH 3 ss12 Triage Assessment: 19:30 General: Appears in no apparent distress. comfortable, Behavior is calm, cooperative, ss12 quiet. Pain: Denies pain. EENT: No deficits noted. No signs and/or symptoms were reported regarding the EENT system. Neuro: No deficits noted. Level of Consciousness is awake, alert, obeys commands, Oriented to person, place, time, situation. Cardiovascular: No deficits noted. Reports nausea, vomiting, Denies chest pain. Respiratory: No deficits noted. Airway is patent Respiratory effort is even, unlabored, Respiratory pattern is regular, symmetrical. GI: Abdomen is flat, non-distended, Reports diarrhea, nausea, vomiting. : No deficits noted. No signs and/or symptoms were reported regarding the genitourinary system. Derm: No deficits noted. Skin is intact, Skin is dry, Skin is pale. Musculoskeletal: No deficits noted. No signs and/or symptoms reported regarding the musculoskeletal system. Historical: - Allergies: 19:30 PENICILLINS; ss12 - Home Meds: 19:30 Metoprolol Tartrate 12.5 Oral 0.5 tabs daily [Active]; zolpidem 5 mg oral tablet 1 tab ss12 every day at bedtime [Active]; cephalexin 250 mg Oral capsule 1 cap [Active]; aspirin 81 mg oral tablet 1 tab daily [Active]; Claritin Oral [Active]; Probiotic oral [Active]; multivitamin oral tablet 1 tab daily [Active]; - PMHx: 19:30 heart disease; Hypercholesterolemia; Hypertensive disorder; ss12 - PSHx: 19:30 Cardiac stent (1); Left torned meniscus repair; Total abdominal hysterectomy; ss12 - Immunization history:: Adult Immunizations up to date. - Infectious Disease History:: Denies. - Family history:: not pertinent. - Hospitalizations: : No recent hospitalization is reported. - Social history:: Smoking status: Patient denies any tobacco usage or history of. Screenin:45 [facility] ED Fall Risk Assessment (Adult) History of falling in the last 3 months, ss12 including since admission No falls in past 3 months (0 pts) Confusion or Disorientation No (0 pts) Intoxicated or Sedated No (0 pts) Impaired Gait No (0 pts) Mobility Assist Device Used No (0 pt) Altered Elimination No (0 pt) Score/Fall Risk Level 0 - 2 = Low Risk Oriented to surroundings, Maintained a safe environment, Educated pt \T\ family on fall prevention, incl call for assistance when getting out of bed, Assessed \T\ reinforced patient's understanding of fall precautions. Abuse screen: Denies threats or abuse. Denies injuries from another. Nutritional screening: No deficits noted. Tuberculosis screening: No symptoms or risk factors identified. Assessment: 19:30 Reassessment: see triage assessment. ss12 20:30 Reassessment: Patient appears in no apparent distress at this time. Patient and/or ss12 family updated on plan of care and expected duration. Pain level reassessed. Patient is alert, oriented x 3, equal unlabored respirations, skin warm/dry/pink. 20:36 Reassessment: Patient appears in no apparent distress at this time. Patient and/or ss12 family updated on plan of care and expected duration. Pain level reassessed. Patient is alert, oriented x 3, equal unlabored respirations, skin warm/dry/pink. Cardiovascular: Rhythm is sinus bradycardia. Cardiovascular: Rhythm is sinus rhythm. 21:15 Reassessment: Patient appears in no apparent distress at this time. Patient and/or ss12 family updated on plan of care and expected duration. Pain level reassessed. Patient is alert, oriented x 3, equal unlabored respirations, skin warm/dry/pink. 22:20 Reassessment: Patient appears in no apparent distress at this time. Patient and/or ss12 family updated on plan of care and expected duration. Pain level reassessed. Patient is alert, oriented x 3, equal unlabored respirations, skin warm/dry/pink. 23:30 Reassessment: Patient appears in no apparent distress at this time. Patient and/or ss12 family updated on plan of care and expected duration. Pain level reassessed. Patient is alert, oriented x 3, equal unlabored respirations, skin warm/dry/pink. 12/15 01:41 Reassessment: Patient appears in no apparent distress at this time. Patient and/or ss12 family updated on plan of care and expected duration. Pain level reassessed. Patient is alert, oriented x 3, equal unlabored respirations, skin warm/dry/pink. Vital Signs: 12/14 19:30 BP 139 / 73; Pulse 64; Resp 16; Temp 98.6; Pulse Ox 99% on R/A; ss12 20:30 BP 145 / 69; Pulse 56; Resp 16 S; Pulse Ox 100% on R/A; ss12 20:37 Weight 58.06 kg; Height 5 ft. 2 in. ; ss12 21:15 BP 148 / 67; Pulse 60; Resp 16 S; Pulse Ox 100% on R/A; ss12 20:37 Body Mass Index 23.41 (58.06 kg, 157.48 cm) ss12 Betty Coma Score: 21:15 Eye Response: spontaneous(4). Motor Response: obeys commands(6). Verbal Response: ss12 oriented(5). Total: 15. ED Course: 19:30 Patient arrived in ED. rn 19:30 Logan Raza MD is Attending Physician. rn 19:38 Grayson Galicia RN is Primary Nurse. 12 19:44 Inserted saline lock: 20 gauge in left antecubital area, using aseptic technique. Blood ss12 collected. Flushed with 10 mL NS. 20:30 Basic Metabolic Panel Sent. ss12 20:30 CBC with Diff Sent. ss12 20:30 Hepatic Function Sent. ss12 20:30 Magnesium Sent. ss12 20:30 Protime (+inr) Sent. ss12 20:30 Ptt, Activated Sent. ss12 20:30 Troponin High Sensitivity Sent. ss12 20:36 Triage completed. ss12 21:26 No provider procedures requiring assistance completed. ss12 21:26 Arm band placed on right wrist. ss12 21:26 Provided Education on: plan of care. ss12 21:27 Patient has correct armband on for positive identification. ss12 21:41 CT Head Brain wo Cont In Process Unspecified. EDMS 21:41 CT Head Angio In Process Unspecified. EDMS 21:[address] In Process Unspecified. EDMS 21:41 Abdomen In Process Unspecified. EDMS 22:11 Merlin Curtis, RN is Hospitalizing Provider. rn 12/15 03:01 Patient admitted, IV remains in place. 12 Administered Medications: 12/14 20:00 Drug: Meclizine PO 50 mg PO once Route: PO; ss12 21:00 Follow up: Response: No adverse reaction ss12 20:00 Drug: NS 0.9% IV 500 ml 500 ml IV at 1 bolus once; to be given as a bolus over 30 ss12 minutes Volume: 500 ml; Route: IV; Rate: 1 bolus; Site: left antecubital; 21:00 Follow up: IV Status: Completed infusion; IV Intake: 1000ml ss12 20:35 Drug: Ondansetron IVP 4 mg IVP once; over 2 minutes Route: IVP; Site: left antecubital; 12 23:00 Follow up: Response: No adverse reaction; Nausea is decreased ss12 23:55 Drug: metroNIDAZOLE IVPB 500 mg 100 ml IVPB at 200 ml/hr once over 30 mins Volume: 100 br2 ml; Route: IVPB; Rate: 200 ml/hr; Infused Over: 30 mins; Site: left antecubital; 12/15 01:10 Follow up: IV Status: Completed infusion; IV Intake: 100ml 12 01:10 Drug: Ciprofloxacin IVPB 400 mg 200 ml IVPB once over 60 mins Volume: 200 ml; Route: br2 IVPB; Infused Over: 60 mins; Site: left antecubital; 02:00 Follow up: IV Status: Completed infusion 12 Medication: 12/14 21:26 VIS not applicable for this client. 12 Intake: 21:00 IV: 1000ml; Total: 1000ml. 12 12/15 01:10 IV: 100ml; Total: 1100ml. 12 Outcome: 12/14 22:11 Decision to Hospitalize by Provider. rn 12/15 02:40 Condition: stable [facility] 02:58 Admitted to Med/surg accompanied by tech, via wheelchair, [facility] 03:01 Patient left the ED. [facility] Signatures: Dispatcher [employer] EDMS Logan Raza MD MD rn Riddle, Belinda RN RN br2 Grayson Galicia RN RN ss12
--- NOTE | 2024-12-14 22:12 | EDPHYS ---
Physician Documentation [facility] Name: Eli Soliz Age: 79 yrs Sex: Female : 1945 Arrival Date: 12/14/2024 Time: 19:26 Bed 13 Private MD: ED Physician Logan Raza HPI: 12/14 19:34 This 79 yrs old Female presents to ER via Unassigned with complaints of dizziness. rn 19:34 Patient reports dizziness, nausea, vomiting, diarrhea since 1:30 PM today. I just left rn her doctor's office for general checkup and UTI evaluation. Went to lunch and felt dizzy. Patient with multiple episodes of vertigo in the past and this feels similar. Denies focal neurological deficits such as weakness or numbness. No speech or vision changes. No headache. patient given Zofran by EMS. Symptoms worsen with change in head position. Patient reports at the doctor's office she was laid back in a chair rapidly and dizziness kicked in immediately.. Historical: - Allergies: 19:30 PENICILLINS; ss12 - Home Meds: 19:30 Metoprolol Tartrate 12.5 Oral 0.5 tabs daily [Active]; zolpidem 5 mg oral tablet 1 tab ss12 every day at bedtime [Active]; cephalexin 250 mg Oral capsule 1 cap [Active]; aspirin 81 mg oral tablet 1 tab daily [Active]; Claritin Oral [Active]; Probiotic oral [Active]; multivitamin oral tablet 1 tab daily [Active]; - PMHx: 19:30 heart disease; Hypercholesterolemia; Hypertensive disorder; ss12 - PSHx: 19:30 Cardiac stent (1); Left torned meniscus repair; Total abdominal hysterectomy; ss12 - Immunization history:: Adult Immunizations up to date. - Infectious Disease History:: Denies. - Family history:: not pertinent. - Hospitalizations: : No recent hospitalization is reported. - Social history:: Smoking status: Patient denies any tobacco usage or history of. ROS: 19:37 Constitutional: Negative for fever, chills, and weight loss, Neck: Negative for injury, rn pain, and swelling, Cardiovascular: Negative for chest pain, palpitations, and edema, Respiratory: Negative for shortness of breath, cough, wheezing, and pleuritic chest pain, Abdomen/GI: Positive for nausea and vomiting and diarrhea, negative for abdominal pain Back: Negative for injury and pain, MS/Extremity: Negative for injury and deformity, Skin: Negative for injury, rash, and discoloration, Neuro: Positive for dizziness and generalized weakness. No focal weakness or numbness. No seizure. No headache. Exam: 19:37 Constitutional: This is a well developed, well nourished patient who is awake, alert, rn and in no acute distress. Holding empty emesis bag Head/Face: Normocephalic, atraumatic. ENT: Dry mucous membranes Cardiovascular: Regular rate and rhythm. No pulse deficits. Respiratory: No increased work of breathing, no retractions or nasal flaring. Abdomen/GI: Soft, nontender, no peritoneal signs or masses Skin: No cyanosis MS/ Extremity: Pulses equal, no cyanosis. Neurovascular intact. Full, normal range of motion. Equal circumference. Neuro: Awake and alert, GCS 15, oriented to person, place, time, and situation. Cranial nerves II-XII grossly intact. Motor strength 4/5 in all extremities. Sensory grossly intact. 20:02 ECG was reviewed by the Attending Physician. rn Vital Signs: 19:30 BP 139 / 73; Pulse 64; Resp 16; Temp 98.6; Pulse Ox 99% on R/A; ss12 20:30 BP 145 / 69; Pulse 56; Resp 16 S; Pulse Ox 100% on R/A; ss12 20:37 Weight 58.06 kg; Height 5 ft. 2 in. ; ss12 21:15 BP 148 / 67; Pulse 60; Resp 16 S; Pulse Ox 100% on R/A; ss12 20:37 Body Mass Index 23.41 (58.06 kg, 157.48 cm) ss12 [place] Coma Score: 21:15 Eye Response: spontaneous(4). Motor Response: obeys commands(6). Verbal Response: ss12 oriented(5). Total: 15. MDM: 19:30 Medical Screening Exam initiated rn 22:10 Differential diagnosis: CVA, hypovolemia, idiopathic dizziness, near-syncope, TIA, rn vertigo, Dehydration, colitis, weakness. Data reviewed: vital signs, nurses notes, lab test result(s), EKG, radiologic studies, CT scan, and as a result, I will admit patient. Consideration of Admission/Observation Patient was admitted/placed on observation. Escalation of care including admission/observation considered. Management of patient was discussed with the following: Hospitalist: Discussed case with hospitalist, will admit. Independent interpretation of the following test(s) in the Emergency Department CT Scan: My interpretation is CT head images negative for acute hemorrhage per my interpretation. Care significantly affected by the following chronic conditions: Hypertension, Vertigo. Counseling: I had a detailed discussion with the patient and/or guardian regarding the historical points, exam findings, and any diagnostic results supporting the discharge/admit diagnosis, lab results, radiology results, the need for further work-up and treatment in the hospital. Response to treatment: the patient's symptoms have mildly improved after treatment, and as a result, I will admit patient. 12/14 19:32 Order name: Basic Metabolic Panel; Complete Time: 21: rn 12/14 19:32 Order name: CBC with Diff; Complete Time: 20:37 rn 12/14 19:32 Order name: Hepatic Function; Complete Time: 21:12/14 19:32 Order name: Magnesium; Complete Time: 21:12/14 19:32 Order name: Protime (+inr); Complete Time: 21:12/14 19:32 Order name: Ptt, Activated; Complete Time: 21:12/14 19:32 Order name: Troponin High Sensitivity; Complete Time: 21:12/14 19:35 Order name: UA Rfx Jorje Cult if indicated; Complete Time: 00:11 rn 12/14 19:32 Order name: CT Head Brain wo Cont; Complete Time: 21:57 rn 12/14 19:32 Order name: CT Head Angio; Complete Time: 22:06 rn 12/14 19:32 Order name: Neck Angio CT; Complete Time: 22:12/14 21:36 Order name: Abdomen ; Complete Time: 21:57 EDMS 12/14 19:32 Order name: Cardiac monitoring; Complete Time: 20:30 12/14 19:32 Order name: EKG - Nurse/Tech; Complete Time: 20:30 rn 12/14 19:32 Order name: IV Saline Lock; Complete Time: 20:30 12/14 19:32 Order name: Labs collected and sent; Complete Time: 20:30 12/14 19:32 Order name: NPO; Complete Time: 20:30 rn 12/14 19:32 Order name: O2 Per Protocol; Complete Time: 20:30 rn 12/14 19:32 Order name: O2 Sat Monitoring; Complete Time: 20:30 rn EC:02 Rate is 56 beats/min. Rhythm is regular. QRS [place] is Normal. [place] interval is normal. QRS rn interval is normal. QT interval is normal. No Q waves. T waves are Normal. No ST changes noted. Clinical impression: Sinus bradycardia. Interpreted by me. Reviewed by me. Administered Medications: 20:00 Drug: Meclizine PO 50 mg PO once Route: PO; ss12 21:00 Follow up: Response: No adverse reaction ss12 20:00 Drug: NS 0.9% IV 500 ml 500 ml IV at 1 bolus once; to be given as a bolus over 30 ss12 minutes Volume: 500 ml; Route: IV; Rate: 1 bolus; Site: left antecubital; 21:00 Follow up: IV Status: Completed infusion; IV Intake: 1000ml ss12 20:35 Drug: Ondansetron IVP 4 mg IVP once; over 2 minutes Route: IVP; Site: left antecubital; ss12 23:00 Follow up: Response: No adverse reaction; Nausea is decreased ss12 23:55 Drug: metroNIDAZOLE IVPB 500 mg 100 ml IVPB at 200 ml/hr once over 30 mins Volume: 100 br2 ml; Route: IVPB; Rate: 200 ml/hr; Infused Over: 30 mins; Site: left antecubital; 12/15 01:10 Follow up: IV Status: Completed infusion; IV Intake: 100ml ss12 01:10 Drug: Ciprofloxacin IVPB 400 mg 200 ml IVPB once over 60 mins Volume: 200 ml; Route: br2 IVPB; Infused Over: 60 mins; Site: left antecubital; 02:00 Follow up: IV Status: Completed infusion ss12 Disposition Summary: 12/14/24 22:11 Hospitalization Ordered Notes: Hospitalization Status: Observation rn Provider: Merlin Curtis [facility]n [facility] rn Condition: Stable rn Problem: new rn Symptoms: have improved rn Bed/Room Type: Standard rn Room Assignment: 222(12/15/24 01:26) vk Diagnosis - Left sided colitis without complications rn - Vertigo rn Forms: - Medication Reconciliation Form rn - SBAR form rn - Leadership Thank You Letter rn Signatures: Dispatcher [employer] EDMS Logan Raza MD MD rn Kruse, Vivian vk Riddle, Belinda, RN RN br2 Grayson Galicia RN RN ss12 Corrections: (The following items were deleted from the chart) 12/14 19:33 19:33 BASIC METABOLIC PANEL+C.LAB.BRZ ordered. EDMS EDMS 19:33 19:33 CBC+H.LAB.BRZ ordered. EDMS EDMS 19:33 19:33 HEPATIC FUNCTION+C.LAB.BRZ ordered. EDMS EDMS 19:33 19:33 MAGNESIUM+C.LAB.BRZ ordered. EDMS EDMS 19:33 19:33 PROTIME (+INR)+COAG.LAB.BRZ ordered. EDMS EDMS 19:33 19:33 PTT, ACTIVATED+COAG.LAB.BRZ ordered. EDMS EDMS 19:33 19:33 Troponin High Sensitivity+C.LAB.BRZ ordered. EDMS EDMS 19:33 19:33 Head Brain Wo Cont+CT.RAD.BRZ ordered. EDMS EDMS 19:33 19:33 Abdomen Pelvis Wo Con+CT.RAD.BRZ ordered. EDMS EDMS 19:33 19:33 Head Angio+CT.RAD.BRZ ordered. EDMS EDMS 19:33 19:33 Neck Angio+CT.RAD.BRZ ordered. EDMS EDMS 19:37 19:34 Patient reports dizziness, nausea, vomiting, diarrhea since 1:30 PM today. I just rn left her doctor's office for general checkup and UTI evaluation. Went to lunch and felt dizzy.. rn 19:39 19:34 Patient reports dizziness, nausea, vomiting, diarrhea since 1:30 PM today. I just rn left her doctor's office for general checkup and UTI evaluation. Went to lunch and felt dizzy. Patient with multiple episodes of vertigo in the past and this feels similar. Denies focal neurological deficits such as weakness or numbness. No speech or vision changes. No headache. patient given Zofran by EMS.. rn 12/15 01:26 12/14 22:11 vazquez vines
[2024-12-14] MEDS ORDERED: CIPROFLOXACIN 400mg IV 400 MG/200 ML BAG IV ONE (22:35)
[2024-12-14] MEDS ORDERED: METRONIDAZOLE 500mg IVPB 500 MG/100 ML BAG IV ONE (22:36)
[2024-12-15 00:09] LABS: Urine Microscopic Reflex YN NO UMIC
[2024-12-15] MEDS ORDERED: ACETAMINOPHEN 325 MG TABLET PO PRN (01:23)
[2024-12-15] MEDS ORDERED: ONDANSETRON 4 MG/2 ML VIAL IV PRN (01:23)
[2024-12-15] MEDS: NA CHLORIDE 0.9% 1,000 ML IV SCH (03:21)
[2024-12-15] MEDS: ZOLPIDEM TARTRATE 5 MG TABLET PO PRN (03:22)
[2024-12-15] MEDS: METOPROLOL XL 25 MG TAB PO SCH (05:41)
[2024-12-15 07:30] VITALS: O2SAT 100
--- NOTE | 2024-12-15 07:57 | P.HP ---
Certification for Inpatient Patient admitted to: Inpatient With expected LOS: >2 Midnights Patient will require the following post-hospital care: None Practitioner: I am a practitioner with admitting privileges, knowledge of patient current condition, hospital course, and medical plan of care. Services: Services provided to patient in accordance with Admission requirements found in Title 42 Section 412.3 of the Code of Federal Regulations Patient History Date of Service: 12/15/24 Reason for admission: Colitis, dizziness, abdominal pain. History of Present Illness: Patient is a pleasant 79-year-old female with past medical history of vertigo, essential hypertension, insomnia, who presents to the ER today complaining of dizziness, vertigo, and abdominal pain. Patient states she went to see her PCP today, while she was at the clinic, she had dizziness after sitting down suddenly in the chair. Patient states after she left the clinic and went home, her dizziness continued, prompting her to report to the ER. States she had no syncope incident. Patient states she has history of dizziness and vertigo, but states her symptoms today were more profound. Denies of any shortness of breath, chest pain, nausea or vomiting, headaches, endorses abdominal pain. Patient states she recently had colonoscopy due to her abdominal pain on the left side, states she was diagnosed with colitis. She states she was not prescribed any antibiotics after the procedure. Patient states her abdominal pain has continued, and states it has progressively worsening with more abdominal pain with no associated nausea or vomiting. Allergies Penicillins Allergy (Verified 12/15/24 01:56) Itching/Hives/Rash Home Medications: Aspirin 81 mg PO DAILY 12/15/24 Loratadine [Claritin] 10 mg PO DAILY 12/15/24 Metoprolol Tartrate [Lopressor] 12.5 mg PO DAILY 12/15/24 Zolpidem Tartrate [Ambien] 10 mg PO BEDTIME 12/15/24 - Past Medical/Surgical History Has patient received pneumonia vaccine in the past: Yes - Social History Smoking Status: Never smoker Alcohol use: No CD- Drugs: No Caffeine use: No Place of Residence: Home Review of Systems 10-point ROS is otherwise unremarkable General: Other (Dizziness and vertigo) Gastrointestinal: Abdominal Pain Physical Examination - Vital Signs Temperature: 98.6 F Blood Pressure: 148/67 Pulse: 60 Respirations: 16 Pulse Ox (%): 94 - Physical Exam General: Alert, In no apparent distress, Oriented x3, Cooperative HEENT: Atraumatic, Normocephalic, PERRLA, Mucous membr. moist/pink Neck: Supple, No LAD, Without JVD or thyroid abnormality Respiratory: Clear to auscultation bilaterally, Normal air movement Cardiovascular: No edema, Normal pulses, Regular rate/rhythm, Normal S1 S2, Abnormal S3, No gallops, No rubs, No murmurs Capillary refill: <2 Seconds Gastrointestinal: Normal bowel sounds, Soft and benign, Non-distended, W/out hepatomegaly, No ascites, No tenderness, No masses, No rebound, No guarding Musculoskeletal: No clubbing, No swelling, No contractures, No erythema, No tenderness, No warmth Integumentary: No rashes, No breakdown, No significant lesion, No tenderness/swelling, No erythema, No warmth, No cyanosis Neurological: Normal gait, Normal speech, Normal strength at 5/5 x4 extr, Normal tone, Sensation intact, Cranial nerves 3-12 intact, Normal reflexes 2+, Normal affect Lymphatics: No axilla or inguinal lymphadenopathy - Studies Laboratory Data (last 24 hrs) 12/14/24 12/14/24 12/14/24 20:15 20:15 20:15 WBC 5.50 Hgb 12.4 Hct 36.1 Plt Count 178 PT 12.6 INR 1.12 APTT 28.0 Sodium 134 L Potassium 3.5 BUN 11 Creatinine 0.79 Glucose 129 H Magnesium 1.9 Total Bilirubin 0.8 AST 20 ALT 22 Alkaline Phosphatase 77 Female Exam - Breasts Breasts: Normal configuration Assessment and Plan - Plan Patient is admitted with diagnosis of colitis, dizziness and vertigo. (1)Colitis. Patient states she was recently diagnosed with colitis after a colonoscopy procedure. Patient states the pain has progressively worsening. -Flagyl 250 mg IV every 8 hours. -Cipro 20 mg IV every 12 hours. (2)Dizziness and vertigo. - Meclizine 25 mg p.o. as needed every 6 hours. -Order an echocardiogram to rule out any cardiac related disease that may be causing patient dizziness and fatigue. (3Chronic essential hypertension. -Metoprolol XL 25 mg p.o. daily. (4)Explained the entire treatment plan to the patient, solicit questions answered and voiced understanding. Discharge Plan: Home Plan to discharge in: Greater than 2 days - Advance Directives Does patient have a Living Will: Yes Does patient have a Durable POA for Healthcare: Yes - Code Status/Comfort Care Code Status Assessed: Yes Code Status: Do Not Attempt Resuscitat (Patient has opted to be a DNR/DNI per) Critical Care: No Time Spent Managing Pts Care (In Minutes): 55
[2024-12-15] MEDS ORDERED: METRONIDAZOLE 250mg IVPB 250 MG/50 ML BAG IV SCH (08:00)
--- NOTE | 2024-12-15 08:23 | P.PN ---
Date of Service: 12/15/24 Subjective: still feeling dizzy much better than yesterday - much closer to her usual vertigo no BM, reports some loose stool at home, dealing with constipation chronically Physical Exam: GEN: Alert, oriented, NAD CV: Regular rate and rhythm, no edema Pulm: Nonlabored respirations on room air, clear bilaterally ABD: soft, nontender, nondistended Neuro: Normal speech, normal affect Problem List: Dizziness Chronic BPPV Abdominal Pain Stool retention, h/o IBS- constipation Hypertension Hyperlipidemia Hx of colon polyps Hx esophageal stricture s/p dilation Hx of CAD s/p PCI Dizziness Chronic BPPV On admission, presents with dizziness, vertigo associated with abdominal pain. She was seen by PCP prior to admission and had episode of dizziness when sitting down suddenly and again after going home. Denies syncope. States she has a history of chronic BPPV but symptoms today were more profound. Denies chest pain or SOB. CT head (12/14): negative for any acute findings. Noted mild left mastoid effusion. CTA head/neck (12/14): negative for any acute findings. Labs normal. Vitals stable. PRN meclizine Abdominal Pain Stool retention, h/o IBS- constipation Reports ongoing abdominal pain for > 1 month. Had colonoscopy on 11/28 which noted sigmoid diverticulosis, fecal retention Given Linzess 72mcg without no improvement in symptoms despite increasing dosage. No abx given after procedure. Has follow up in Jan with GI to discuss path results, further management CT abdomen (12/14): Moderate stool retention right colon and rectum. Mild wall thickening of the left colon. APPENDIX: Normal appen. Distended urinary bladder. Mild fatty liver. 4cm benign cyst medial right lobe of liver. no clear evidence of infection, suspect colonic wall thickening secondary to chronic constipation empiric cipro/flagyl started in ED/ on admission; will continue for now pain control, antiemetics Labs unremarkable. UA ok Hypertension Hyperlipidemia Hx of colon polyps Hx esophageal stricture s/p dilation Hx of CAD s/p PCI confirm home meds, restart as appropriate resume home metoprolol VTE: Lovenox Code: DNR Dispo: Home, ~24 hrs Pending dizziness and abdominal pain improve Time Spent Managing Pts Care (In Minutes): 55
[2024-12-15] MEDS: Ciprofloxacin 200mg IV 200 MG/100 ML IV.SOLN. IV SCH (10:00)
[2024-12-15] MEDS: ENOXAPARIN 40 MG/0.4 ML SQ SCH (10:02)
[2024-12-15] MEDS: METRONIDAZOLE 500mg IVPB 500 MG/100 ML BAG IV SCH (10:03)
[2024-12-15] MEDS: MECLIZINE HCL 12.5 MG TAB PO PRN (10:05)
--- NOTE | 2024-12-15 13:56 | ECHO ---
HEIGHT: 5 ft 2 in WEIGHT: 128 lb 0 oz DATE OF STUDY: 12/15/[address]: Merlin Curtis NP 2-DIMENSIONAL: YES M.MODE: YES DOPPLER: YES COLOR FLOW: YES TDS: PORTABLE: YES DEFINITY: BUBBLE STUDY: DIAGNOSIS: DIZZINESS/ FATIGUE CARDIAC HISTORY: CATHERIZATION: SURGERY: PROSTHETIC VALVE: PACEMAKER: MEASUREMENTS (cm) DIASTOLIC (NORMALS) SYSTOLIC (NORMALS) IVSd 1.2 (0.6-1.2) LA Diam 2.9 (1.9-4.0) LVEF 55-60% LVIDd 3.7 (3.5-5.7) LVIDs 2.5 (2.0-3.5) %FS 33% LVPWd 1.0 (0.6-1.2) Ao Diam 2.8 (2.0-3.7) 2 DIMENSIONAL ASSESSMENT: RIGHT ATRIUM: NORMAL LEFT ATRIUM: NORMAL RIGHT VENTRICLE: NORMAL LEFT VENTRICLE: NORMAL TRICUSPID VALVE: MODERATELY TRICUSPID REGURGITATION MITRAL VALVE: LEFT VENTRICULAR HYPERTROPHY PULMONIC VALVE: MILD PULMONIC INSUFFICIENCY AORTIC VALVE: MITRAL ANNULAR CALCIFICATION WITH MILD MITRAL REGURGITATION PERICARDIAL EFFUSION: NONE AORTIC ROOT: NORMAL LEFT VENTRICULAR WALL MOTION: NORMAL DOPPLER/COLOR FLOW: SEE BELOW COMMENTS: 1. NORMAL LEFT VENTRICULAR EJECTION FRACTION 55-60% 2. NORMAL WALL MOTION 3. DIASTOLIC DYSFUNCTION 4. MODERATE TRICUSPID REGURGITATION TECHNOLOGIST: JOVANNY ELLIS
[2024-12-16 03:06] VITALS: BMI 23.3
[2024-12-16 05:46] LABS: Absolute Lymphocytes (CBC) 1.7 K/uL (0.7-4.9); Hematocrit 33.2 % (36.0-45.0); Hemoglobin 11.6 g/dL (12.0-15.0); MCH 32.7 pg (27.0-35.0); MCHC 35.0 g/dL (32.0-36.0); MCV 93.5 fL (80-100); MPV 9.1 fL (7.6-11.3); Nucleated RBC Absolute Count 0.0 (0-0); Nucleated Red Blood Cells % 0.1 % (0-0); RBC Red Blood Cell Count 3.55 M/uL (3.86-4.86); White Blood Count 4.00 thou/uL (4.3-10.9)
[2024-12-16 06:07] LABS: ALT/SGPT 17.0 U/L (13-56); AST/SGOT 13.0 U/L (15-37); Albumin 2.9 g/dL (3.4-5.0); Albumin/Globulin Ratio 1.2 (1.1-1.8); Alkaline Phosphatase 59.0 U/L (45-117); Anion Gap 8.8 mEq/L (5.0-15.0); BUN Blood Urea Nitrogen 12.0 mg/dL (7-18); Globulin 2.5 g/dL (2.3-3.5); Glucose Level 104.0 mg/dL (74-106); Magnesium 1.9 mg/dL (1.6-2.4); Potassium 3.8 mEq/L (3.5-5.1)
[2024-12-16] MEDS ORDERED: FLEET ENEMA ADULT PR PRN (06:49)
[2024-12-16] MEDS: POTASSIUM CL SA 10 MEQ TAB PO ONE (07:48)
[2024-12-16 07:52] VITALS: BP 149/71; TEMP 98
[2024-12-16] MEDS: MAGNESIUM CITRATE 300 ML BOT PO PRN (07:58)
--- NOTE | 2024-12-16 11:21 | P.DS ---
Admission Date: 12/15/24 Discharge Date: 12/16/24 Reason for Admission: Colitis, dizziness, abdominal pain. Brief History of Present Illness: 79yo F, PMH: vertigo, essential hypertension, insomnia, Patient presents to the ER today complaining of dizziness, vertigo, and abdominal pain. Patient states she went to see her PCP today, while she was at the clinic, she had dizziness after sitting down suddenly in the chair. Patient states after she left the clinic and went home, her dizziness continued, prompting her to report to the ER. States she had no syncope incident. Patient states she has history of dizziness and vertigo, but states her symptoms today were more profound. Denies of any shortness of breath, chest pain, nausea or vomiting, headaches, endorses abdominal pain. Patient states she recently had colonoscopy due to her abdominal pain on the left side, states she was diagnosed with colitis. She states she was not prescribed any antibiotics after the procedure. Patient states her abdominal pain has continued, and states it has progressively worsening with more abdominal pain with no associated nausea or vomiting. 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 Suspect dizziness secondary to chronic BPPV flare up. She states she was seen by PCP prior to admission and had episode of dizziness when sitting down suddenly and again after going home so she came here for further evaluation. No syncope. Labwork on admission was unremarkable. CT head was negative for any acute findings. CTA head and neck were negative. Echo showed normal EF and normal wall motion, diastolic dysfunction, moderate tricuspid regurgitation. No findings to warrant further work up. In regards to her abdominal pain and nausea, CT abdomen on admission showed mild left-sided colitis pattern, moderate stool retention, distended urinary bladder, mild fatty liver, 4cm benign cyst medial right lobe of liver. Suspect abdominal pain and colonic wall thickening secondary to chronic constipation. She was given IV fluids in addition to laxative/stool softener and she had improvement of her symptoms. Abdominal pain and nausea improved / resolved. Patient was also started on empiric antibiotics on admission to cover possible infectious cause mild colitis seen on CT however she did not have any fever or leukocytosis. The inflammation most likely is secondary to her chronic constipation, however we don't have any recent / prior imaging to compare. Given the uncertainty, her initial presenting symptoms, and her improvement, will send prescription for cipro/flagyl. Patient was feeling better, abdominal pain improved, nausea/vomiting resolved, dizziness improved and was deemed stable for discharge. Continue to work on having more regular bowel movements - stool softer, water intake, laxatives, diet, enema if needed. Medications: Cipro x7 days Flagyl x7 days Follow up: PCP 3-5 days Recommend following up with GI for further management as previously planned next month. Please call to schedule / confirm appointments Physical Exam: GEN: Alert, oriented, NAD CV: Regular rate and rhythm, no edema Pulm: Nonlabored respirations on room air, clear bilaterally ABD: soft, nontender, nondistended Neuro: Normal speech, normal affect Vital Signs/Physical Exam: Temp Pulse Resp BP Pulse Ox 98.0 F 55 14 149/71 H 94 12/16/24 07:52 12/16/24 07:52 12/16/24 07:52 12/16/24 07:52 12/16/24 07:52 Laboratory Data at Discharge: WBC 4.00 thou/uL (4.3-10.9) L 12/16/24 05:25 Hgb 11.6 g/dL (12.0-15.0) L 12/16/24 05:25 Hct 33.2 % (36.0-45.0) L 12/16/24 05:25 Plt Count 156 thou/uL (152-406) 12/16/24 05:25 PT 12.6 SECONDS (10-13.0) 12/14/24 20:15 INR 1.12 12/14/24 20:15 APTT 28.0 SECONDS (27.2-37.4) 12/14/24 20:15 Sodium 141 mEq/L (136-145) 12/16/24 05:25 Potassium 3.8 mEq/L (3.5-5.1) 12/16/24 05:25 BUN 12 mg/dL (7-18) 12/16/24 05:25 Creatinine 0.74 mg/dL (0.55-1.02) 12/16/24 05:25 Glucose 104 mg/dL (74-106) 12/16/24 05:25 Magnesium 1.9 mg/dL (1.6-2.4) 12/16/24 05:25 Total Bilirubin 0.3 mg/dL (0.2-1.0) 12/16/24 05:25 AST 13 U/L (15-37) L 12/16/24 05:25 ALT 17 U/L (13-56) 12/16/24 05:25 Alkaline Phosphatase 59 U/L (45-117) 12/16/24 05:25 Home Medications: Aspirin 81 mg PO DAILY 12/15/24 Loratadine [Claritin*] 10 mg PO DAILY 12/15/24 Metoprolol Tartrate [Lopressor*] 12.5 mg PO DAILY 12/15/24 Zolpidem Tartrate [Ambien*] 10 mg PO BEDTIME 12/15/24 Ciprofloxacin HCl [Cipro] 500 mg PO BID 7 Days #14 tab 12/16/24 Metronidazole 500 mg PO Q8H 7 Days #21 tab 12/16/24 New Medications: Ciprofloxacin HCl [Cipro] 500 mg PO BID 7 Days #14 tab Metronidazole 500 mg PO Q8H 7 Days #21 tab Physician Discharge Instructions: PROBLEM: Patient presented with dizziness associated with abdominal pain, nausea, vomiting. Suspect dizziness secondary to chronic BPPV flare up. She states she was seen by PCP prior to admission and had episode of dizziness when sitting down suddenly and again after going home so she came here for further evaluation. No syncope. Labwork on admission was unremarkable. CT head was negative for any acute findings. CTA head and neck were negative. Echo showed normal EF and normal wall motion, diastolic dysfunction, moderate tricuspid regurgitation. No findings to warrant further work up. In regards to her abdominal pain and nausea, CT abdomen on admission showed mild left-sided colitis pattern, moderate stool retention, distended urinary bladder, mild fatty liver, 4cm benign cyst medial right lobe of liver. Suspect abdominal pain and colonic wall thickening secondary to chronic constipation. She was given IV fluids in addition to laxative/stool softener and she had improvement of her symptoms. Abdominal pain and nausea improved / resolved. Patient was also started on empiric antibiotics on admission to cover possible infectious cause mild colitis seen on CT however she did not have any fever or leukocytosis. The inflammation most likely is secondary to her chronic constipation, however we don't have any recent / prior imaging to compare. Given the uncertainty, her initial presenting symptoms, and her improvement, will send prescription for cipro/flagyl. Patient was feeling better, abdominal pain improved, nausea/vomiting resolved, dizziness improved and was deemed stable for discharge. Continue to work on having more regular bowel movements - stool softer, water intake, laxatives, diet, enema if needed. GOAL: Clear understanding of disease process INSTRUCTIONS: Recommend following up with GI for further management as previously planned next month. Medications: Follow up: PCP 3-5 days GI as scheduled Please call to schedule / confirm appointments Diet: Activity: as tolerated IMAGING CT head, CTA neck, and CTA head were all negative for any acute findings. Echocardiogram showed 55-60% EF, normal wall motion, diastolic dysfunction, moderate tricuspid regurgitation, left ventricular hypertrophy CT abdomen/pelvis 1. Mild left-sided colitis pattern possible. Colon is incompletely assessed due to under distention, however. 2. Mild linear atelectasis in both lung bases. Small hiatal hernia 3. Mild fatty liver is present. 4. Benign cyst medial right lobe of the liver (4cm) 5. Moderate stool retention right colon and rectum. Mild wall thickening of the left colon 6. Mild degenerative levoscoliosis lumbar spine Followup: NONE,NONE [Primary Care Provider] - Time spent managing pt's care (in minutes): 45
== END 2024-12-16 11:32 | disposition home or self-care (01) | DRG 149 ==
LOC: ER 19:26 → ERHOLD 12-15 01:20 → 2ND 12-15 01:49
PROVIDERS: ADMIT Hospitalist; ATTEND Hospitalist
DX: H81.10 Benign paroxysmal vertigo, unspecified ear (principal); K51.50 Left sided colitis without complications; I10 Essential (primary) hypertension; Z66 Do not resuscitate; Z88.0 Allergy status to penicillin; Z79.899 Other long term (current) drug therapy; Z79.82 Long term (current) use of aspirin; Z79.2 Long term (current) use of antibiotics; Z95.5 Presence of coronary angioplasty implant and graft; Z90.710 Acquired absence of both cervix and uterus; I25.10 Atherosclerotic heart disease of native coronary artery without angina pectoris; Z95.1 Presence of aortocoronary bypass graft; Z86.0100 Personal history of colon polyps, unspecified; E78.5 Hyperlipidemia, unspecified; K59.09 Other constipation; I36.1 Nonrheumatic tricuspid (valve) insufficiency
CPT/HCPCS: 36415; 70450; 70496; 70498; 74177; 80048; 80053; 80076; 81003; 83735; 84484; 85025; 85610; 85730; 93005; 93306; 96361; 96365; 96367; 96375; 99285; J0744; J1650; J2405; J7030; J8597; Q9967